=== PATIENT | female | born 1960 | race African-American/Black ===

== ENCOUNTER 2017-11-03 22:33 | Inpatient (IN) | payer MEDICAID ==
[~2017-11-03] VITALS: Ht 162.6 cm; Wt 86.8 kg
[~2017-11-03 22:33] MED LIST: 1-ME1LIQ PO; ASPI81TA82 PO; CARV12.5 PO; CHLO50TA PO; FURO1TAB93 PO; GABA300C3 PO; HYDR50TA15 PO; ISOS60TA PO; LISI-357 PO; PRAV20 PO; QUET100 PO; TICA90 PO; XANA1TAB6 PO
[2017-11-03 22:34] VITALS: BP 208/92; PULSE 99; RESP 28; TEMP 98.9; O2SAT 97
[2017-11-03] MEDS ORDERED: NITROGLYCERIN 0.4 MG SL 25 TABS/BTL SL PRN (22:45)
[2017-11-03] MEDS ORDERED: NITROGLYCERIN-D5W 50 MG/250 ML 250 ML IV PRN (22:45)
[2017-11-03] MEDS ORDERED: SODIUM CHLORIDE 0.9% FLUSH 10 ML FLUSH IVF PRN (22:45)
[2017-11-03] MEDS ORDERED: RESP: ALBUTEROL 2.5 MG/IPRATROPIUM 0.5 MG NEB (SCH) INH ONE (22:45)
--- NOTE | 2017-11-03 22:55 | PD ---
HPI Chief Complaint: Respiratory Symptoms Time Seen by Provider: 22:42 Travel History International Travel<30 days: No Contact w/Intl Traveler<30days: No Traveled to known affect area: No History of Present Illness HPI The patient is a 57 year old female who presents to the [facility] emergency department with a history of chest pain and shortness of breath that began prior to arrival. The patient reports a recent history of being discharged from the hospital after 1 week admission to the hospital at [facility] related to a congestive heart failure exacerbation. The patient reports also having history of coronary artery disease with 6-7 prior stents being placed. She reports that the last stent was placed 4-5 months ago. The patient reports that she is normally on 4 L nasal cannula O2. She also has a history of COPD. The patient reports that she smokes between 6 and 7 cigarettes per day. She reports a prior history of DVT in her upper extremities. She reports that she was on Eliquis which was discontinued during her last hospitalization. She is now on 81 mg of aspirin daily along with Brilinta. She reports that her cough has been productive of a white to yellow sputum. She reports having nausea without vomiting. She reports that she did take 4 nitroglycerin prior to arrival in the ambulance services also administered 1. The patient was noted by ambulance services to be saturating 92 % on her 4 L. She was given Lasix 100 mg IV prior to arrival to you crackles in her bases. She is placed on CPAP. The patient was noted to be hypertensive with a systolic blood pressure in the 200s prior to arrival. On arrival, she reports that her chest pain has resolved. She reports having left upper extremity pain which she reports that she normally gets when she has a congestive heart failure exacerbation. On review of systems otherwise, she denies having any known recent fevers, however she has had chills. She denies having any neck pain, abdominal pain, diarrhea, urinary symptoms, or neurologic symptoms. She reports that she has been moving her bowels regularly. She reports that her lower extremity edema seem to be improving. [facility] Past Medical History Narrative Medical The patient's past medical history is significant for congestive heart failure, COPD, cerebrovascular accident, diabetes mellitus, hypertension, coronary artery disease, anxiety disorder, tobacco abuse, diabetic neuropathy. Congestive Heart Failure: Yes COPD: Yes Cerebrovascular Accident: Yes Diabetes: Yes Patient Takes Glucophage: No Hypertension: Yes Immunizations Current: Yes Myocardial Infarction: Yes Tubal Ligation: Yes Past Surgical History Narrative Surgical The patient's past surgical history is significant for cardiac catheterization with multiple stents being placed, bilateral tubal ligation, cholecystectomy Coronary Stent: Yes (6 stents) Social History Alcohol Use: No Tobacco Use: Yes (EVERYDAY ) Substance Use: No Allergies-Medications (Allergen,Severity, Reaction): Coded Allergies: iodine (Unverified Allergy, Severe, Anaphylaxis, 04/09/17) paroxetine (Unverified Allergy, Severe, Anaphylaxis, 04/09/17) penicillin G (Unverified Allergy, Severe, Anaphylaxis, 04/09/17) potassium iodide (Unverified Allergy, Severe, Anaphylaxis, 04/09/17) povidone-iodine (Unverified Allergy, Severe, Anaphylaxis, 04/09/17) sodium iodide (Unverified Allergy, Severe, Anaphylaxis, 04/09/17) sodium iodide (Unverified Allergy, Severe, Anaphylaxis, 04/09/17) Sulfa (Sulfonamide Antibiotics) (Verified Allergy, Intermediate, 11/03/17) Reported Meds & Prescriptions Reported Meds & Active Scripts Active Reported Lantus Inj (Insulin Glargine) 1,000 Unit/10 Ml Vial 10 Units SQ HS Humalog Mix 50-50 Inj (Insulin Lispro Protamine-Lispro 50-50 Inj) 1,000 Unit/10 Ml Vial 1 Units SQ Fish Oil + D3 (Fish Oil-Cholecalciferol) 1,200-1,000 Mg-Unit Cap 1 Cap PO DAILY Lasix (Furosemide) 40 Mg Tab 40 Mg PO DAILY Coreg (Carvedilol) 3.125 Mg Tab 3.125 Mg PO BID Hydrochlorothiazide 12.5 Mg Cap 12.5 Mg PO DAILY Gabapentin 100 Mg Cap 100 Mg PO TID Seroquel (Quetiapine Fumarate) 50 Mg Tab 50 Mg PO HS Aspir-81 (Aspirin) 81 Mg Tabdr Eliquis (Apixaban) 2.5 Mg Tab 2.5 Mg PO BID Review of Systems Except as stated in HPI: all other systems reviewed are Neg General / Constitutional: No: Fever Eyes: No: Visual changes HENT: Positive: Congestion, No: Headaches, Rhinorrhea Cardiovascular: Positive: Chest Pain or Discomfort, Dyspnea on exertion Respiratory: Positive: Shortness of Breath Gastrointestinal: Positive: Nausea, No: Vomiting, Diarrhea, Abdominal Pain, Changes in Bowel Habits Genitourinary: No: Dysuria Musculoskeletal: No: Pain Skin: No Rash Neurologic: No: Weakness, Focal Abnormalities, Change in Mentation, Slurred Speech, Sensory Disturbance Psychiatric: No: Depression Endocrine: No: Polydipsia Hematologic/Lymphatic: No: Easy Bruising Physical Exam Narrative General: The patient is a well-developed well-nourished female in no acute distress. Head and Neck exam: Head is normocephalic atraumatic. Eyes: EOMI, pupils are equal round and reactive to light. Nose: Midline septum with pink mucous membranes Mouth: Dentition unremarkable. Moist mucus membranes. Posterior oropharynx is not erythematous. No tonsillar hypertrophy. Uvula midline. Airway patent. Neck: No palpable lymphadenopathy. No nuchal rigidity. No thyromegaly. Cardiovascular: Regular rate and rhythm without murmurs, gallops, or rubs. Lungs: The patient had decreased breath sounds in bilateral lung bases, no rhonchi, no crackles audible. The patient has soft anterior wheezes audible. Abdomen: Soft, without tenderness to palpation in all 4 quadrants of the abdomen. No guarding, rebound, or rigidity. Normal bowel sounds are audible. No tenderness on palpation of McBurney's point. Negative Goodman sign. Extremities: No clubbing or cyanosis. The patient has 1+ edema bilateral lower extremities. No calf tenderness on palpation. 2+ pulses in all 4 extremities. Back: No costovertebral angle tenderness to palpation. Neurologic Exam: Grossly nonfocal. Skin Exam: No rash noted. Intact skin that is warm and dry. Data Data Last Documented VS Vital Signs Date Time Temp Pulse Resp B/P (MAP) Pulse Ox O2 Delivery O2 Flow Rate FiO2 11/03/17 22:41 97 28 97 Nasal Cannula 4.00 11/03/17 22:34 98.9 208/92 (130) Orders Orders Complete Blood Count With Diff (11/03/17 22:43) Comprehensive Metabolic Panel (11/03/17 22:43) B-Type Natriuretic Peptide (11/03/17 22:43) Act Partial Throm Time (Ptt) (11/03/17 22:43) Prothrombin Time / Inr (Pt) (11/03/17 22:43) Magnesium (Mg) (11/03/17 22:43) Ckmb (Isoenzyme) Profile (11/03/17 22:43) Troponin I (11/03/17 22:43) Urinalysis - C+S If Indicated (11/03/17:43) Iv Access Insert/Monitor (11/03/17:43) Electrocardiogram (11/03/17:43) Ecg Monitoring (11/03/17:43) Oximetry (11/03/17:43) Oxygen Administration (11/03/17:43) Chest, Single Ap (11/03/17:43) Urinary Catheter Insert/Apply (11/03/17:43) Sodium Chloride 0.9% Flush (Ns Flush) (11/03/17 22:45) Albuterol-Ipratropium Neb (Duoneb Neb) (11/03/17 22:45) Nitroglycerin Sl (Nitrostat Sl) (11/03/17 22:45) Nitroglycerin-D5w 50 Mg/250 Ml (Nitrogly (11/04/17 00:15) Lactic Acid Sepsis Protocol (11/04/17 00:32) Blood Culture (11/04/17 00:32) Aztreonam Inj (Azactam Inj) (11/04/17 00:32) Levofloxacin 750 Mg Premix Inj (Levaquin (11/04/17 00:32) Admit Order (Ed Use Only) (11/04/17 00:49) Labs Laboratory Tests Test 11/03/17 22:50 11/03/17 23:10 11/04/17 00:45 White Blood Count 17.6 TH/MM3 Red Blood Count 4.02 MIL/MM3 Hemoglobin 9.5 GM/DL Hematocrit 29.5 % Mean Corpuscular Volume 73.5 FL Mean Corpuscular Hemoglobin 23.6 PG Mean Corpuscular Hemoglobin Concent 32.2 % Red Cell Distribution Width 19.6 % Platelet Count 270 TH/MM3 Mean Platelet Volume 8.5 FL Neutrophils (%) (Auto) 68.8 % Lymphocytes (%) (Auto) 15.5 % Monocytes (%) (Auto) 11.2 % Eosinophils (%) (Auto) 3.5 % Basophils (%) (Auto) 1.0 % Neutrophils # (Auto) 12.1 TH/MM3 Lymphocytes # (Auto) 2.7 TH/MM3 Monocytes # (Auto) 2.0 TH/MM3 Eosinophils # (Auto) 0.6 TH/MM3 Basophils # (Auto) 0.2 TH/MM3 CBC Comment DIFF FINAL Differential Comment Prothrombin Time 12.0 SEC Prothromb Time International Ratio 1.2 RATIO Activated Partial Thromboplast Time 26.2 SEC Blood Urea Nitrogen 26 MG/DL Creatinine 1.65 MG/DL Random Glucose 251 MG/DL Total Protein 8.0 GM/DL Albumin 3.2 GM/DL Calcium Level 9.7 MG/DL Magnesium Level 1.2 MG/DL Alkaline Phosphatase 88 U/L Aspartate Amino Transf (AST/SGOT) 11 U/L Alanine Aminotransferase (ALT/SGPT) 14 U/L Total Bilirubin 0.3 MG/DL Sodium Level 140 MEQ/L Potassium Level 4.1 MEQ/L Chloride Level 100 MEQ/L Carbon Dioxide Level 32.9 MEQ/L Anion Gap 7 MEQ/L Estimat Glomerular Filtration Rate 39 ML/MIN Total Creatine Kinase 72 U/L Troponin I 0.04 NG/ML B-Type Natriuretic Peptide 160 PG/ML Urine Color LIGHT-YELLOW Urine Turbidity CLEAR Urine pH 8.0 Urine Specific [place] 1.007 Urine Protein 300 mg/dL Urine Glucose (UA) NEG mg/dL Urine Ketones NEG mg/dL Urine Occult Blood NEG Urine Nitrite NEG Urine Bilirubin NEG Urine Urobilinogen LESS THAN 2.0 MG/DL Urine Leukocyte Esterase NEG Urine RBC 2 /hpf Urine WBC 2 /hpf Urine Squamous Epithelial Cells 1 /hpf Urine Bacteria RARE /hpf Urine Mucus FEW /lpf Microscopic Urinalysis Comment CULT NOT INDICATED Lactic Acid Level 1.9 mmol/L MDM Medical Decision Making Medical Screen Exam Complete: Yes Emergency Medical Condition: Yes Medical Record Reviewed: Yes Interpretation(s) Last Impressions Chest X-Ray 11/03/17 2243 Signed Impressions: Service Date/Time: Friday, November 03, 2017 23:36 - CONCLUSION: Cardiomegaly with interstitial edema. Wilfredo Herrera Jr., MD Differential Diagnosis Congestive heart failure exacerbation, versus COPD exacerbation, versus pneumonia Narrative Course During the course of the patient's emergency department visit, the patient's history, examination, and differential diagnosis were reviewed with the patient. The patient was placed on a raw hide trimmer with oximetry and frequent blood pressure monitoring. The patient had IV access obtained and blood work sent for analysis. The patient had an EKG done on arrival that shows a sinus rhythm heart rate of 97, left bundle branch block with marked left axis deviation. No other acute ST segment changes. The patient was initially provided nitroglycerin as a drip to control her blood pressure better as well as for chest pain. After the patient was noted to have a leukocytosis and reported having a productive cough, blood cultures 2 were ordered and the patient was started on Azactam and Levaquin given her allergy history. The patient's studies were reviewed and remarkable for A white count of 17.6, hemoglobin 9.5, platelets 270 with 11.2 monocytes. CMP is remarkable for CO2 of 32.9, BUN 26, creatinine 1.65, glucose 251, magnesium 1.2, AST 11, cardiac enzymes within normal limits, BNP 160. PT 12, INR 1.2, PTT 26.2. Urinalysis shows 300 protein otherwise unremarkable. Chest x-ray shows cardiomegaly with interstitial edema. The patient's results were discussed with the patient, including the plan of care. I explained that further testing and/ or monitoring is indicated based on the patient's history, examination, and/ or laboratory findings. Therefore, I recommended admission for additional evaluation. The patient expressed understanding and was agreeable with this plan. The patient was admitted to the hospital in stable condition and sent to a bed under the care of the [facility] service. Sepsis Criteria SIRS Criteria (2 or more): Heart rate over 90, RR > 20 or PaCO2 < 32, WBC > 00536, < 4000 or > 10% bands Physician Communication Physician Communication The patient's case including history, pertinent physical examination findings, and laboratory studies were discussed with Dr. Jameson. It was agreed that the patient would be admitted to the [facility] service. Diagnosis Primary Impression: CHF (congestive heart failure) Qualified Codes: I50.9 - Heart failure, unspecified Additional Impressions: Leukocytosis Qualified Codes: D72.829 - Elevated white blood cell count, unspecified SIRS (systemic inflammatory response syndrome) Admitting Information Admitting Physician Requests: Admit Yvonne Valiente MD Nov 03, 2017 22:54
[2017-11-03 23:09] LABS: AUTOMATED NEUTROPHIL # 12.1 TH/MM3 (1.8-7.7); BASOPHIL # 0.2 TH/MM3 (0-0.2); EOSINOPHIL # 0.6 TH/MM3 (0-0.4); EOSINOPHIL % 3.5 % (0.0-4.0); HEMATOCRIT 29.5 % (35.0-46.0); HEMOGLOBIN 9.5 GM/DL (11.6-15.3); LYMPH % 15.5 % (9.0-44.0); LYMPHOCYTE # 2.7 TH/MM3 (1.0-4.8); MEAN CELL VOLUME 73.5 FL (80.0-100.0); MEAN CORPUSCULAR HEMOGLOBIN 23.6 PG (27.0-34.0); MEAN CORPUSCULAR HGB CONC 32.2 % (32.0-36.0); MEAN PLATELET VOLUME 8.5 FL (7.0-11.0); MONO % 11.2 % (0.0-8.0); NEUT % 68.8 % (16.0-70.0); PLATELET COUNT 270 TH/MM3 (150-450); RED BLOOD COUNT 4.02 MIL/MM3 (4.00-5.30); RED CELL DISTRIBUTION WIDTH 19.6 % (11.6-17.2); WHITE BLOOD COUNT 17.6 TH/MM3 (4.0-11.0)
[2017-11-03 23:20] LABS: ALBUMIN 3.2 GM/DL (3.4-5.0); AST (GOT) 11 U/L (15-37); BICARBONATE 32.9 MEQ/L (21.0-32.0); BLOOD UREA NITROGEN 26 MG/DL (7-18); CALCIUM 9.7 MG/DL (8.5-10.1); CHLORIDE 100 MEQ/L (98-107); CREATININE 1.65 MG/DL (0.50-1.00); GLOMERULAR FILTRATION RATE 39 ML/MIN (>89); GLUCOSE,RANDOM 251 MG/DL (74-106); MAGNESIUM 1.2 MG/DL (1.5-2.5); SODIUM (NA) 140 MEQ/L (136-145)
[2017-11-03 23:21] LABS: ALT (GPT) 14 U/L (10-53); INTERNATIONAL NORMALIZED RATIO 1.2 RATIO
[2017-11-03 23:22] LABS: BACTERIA, URINE RARE /hpf; BILIRUBIN, URINE NEG (NEG); BLOOD, URINE NEG (NEG); GLUCOSE,URINE NEG (NEG); KETONE, URINE NEG (NEG); MUCUS URINE FEW /lpf (OCC); NITRITE,URINE NEG (NEG); SQUAMOUS EPITHELIAL CELL URINE 1 /hpf (0-5); URINE COLOR LIGHT-YELLOW (YELLW/STRAW); URINE LEUKOCYTE ESTERASE NEG (NEG)
[2017-11-03 23:25] LABS: ALKALINE PHOSPHATASE 88 U/L (45-117); TOTAL BILIRUBIN ADULT 0.3 MG/DL (0.2-1.0); TROPONIN I 0.04 NG/ML (0.02-0.05)
--- NOTE | 2017-11-03 23:53 | RADRPT ---
EXAM DATE/TIME: 11/03/2017 23:36 [place] COMPARISON: CHEST SINGLE AP, April 20, 2016, 1:55. INDICATIONS : Short of breath. MEDICAL HISTORY : Hypertension. Chronic obstructive pulmonary disease. Congestive heart failure, diabetes. SURGICAL HISTORY : Coronary artery stent. ENCOUNTER: Initial ACUITY: 1 day PAIN SCORE: 0/10 LOCATION: Bilateral chest FINDINGS: History no portable frontal view the chest shows moderate cardiomegaly. Bilateral interstitial opacit ies. No effusions. Ulnar vasculature is poorly evaluated. Bony structures are unremarkable. CONCLUSION: Cardiomegaly with interstitial edema. Wilfredo Herrera Jr., MD on November 03, 2017 at 23:50 Board Certified Radiologist. This report was verified electronically.
[2017-11-04] VITALS (11 sets, daily range): BP systolic 113–205; BP diastolic 59–92; PULSE 73–99; RESP 16–22; TEMP 97.8–98.1; O2SAT 95–100
[2017-11-04] MEDS ORDERED: FURO1TAB60 PO (00:09)
[2017-11-04] MEDS ORDERED: LANTUS2P SQ (00:09)
[2017-11-04] MEDS ORDERED: GABA100C4 PO ×2 (00:09→10:11)
[2017-11-04] MEDS ORDERED: HUMA50IN SQ (00:09)
[2017-11-04] MEDS ORDERED: SERO50TA PO (00:09)
[2017-11-04] MEDS ORDERED: FISHCAP4 PO (00:09)
[2017-11-04] MEDS ORDERED: HYDR12.57 PO (00:09)
[2017-11-04] MEDS ORDERED: CARV3.125 PO (00:09)
[2017-11-04] MEDS ORDERED: ASPI81TA81 (00:09)
[2017-11-04] MEDS ORDERED: APIX2.5T PO (00:09)
[2017-11-04] MEDS ORDERED: NITROGLYCERIN-DEXTROSE 5% 250 ML for hypertension IV PRN (00:15)
[2017-11-04] MEDS ORDERED: AZTREONAM INJ 2,000 MG in SODIUM CHLORIDE 0.9% INJ 100 ML IV STA (00:32)
[2017-11-04] MEDS ORDERED: LEVOFLOXACIN 750 MG PREMIX INJ 150 ML IV STA (00:32)
[2017-11-04] MEDS ORDERED: MORPHINE SULFATE 2 MG/ML INJ IV PUSH PRN (01:00)
[2017-11-04] MEDS ORDERED: SODIUM CHLORIDE 0.9% FLUSH 10 ML FLUSH IV FLUSH PRN (01:00)
[2017-11-04] MEDS ORDERED: GLUCAGON 1 MG/ML VIAL OTHER PRN (01:00)
[2017-11-04] MEDS ORDERED: DEXTROSE 50% IN WATER 50 ML VIAL(D50) IV PUSH PRN (01:00)
[2017-11-04] MEDS ORDERED: SENNOSIDES 8.6 MG TAB PO PRN (01:00)
[2017-11-04] MEDS ORDERED: ONDANSETRON HCL 4 MG/2 ML VIAL IVP PRN (01:00)
[2017-11-04] MEDS ORDERED: ACETAMINOPHEN 325 MG TAB PO PRN (01:00)
[2017-11-04] MEDS ORDERED: BISACODYL 10 MG SUPP RECTAL PRN (01:00)
[2017-11-04] MEDS ORDERED: RESP: ALBUTEROL 2.5 MG/IPRATROPIUM 0.5 MG NEB (PRN) NEB (01:00)
[2017-11-04] MEDS ORDERED: MAGNESIUM HYDROXIDE SUSP 30 ML CUP PO PRN (01:00)
[2017-11-04] MEDS ORDERED: LACTULOSE SYRUP 20 GM/30 ML CUP PO PRN (01:00)
[2017-11-04] MEDS ORDERED: PROPRANOLOL HCL 10 MG TAB PO ONE (01:45)
--- NOTE | 2017-11-04 02:45 | HHI.HP ---
[facility] Admission Diagnosis CHF exacerbation, leukocytosis, SIRS criteria Diagnoses: (1) SIRS (systemic inflammatory response syndrome) Diagnosis: Principal (2) CHF (congestive heart failure) Diagnosis: Principal (3) Renal insufficiency Diagnosis: Principal (4) Leukocytosis Diagnosis: Principal (5) HTN (hypertension) Diagnosis: Principal (6) Tobacco abuse Diagnosis: Principal Travel History International Travel<30 Days: No Contact w/Intl Traveler <30 Da: No Traveled to Known Affected Are: No History of Present Illness This is a 57-year-old female with a PMH of HTN, COPD, CHF (Unknown EF), CVA and DM who was brought to the ER by EMS secondary to SOB and chest pain starting earlier tonight. States she was recently admitted to [facility] and asked EMS to take her back there, but she was brought here instead. Pt poor historian, difficult to obtain history, mostly complaining of nausea and generalized pain. Per records, previous admit 04/20/16 for encephalopathy, however pt LEFT AMA shortly afterwards. Pending records from , unable to tell me details as to why she was admitted. S/p 100mg Lasix IV by EMS and placed on CPAP. Denies recent fever or chills, but does have productive cough. On arrival, BP 208/92, HR 99, O2 sat 97% on 4L NC, Afebrile. WBC 17.6. Creatinine 1.65, previously 2.49 on 04/20/16. An 0.04. BNP 160. INR 1.2. UA negative. CXR with cardiomegaly and interstitial edema. Review of Systems Except as stated in HPI: all other systems reviewed are Neg ROS: 14 point review of systems otherwise negative. Past Family Social History Past Medical History PMH: HTN, COPD, CHF (Unknown EF), CVA and DM Past Surgical History PAST SURGICAL HISTORY: Cardiac Stent, Bilateral Tubal Ligation Allergies: Coded Allergies: iodine (Unverified Allergy, Severe, Anaphylaxis, 04/09/17) paroxetine (Unverified Allergy, Severe, Anaphylaxis, 04/09/17) penicillin G (Unverified Allergy, Severe, Anaphylaxis, 04/09/17) potassium iodide (Unverified Allergy, Severe, Anaphylaxis, 04/09/17) povidone-iodine (Unverified Allergy, Severe, Anaphylaxis, 04/09/17) sodium iodide (Unverified Allergy, Severe, Anaphylaxis, 04/09/17) sodium iodide (Unverified Allergy, Severe, Anaphylaxis, 04/09/17) Sulfa (Sulfonamide Antibiotics) (Verified Allergy, Intermediate, 11/03/17) Family History PAST FAMILY HISTORY: Reviewed. No h/o DM or CAD Social History PAST SOCIAL HISTORY: Positive for tobacco. Negative for alcohol or drugs. Physical Exam Vital Signs Vital Signs Date Time Temp Pulse Resp B/P (MAP) Pulse Ox O2 Delivery O2 Flow Rate FiO2 11/04/17 02:29 96 Nasal Cannula 3.00 11/04/17 01:13 99 16 178/90 (119) 96 Nasal Cannula 3.00 11/03/17 22:41 97 28 97 Nasal Cannula 4.00 11/03/17 22:34 98.9 99 28 208/92 (130) 97 Physical Exam PE: GENERAL: Middle-aged black female in no acute distress, very difficult to understand. at bedside. HEENT: PERRLA, EOMI. No scleral icterus or conjunctival pallor. No lid lag or facial droop. CARDIOVASCULAR: Regular rate and rhythm. No obvious murmurs to auscultation. No chest tenderness to palpation. RESPIRATORY: No obvious rhonchi or wheezing. Clear to auscultation. Breath sounds equal bilaterally. GASTROINTESTINAL: Abdomen soft, non-tender, nondistended. BS normal. MUSCULOSKELETAL: Extremities without clubbing, cyanosis, or edema. No obvious deformities. NEUROLOGICAL: Awake, alert and oriented x4. No focal neurologic deficits. Moving both upper and lower extremities spontaneously. Laboratory Laboratory Tests Test 11/03/17 22:50 11/03/17 23:10 11/04/17 00:45 White Blood Count 17.6 Red Blood Count 4.02 Hemoglobin 9.5 Hematocrit 29.5 Mean Corpuscular Volume 73.5 Mean Corpuscular Hemoglobin 23.6 Mean Corpuscular Hemoglobin Concent 32.2 Red Cell Distribution Width 19.6 Platelet Count 270 Mean Platelet Volume 8.5 Neutrophils (%) (Auto) 68.8 Lymphocytes (%) (Auto) 15.5 Monocytes (%) (Auto) 11.2 Eosinophils (%) (Auto) 3.5 Basophils (%) (Auto) 1.0 Neutrophils # (Auto) 12.1 Lymphocytes # (Auto) 2.7 Monocytes # (Auto) 2.0 Eosinophils # (Auto) 0.6 Basophils # (Auto) 0.2 CBC Comment DIFF FINAL Differential Comment Prothrombin Time 12.0 Prothromb Time International Ratio 1.2 Activated Partial Thromboplast Time 26.2 Blood Urea Nitrogen 26 Creatinine 1.65 Random Glucose 251 Total Protein 8.0 Albumin 3.2 Calcium Level 9.7 Magnesium Level 1.2 Alkaline Phosphatase 88 Aspartate Amino Transf (AST/SGOT) 11 Alanine Aminotransferase (ALT/SGPT) 14 Total Bilirubin 0.3 Sodium Level 140 Potassium Level 4.1 Chloride Level 100 Carbon Dioxide Level 32.9 Anion Gap 7 Estimat Glomerular Filtration Rate 39 Total Creatine Kinase 72 Troponin I 0.04 B-Type Natriuretic Peptide 160 Urine Color LIGHT-YELLOW Urine Turbidity CLEAR Urine pH 8.0 Urine Specific [place] 1.007 Urine Protein 300 Urine Glucose (UA) NEG Urine Ketones NEG Urine Occult Blood NEG Urine Nitrite NEG Urine Bilirubin NEG Urine Urobilinogen LESS THAN 2.0 Urine Leukocyte Esterase NEG Urine RBC 2 Urine WBC 2 Urine Squamous Epithelial Cells 1 Urine Bacteria RARE Urine Mucus FEW Microscopic Urinalysis Comment CULT NOT INDICATED Lactic Acid Level 1.9 Date/Time Source Procedure Growth Status 11/04/17 00:43 Blood Peripheral Aerobic Blood Culture Pending Received 11/04/17 00:43 Blood Peripheral Anaerobic Blood Culture Pending Received Result Diagram: 11/03/17224911/03/172249 Caprini VTE Risk Assessment Caprini VTE Risk Assessment: No/Low Risk (score <= 1) Caprini Risk Assessment Model Point Value = 1 Point Value = 2 Point Value = 3 Point Value = 5 Age 41-60 Minor surgery BMI > 25 kg/m2 Swollen legs Varicose veins or History of unexplained or recurrent spontaneous Oral contraceptives or hormone replacement Sepsis (< 1 month) Serious lung disease, including pneumonia (< 1 month) Abnormal pulmonary function Acute myocardial infarction Congestive heart failure (< 1 month) History of inflammatory bowel disease Medical patient at bed rest Age 61-74 Arthroscopic surgery Major open surgery (> 45 min) Laparoscopic surgery (> 45 min) Malignancy Confined to bed (> 72 hours) Immobilizing plaster cast Central venous access Age >= 75 History of VTE Family history of VTE Factor V Leiden Prothrombin [id number] Lupus anticoagulant Anticardiolipin antibodies Elevated serum homocysteine Heparin-induced thrombocytopenia Other congenital or acquired thrombophilia Stroke (< 1 month) Elective arthroplasty Hip, pelvis, or leg fracture Acute spinal cord injury (< 1 month) Prophylaxis Regimen Total Risk Factor Score Risk Level Prophylaxis Regimen 0-1 Low Early ambulation 2 Moderate Order ONE of the following: *Sequential Compression Device (SCD) *Heparin 5000 units SQ BID 3-4 Higher Order ONE of the following medications: *Heparin 5000 units SQ TID *Enoxaparin/Lovenox 40 mg SQ daily (WT < 150 kg, CrCl > 30 mL/min) *Enoxaparin/Lovenox 30 mg SQ daily (WT < 150 kg, CrCl > 10-29 mL/min) *Enoxaparin/Lovenox 30 mg SQ BID (WT < 150 kg, CrCl > 30 mL/min) AND/OR *Sequential Compression Device (SCD) 5 or more Highest Order ONE of the following medications: *Heparin 5000 units SQ TID (Preferred with Epidurals) *Enoxaparin/Lovenox 40 mg SQ daily (WT < 150 kg, CrCl > 30 mL/min) *Enoxaparin/Lovenox 30 mg SQ daily (WT < 150 kg, CrCl > 10-29 mL/min) *Enoxaparin/Lovenox 30 mg SQ BID (WT < 150 kg, CrCl > 30 mL/min) AND *Sequential Compression Device (SCD) Assessment and Plan Problem List: (1) SIRS (systemic inflammatory response syndrome) ICD Code: R65.10 - Systemic inflammatory response syndrome (SIRS) of non- infectious origin without acute organ dysfunction (2) CHF (congestive heart failure) ICD Code: I50.9 - Heart failure, unspecified (3) Leukocytosis ICD Code: D72.829 - Elevated white blood cell count, unspecified (4) Renal insufficiency ICD Code: N28.9 - Disorder of kidney and ureter, unspecified (5) HTN (hypertension) ICD Code: I10 - Essential (primary) hypertension (6) Tobacco abuse ICD Code: Z72.0 - Tobacco use Assessment and Plan A/P: 1. SIRS: HR 99, RR 28, WBC 17, Source-unclear, reports productive cough, CXR w / no acute infiltrate noted, images reviewed by me. Caution w/ IVF in light of CHF, Start empiric antibiotics for underlying PNA. Follow up cultures. 2. CHF: Acute on Chronic. EF Unknown, obtain records from . S/p Lasix 100mg IV by EMS, Monitor I/O. CXR w/ interstitial edema, images reviewed by me. Resume home medications. 3. Leukocytosis: WBC 17, source unclear, UA with no UTI, CXR negative for PNA , however in light of symptoms will start empiric treatment for PNA. 4. Renal Insufficiency: Granny 1.65, previously 2.49 on 04/20/16. Monitor I/ O. Caution with IVF. Repeat labs in a.m. 5. HTN: Uncontrolled. BP 208/92, HR 99 on arrival, resume home medications, monitor BP. 6. Tobacco Abuse: Patient counseled. Ativan prn. No NicoDerm to avoid vasoconstriction. 7. DVT Prophylaxis: Heparin sq 8. Social work for DC planning as needed. 9. Case discussed at length with ER physician, lab/records/imaging reviewed by me. Physician Certification 2 Midnight Certification Type: Admission for Inpatient Services Order for Inpatient Services The services are ordered in accordance with Medicare regulations or non- Medicare payer requirements, as applicable. In the case of services not specified as inpatient-only, they are appropriately provided as inpatient services in accordance with the 2-midnight benchmark. Estimated LOS (days): 2 days is the estimated time the patient will need to remain in the hospital, assuming treatment plan goals are met and no additional complications. Post-Hospital Plan: Not yet determined Trudy Jameson MD Nov 04, 2017 02:45
[2017-11-04 05:52] LABS: AUTOMATED NEUTROPHIL # 10.3 TH/MM3 (1.8-7.7); BASOPHIL # 0.1 TH/MM3 (0-0.2); BASOPHIL % 0.7 % (0.0-2.0); EOSINOPHIL # 0.5 TH/MM3 (0-0.4); EOSINOPHIL % 3.3 % (0.0-4.0); HEMATOCRIT 30.4 % (35.0-46.0); HEMOGLOBIN 9.6 GM/DL (11.6-15.3); LYMPH % 15.8 % (9.0-44.0); LYMPHOCYTE # 2.4 TH/MM3 (1.0-4.8); MEAN CELL VOLUME 74.3 FL (80.0-100.0); MEAN CORPUSCULAR HEMOGLOBIN 23.5 PG (27.0-34.0); MEAN CORPUSCULAR HGB CONC 31.7 % (32.0-36.0); MEAN PLATELET VOLUME 8.2 FL (7.0-11.0); MONO % 11.3 % (0.0-8.0); MONOCYTE # 1.7 TH/MM3 (0-0.9); NEUT % 68.9 % (16.0-70.0); PLATELET COUNT 274 TH/MM3 (150-450); RED CELL DISTRIBUTION WIDTH 19.1 % (11.6-17.2); WHITE BLOOD COUNT 14.9 TH/MM3 (4.0-11.0)
[2017-11-04 05:57] LABS: AST (GOT) 14 U/L (15-37); BLOOD UREA NITROGEN 24 MG/DL (7-18); CALCIUM 9.1 MG/DL (8.5-10.1); CHLORIDE 100 MEQ/L (98-107); CREATININE 1.59 MG/DL (0.50-1.00); GLOMERULAR FILTRATION RATE 40 ML/MIN (>89); GLUCOSE,RANDOM 201 MG/DL (74-106); SODIUM (NA) 139 MEQ/L (136-145)
[2017-11-04 06:06] LABS: ALKALINE PHOSPHATASE 83 U/L (45-117); ALT (GPT) 10 U/L (10-53); TOTAL BILIRUBIN ADULT 0.3 MG/DL (0.2-1.0); TOTAL PROTEIN 7.6 GM/DL (6.4-8.2); TROPONIN I 0.11 NG/ML (0.02-0.05)
[2017-11-04] MEDS: INSULIN ASPART SUPPLEMENTAL SCALE SQ SCH ×3 (08:45→21:42)
[2017-11-04] MEDS ORDERED: APIXABAN 2.5 MG TABLET PO SCH (09:00)
[2017-11-04] MEDS ORDERED: GABAPENTIN 100 MG CAP PO SCH (09:00)
[2017-11-04] MEDS ORDERED: CARVEDILOL 3.125 MG TAB PO SCH (09:00)
[2017-11-04] MEDS: DOCUSATE SODIUM 50 MG/SENNA 8.6 MG TAB PO SCH ×2 (09:20→21:43)
[2017-11-04] MEDS: FUROSEMIDE 40 MG/4 ML VIAL IV PUSH SCH ×2 (09:21→18:58)
[2017-11-04] MEDS: SODIUM CHLORIDE 0.9% FLUSH 10 ML FLUSH IV FLUSH SCH ×2 (09:23→21:42)
[2017-11-04] MEDS ORDERED: HYDR-3799 PO (10:11)
[2017-11-04] MEDS ORDERED: SERO25TA PO (10:11)
[2017-11-04] MEDS ORDERED: ISOS60TA PO (10:11)
[2017-11-04] MEDS ORDERED: BRIL90TA PO (10:11)
[2017-11-04] MEDS ORDERED: CARV25TA PO (10:11)
[2017-11-04] MEDS ORDERED: PRAV20TA2 PO (10:11)
[2017-11-04] MEDS ORDERED: XANA1TAB2 PO (10:11)
[2017-11-04] MEDS: ACETAMINOPHEN/HYDROcodone 325 MG/5 MG TAB PO PRN ×3 (10:25→23:00)
--- NOTE | 2017-11-04 10:28 | HHI.PR ---
Subjective Remarks Follow-up CHF, Sirs. The patient continues to report shortness of breath, cough. States that she feels weak. No chest pain currently. Objective Vitals Vital Signs Date Time Temp Pulse Resp B/P (MAP) Pulse Ox O2 Delivery O2 Flow Rate FiO2 11/04/17 08:30 89 22 198/92 (127) 96 Nasal Cannula 3.00 11/04/17 06:57 85 22 179/87 (117) 97 Nasal Cannula 2.00 11/04/17 02:29 96 Nasal Cannula 3.00 11/04/17 01:13 99 16 178/90 (119) 96 Nasal Cannula 3.00 11/03/17 22:41 97 28 97 Nasal Cannula 4.00 11/03/17 22:34 98.9 99 28 208/92 (130) 97 Result Diagram: 11/04/17 0511 11/04/17 0511 Imaging Last Impressions Chest X-Ray 11/03/17 2243 Signed Impressions: Service Date/Time: Friday, November 03, 2017 23:36 - CONCLUSION: Cardiomegaly with interstitial edema. Wilfredo Herrera Jr., MD Objective Remarks General: No acute distress. Heart: Regular rate and rhythm. No murmur. Lungs: Clear to auscultation bilaterally. No wheezes, rales, or rhonchi. Breathing is nonlabored. Abdomen: Soft, nontender, nondistended. Extremities: No lower extremity edema. Psych: Alert and oriented. Procedures None Urinary Catheter: No Vascular Central Line Catheter: No A/P Problem List: (1) SIRS (systemic inflammatory response syndrome) ICD Code: R65.10 - Systemic inflammatory response syndrome (SIRS) of non- infectious origin without acute organ dysfunction (2) CHF (congestive heart failure) ICD Code: I50.9 - Heart failure, unspecified (3) Leukocytosis ICD Code: D72.829 - Elevated white blood cell count, unspecified (4) Renal insufficiency ICD Code: N28.9 - Disorder of kidney and ureter, unspecified (5) HTN (hypertension) ICD Code: I10 - Essential (primary) hypertension (6) Tobacco abuse ICD Code: Z72.0 - Tobacco use Assessment and Plan 1. SIRS: Patient presented with tachycardia, tachypnea, leukocytosis. Source is uncertain. Patient reports productive cough. Continue empiric antibiotics for possible underlying pneumonia. 2. Acute on chronic congestive heart failure: Ejection fraction unknown. Attempting to obtain records from [facility]. Continue Lasix. Monitor strict intake/output. 3. Leukocytosis: Possibly secondary to infection. Monitor labs. 4. Hypertension: Poorly controlled. Continue hydralazine, carvedilol, HCTZ. 5. Tobacco abuse: Counseled. 6. Coronary artery disease: Continue Brilinta, statin, Coreg, aspirin, Imdur. 7. Diabetes mellitus: Continue Levemir. Monitor Accu-Cheks and cover with sliding scale insulin. 8. DVT prophylaxis: Heparin. Camilo Moeller MD Nov 04, 2017 10:28
[2017-11-04] MEDS: HYDROCHLOROTHIAZIDE 12.5 MG CAP PO SCH (11:27)
[2017-11-04] MEDS: ISOSORBIDE MONONITRATE 60 MG CR TAB (IMDUR) PO SCH (11:27)
[2017-11-04] MEDS: TICAGRELOR 90 MG TAB PO SCH ×2 (11:27→21:43)
[2017-11-04] MEDS: MAGNESIUM SULFATE 1 GM PREMIX 100 ML IV SCH ×2 (11:28→12:42)
[2017-11-04] MEDS: PRAVASTATIN SOD 20 MG TAB PO SCH (11:28)
--- NOTE | 2017-11-04 11:35 | PD.CONS ---
HPI Service cardiology Consult Requested By Reason for Consult chest pain, sob Primary Care Physician Unknown History of Present Illness This is a 57 yo F with reported history of CAD, prior cardiac stenting x 7 ( most recent PCI 4 months ago; who is followed by cardio in [place]), recent L arm DVT, diabetes, CHF,CKD and tobacco use who presents with chest pain and SOB. She states she was discharged from [facility] last week and "they don't know what's wrong with me", she is a poor historian and appear very anxious; unsure why she was hospitalized but will obtain records. She resides in [place] but visiting with family in [facility]. She describes sob and pain to her legs, chest, back and neck. She is taking Brilinta and asa; recently stopped Eliquis on last week's hospital stay. Troponins show intermediate increase, 0.04 to 0.11. CXR reveals cardiomegaly and interstitial edema. EKG and BNP are unremarkable. Review of Systems Consitutional: DENIES: Fatigue, Fever, Chills, Weight gain, Weight loss Respiratory: DENIES: Cough, Snoring, Wheezing, Sputum production Cardiovascular: DENIES: Palpitations, Syncope, Tachycardia Gastrointestinal: DENIES: Nausea, Vomiting, Change in bowel habits, Reflux, Bloody stools, Melena Past Family Social History Allergies: Coded Allergies: iodine (Unverified Allergy, Severe, Anaphylaxis, 04/09/17) paroxetine (Unverified Allergy, Severe, Anaphylaxis, 04/09/17) penicillin G (Unverified Allergy, Severe, Anaphylaxis, 04/09/17) potassium iodide (Unverified Allergy, Severe, Anaphylaxis, 04/09/17) povidone-iodine (Unverified Allergy, Severe, Anaphylaxis, 04/09/17) sodium iodide (Unverified Allergy, Severe, Anaphylaxis, 04/09/17) sodium iodide (Unverified Allergy, Severe, Anaphylaxis, 04/09/17) Sulfa (Sulfonamide Antibiotics) (Verified Allergy, Intermediate, 11/03/17) Past Medical History PMH: HTN, COPD, CHF (Unknown EF), CVA and DM Past Surgical History Cardiac Stent, Bilateral Tubal Ligation Reported Medications Reported Meds & Active Scripts Active Reported Xanax (Alprazolam) 1 Mg Tab 1 Mg PO Q8H PRN Isosorbide Mononitrate ER (Isosorbide Mononitrate) 60 Mg Tab 60 Mg PO DAILY Pravastatin 20 Mg Tab 20 Mg PO DAILY Seroquel (Quetiapine Fumarate) 25 Mg Tab 25 Mg PO BID Gabapentin 100 Mg Cap 200 Mg PO TID Hydralazine HCl 25 Mg Tablet 50 Mg PO TID Brilinta (Ticagrelor) 90 Mg Tab 90 Mg PO BID Carvedilol 25 Mg Tab 25 Mg PO BID Lantus Inj (Insulin Glargine) 1,000 Unit/10 Ml Vial 10 Units SQ HS Humalog Mix 50-50 Inj (Insulin Lispro Protamine-Lispro 50-50 Inj) 1,000 Unit/10 Ml Vial 1 Units SQ Fish Oil + D3 (Fish Oil-Cholecalciferol) 1,200-1,000 Mg-Unit Cap 1 Cap PO DAILY Lasix (Furosemide) 40 Mg Tab 40 Mg PO DAILY Hydrochlorothiazide 12.5 Mg Cap 12.5 Mg PO DAILY Aspir-81 (Aspirin) 81 Mg Tabdr Active Ordered Medications Current Medications Medications (Trade) Dose Ordered Sig/Isrrael Route Start Time Stop Time Status Last Admin (NS Flush) 2 ml UNSCH PRN IVF 11/03/17 22:45 (Nitrostat Sl) 0.4 mg Q5M PRN SL 11/03/17 22:45 Levofloxacin/ Dextrose 150 ml @ 100 mls/hr Q24H IV 11/04/17 23:00 (Lasix Inj) 40 mg BID@,18 IV PUSH 11/04/17 09:00 11/04/17 09:21 (Duoneb Neb) 1 ampule Q2HR NEB PRN NEB 11/04/17 01:00 (D50w (Vial) Inj) 50 ml UNSCH PRN IV PUSH 11/04/17 01:00 (Glucagon Inj) 1 mg UNSCH PRN OTHER 11/04/17 01:00 (NovoLOG SUPPLEMENTAL SCALE) 1 ACHS SLIDING SCALE SQ 11/04/17 08:00 11/04/17 08:45 (NS Flush) 2 ml UNSCH PRN IV FLUSH 11/04/17 01:00 (NS Flush) 2 ml BID IV FLUSH 11/04/17 09:00 11/04/17 09:23 (Zofran Inj) 4 mg Q6H PRN IVP 11/04/17 01:00 (Tylenol) 650 mg Q6H PRN PO 11/04/17 01:00 ([place] 5-325 Mg) 1 tab Q4H PRN PO 11/04/17 01:00 11/04/17 10:25 (Morphine Inj) 2 mg Q3H PRN IV PUSH 11/04/17 01:00 (Shirin-Colace) 1 tab BID PO 11/04/17 09:00 11/04/17 09:20 (Milk Of Magnesia Liq) 30 ml Q12H PRN PO 11/04/17 01:00 (Senokot) 17.2 mg Q12H PRN PO 11/04/17 01:00 (Dulcolax Supp) 10 mg DAILY PRN RECTAL 11/04/17 01:00 (Lactulose Liq) 30 ml DAILY PRN PO 11/04/17 01:00 (Levemir Inj) 10 units HS SQ 11/04/17 21:00 Magnesium Sulfate/ Dextrose 100 ml @ 100 mls/hr Q1H IV 11/04/17 10:00 11/04/17 11:59 (Coreg) 25 mg BID PO 11/04/17 21:00 (Neurontin) 200 mg TID PO 11/04/17 13:00 (Apresoline) 50 mg TID PO 11/04/17 13:00 (Microzide) 12.5 mg DAILY PO 11/04/17 11:00 (Imdur) 60 mg DAILY PO 11/04/17 11:00 (Pravachol) 20 mg DAILY PO 11/04/17 11:30 (SEROquel) 25 mg BID PO 11/04/17 21:00 (Brilinta) 90 mg BID PO 11/04/17 11:30 Family History No h/o DM or CAD Social History Positive for tobacco. Negative for alcohol or drugs. Physical Exam Vital Signs Vital Signs Date Time Temp Pulse Resp B/P (MAP) Pulse Ox O2 Delivery O2 Flow Rate FiO2 11/04/17 10:26 81 22 187/91 (123) 100 Nasal Cannula 3.00 11/04/17 08:30 89 22 198/92 (127) 96 Nasal Cannula 3.00 11/04/17 06:57 85 22 179/87 (117) 97 Nasal Cannula 2.00 11/04/17 02:29 96 Nasal Cannula 3.00 11/04/17 01:13 99 16 178/90 (119) 96 Nasal Cannula 3.00 11/03/17 22:41 97 28 97 Nasal Cannula 4.00 11/03/17 22:34 98.9 99 28 208/92 (130) 97 Physical Exam GENERAL: SKIN: Warm and dry. HEAD: Atraumatic. Normocephalic. EYES: Pupils equal and round. No scleral icterus ENT: No nasal bleeding or discharge. NECK: Trachea midline. No JVD. CARDIOVASCULAR: Regular rate and rhythm. no murmurs RESPIRATORY: No accessory muscle use. Clear to auscultation. Breath sounds equal bilaterally. GASTROINTESTINAL: Abdomen soft, non-tender, nondistended. Hepatic and splenic margins not palpable. MUSCULOSKELETAL: Extremities without clubbing, cyanosis, or edema. No obvious deformities. NEUROLOGICAL: Awake and alert. No obvious cranial nerve deficits. Normal speech. PSYCHIATRIC: Appropriate mood and affect; insight and judgment normal. anxious Laboratory Laboratory Tests Test 11/03/17 22:50 11/03/17 23:10 11/04/17 00:45 11/04/17 05:11 White Blood Count 17.6 14.9 Red Blood Count 4.02 4.10 Hemoglobin 9.5 9.6 Hematocrit 29.5 30.4 Mean Corpuscular Volume 73.5 74.3 Mean Corpuscular Hemoglobin 23.6 23.5 Mean Corpuscular Hemoglobin Concent 32.2 31.7 Red Cell Distribution Width 19.6 19.1 Platelet Count 270 274 Mean Platelet Volume 8.5 8.2 Neutrophils (%) (Auto) 68.8 68.9 Lymphocytes (%) (Auto) 15.5 15.8 Monocytes (%) (Auto) 11.2 11.3 Eosinophils (%) (Auto) 3.5 3.3 Basophils (%) (Auto) 1.0 0.7 Neutrophils # (Auto) 12.1 10.3 Lymphocytes # (Auto) 2.7 2.4 Monocytes # (Auto) 2.0 1.7 Eosinophils # (Auto) 0.6 0.5 Basophils # (Auto) 0.2 0.1 CBC Comment DIFF FINAL DIFF FINAL Differential Comment Prothrombin Time 12.0 Prothromb Time International Ratio 1.2 Activated Partial Thromboplast Time 26.2 Blood Urea Nitrogen 26 24 Creatinine 1.65 1.59 Random Glucose 251 201 Total Protein 8.0 7.6 Albumin 3.2 3.0 Calcium Level 9.7 9.1 Magnesium Level 1.2 Alkaline Phosphatase 88 83 Aspartate Amino Transf (AST/SGOT) 11 14 Alanine Aminotransferase (ALT/SGPT) 14 10 Total Bilirubin 0.3 0.3 Sodium Level 140 139 Potassium Level 4.1 4.3 Chloride Level 100 100 Carbon Dioxide Level 32.9 34.0 Anion Gap 7 5 Estimat Glomerular Filtration Rate 39 40 Total Creatine Kinase 72 Troponin I 0.04 0.11 B-Type Natriuretic Peptide 160 Urine Color LIGHT-YELLOW Urine Turbidity CLEAR Urine pH 8.0 Urine Specific [place] 1.007 Urine Protein 300 Urine Glucose (UA) NEG Urine Ketones NEG Urine Occult Blood NEG Urine Nitrite NEG Urine Bilirubin NEG Urine Urobilinogen LESS THAN 2.0 Urine Leukocyte Esterase NEG Urine RBC 2 Urine WBC 2 Urine Squamous Epithelial Cells 1 Urine Bacteria RARE Urine Mucus FEW Microscopic Urinalysis Comment CULT NOT INDICATED Lactic Acid Level 1.9 Date/Time Source Procedure Growth Status 11/04/17 00:43 Blood Peripheral Aerobic Blood Culture Pending Received 11/04/17 00:43 Blood Peripheral Anaerobic Blood Culture Pending Received Result Diagram: 11/04/17 0511 11/04/17 0511 Imaging Last 24 hours Impressions Chest X-Ray 11/03/17 2243 Signed Impressions: Service Date/Time: Friday, November 03, 2017 23:36 - CONCLUSION: Cardiomegaly with interstitial edema. Wilfredo Herrera Jr., MD Assessment and Plan Problem List: (1) SOB (shortness of breath) ICD Codes: R06.02 - Shortness of breath (2) Chest pain ICD Codes: R07.9 - Chest pain, unspecified (3) CHF (congestive heart failure) ICD Codes: I50.9 - Heart failure, unspecified (4) HTN (hypertension) ICD Codes: I10 - Essential (primary) hypertension Assessment and Plan 57 yo F with reported history of CAD, prior cardiac stenting x 7 (most recent PCI 4 months ago; who is followed by cardio in [place]), recent L arm DVT, diabetes, CHF,CKD and tobacco use who presents with chest pain and SOB. She states she was discharged from [facility] last week and "they don't know what's wrong with me", she is a poor historian and appear very anxious; unsure why she was hospitalized but will obtain records. She resides in [place] but visiting with family in [facility]. She describes sob and pain to her legs, chest, back and neck. She is taking Brilinta and asa; recently stopped Eliquis on last week's hospital stay. Troponin show intermediate increase, 0.04 to 0.11. CXR reveals cardiomegaly and interstitial edema. EKG and BNP are unremarkable atypical chest pain- will obtain lexiscan to evaluate for ischemia. keep npo HTN- cont hydralazine and carvedilol, may need additional agent CAD- prior multiple stenting, cont Nga Guevara Nov 04, 2017 11:35
[2017-11-04] MEDS: GABAPENTIN 100 MG CAP PO SCH ×2 (12:47→18:57)
[2017-11-04] MEDS: hydrALAZINE HCL 25 MG TAB PO SCH ×2 (12:47→18:57)
[2017-11-04] MEDS: ALPRAZolam 1 MG TAB PO PRN ×2 (14:57→21:43)
--- NOTE | 2017-11-04 18:36 | EKG ---
Date Performed: 11/03/2017 Time Performed: 22:44:17 PTAGE: 57 years EKG: Sinus rhythm MARKED LEFT AXIS DEVIATION LEFT BUNDLE BRANCH BLOCK ABNORMAL ECG PREVIOUS TRACING : 04/20/2016 00.46 Since the prior tracing, there has been no significant montes DOCTOR: Rosalva Patel Interpretating Date/Time 11/04/2017 18:34:30
[2017-11-04] MEDS ORDERED: QUEtiapine FUMARATE 25 MG TAB PO SCH (21:00)
[2017-11-04] MEDS: INSULIN DETEMIR 100 UNITS/ML VIAL SQ SCH (21:41)
[2017-11-04] MEDS: CARVEDILOL 12.5 MG TAB PO SCH (21:43)
[2017-11-04] MEDS: QUEtiapine FUMARATE 25 MG TAB PO SCH (21:43)
[2017-11-04] MEDS: LEVOFLOXACIN 750 MG PREMIX INJ 150 ML IV SCH (23:01)
[2017-11-05] VITALS (8 sets, daily range): BP systolic 113–149; BP diastolic 59–67; PULSE 72–88; RESP 18–20; TEMP 97.9–98.9; O2SAT 95–100
[2017-11-05] MEDS: FUROSEMIDE 40 MG/4 ML VIAL IV PUSH SCH (07:37)
[2017-11-05] MEDS: HYDROCHLOROTHIAZIDE 12.5 MG CAP PO SCH (07:38)
[2017-11-05] MEDS: CARVEDILOL 12.5 MG TAB PO SCH ×2 (07:38→21:21)
[2017-11-05] MEDS: TICAGRELOR 90 MG TAB PO SCH ×2 (07:38→21:20)
[2017-11-05] MEDS: hydrALAZINE HCL 25 MG TAB PO SCH ×3 (07:38→18:23)
[2017-11-05] MEDS: DOCUSATE SODIUM 50 MG/SENNA 8.6 MG TAB PO SCH ×2 (07:38→21:22)
[2017-11-05] MEDS: ISOSORBIDE MONONITRATE 60 MG CR TAB (IMDUR) PO SCH (07:39)
[2017-11-05] MEDS: GABAPENTIN 100 MG CAP PO SCH ×3 (07:39→18:23)
[2017-11-05] MEDS: PRAVASTATIN SOD 20 MG TAB PO SCH (07:39)
[2017-11-05] MEDS: QUEtiapine FUMARATE 25 MG TAB PO SCH ×2 (07:39→21:21)
[2017-11-05] MEDS: SODIUM CHLORIDE 0.9% FLUSH 10 ML FLUSH IV FLUSH SCH ×2 (07:39→21:23)
[2017-11-05] MEDS: ACETAMINOPHEN/HYDROcodone 325 MG/5 MG TAB PO PRN ×2 (07:40→18:24)
[2017-11-05] MEDS: INSULIN ASPART SUPPLEMENTAL SCALE SQ SCH ×4 (08:00→21:22)
--- NOTE | 2017-11-05 08:40 | PD.CARD.PN ---
Subjective Subjective Remarks The patient is feeling much better today. She denies any chest pain, shortness of breath, or palpitations. She reports good urine output overnight, -2700 mL' s. She did not have the stress test yesterday because she ate. She is currently eating outside food because she is apprehensive about having another stress test because her heart disease makes her nervous. She is agreeable at this time for Lexiscan this afternoon. Discussed with RN, still attempting to obtain previous records. Objective Medications Current Medications Medications (Trade) Dose Ordered Sig/Isrrael Route Start Time Stop Time Status Last Admin (NS Flush) 2 ml UNSCH PRN IVF 11/03/17 22:45 (Nitrostat Sl) 0.4 mg Q5M PRN SL 11/03/17 22:45 Levofloxacin/ Dextrose 150 ml @ 100 mls/hr Q24H IV 11/04/17 23:00 11/04/17 23:01 (Lasix Inj) 40 mg BID@,18 IV PUSH 11/04/17 09:00 11/05/17 07:37 (Duoneb Neb) 1 ampule Q2HR NEB PRN NEB 11/04/17 01:00 (D50w (Vial) Inj) 50 ml UNSCH PRN IV PUSH 11/04/17 01:00 (Glucagon Inj) 1 mg UNSCH PRN OTHER 11/04/17 01:00 (NovoLOG SUPPLEMENTAL SCALE) 1 ACHS SLIDING SCALE SQ 11/04/17 08:00 11/04/17 21:42 (NS Flush) 2 ml UNSCH PRN IV FLUSH 11/04/17 01:00 (NS Flush) 2 ml BID IV FLUSH 11/04/17 09:00 11/05/17 07:39 (Zofran Inj) 4 mg Q6H PRN IVP 11/04/17 01:00 (Tylenol) 650 mg Q6H PRN PO 11/04/17 01:00 ([place] 5-325 Mg) 1 tab Q4H PRN PO 11/04/17 01:00 11/05/17 07:40 (Morphine Inj) 2 mg Q3H PRN IV PUSH 11/04/17 01:00 (Shirin-Colace) 1 tab BID PO 11/04/17 09:00 11/05/17 07:38 (Milk Of Magnesia Liq) 30 ml Q12H PRN PO 11/04/17 01:00 (Senokot) 17.2 mg Q12H PRN PO 11/04/17 01:00 (Dulcolax Supp) 10 mg DAILY PRN RECTAL 11/04/17 01:00 (Lactulose Liq) 30 ml DAILY PRN PO 11/04/17 01:00 (Levemir Inj) 10 units HS SQ 11/04/17 21:00 11/04/17 21:41 (Coreg) 25 mg BID PO 11/04/17 21:00 11/05/17 07:38 (Neurontin) 200 mg TID PO 11/04/17 13:00 11/05/17 07:39 (Apresoline) 50 mg TID PO 11/04/17 13:00 11/05/17 07:38 (Microzide) 12.5 mg DAILY PO 11/04/17 11:00 11/05/17 07:38 (Imdur) 60 mg DAILY PO 11/04/17 11:00 11/05/17 07:39 (Pravachol) 20 mg DAILY PO 11/04/17 11:30 11/05/17 07:39 (SEROquel) 25 mg BID PO 11/04/17 21:00 11/05/17 07:39 (Brilinta) 90 mg BID PO 11/04/17 11:30 11/05/17 07:38 (Xanax) 1 mg Q8H PRN PO 11/04/17 14:15 11/04/17 21:43 Vital Signs / I&O Vital Signs Date Time Temp Pulse Resp B/P (MAP) Pulse Ox O2 Delivery O2 Flow Rate FiO2 11/05/17 04:36 78 11/05/17 04:00 98.1 72 18 144/66 (92) 95 11/05/17 00:09 80 11/05/17 00:00 97.9 82 18 113/59 (77) 100 11/04/17 20:00 97.8 73 18 113/59 (77) 100 11/04/17 19:31 84 197/88 (124) 11/04/17 19:30 95 Nasal Cannula 3.00 11/04/17 18:33 3.00 11/04/17 18:00 98.1 79 20 205/92 (129) 98 3/12/18 16:02 18 11/04/17 14:30 89 22 162/81 (108) 96 Nasal Cannula 3.00 11/04/17 11:30 77 22 162/76 (104) 99 Nasal Cannula 3.00 11/04/17 10:26 81 22 187/91 (123) 100 Nasal Cannula 3.00 I/O 11/04/17 11/04/17 11/04/17 11/05/17 11/05/17 11/05/17 07:00 15:00 23:00 07:00 15:00 23:00 Intake Total 450 ml 240 ml Output Total 1000 ml 1950 ml 450 ml Balance -1000 ml -1500 ml -210 ml Intake Oral 240 ml IV Total 450 ml Output Urine Total 1000 ml 1950 ml 450 ml # Bowel Movements 0 Physical Exam GENERAL: Well-developed well-nourished. In no acute distress. NECK: No carotid bruits. No JVD. CARDIOVASCULAR: Regular rate and rhythm. No murmur appreciated. RESPIRATORY: No accessory muscle use. Clear to auscultation. Breath sounds equal bilaterally. MUSCULOSKELETAL: No clubbing or cyanosis. No edema. NEUROLOGICAL: Awake and alert. Normal speech. Laboratory Laboratory Tests Test 11/04/17 14:58 Troponin I 0.09 NG/ML Imaging Last Impressions Chest X-Ray 11/03/17 [id number] Signed Impressions: Service Date/Time: Friday, November 03, 2017 23:36 - CONCLUSION: Cardiomegaly with interstitial edema. Wilfredo Herrera Jr., MD Assessment and Plan Problem List: (1) SOB (shortness of breath) ICD Codes: R06.02 - Shortness of breath (2) Chest pain ICD Codes: R07.9 - Chest pain, unspecified (3) CHF (congestive heart failure) ICD Codes: I50.9 - Heart failure, unspecified (4) HTN (hypertension) ICD Codes: I10 - Essential (primary) hypertension Assessment and Plan 57 yo F with reported history of CAD, prior cardiac stenting x 7 (most recent PCI 4 months ago; who is followed by cardio in [place]), recent L arm DVT, diabetes, CHF, CKD and tobacco use who presented with chest pain and SOB. Atypical chest pain and minimal troponin elevation: Rule out non-STEMI. Lexiscan ordered, patient currently agreeable. CHF exacerbation: Present with shortness of breath, chest x-ray with cardiomegaly and interstitial edema. Received IV diuretics with good diuresis overnight and improvement in dyspnea. Continue carvedilol. History of CAD with multiple prior stents: Continue Brilinta, statin, Pedro Inman Nov 05, 2017 08:40
[2017-11-05 08:48] LABS: AUTOMATED NEUTROPHIL # 6.8 TH/MM3 (1.8-7.7); BASOPHIL # 0.1 TH/MM3 (0-0.2); BASOPHIL % 0.8 % (0.0-2.0); EOSINOPHIL # 0.6 TH/MM3 (0-0.4); EOSINOPHIL % 4.7 % (0.0-4.0); HEMOGLOBIN 9.7 GM/DL (11.6-15.3); LYMPH % 24.8 % (9.0-44.0); MEAN CELL VOLUME 74.9 FL (80.0-100.0); MEAN CORPUSCULAR HEMOGLOBIN 24.3 PG (27.0-34.0); MEAN CORPUSCULAR HGB CONC 32.5 % (32.0-36.0); MONO % 13.4 % (0.0-8.0); MONOCYTE # 1.6 TH/MM3 (0-0.9); NEUT % 56.3 % (16.0-70.0); PLATELET COUNT 266 TH/MM3 (150-450); RED CELL DISTRIBUTION WIDTH 19.7 % (11.6-17.2); WHITE BLOOD COUNT 12.1 TH/MM3 (4.0-11.0)
[2017-11-05 09:20] LABS: BICARBONATE 32.4 MEQ/L (21.0-32.0); CALCIUM 9.4 MG/DL (8.5-10.1); CREATININE 2.22 MG/DL (0.50-1.00); MAGNESIUM 1.5 MG/DL (1.5-2.5)
[2017-11-05 09:27] LABS: KERATOCYTES OCC (NORMAL)
[2017-11-05 09:28] LABS: OVALOCYTES 1+ (NORMAL)
--- NOTE | 2017-11-05 11:33 | HHI.PR ---
Subjective Remarks Follow up anxiety, chest pain. Patient states that her chest pain has resolved. Denies dyspnea. She states that she is very anxious and the Xanax isn't working well enough. Objective Vitals Vital Signs Date Time Temp Pulse Resp B/P (MAP) Pulse Ox O2 Delivery O2 Flow Rate FiO2 11/05/17 08:00 Nasal Cannula 2.00 11/05/17 08:00 97.9 75 20 145/64 (91) 96 11/05/17 04:36 78 11/05/17 04:00 98.1 72 18 144/66 (92) 95 11/05/17 00:09 80 11/05/17 00:00 97.9 82 18 113/59 (77) 100 11/04/17 20:00 97.8 73 18 113/59 (77) 100 11/04/17 19:31 84 197/88 (124) 11/04/17 19:30 95 Nasal Cannula 3.00 11/04/17 18:33 3.00 11/04/17 18:00 98.1 79 20 205/92 (129) 98 11/04/17 16:02 18 11/04/17 14:30 89 22 162/81 (108) 96 Nasal Cannula 3.00 I/O 11/04/17 11/04/17 11/04/17 11/05/17 11/05/17 11/05/17 07:00 15:00 23:00 07:00 15:00 23:00 Intake Total 450 ml 240 ml Output Total 1000 ml 1950 ml 450 ml Balance -1000 ml -1500 ml -210 ml Intake Oral 240 ml IV Total 450 ml Output Urine Total 1000 ml 1950 ml 450 ml # Bowel Movements 0 Result Diagram: 11/05/17 0649 11/05/17 0649 Imaging Last Impressions Chest X-Ray 11/03/17 [id number] Signed Impressions: Service Date/Time: Friday, November 03, 2017 23:36 - CONCLUSION: Cardiomegaly with interstitial edema. Wilfredo Herrera Jr., MD Objective Remarks General: No acute distress. Heart: Regular rate and rhythm. No murmur. Lungs: Clear to auscultation bilaterally. No wheezes, rales, or rhonchi. Breathing is nonlabored. Abdomen: Soft, nontender, nondistended. Extremities: No lower extremity edema. Psych: Alert and oriented. Procedures None Urinary Catheter: No Vascular Central Line Catheter: No A/P Problem List: (1) SIRS (systemic inflammatory response syndrome) ICD Code: R65.10 - Systemic inflammatory response syndrome (SIRS) of non- infectious origin without acute organ dysfunction (2) CHF (congestive heart failure) ICD Code: I50.9 - Heart failure, unspecified (3) Leukocytosis ICD Code: D72.829 - Elevated white blood cell count, unspecified (4) Renal insufficiency ICD Code: N28.9 - Disorder of kidney and ureter, unspecified (5) HTN (hypertension) ICD Code: I10 - Essential (primary) hypertension (6) Tobacco abuse ICD Code: Z72.0 - Tobacco use Assessment and Plan 1. SIRS: Patient presented with tachycardia, tachypnea, leukocytosis. Source is uncertain. Patient reports productive cough. Continue empiric antibiotics for possible underlying pneumonia. 2. Acute on chronic congestive heart failure: Ejection fraction unknown. Attempting to obtain records from [facility] Continue Lasix. Monitor strict intake/output. She states that she is on 4L of oxygen at home. 3. Leukocytosis: Possibly secondary to infection. Monitor labs. 4. Hypertension: Poorly controlled. Continue hydralazine, carvedilol, HCTZ. 5. Tobacco abuse: Counseled. 6. Coronary artery disease: Continue Brilinta, statin, Coreg, aspirin, Imdur. 7. Diabetes mellitus: Continue Levemir. Monitor Accu-Cheks and cover with sliding scale insulin. 8. DVT prophylaxis: Heparin. 9. Atypical chest pain: Appreciate cardiology recommendations. Lexiscan ordered. Discharge Planning Plan for discharge when cleared by cardiology. Camilo Moeller MD Nov 05, 2017 11:33
[2017-11-05] MEDS: ALPRAZolam 1 MG TAB PO PRN (12:25)
[2017-11-05] MEDS ORDERED: REGADENOSON INJ 0.4 MG/5 ML SYR ONE (13:30)
[2017-11-05] MEDS ORDERED: ALBUMIN 5% INJ 500 ML IV ONE (15:00)
--- NOTE | 2017-11-05 15:09 | PD.CONS ---
HPI Service Nephrology Consult Requested By Dr. Moeller Reason for Consult Acute and chronic kidney disease Primary Care Physician Unknown History of Present Illness Patient is a 57-year-old little black female with history of diabetes for more than 20 years, hypertension, chronic kidney disease, congestive heart failure, peripheral edema, admitted with shortness of breath, chest pain and peripheral edema patient was on diuretic and responded well I were her creatinine went up from 1.5 to 2.2 range, patient states that she follows in [facility] with a sewer separation designer Dr. Boothe. Review of Systems Constitutional: COMPLAINS OF: Fatigue Eyes: COMPLAINS OF: Blurred vision (right eye) Respiratory: COMPLAINS OF: Shortness of breath Cardiovascular: COMPLAINS OF: Lower Extremity Edema Psychiatric: COMPLAINS OF: Anxiety Past Family Social History Allergies: Coded Allergies: iodine (Unverified Allergy, Severe, Anaphylaxis, 04/09/17) paroxetine (Unverified Allergy, Severe, Anaphylaxis, 04/09/17) penicillin G (Unverified Allergy, Severe, Anaphylaxis, 04/09/17) potassium iodide (Unverified Allergy, Severe, Anaphylaxis, 04/09/17) povidone-iodine (Unverified Allergy, Severe, Anaphylaxis, 04/09/17) sodium iodide (Unverified Allergy, Severe, Anaphylaxis, 04/09/17) sodium iodide (Unverified Allergy, Severe, Anaphylaxis, 04/09/17) Sulfa (Sulfonamide Antibiotics) (Verified Allergy, Intermediate, 11/03/17) Past Medical History Diabetes Hypertension Chronic kidney disease Proteinuria Peripheral edema Coronary artery disease status post stent Hyperlipidemia CVA Right eye blindness Past Surgical History Tubal ligation Multiple stents and coronary artery Reported Medications Reported Meds & Active Scripts Active Reported Xanax (Alprazolam) 1 Mg Tab 1 Mg PO Q8H PRN Isosorbide Mononitrate ER (Isosorbide Mononitrate) 60 Mg Tab 60 Mg PO DAILY Pravastatin 20 Mg Tab 20 Mg PO DAILY Seroquel (Quetiapine Fumarate) 25 Mg Tab 25 Mg PO BID Gabapentin 100 Mg Cap 200 Mg PO TID Hydralazine HCl 25 Mg Tablet 50 Mg PO TID Brilinta (Ticagrelor) 90 Mg Tab 90 Mg PO BID Carvedilol 25 Mg Tab 25 Mg PO BID Lantus Inj (Insulin Glargine) 1,000 Unit/10 Ml Vial 10 Units SQ HS Humalog Mix 50-50 Inj (Insulin Lispro Protamine-Lispro 50-50 Inj) 1,000 Unit/10 Ml Vial 1 Units SQ Fish Oil + D3 (Fish Oil-Cholecalciferol) 1,200-1,000 Mg-Unit Cap 1 Cap PO DAILY Lasix (Furosemide) 40 Mg Tab 40 Mg PO DAILY Hydrochlorothiazide 12.5 Mg Cap 12.5 Mg PO DAILY Aspir-81 (Aspirin) 81 Mg Tabdr Active Ordered Medications Current Medications Medications (Trade) Dose Ordered Sig/Isrrael Route Start Time Stop Time Status Last Admin (NS Flush) 2 ml UNSCH PRN IVF 11/03/17 22:45 (Nitrostat Sl) 0.4 mg Q5M PRN SL 11/03/17 22:45 Levofloxacin/ Dextrose 150 ml @ 100 mls/hr Q24H IV 11/04/17 23:00 11/04/17 23:01 (Lasix Inj) 40 mg BID@,18 IV PUSH 11/04/17 09:00 Future Hold 11/05/17 07:37 (Duoneb Neb) 1 ampule Q2HR NEB PRN NEB 11/04/17 01:00 (D50w (Vial) Inj) 50 ml UNSCH PRN IV PUSH 11/04/17 01:00 (Glucagon Inj) 1 mg UNSCH PRN OTHER 11/04/17 01:00 (NovoLOG SUPPLEMENTAL SCALE) 1 ACHS SLIDING SCALE SQ 11/04/17 08:00 11/04/17 21:42 (NS Flush) 2 ml UNSCH PRN IV FLUSH 11/04/17 01:00 (NS Flush) 2 ml BID IV FLUSH 11/04/17 09:00 11/05/17 07:39 (Zofran Inj) 4 mg Q6H PRN IVP 11/04/17 01:00 (Tylenol) 650 mg Q6H PRN PO 11/04/17 01:00 ([place] 5-325 Mg) 1 tab Q4H PRN PO 11/04/17 01:00 11/05/17 07:40 (Morphine Inj) 2 mg Q3H PRN IV PUSH 11/04/17 01:00 (Shirin-Colace) 1 tab BID PO 11/04/17 09:00 11/05/17 07:38 (Milk Of Magnesia Liq) 30 ml Q12H PRN PO 11/04/17 01:00 (Senokot) 17.2 mg Q12H PRN PO 11/04/17 01:00 (Dulcolax Supp) 10 mg DAILY PRN RECTAL 11/04/17 01:00 (Lactulose Liq) 30 ml DAILY PRN PO 11/04/17 01:00 (Levemir Inj) 10 units HS SQ 11/04/17 21:00 11/04/17 21:41 (Coreg) 25 mg BID PO 11/04/17 21:00 11/05/17 07:38 (Neurontin) 200 mg TID PO 11/04/17 13:00 11/05/17 12:25 (Apresoline) 50 mg TID PO 11/04/17 13:00 11/05/17 12:25 (Microzide) 12.5 mg DAILY PO 11/04/17 11:00 11/05/17 07:38 (Imdur) 60 mg DAILY PO 11/04/17 11:00 11/05/17 07:39 (Pravachol) 20 mg DAILY PO 11/04/17 11:30 11/05/17 07:39 (SEROquel) 25 mg BID PO 11/04/17 21:00 11/05/17 07:39 (Brilinta) 90 mg BID PO 11/04/17 11:30 11/05/17 07:38 (Xanax) 1 mg Q8H PRN PO 11/04/17 14:15 11/05/17 12:25 Albumin Human 500 ml @ 250 mls/hr ONCE ONCE IV 11/05/17 15:00 11/05/17 16:59 UNV Family History One daughter is on dialysis Social History Denies smoking or alcohol use Physical Exam Vital Signs Vital Signs Date Time Temp Pulse Resp B/P (MAP) Pulse Ox O2 Delivery O2 Flow Rate FiO2 11/05/17 12:00 98.2 80 20 134/65 (88) 96 11/05/17 08:00 Nasal Cannula 2.00 11/05/17 08:00 97.9 75 20 145/64 (91) 96 11/05/17 04:36 78 11/05/17 04:00 98.1 72 18 144/66 (92) 95 11/05/17 00:09 80 3/13/18 00:00 97.9 82 18 113/59 (77) 100 11/04/17 20:00 97.8 73 18 113/59 (77) 100 11/04/17 19:31 84 197/88 (124) 11/04/17 19:30 95 Nasal Cannula 3.00 11/04/17 18:33 3.00 11/04/17 18:00 98.1 79 20 205/92 (129) 98 11/04/17 16:02 18 Physical Exam GENERAL: Well-nourished, well-developed patient. SKIN: Warm and dry. HEAD: Normocephalic. EYES: No scleral icterus. No injection or drainage. Diminished vision in right eye NECK: Supple, trachea midline. No JVD or lymphadenopathy. CARDIOVASCULAR: Regular rate and rhythm without murmurs, gallops, or rubs. RESPIRATORY: Breath sounds equal bilaterally. No accessory muscle use. GASTROINTESTINAL: Abdomen soft, non-tender, nondistended. EXTREMITIES: No cyanosis, 1+ edema. NEUROLOGICAL: Awake, alert, and oriented x 3. Non-focal. Laboratory Laboratory Tests Test 11/05/17 06:49 White Blood Count 12.1 Red Blood Count 4.00 Hemoglobin 9.7 Hematocrit 30.0 Mean Corpuscular Volume 74.9 Mean Corpuscular Hemoglobin 24.3 Mean Corpuscular Hemoglobin Concent 32.5 Red Cell Distribution Width 19.7 Platelet Count 266 Mean Platelet Volume 8.0 Neutrophils (%) (Auto) 56.3 Lymphocytes (%) (Auto) 24.8 Monocytes (%) (Auto) 13.4 Eosinophils (%) (Auto) 4.7 Basophils (%) (Auto) 0.8 Neutrophils # (Auto) 6.8 Lymphocytes # (Auto) 3.0 Monocytes # (Auto) 1.6 Eosinophils # (Auto) 0.6 Basophils # (Auto) 0.1 CBC Comment AUTO DIFF Differential Comment AUTO DIFF CONFIRMED Platelet Estimate NORMAL Platelet Morphology Comment NORMAL Ovalocytes 1+ Keratocytes OCC Blood Urea Nitrogen 29 Creatinine 2.22 Random Glucose 116 Calcium Level 9.4 Magnesium Level 1.5 Sodium Level 139 Potassium Level 4.4 Chloride Level 97 Carbon Dioxide Level 32.4 Anion Gap 10 Estimat Glomerular Filtration Rate 28 Date/Time Source Procedure Growth Status 11/04/17 00:43 Blood Peripheral Aerobic Blood Culture - Preliminary NO GROWTH IN 1 DAY Resulted 11/04/17 00:43 Blood Peripheral Anaerobic Blood Culture - Preliminary NO GROWTH IN 1 DAY Resulted Result Diagram: 11/05/17 0649 11/05/17 0649 Imaging Last Impressions Chest X-Ray 11/03/17 2243 Signed Impressions: Service Date/Time: Friday, November 03, 2017 23:36 - CONCLUSION: Cardiomegaly with interstitial edema. Wilfredo Herrera Jr., MD Assessment and Plan Problem List: (1) Acute renal failure ICD Codes: N17.9 - Acute kidney failure, unspecified Plan: Patient received diuretics and creatinine went up I will give 5% albumin to 250 cc Check urine protein electrophoresis, JOSE LUIS, C3's, C4 (2) CKD (chronic kidney disease) stage 3, GFR 30-59 ml/min ICD Codes: N18.3 - Chronic kidney disease, stage 3 (moderate) Plan: Baseline kidney ultrasound ordered (3) Protein in urine ICD Codes: R80.9 - Proteinuria, unspecified Plan: Follow urine to protein/creatinine ratio (4) CHF (congestive heart failure) ICD Codes: I50.9 - Heart failure, unspecified Plan: Monitor weight gain (5) HTN (hypertension) ICD Codes: I10 - Essential (primary) hypertension Plan: Continue monitor may need ARB Ajit Parnell MD Nov 05, 2017 15:09
--- NOTE | 2017-11-05 15:26 | RADRPT ---
EXAM DATE/TIME: 11/05/2017 13:14 [facility] COMPARISON: No previous studies available for comparison. INDICATIONS : Chest pain radiating to neck and back with dyspnea. Coronary artery disease. DOSE: 26.0 mCi Tc99m Myoview at stress. 8.7 mCi Tc99m Myoview at rest. 0.4 mg Lexiscan STRESS SYMPTOMS: Dyspnea. EJECTION FRACTION: 31% MEDICAL HISTORY : Myocardial infarction. Chronic obstructive pulmonary disease. Congestive heart failure. Renal disease . Smoker. Stroke. Diabetes. SURGICAL HISTORY : Tubal ligation. Coronary artery stent. ENCOUNTER: Initial ACUITY: 1 week PAIN SCALE: 5/10 LOCATION: chest TECHNIQUE: The patient underwent pharmacologic stress with infusion of prescribed dose. Continuous ECG tracing was monitored during stress. Gated SPECT imaging was performed after stress and conventional SPECT i maging was performed at rest. The examination was performed on a SPECT/CT scanner, both attenuation and non-corrected datasets were reviewed. FINDINGS: DISTRIBUTION: The maximum perfused segment at stress is in the anterolateral wall. PERFUSION STUDY: The examination demonstrates a moderate in severity, fixed perfusion defect involving the inferior wa ll. GATED STUDY: There is a global hypokinesis. CONCLUSION: 1. Fixed perfusion defect involving the inferior wall suggesting an old infarct. No definite reversib le abnormality is identified. 2. Diminished ejection fraction at 31%. RISK CATEGORY: High (>3% Annual Mortality Rate) Manohar Almanzar MD on November 05, 2017 at 15:20 Board Certified Radiologist. This report was verified electronically.
[2017-11-05 17:35] LABS: COMPLEMENT C3 159 MG/DL (90-180); COMPLEMENT C4 39 MG/DL (10-40)
[2017-11-05] MEDS: INSULIN DETEMIR 100 UNITS/ML VIAL SQ SCH (21:22)
--- NOTE | 2017-11-05 23:01 | RADRPT ---
EXAM DATE/TIME: 11/05/2017 17:17 [facility] COMPARISON: No previous studies available for comparison. INDICATIONS : Increased BUN/Creatinine. MEDICAL HISTORY : Myocardial infarction. Chronic obstructive pulmonary disease. Hypertension. Right eye blindness. Cere brovascular accident. Congestive heart failure. Coronary artery disease. Renal insufficiency. Arthrit is. Diabetes. Anxiety. SURGICAL HISTORY : Tubal ligation. Cholecystectomy. Coronary artery stent. ENCOUNTER: Initial ACUITY: 1 day PAIN SCORE: 0/10 LOCATION: Bilateral flank MEASUREMENTS: RIGHT KIDNEY: 12.7 x 5.4 x 5.6 cm LEFT KIDNEY: 12.2 x 5.9 x 6.7 cm FINDINGS: RIGHT KIDNEY: Renal cortex is normal in thickness and echotexture. No hydronephrosis, stone, or mass. LEFT KIDNEY: Renal cortex is normal in thickness and echotexture. No hydronephrosis, stone, or mass. BLADDER: Decompressed with a Paez and grossly unremarkable. CONCLUSION: Within normal limits. No obstruction or other acute abnormality. Kit Weiner MD on November 05, 2017 at 22:57 Board Certified Radiologist. This report was verified electronically.
[2017-11-06] VITALS (7 sets, daily range): BP systolic 106–177; BP diastolic 54–79; PULSE 71–85; RESP 18–19; TEMP 97.8–98.5; O2SAT 97–100
[2017-11-06] MEDS: LEVOFLOXACIN 750 MG PREMIX INJ 150 ML IV SCH (00:24)
[2017-11-06] MEDS: ACETAMINOPHEN/HYDROcodone 325 MG/5 MG TAB PO PRN ×2 (06:41→14:35)
[2017-11-06 06:50] LABS: AUTOMATED NEUTROPHIL # 6.7 TH/MM3 (1.8-7.7); BASOPHIL # 0.1 TH/MM3 (0-0.2); BASOPHIL % 0.7 % (0.0-2.0); EOSINOPHIL # 0.5 TH/MM3 (0-0.4); EOSINOPHIL % 4.3 % (0.0-4.0); HEMATOCRIT 30.9 % (35.0-46.0); HEMOGLOBIN 9.8 GM/DL (11.6-15.3); LYMPH % 26.2 % (9.0-44.0); LYMPHOCYTE # 3.1 TH/MM3 (1.0-4.8); MEAN CELL VOLUME 74.2 FL (80.0-100.0); MEAN CORPUSCULAR HEMOGLOBIN 23.6 PG (27.0-34.0); MEAN CORPUSCULAR HGB CONC 31.8 % (32.0-36.0); MEAN PLATELET VOLUME 8.3 FL (7.0-11.0); MONO % 13.3 % (0.0-8.0); MONOCYTE # 1.6 TH/MM3 (0-0.9); NEUT % 55.5 % (16.0-70.0); PLATELET COUNT 286 TH/MM3 (150-450); RED BLOOD COUNT 4.17 MIL/MM3 (4.00-5.30); RED CELL DISTRIBUTION WIDTH 19.6 % (11.6-17.2)
[2017-11-06 07:14] LABS: BICARBONATE 29.1 MEQ/L (21.0-32.0); CALCIUM 8.8 MG/DL (8.5-10.1); CREATININE 2.68 MG/DL (0.50-1.00); MAGNESIUM 1.5 MG/DL (1.5-2.5)
[2017-11-06] MEDS: INSULIN ASPART SUPPLEMENTAL SCALE SQ SCH ×2 (08:00→11:54)
[2017-11-06] MEDS ORDERED: LOSARTAN 25 MG TAB PO SCH (09:00)
[2017-11-06] MEDS: QUEtiapine FUMARATE 25 MG TAB PO SCH (09:37)
[2017-11-06] MEDS: TICAGRELOR 90 MG TAB PO SCH (09:38)
[2017-11-06] MEDS: CARVEDILOL 12.5 MG TAB PO SCH (09:38)
[2017-11-06] MEDS: ISOSORBIDE MONONITRATE 60 MG CR TAB (IMDUR) PO SCH (09:38)
[2017-11-06] MEDS: HYDROCHLOROTHIAZIDE 12.5 MG CAP PO SCH (09:38)
[2017-11-06] MEDS: DOCUSATE SODIUM 50 MG/SENNA 8.6 MG TAB PO SCH (09:38)
[2017-11-06] MEDS: PRAVASTATIN SOD 20 MG TAB PO SCH (09:38)
[2017-11-06] MEDS: SODIUM CHLORIDE 0.9% FLUSH 10 ML FLUSH IV FLUSH SCH (09:39)
[2017-11-06] MEDS: GABAPENTIN 100 MG CAP PO SCH ×2 (09:39→11:53)
[2017-11-06] MEDS: hydrALAZINE HCL 25 MG TAB PO SCH ×2 (09:39→11:53)
--- NOTE | 2017-11-06 09:54 | HHI.PR ---
Subjective Remarks Follow-up for CHF exacerbation lower extremity edema along with acute kidney injury Patient states that she feels a lot better. She said that swelling has improved. She denies any shortness of breathing or cough. She is very anxious to go home. She is asking if she can follow with her center administrator in [place]. She denies any chest pain, palpitations, lightheadedness or dizziness. Her and her nurse at the bedside during the interview. Objective Vitals Vital Signs Date Time Temp Pulse Resp B/P (MAP) Pulse Ox O2 Delivery O2 Flow Rate FiO2 11/06/17 08:01 98.5 78 18 161/72 (101) 100 11/06/17 04:00 97.8 82 19 152/79 (103) 100 11/06/17 00:53 97 Nasal Cannula 2.00 11/06/17 00:00 71 11/06/17 00:00 98.3 73 18 106/54 (71) 99 11/05/17 20:00 Nasal Cannula 2.00 11/05/17 20:00 85 11/05/17 20:00 98.9 80 18 149/66 (93) 100 11/05/17 16:00 97.9 88 20 149/67 (94) 98 11/05/17 16:00 Nasal Cannula 2.00 11/05/17 12:00 80 11/05/17 12:00 Nasal Cannula 2.00 11/05/17 12:00 98.2 80 20 134/65 (88) 96 I/O 11/05/17 11/05/17 11/05/17 11/06/17 11/06/17 11/06/17 07:00 15:00 23:00 07:00 15:00 23:00 Intake Total 240 ml 0 ml 280 ml Output Total 450 ml 875 ml 400 ml Balance -210 ml -875 ml -120 ml Intake Oral 240 ml 0 ml 280 ml Output Urine Total 450 ml 875 ml 400 ml Bladder Scan Volume Amount 137 ml # Bowel Movements 0 0 0 Result Diagram: 11/06/17 0500 11/06/17 0500 Objective Remarks GENERAL: in NAD CARDIOVASCULAR: Regular rate and rhythm without murmurs, gallops, or rubs. RESPIRATORY: Breath sounds equal bilaterally. No accessory muscle use. GASTROINTESTINAL: Abdomen soft, non-tender, nondistended. MUSCULOSKELETAL: No cyanosis, or edema. BACK: Nontender without obvious deformity. No CVA tenderness. Procedures None Medications and IVs Current Medications Sodium Chloride (NS Flush) 2 ml UNSCH PRN IVF FLUSH AFTER USING IV ACCESS; Start 11/03/17 at 22:45 Albuterol/ Ipratropium (Duoneb Neb) 1 ampule ONCE ONCE INH Last administered on 11/03/17at 23:01; Start 11/03/17 at 22:45; Stop 11/03/17 at 22:48; Status DC Nitroglycerin (Nitrostat Sl) 0.4 mg Q5M PRN SL CHEST PAIN; Start 11/03/17 at 22 :45 Nitroglycerin/ Dextrose 250 ml TITRATE PRN IV Hypertension; Start 11/03/17 at 22:45; Status UNV Nitroglycerin/ Dextrose 250 ml @ 1.5 mls/hr TITRATE PRN IV Blood Pressure Management; Start 11/04/17 at 00:15; Stop 11/04/17 at 02:36; Status DC Aztreonam 2000 mg/ Sodium Chloride 100 ml @ 200 mls/hr ONCE STAT IV Last administered on 11/04/17at 02:08; Start 11/04/17 at 00:32; Stop 11/04/17 at 01:01 ; Status DC Levofloxacin/ Dextrose 150 ml @ 100 mls/hr ONCE STAT IV Last administered on 11/04/17at 01:10; Start 11/04/17 at 00:32; Stop 11/04/17 at 02:01; Status DC Levofloxacin/ Dextrose 150 ml @ 100 mls/hr Q24H IV Last administered on at 00:24; Start 11/04/17 at 23:00; Stop 11/06/17 at 07:51; Status DC Furosemide (Lasix Inj) 40 mg BID@,18 IV PUSH Last administered on 11/05/17at 07:37; Start 11/04/17 at 09:00; Status Future Hold Albuterol/ Ipratropium (Duoneb Neb) 1 ampule Q2HR NEB PRN NEB SOB/WHEEZING; Start 11/04/17 at 01:00 Dextrose (D50w (Vial) Inj) 50 ml UNSCH PRN IV PUSH HYPOGLYCEMIA-SEE COMMENTS; Start 11/04/17 at 01:00 Glucagon (Glucagon Inj) 1 mg UNSCH PRN OTHER HYPOGLYCEMIA-SEE COMMENTS; Start 11/04/17 at 01:00 Insulin Aspart (NovoLOG SUPPLEMENTAL SCALE) 1 ACHS SLIDING SCALE SQ Last administered on 11/06/17at 08:00; Start 11/04/17 at 08:00 Sodium Chloride (NS Flush) 2 ml UNSCH PRN IV FLUSH FLUSH AFTER USING IV ACCESS ; Start 11/04/17 at 01:00 Sodium Chloride (NS Flush) 2 ml BID IV FLUSH Last administered on 11/06/17at 09: 39; Start 11/04/17 at 09:00 Ondansetron HCl (Zofran Inj) 4 mg Q6H PRN IVP NAUSEA OR VOMITING; Start at 01:00 Acetaminophen (Tylenol) 650 mg Q6H PRN PO FEVER/PAIN SCALE 1 TO 2; Start at 01:00 Acetaminophen/ Hydrocodone Bitart ([place] 5-325 Mg) 1 tab Q4H PRN PO PAIN SCALE 3 TO 5 Last administered on 11/06/17at 06:41; Start 11/04/17 at 01:00 Morphine Sulfate (Morphine Inj) 2 mg Q3H PRN IV PUSH Pain 6-10 Last administered on 11/05/17at 14:00; Start 11/04/17 at 01:00 Senna/Docusate Sodium (Shirin-Colace) 1 tab BID PO Last administered on at 09:38; Start 11/04/17 at 09:00 Magnesium Hydroxide (Milk Of Magnesia Liq) 30 ml Q12H PRN PO Mild constipation ; Start 11/04/17 at 01:00 Sennosides (Senokot) 17.2 mg Q12H PRN PO Moderate constipation; Start 11/04/17 at 01:00 Bisacodyl (Dulcolax Supp) 10 mg DAILY PRN RECTAL SEVERE CONSITIPATION; Start at 01:00 Lactulose (Lactulose Liq) 30 ml DAILY PRN PO SEVERE CONSITIPATION; Start at 01:00 Apixaban (Eliquis) 2.5 mg BID PO ; Start 11/04/17 at 09:00; Stop 11/04/17 at 10: 24; Status DC Carvedilol (Coreg) 3.125 mg BID PO Last administered on 11/04/17 09:20; Start 11/04/17 at 09:00; Stop 11/04/17 at 10:24; Status DC Gabapentin (Neurontin) 100 mg TID PO Last administered on 11/04/17 09:22; Start 11/04/17 at 09:00; Stop 11/04/17 at 10:24; Status DC Insulin Detemir (Levemir Inj) 10 units HS SQ Last administered on 11/05/17at 21: 22; Start 11/04/17 at 21:00 Quetiapine Fumarate (SEROquel) 50 mg HS PO ; Start 11/04/17 at 21:00; Stop 11/04 at 21:00; Status DC Propranolol HCl (Inderal) 10 mg ONCE ONCE PO ; Start 11/04/17 at 01:45; Stop at 01:46; Status DC Magnesium Sulfate/ Dextrose 100 ml @ 100 mls/hr Q1H IV Last administered on 08/12at 12:42; Start 11/04/17 at 10:00; Stop 11/04/17 at 11:59; Status DC Carvedilol (Coreg) 25 mg BID PO Last administered on 11/06/17 09:38; Start 08/12 at 21:00 Gabapentin (Neurontin) 200 mg TID PO Last administered on 11/06/17 09:39; Start 11/04/17 at 13:00 Hydralazine HCl (Apresoline) 50 mg TID PO Last administered on 11/06/17 09:39 ; Start 11/04/17 at 13:00 Hydrochlorothiazide (Microzide) 12.5 mg DAILY PO Last administered on 09:38; Start 11/04/17 at 11:00 Isosorbide Mononitrate (Imdur) 60 mg DAILY PO Last administered on 11/06/17 09 :38; Start 11/04/17 at 11:00 Pravastatin Sodium (Pravachol) 20 mg DAILY PO Last administered on 11/06/17 09 :38; Start 11/04/17 at 11:30 Quetiapine Fumarate (SEROquel) 25 mg BID PO Last administered on 11/06/17 09: 37; Start 11/04/17 at 21:00 Ticagrelor (Brilinta) 90 mg BID PO Last administered on 11/06/17at 09:38; Start 11/04/17 at 11:30 Alprazolam (Xanax) 1 mg Q8H PRN PO ANXIETY Last administered on 11/05/17at 12:25 ; Start 11/04/17 at 14:15 Regadenoson (Lexiscan Inj) 0.4 mg STK-MED ONCE .ROUTE Last administered on 11/05at 13:30; Start 11/05/17 at 13:30; Stop 11/05/17 at 13:31; Status DC Albumin Human 500 ml @ 250 mls/hr ONCE ONCE IV ; Start 11/05/17 at 15:00; Stop 11/05/17 at 16:59; Status DC Losartan Potassium (Cozaar) 25 mg DAILY PO Last administered on 11/06/17at 09:38 ; Start 11/06/17 at 09:00 Levofloxacin/ Dextrose 150 ml @ 100 mls/hr Q48H IV ; Start 11/07/17 at 23:00 A/P Problem List: (1) SIRS (systemic inflammatory response syndrome) ICD Code: R65.10 - Systemic inflammatory response syndrome (SIRS) of non- infectious origin without acute organ dysfunction (2) CHF (congestive heart failure) ICD Code: I50.9 - Heart failure, unspecified (3) Leukocytosis ICD Code: D72.829 - Elevated white blood cell count, unspecified (4) Renal insufficiency ICD Code: N28.9 - Disorder of kidney and ureter, unspecified (5) HTN (hypertension) ICD Code: I10 - Essential (primary) hypertension (6) Tobacco abuse ICD Code: Z72.0 - Tobacco use Assessment and Plan This is a 57-year-old female presented with cough and lower extremity edema Acute on chronic congestive heart failure: - Ejection fraction unknown. Attempting to obtain records from [facility]. Continue Lasix. Monitor strict intake/output. She states that she is on 4L of oxygen at home. -Seemed to resolve. 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 Creatinine worsened. From 1.5-2.2 now 2.68. Management per center administrator. Continue to monitor and trend. Avoid nephrotoxins. Strict ins and outs. SIRS: Patient presented with tachycardia, tachypnea, leukocytosis. - At the moment patient does not present any signs of pneumonia. Will transition to oral medication. leukocytosis: -Possibly secondary to infection. Monitor labs. Improved. Hypertension -Poorly controlled. Continue hydralazine, carvedilol, HCTZ. Tobacco abuse: Counseled. Coronary artery disease -Continue Brilinta, statin, Coreg, aspirin, Imdur. Diabetes mellitus -Continue Levemir. Monitor Accu-Cheks and cover with sliding scale insulin. Atypical chest pain -Lexiscan shows fixed perfusion defect in the inferior wall suggesting an old infarct. No reversible abnormality noted. Management per tax technician but this is a fixed defect. DVT prophylaxis -On heparin. Discharge Planning Creatinine has worsened so we will like to monitor patient in the hospital for improvement. 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 She is very anxious to go home. Will review her center administrator recommendation. Pending clearance from tax technician. Lindsey Weiss MD Nov 06, 2017 09:54
[2017-11-06] MEDS: ALPRAZolam 1 MG TAB PO PRN (11:53)
--- NOTE | 2017-11-06 18:50 | ECHRPT ---
Indication: HEART FAILURE CONCLUSIONS Normal left ventricular size. Mild concentric left ventricular hypertrophy. The left ventricular systolic function is moderately reduced with an estimated ejection fraction in the range of 35-40%. The left atrial size is mildly dilated. The right atrial size is yaam-zx-vxpjtyjdcm dilated. Eviax-ju-jovx mitral valve regurgitation. Aortic valve sclerosis is present. There is mild to moderate tricuspid valve regurgitation. The estimated pulmonary arterial pressure is 48 mmHg. BP: 134 / 65 HR: 80 Rhythm: Sinus MEASUREMENTS (Male / Female) Normal Values Technical Quality:Fair 2D ECHO LV Diastolic Diameter PLAX 5.3 cm 4.2 - 5.9 / 3.9 - 5.3 cm LV Systolic Diameter PLAX 3.7 cm IVS Diastolic Thickness 1.3 cm 0.6 - 1.0 / 0.6 - 0.9 cm LVPW Diastolic Thickness 1.3 cm 0.6 - 1.0 / 0.6 - 0.9 cm LV Relative Wall Thickness 0.5 RV Internal Dim ED PLAX 3.3 cm LVOT Diameter 2.2 cm LA Systolic Diameter LX 4.1 cm 3.0 - 4.0 / 2.7 - 3.8 cm M-MODE Aortic Root Diameter MM 3.1 cm LA Systolic Diameter MM 4.6 cm LA Ao Ratio MM 1.5 AV Cusp Separation MM 1.9 cm DOPPLER AV Peak Velocity 150.0 cm/s AV Peak Gradient 9.0 mmHg LVOT Peak Velocity 117.0 cm/s LVOT Peak Gradient 5.5 mmHg AV Area Cont Eq pk 3.0 cm MV Area PHT 3.9 cm Mitral E Point Velocity 67.5 cm/s Mitral A Point Velocity 118.0 cm/s Mitral E to A Ratio 0.6 LV E' Lateral Velocity 3.4 cm/s Mitral E to LV E' Lateral Ratio 19.7 LV E' Septal Velocity 4.0 cm/s Mitral E to LV E' Septal Ratio 17.0 TR Peak Velocity 307.0 cm/s TR Peak Gradient 37.7 mmHg Right Atrial Pressure 10.0 mmHg Pulmonary Artery Systolic Pressu 47.7 mmHg Right Ventricular Systolic Press 47.7 mmHg FINDINGS LEFT VENTRICLE Normal left ventricular size. Mild concentric left ventricular hypertrophy. The left ventricular systolic function is moderately reduced with an estimated ejection fraction in the range of 35-40%. RIGHT VENTRICLE Normal right ventricular size and systolic function. LEFT ATRIUM The left atrial size is mildly dilated. RIGHT ATRIUM The right atrial size is eijv-lj-pprgmlnslz dilated. ATRIAL SEPTUM No atrial level shunt is demonstrated by color flow Doppler interrogation. AORTA The aortic root and proximal ascending aorta are normal in size on limited imaging. MITRAL VALVE Oqtxu-ah-mymy mitral valve regurgitation. AORTIC VALVE Aortic valve sclerosis is present. TRICUSPID VALVE There is mild to moderate tricuspid valve regurgitation. The estimated pulmonary arterial pressure is 47.7 mmHg. PULMONARY VALVE No pulmonary valve regurgitation or stenosis. VESSELS The inferior vena cava is normal in size. PERICARDIUM No pericardial effusion. Yoselin Grajeda MD, FACC (Electronically Signed) Final Date:06 November 2017 18:49
[2017-11-07 21:23] LABS: ALB/GLOB RATIO (SPE) 1.06 (1.39-2.23)
[2017-11-07] MEDS ORDERED: LEVOFLOXACIN 750 MG TAB PO SCH (23:00)
[2017-11-07] MEDS ORDERED: LEVOFLOXACIN 750 MG PREMIX INJ 150 ML IV SCH (23:00)
== END 2017-11-06 15:55 | disposition left against medical advice (07) | DRG 291 ==
LOC: NEPE 22:33 → NEDA 11-04 00:50 → NEDH 11-04 06:10 → NEDA 11-04 16:47 → N04A 11-04 20:23
PROVIDERS: ADMIT Family Medicine; ATTEND Family Medicine
DX: I13.0 Hypertensive heart and chronic kidney disease with heart failure and stage 1 through stage 4 chronic kidney disease, or unspecified chronic kidney disease (principal); J18.9 Pneumonia, unspecified organism; N17.9 Acute kidney failure, unspecified; E11.22 Type 2 diabetes mellitus with diabetic chronic kidney disease; N18.3 Chronic kidney disease, stage 3 (moderate); E11.40 Type 2 diabetes mellitus with diabetic neuropathy, unspecified; J44.0 Chronic obstructive pulmonary disease with (acute) lower respiratory infection; Z99.81 Dependence on supplemental oxygen; I50.9 Heart failure, unspecified; I25.10 Atherosclerotic heart disease of native coronary artery without angina pectoris; F17.210 Nicotine dependence, cigarettes, uncomplicated; E78.5 Hyperlipidemia, unspecified; H54.61 Unqualified visual loss, right eye, normal vision left eye; F41.9 Anxiety disorder, unspecified; I44.7 Left bundle-branch block, unspecified; R00.0 Tachycardia, unspecified; R06.82 Tachypnea, not elsewhere classified; Z95.5 Presence of coronary angioplasty implant and graft; Z86.718 Personal history of other venous thrombosis and embolism; Z79.4 Long term (current) use of insulin; Z86.73 Personal history of transient ischemic attack (TIA), and cerebral infarction without residual deficits; I25.2 Old myocardial infarction; Z79.82 Long term (current) use of aspirin
CPT/HCPCS: 51702; 71045; 76775; 78452; 80048; 80053; 81001; 82550; 82948; 83605; 83735; 83880; 84165; 84484; 85025; 85610; 85730; 86038; 86160; 87040; 93005; 93017; 93306; 94664; A9502; J1815; J1940; J1956; J2270; J2785; J3475

== ENCOUNTER 2018-05-29 11:12 | Observation (INO) ==
[2018-05-29] MEDS ORDERED: Morphine Inj 4 MG/ML Vial IV.PUSH ONE (11:34)
--- NOTE | 2018-05-29 11:46 | ED ---
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 It is mild to moderate, constant duration. She states this started this morning. It is associated with shortness of breath. Patient stated felt this way the last time she had a heart attack. She denies any episodes of diaphoresis or lightheadedness. She has been mildly nauseous without vomiting. Patient has no other symptoms to report. States she recently moved here from [place] and has been up all night cleaning her with minimal sleep. She did take a sublingual nitroglycerin and aspirin prior to arrival Related Data Home Medications Medication Instructions Recorded Confirmed amlodipine 10 mg PO DAILY 05/29/18 05/29/18 aspirin [Aspir-Low] 81 mg PO DAILY 05/29/18 05/29/18 carvedilol 25 mg PO BID 05/29/18 05/29/18 cholecalciferol (vitamin D3) 1,000 unit PO DAILY 05/29/18 05/29/18 [Vitamin D3] clonidine HCl 0.1 mg PO BID 05/29/18 05/29/18 ergocalciferol (vitamin D2) 50,000 unit PO QWEEK 05/29/18 05/29/18 [Vitamin D2] ferrous gluconate [Fergon] 270 mg PO DAILY 05/29/18 05/29/18 furosemide 80 mg PO TID 05/29/18 05/29/18 gabapentin 300 mg PO TID 05/29/18 05/29/18 hydralazine 50 mg PO TID 05/29/18 05/29/18 isosorbide mononitrate 60 mg PO DAILY 05/29/18 05/29/18 lisinopril 10 mg PO DAILY 05/29/18 05/29/18 mometasone-formoterol [Dulera] 2 puff INHALATION Q12H 05/29/18 05/29/18 nitroglycerin [Nitro-Dur] 1 patch TRANSDERMAL DAILY 05/29/18 05/29/18 omega-3 fatty acids-fish oil [Fish 2 cap PO DAILY 05/29/18 05/29/18 Oil] omeprazole 20 mg PO BID 05/29/18 05/29/18 potassium chloride 20 meq PO BID 05/29/18 05/29/18 quetiapine 25 mg PO BID 05/29/18 05/29/18 sacubitril-valsartan [Entresto] 1 tab PO BID 05/29/18 05/29/18 sennosides-docusate sodium [Senna 1 tab PO BID PRN 05/29/18 05/29/18 Plus] tamsulosin 0.4 mg PO DAILY 05/29/18 05/29/18 ticagrelor [Brilinta] 90 mg PO BID 05/29/18 05/29/18 Allergies Allergy/AdvReac Type Severity Reaction Status Date / Time iodine Allergy Severe Anaphylaxis Verified 05/29/18 11:19 paroxetine Allergy Severe Anaphylaxis Verified 05/29/18 11:19 penicillin G Allergy Severe Anaphylaxis Verified 05/29/18 11:19 potassium iodide Allergy Severe Anaphylaxis Verified 05/29/18 11:19 povidone-iodine Allergy Severe Anaphylaxis Verified 05/29/18 11:19 sodium iodide Allergy Severe Anaphylaxis Verified 05/29/18 11:19 sodium iodide Allergy Severe Anaphylaxis Verified 05/29/18 11:19 Sulfa (Sulfonamide Allergy Intermediate unknown Verified 05/29/18 11:19 Antibiotics) Review of Systems ROS: all other systems reviewed are negative PMFSH Social History Social History Substance History: No History of Abuse Smoking Status: Current every day smoker Tobacco Type: Cigarettes How Often Do You Have a Drink Containing Alcohol: Never Recent Travel in [facility] within the Last 8 Weeks: No Recent Out of Country Travel within the Last 8 Weeks: No Immunization History Tetanus Immunization: Unsure Hx Influenza Vaccine This Season: No Exam Narrative Exam Narrative: GENERAL: Well-nourished female patient, brought in by EVAC, appears lethargic, but in no acute distress SKIN: Focused skin assessment warm/dry. HEAD: Atraumatic. Normocephalic. EYES: Pupils equal and round. No scleral icterus. No injection or drainage. ENT: No nasal bleeding or discharge. Mucous membranes pink and moist. NECK: Trachea midline. No JVD. CARDIOVASCULAR: Regular rate and rhythm. RESPIRATORY: No accessory muscle use. Diminished to auscultation. Breath sounds equal bilaterally. GASTROINTESTINAL: Abdomen soft, non-tender, nondistended. Hepatic and splenic margins not palpable. MUSCULOSKELETAL: No obvious deformities. No clubbing. No cyanosis. No edema. NEUROLOGICAL: Awake and alert. No obvious cranial nerve deficits. Motor grossly within normal limits. Normal speech. PSYCHIATRIC: Appropriate mood and affect; insight and judgment normal. Course Initial Documented Vital Signs Temperature 99.0 F 05/29/18 11:21 Pulse Rate 93 H 05/29/18 11:21 Respiratory Rate 22 05/29/18 11:21 Blood Pressure 168/91 H 05/29/18 11:21 Pulse Oximetry 92 L 05/29/18 11:21 Last Documented Vital Signs Temperature 99.0 F 05/29/18 11:21 Pulse Rate 65 05/29/18 13:49 Respiratory Rate 17 05/29/18 13:49 Blood Pressure 126/60 05/29/18 12:22 Pulse Oximetry 98 05/29/18 13:50 Medical Decision Making PAULO Attestation PAULO supervised visit: Yes Attestation: I, Dr. Vargas, have reviewed the advance practice practitioner' s documentation and am in agreement, pt discussed with midlevel, made the diagnosis, and the medical decision making was done by me. *My assessment and Findings:EKG unremarkable. Initial cardiac work up not suggestive of acute ischemia MDM Narrative Medical decision making narrative: 58-year-old female presents emergency department for evaluation. Patient appears without distress. Vital signs are stable. Lung sounds are clear but diminished in the bases. CBC is without acute concern. Troponin is 0.02. Patient is given a DuoNeb treatment and a dose of steroids with history of COPD. Chest x-ray is reviewed and consistent with chronic disease versus pulmonary edema however BMP is within normal limits. EKG is reviewed by my attending physician without any acute abnormality. Patient will be admitted observation of the chest pain center for further evaluation. Medical Screen Exam Complete: Yes Emergency Medical Condition: Yes Differential Diagnosis Differential Diagnosis: ACS versus anxiety versus COPD exacerbation bronchospasm versus GERD Medical Records Medical records reviewed: Yes I reviewed the patient's medical records. Lab Data Lab results reviewed: Yes I reviewed the patient's lab results. Result diagrams: 05/29/18 11:35 05/29/18 11:35 Lab Results 05/29/18 05/29/18 05/29/18 Range/Units 11:35 11:35 11:35 WBC 16.6 H (4.0-11.0) th/mm3 RBC 4.34 (4.00-5.30) mil/mm3 Hgb 9.9 L (11.6-15.3) gm/dL Hct 31.1 L (35.0-46.0) % MCV 71.7 L (80.0-100.0) fL MCH 22.9 L (27.0-34.0) pg MCHC 31.9 L (32.0-36.0) % RDW 15.3 (11.6-17.2) % Plt Count 308 (150-450) th/mm3 MPV 8.2 (7.0-11.0) fL Neut % (Auto) 63.8 (16.0-70.0) % Lymph % (Auto) 23.1 (9.0-44.0) % [place] % (Auto) 7.6 (0.0-8.0) % Eos % (Auto) 4.7 H (0.0-4.0) % Baso % (Auto) 0.8 (0.0-2.0) % Neut # (Auto) 10.6 H (1.8-7.7) th/mm3 Lymph # (Auto) 3.8 (1.0-4.8) th/mm3 [place] # (Auto) 1.3 H (0.0-0.9) th/mm3 Eos # (Auto) 0.8 H (0.0-0.4) th/mm3 Baso # (Auto) 0.1 (0.0-0.2) th/mm3 WBC Differential . Differential Comment Auto diff final PT 11.3 (9.8-11.6) sec INR 1.1 Ratio APTT 25.8 (24.3-30.1) sec Sodium 137 (136-145) meq/L Potassium 3.5 (3.5-5.1) meq/L Chloride 98 (98-107) meq/L Carbon Dioxide 28.3 (21.0-32.0) meq/L Anion Gap 11 (5-15) meq/L BUN 31 H (7-18) mg/dL Creatinine 2.24 H (0.50-1.00) mg/dL Estimated GFR 27 L (>89) mL/min Random Glucose 117 H (74-106) mg/dL Calcium 8.6 (8.5-10.1) mg/dL Total Bilirubin 0.3 (0.2-1.0) mg/dL AST 21 (15-37) U/L ALT 16 (10-53) U/L Alkaline Phosphatase 104 (45-117) U/L Total Creatine Kinase 128 (26-192) U/L CK-MB (CK-2) 1.7 (0.5-3.6) ng/mL Troponin I 0.02 (0.02-0.05) ng/mL B-Natriuretic Peptide (0-100) pg/mL Total Protein 8.1 (6.4-8.2) g/dL Albumin 3.0 L (3.4-5.0) g/dL Lipase 90 (73-393) U/L 05/29/18 Range/Units 11:35 WBC (4.0-11.0) th/mm3 RBC (4.00-5.30) mil/mm3 Hgb (11.6-15.3) gm/dL Hct (35.0-46.0) % MCV (80.0-100.0) fL MCH (27.0-34.0) pg MCHC (32.0-36.0) % RDW (11.6-17.2) % Plt Count (150-450) th/mm3 MPV (7.0-11.0) fL Neut % (Auto) (16.0-70.0) % Lymph % (Auto) (9.0-44.0) % [place] % (Auto) (0.0-8.0) % Eos % (Auto) (0.0-4.0) % Baso % (Auto) (0.0-2.0) % Neut # (Auto) (1.8-7.7) th/mm3 Lymph # (Auto) (1.0-4.8) th/mm3 [place] # (Auto) (0.0-0.9) th/mm3 Eos # (Auto) (0.0-0.4) th/mm3 Baso # (Auto) (0.0-0.2) th/mm3 WBC Differential Differential Comment PT (9.8-11.6) sec INR Ratio APTT (24.3-30.1) sec Sodium (136-145) meq/L Potassium (3.5-5.1) meq/L Chloride (98-107) meq/L Carbon Dioxide (21.0-32.0) meq/L Anion Gap (5-15) meq/L BUN (7-18) mg/dL Creatinine (0.50-1.00) mg/dL Estimated GFR (>89) mL/min Random Glucose (74-106) mg/dL Calcium (8.5-10.1) mg/dL Total Bilirubin (0.2-1.0) mg/dL AST (15-37) U/L ALT (10-53) U/L Alkaline Phosphatase (45-117) U/L Total Creatine Kinase (26-192) U/L CK-MB (CK-2) (0.5-3.6) ng/mL Troponin I (0.02-0.05) ng/mL B-Natriuretic Peptide 84 (0-100) pg/mL Total Protein (6.4-8.2) g/dL Albumin (3.4-5.0) g/dL Lipase (73-393) U/L Imaging Data Radiologist's impression: Chest X-Ray 05/29/18 11:34 CONCLUSION: Stable appearance the chest with cardiomegaly and streaky interstitial opacities. This could represent underlying lung disease. Recurrent pulmonary edema could also have this appearance. ECG Data Attestation: I personally reviewed and interpreted this ECG as follows: Interpretation: EKG with left bundle branch block no signs of acute ischemia. Discharge Plan Discharge Disposition Patient Disposition: 30 Still Patient Discharge Condition Condition: Stable Discharge Details Diagnosis: Chest pain Physicians Team ED Provider: Ambrosio Vargas ED Midlevel Provider: Magdalena Davis Primary Care Provider: UNKNOWN, Attending Provider: Amairani Jenkins ED Status: Admitted Observation Patient
[2018-05-29 12:05] LABS: Baso # (Auto) 0.1 th/mm3 (0.0-0.2); Baso % (Auto) 0.8 % (0.0-2.0); Eos # (Auto) 0.8 th/mm3 (0.0-0.4); Eos % (Auto) 4.7 % (0.0-4.0); Hematocrit 31.1 % (35.0-46.0); Hemoglobin 9.9 gm/dL (11.6-15.3); Lymph # (Auto) 3.8 th/mm3 (1.0-4.8); Lymph % (Auto) 23.1 % (9.0-44.0); Mean Corpuscular HGB Conc 31.9 % (32.0-36.0); Mean Corpuscular Hemoglobin 22.9 pg (27.0-34.0); Mean Corpuscular Volume 71.7 fL (80.0-100.0); Mean Platelet Volume 8.2 fL (7.0-11.0); Mono # (Auto) 1.3 th/mm3 (0.0-0.9); Mono % (Auto) 7.6 % (0.0-8.0); Neut # (Auto) 10.6 th/mm3 (1.8-7.7); Neut % (Auto) 63.8 % (16.0-70.0); Platelet Count 308 th/mm3 (150-450); Red Blood Count 4.34 mil/mm3 (4.00-5.30); Red Cell Distribution Width 15.3 % (11.6-17.2); White Blood Count 16.6 th/mm3 (4.0-11.0)
[2018-05-29 12:18] LABS: Activated Partial Thrombo Time 25.8 sec (24.3-30.1); INR 1.1 Ratio; Prothrombin Time 11.3 sec (9.8-11.6)
--- NOTE | 2018-05-29 12:28 | XR ---
EXAM DATE: 05/29/2018 11:34 AM EDT AGE/SEX: 58 years / Female INDICATIONS: Chest pain. CLINICAL DATA: This is the patient's initial encounter. Patient reports that signs and symptoms have been present for 3 days and indicates a pain score of 8/10. MEDICAL/SURGICAL HISTORY: . Myocardial infarction. Chronic obstructive pulmonary disease. Hype rtension. Right eye blindness. Cerebrovascular accident. Congestive heart failure. Coronary artery di sease. Renal insufficiency. Arthritis. Diabetes. Anxiety. Tubal ligation. Cholecystectomy. [place] [facility] [place]. . FINDINGS: Single AP view of the chest was obtained and demonstrates moderate cardiomegaly. The interstitial opa city remains throughout both lungs with consolidation or effusion. The bony structures are intact. Th ere are overlying electrocardiogram leads. CONCLUSION: Stable appearance the chest with cardiomegaly and streaky interstitial opacities. This could represen t underlying lung disease. Recurrent pulmonary edema could also have this appearance. Electronically signed by: Jere Wallace MD 05/29/2018 12:26 PM EDT
[2018-05-29 12:30] LABS: Alkaline Phosphatase 104 U/L (45-117); Creatine Kinase 128 U/L (26-192); Total Protein 8.1 g/dL (6.4-8.2); Troponin I 0.02 ng/mL (0.02-0.05)
[2018-05-29 12:32] LABS: Alanine Aminotransferase 16 U/L (10-53); Anion Gap 11 meq/L (5-15); Aspartate Aminotransferase 21 U/L (15-37); Blood Urea Nitrogen 31 mg/dL (7-18); Calcium 8.6 mg/dL (8.5-10.1); Carbon Dioxide 28.3 meq/L (21.0-32.0); Chloride 98 meq/L (98-107); Glomerular Filtration Rate 27 mL/min (>89); Glucose,Random 117 mg/dL (74-106); Lipase 90 U/L (73-393); Potassium 3.5 meq/L (3.5-5.1); Sodium 137 meq/L (136-145)
[2018-05-29] MEDS ORDERED: MethylPREDNISolone Sod Succinate Inj 125 MG/2 ML Vial IV.PUSH ONE (12:37)
[2018-05-29 12:42] LABS: Creatine Kinase MB 1.7 ng/mL (0.5-3.6)
--- NOTE | 2018-05-29 16:39 | P.HPCA ---
History of Present Illness Primary Care Physician: UNKNOWN Chief Complaint: Chest pain History of Present Illness: This is a 58-year-old female that presents to ED via EMS with history of CAD with reported 7 stents, COPD, hypertension, prior CVA, chronic kidney disease, CHF that presents to ED for evaluation of chest discomfort. States her last evaluation was January 2018 at [facility] at which time she had a heart catheterization and did not need stenting. States her last stent was approximate July 2017. Believes her last stress test was at this facility and upon reviewing records she had a nonischemic Lexiscan November 05, 2017 with EF 31%. She also had an echo at that visit revealing an EF of 35-40%, aortic valve sclerosis, trace to mild mitral regurgitation, mild to moderate tricuspid valve regurgitation. She states that she has chest pain couple times a month. Sometimes at rest sometimes with exertion. She states today's episode felt similar to when needing 7 prior stents. Was a pressure in left side of her chest that made her short of breath and nauseous. Did not notice any diaphoresis. Discomfort did not radiate. EMS was called, was given aspirin nitroglycerin in route and she really did not feel it much of a difference. Discomfort is gone at this time but cannot state how long it lasted. States she no longer has a sumatra opener. Recently moved from [place] to this area. Voices compliance with all of her medications. Looking at list of medications, statin therapy is not on that list and she is really not sure she is taking cholesterol medicine or not. Patient continues to smoke cigarettes about 1/4 pack a day for the last 5-6 months but prior that she smoked between one half to three-quarter pack a series daily for 40 years. Denies alcohol or illicit drug use. There is family history of CAD. - Diagnosis (1) Chest pain (2) CAD (coronary artery disease) (3) History of heart artery stent (4) Hypertension (5) Chronic kidney disease (6) History of CVA (cerebrovascular accident) (7) Congestive heart failure (8) Left bundle branch block (9) Tobacco abuse (10) COPD (chronic obstructive pulmonary disease) Review of Systems General: Patient denies fevers, chills, and recent travel. HEENT: Patient denies headache, sore throat, difficulty swallowing. Cardiovascular: Has the chest discomfort as mentioned above. Denies sensation of heart beating rapidly or irregularly. No syncope. Denies diaphoresis. Respiratory: She was short of breath however she states she normally short of breath and uses oxygen at nighttime. Denies inspirational chest discomfort. Denies coughing wheezing or hemoptysis. GI: She was nauseous. Patient denies vomiting, diarrhea, abdominal pain, bloody stools. Musculoskeletal: Complains of chronic lower extremity edema, states that her legs are actually less swollen today than usual. Patient denies joint pain or edema. Denies calf pain. Neurovascular: Patient denies numbness, tingling, weakness in extremities. Denies headache. Endocrine: Denies polyuria and polydipsia. Hematologic: Denies easy bruising. Skin: Denies rash or itching. PMFSH - History History Provided By: Patient - Tobacco History Tobacco Use In Past 30 Days: Yes Smoking Status: Current every day smoker Tobacco Type: Cigarettes - Alcohol History How Often Do You Have a Drink Containing Alcohol: Never - Substance Use History Substance History: No History of Abuse - Travel History Recent Travel in the [place] Within the Last 8 Weeks: No Recent Travel Out of the Country Within the Last 8 Weeks: No - Immunization History Tetanus Immunization: Unsure Hx Influenza Vaccine This Season: No Medications and Allergies Active Medications: Active Medications Sodium Chloride (Ns Flush) 2 ml IV.FLUSH UNSCH PRN PRN Reason: FLUSH AFTER USING IV ACCESS Allergies Allergy/AdvReac Type Severity Reaction Status Date / Time iodine Allergy Severe Anaphylaxis Verified 05/29/18 11:19 paroxetine Allergy Severe Anaphylaxis Verified 05/29/18 11:19 penicillin G Allergy Severe Anaphylaxis Verified 05/29/18 11:19 potassium iodide Allergy Severe Anaphylaxis Verified 05/29/18 11:19 povidone-iodine Allergy Severe Anaphylaxis Verified 05/29/18 11:19 sodium iodide Allergy Severe Anaphylaxis Verified 05/29/18 11:19 sodium iodide Allergy Severe Anaphylaxis Verified 05/29/18 11:19 Sulfa (Sulfonamide Allergy Intermediate unknown Verified 05/29/18 11:19 Antibiotics) Home Medications Medication Instructions Recorded Confirmed Type amlodipine 10 mg PO DAILY 05/29/18 05/29/18 History aspirin [Aspir-Low] 81 mg PO DAILY 05/29/18 05/29/18 History carvedilol 25 mg PO BID 05/29/18 05/29/18 History cholecalciferol (vitamin D3) 1,000 unit PO DAILY 05/29/18 05/29/18 History [Vitamin D3] clonidine HCl 0.1 mg PO BID 05/29/18 05/29/18 History ergocalciferol (vitamin D2) 50,000 unit PO QWEEK 05/29/18 05/29/18 History [Vitamin D2] ferrous gluconate [Fergon] 270 mg PO DAILY 05/29/18 05/29/18 History furosemide 80 mg PO TID 05/29/18 05/29/18 History gabapentin 300 mg PO TID 05/29/18 05/29/18 History hydralazine 50 mg PO TID 05/29/18 05/29/18 History isosorbide mononitrate 60 mg PO DAILY 05/29/18 05/29/18 History lisinopril 10 mg PO DAILY 05/29/18 05/29/18 History mometasone-formoterol [Dulera] 2 puff INHALATION Q12H 05/29/18 05/29/18 History nitroglycerin [Nitro-Dur] 1 patch TRANSDERMAL DAILY 05/29/18 05/29/18 History omega-3 fatty acids-fish oil [Fish 2 cap PO DAILY 05/29/18 05/29/18 History Oil] omeprazole 20 mg PO BID 05/29/18 05/29/18 History potassium chloride 20 meq PO BID 05/29/18 05/29/18 History quetiapine 25 mg PO BID 05/29/18 05/29/18 History sacubitril-valsartan [Entresto] 1 tab PO BID 05/29/18 05/29/18 History sennosides-docusate sodium [Senna 1 tab PO BID PRN 05/29/18 05/29/18 History Plus] tamsulosin 0.4 mg PO DAILY 05/29/18 05/29/18 History ticagrelor [Brilinta] 90 mg PO BID 05/29/18 05/29/18 History Exam Vital signs: Vital Signs 05/29/18 11:21 05/29/18 11:34 05/29/18 12:22 Temperature 99.0 F Pulse Rate 93 H 76 Respiratory Rate 22 17 Blood Pressure 168/91 H 126/60 Pulse Oximetry 92 L 95 97 05/29/18 13:49 05/29/18 13:50 Temperature Pulse Rate 65 Respiratory Rate 17 Blood Pressure Pulse Oximetry 98 Intake & Output 05/28/18 05/29/18 05/29/18 18:59 06:59 18:59 Weight 86.183 kg Narrative: GENERAL: This is a well-nourished, well-developed patient, in no apparent distress. Patient speaks in clear complete sentences. Patient is pleasant. HEENT: Head is atraumatic and normocephalic. Neck is supple without lymphadenopathy and trachea is midline. No JVD or carotid bruits. CARDIOVASCULAR: Regular rate and rhythm without murmurs, gallops, or rubs. RESPIRATORY: Rales bilateral bases. Breath sounds equal bilaterally. No wheezes or rhonchi. Chest wall is nontender. No use of accessory muscles. GASTROINTESTINAL: Abdomen is nontender, nondistended. Abdomen soft. No obvious pulsatile mass or bruit. No CVA tenderness. Strong femoral pulses bilaterally. Normal bowel sounds in all quadrants. MUSCULOSKELETAL: 1+ edema bilateral lower extremities which she states actually is much better than usual. Patient is moving upper and lower extremities freely. No calf tenderness. No Homans sign. Strong pulses in upper and lower extremities. NEUROLOGICAL: Patient is alert and oriented. Cranial nerves 2-12 are grossly intact. No focal deficits and speech is clear. SKIN: No rash and turgor is normal. Results 05/29/18 11:35 05/29/18 11:35 Cardiac Enzymes 05/29/18 05/29/18 Range/Units 11:35 11:35 AST 21 (15-37) U/L CK-MB (CK-2) 1.7 (0.5-3.6) ng/mL Troponin I 0.02 (0.02-0.05) ng/mL B-Natriuretic Peptide 84 (0-100) pg/mL Coagulation 05/29/18 05/29/18 Range/Units 11:35 11:35 PT 11.3 (9.8-11.6) sec APTT 25.8 (24.3-30.1) sec B-Natriuretic Peptide 84 (0-100) pg/mL CBC 05/29/18 Range/Units 11:35 WBC 16.6 H (4.0-11.0) th/mm3 RBC 4.34 (4.00-5.30) mil/mm3 Hgb 9.9 L (11.6-15.3) gm/dL Hct 31.1 L (35.0-46.0) % Plt Count 308 (150-450) th/mm3 Neut # (Auto) 10.6 H (1.8-7.7) th/mm3 Lymph # (Auto) 3.8 (1.0-4.8) th/mm3 Hayes # (Auto) 1.3 H (0.0-0.9) th/mm3 Eos # (Auto) 0.8 H (0.0-0.4) th/mm3 Baso # (Auto) 0.1 (0.0-0.2) th/mm3 Comprehensive Metabolic Panel 05/29/18 Range/Units 11:35 Sodium 137 (136-145) meq/L Potassium 3.5 (3.5-5.1) meq/L Chloride 98 (98-107) meq/L Carbon Dioxide 28.3 (21.0-32.0) meq/L BUN 31 H (7-18) mg/dL Creatinine 2.24 H (0.50-1.00) mg/dL Calcium 8.6 (8.5-10.1) mg/dL AST 21 (15-37) U/L ALT 16 (10-53) U/L Alkaline Phosphatase 104 (45-117) U/L Total Protein 8.1 (6.4-8.2) g/dL Albumin 3.0 L (3.4-5.0) g/dL Intake and Output 05/29/18 05/29/18 05/29/18 06:59 14:59 22:59 Other: Weight 86.183 kg Patient Weight 05/30/18 06:59 Weight 86.183 kg - Imaging and Cardiology Imaging: Impressions Chest X-Ray 05/29/18 11:34 CONCLUSION: Stable appearance the chest with cardiomegaly and streaky interstitial opacities. This could represent underlying lung disease. Recurrent pulmonary edema could also have this appearance. EKG interpretations - Blocks, axis, hypertrophy, ST abn AV and intraventricular conduction: left bundle branch block (fixed/intermittent , complete/incomplete) (Left bundle branch block which was also present on prior visit.) Caprini VTE Risk Assessment Caprini VTE Risk Assessment: No/Low Risk (score <= 1) Caprini Risk Assessment Model: Point Value = 1 Point Value = 2 Point Value = 3 Point Value = 5 Age 41-60 Minor surgery BMI > 25 kg/m2 Swollen legs Varicose veins or History of unexplained or recurrent spontaneous Oral contraceptives or hormone replacement Sepsis (< 1 month) Serious lung disease, including pneumonia (< 1 month) Abnormal pulmonary function Acute myocardial infarction Congestive heart failure (< 1 month) History of inflammatory bowel disease Medical patient at bed rest Age 61-74 Arthroscopic surgery Major open surgery (> 45 min) Laparoscopic surgery (> 45 min) Malignancy Confined to bed (> 72 hours) Immobilizing plaster cast Central venous access Age >= 75 History of VTE Family history of VTE Factor V Leiden Prothrombin [id number] Lupus anticoagulant Anticardiolipin antibodies Elevated serum homocysteine Heparin-induced thrombocytopenia Other congenital or acquired thrombophilia Stroke (< 1 month) Elective arthroplasty Hip, pelvis, or leg fracture Acute spinal cord injury (< 1 month) Prophylaxis Regimen: Total Risk Factor Score Risk Level Prophylaxis Regimen 0-1 Low Early ambulation 2 Moderate Order ONE of the following: *Sequential Compression Device (SCD) *Heparin 5000 units SQ BID 3-4 Higher Order ONE of the following medications: *Heparin 5000 units SQ TID *Enoxaparin/Lovenox 40 mg SQ daily (WT < 150 kg, CrCl > 30 mL/min) *Enoxaparin/Lovenox 30 mg SQ daily (WT < 150 kg, CrCl > 10-29 mL/min) *Enoxaparin/Lovenox 30 mg SQ BID (WT < 150 kg, CrCl > 30 mL/min) AND/OR *Sequential Compression Device (SCD) 5 or more Highest Order ONE of the following medications: *Heparin 5000 units SQ TID (Preferred with Epidurals) *Enoxaparin/Lovenox 40 mg SQ daily (WT < 150 kg, CrCl > 30 mL/min) *Enoxaparin/Lovenox 30 mg SQ daily (WT < 150 kg, CrCl > 10-29 mL/min) *Enoxaparin/Lovenox 30 mg SQ BID (WT < 150 kg, CrCl > 30 mL/min) AND *Sequential Compression Device (SCD) Assessment and Plan - Assessment (1) Chest pain Code(s): R07.9 - Chest pain, unspecified Status: Acute (2) CAD (coronary artery disease) Code(s): I25.10 - Atherosclerotic heart disease of [place] coronary artery without angina pectoris Status: Acute (3) History of heart artery stent Code(s): Z95.5 - Presence of coronary angioplasty implant and graft Status: Acute (4) Hypertension Code(s): I10 - Essential (primary) hypertension Status: Acute (5) Chronic kidney disease Code(s): N18.9 - Chronic kidney disease, unspecified Status: Acute (6) History of CVA (cerebrovascular accident) Code(s): Z86.73 - Personal history of transient ischemic attack (TIA), and cerebral infarction without residual deficits Status: Acute (7) Congestive heart failure Code(s): I50.9 - Heart failure, unspecified Status: Acute (8) Left bundle branch block Code(s): I44.7 - Left bundle-branch block, unspecified Status: Acute (9) Tobacco abuse Code(s): Z72.0 - Tobacco use Status: Acute (10) COPD (chronic obstructive pulmonary disease) Code(s): J44.9 - Chronic obstructive pulmonary disease, unspecified Status: Acute - Plan * Chest pain: Patient will continue to have serial cardiac enzymes and EKGs for ruling out purposes. She has been evaluated by Dr. Jenkins cardiology and chest pain center. We have requested records from heart catheterization from January of this year from [facility]. If he can confirm this that she had no intervention at that time and likely medical management. We will start Ranexa 500 mg twice daily. She will need follow-up with outpatient sumatra opener , PCP, and java developer. * History of CHF: We will give Lasix 40 mg IV x1 at this time. Reassess in the morning. Resume her Lasix. * History of CAD: Patient states that 7 stents. We are awaiting records from heart catheterization from January of this year. Medical management at this time. She will need outpatient follow-up with cardiology. She is unaware of statins. Does not know how her cholesterol level is. Explained to her that with history of CAD she should be on statin unless contraindicated. Needs to discuss further with PCP or sumatra opener on outpatient basis. * Chronic kidney disease: At this time will discontinue lisinopril. She needs to follow-up with java developer. This has been stressed repeatedly to her. * Hypertension: Continue medications. * COPD: Patient is to quit smoking. Have DuoNeb's as needed. * Tobacco abuse: Patient counseled importance of smoking cessation. Patient is stable at this time. She is agreeable to this plan. Return to ED for interval issues. (1) Chest pain Qualifiers: Chest pain type: unspecified Qualified Code(s): R07.9 - Chest pain, unspecified
[2018-05-29] MEDS ORDERED: Acetaminophen 500 MG Tablet PO PRN (17:00)
[2018-05-29] MEDS ORDERED: Senna/Docusate Sodium 8.6/50 MG Tablet PO PRN (17:07)
[2018-05-29 17:43] LABS: Bacteria,Urine Occasional /hpf; Bilirubin,Urine Negative (Negative); Clarity,Urine Hazy (Clear); Color,Urine Yellow (Yellw/Straw); Glucose,Urine (UA) Negative (Negative); Hyaline Casts,Urine 3 /lpf (0-3); Leukocyte Esterase,Urine Negative (Negative); Nitrite,Urine Negative (Negative); Specific Gravity,Urine 1.006 (1.002-1.035); Squamous Epithelial Cell,Urine 4 /hpf (0-5)
[2018-05-29] MEDS: Ranolazine 500 MG 12HR ER Tablet PO SCH ×2 (17:48→21:26)
[2018-05-29 18:23] LABS: Creatine Kinase 79 U/L (26-192)
[2018-05-29] MEDS: hydrALAZINE 50 MG Tablet PO SCH (18:30)
[2018-05-29] MEDS: Furosemide 80 MG Tablet PO SCH (18:30)
[2018-05-29] MEDS: Gabapentin 300 MG Capsule PO SCH (18:30)
[2018-05-29] MEDS: Carvedilol 12.5 MG Tablet PO SCH (20:14)
[2018-05-29] MEDS: QUEtiapine 25 MG Tablet PO SCH (20:15)
[2018-05-29 21:14] LABS: Creatine Kinase 101 U/L (26-192)
--- NOTE | 2018-05-30 07:53 | P.PNCA ---
Subjective Interval history: No complaints overnight. Medications and Allergies Active Medications: Active Medications Acetaminophen (Tylenol) 500 mg PO Q6H PRN PRN Reason: pain scale 1-5 Hydrocodone Bitart/Acetaminophen ([place] 7.5/325) 1 tab PO Q6H PRN PRN Reason: pain scale 6-10 Last Admin: 05/29/18 18:30 Dose: 1 tab Albuterol (Duoneb Neb (Prn)) 1 ampul NEB Q4HR NEB PRN PRN Reason: SHORTNESS OF BREATH/WHEEZING Amlodipine Besylate (Norvasc) 10 mg PO DAILY [facility] Aspirin (Aspirin) 325 mg PO DAILY [facility] Carvedilol (Coreg) 25 mg PO BID [facility] Last Admin: 05/29/18 20:14 Dose: 25 mg Clonidine HCl (Catapres) 0.1 mg PO Q6H PRN PRN Reason: SBP >165 OR DBP > 110 Clonidine HCl (Catapres) 0.1 mg PO BID [facility] Last Admin: 05/29/18 20:15 Dose: 0.1 mg Furosemide (Lasix) 80 mg PO TID [facility] Last Admin: 05/29/18 18:30 Dose: 80 mg Gabapentin (Neurontin) 300 mg PO TID [facility] Last Admin: 05/29/18 18:30 Dose: 300 mg Hydralazine HCl (Apresoline) 50 mg PO TID [facility] Last Admin: 05/29/18 18:30 Dose: 50 mg Isosorbide Mononitrate (Imdur) 60 mg PO DAILY [facility] Ondansetron HCl (Zofran Inj) 4 mg IV.PUSH Q6H PRN PRN Reason: NAUSEA Pantoprazole Sodium (Protonix) 40 mg PO DAILY [facility] Last Admin: 05/29/18 18:30 Dose: 40 mg Potassium Chloride (K-Dur) 20 meq PO BID [facility] Last Admin: 05/29/18 20:15 Dose: 20 meq Quetiapine Fumarate (Seroquel) 25 mg PO BID [facility] Last Admin: 05/29/18 20:15 Dose: 25 mg Ranolazine (Ranexa) 500 mg PO BID [facility] Last Admin: 05/29/18 21:26 Dose: 500 mg Sacubitril/Valsartan (Entresto 24 Mg/26 Mg Tablet) 1 tab PO BID [facility] Last Admin: 05/29/18 21:26 Dose: 1 tab Senna/Docusate Sodium (Shirin-Colace) 1 tab PO BID PRN PRN Reason: Constipation Sodium Chloride (Ns Flush) 2 ml IV.FLUSH UNSCH PRN PRN Reason: FLUSH AFTER USING IV ACCESS Sodium Chloride (Ns Flush) 2 ml IV.FLUSH BID [facility] Last Admin: 05/29/18 20:16 Dose: 2 ml Sodium Chloride (Ns Flush) 2 ml IV.FLUSH PRN PRN PRN Reason: FLUSH AFTER USING IV ACCESS Tamsulosin HCl (Flomax) 0.4 mg PO DAILY [facility] Ticagrelor (Brilinta) 90 mg PO BID [facility] Last Admin: 05/29/18 21:26 Dose: 90 mg Allergies Allergy/AdvReac Type Severity Reaction Status Date / Time iodine Allergy Severe Anaphylaxis Verified 05/29/18 11:19 paroxetine Allergy Severe Anaphylaxis Verified 05/29/18 11:19 penicillin G Allergy Severe Anaphylaxis Verified 05/29/18 11:19 potassium iodide Allergy Severe Anaphylaxis Verified 05/29/18 11:19 povidone-iodine Allergy Severe Anaphylaxis Verified 05/29/18 11:19 sodium iodide Allergy Severe Anaphylaxis Verified 05/29/18 11:19 sodium iodide Allergy Severe Anaphylaxis Verified 05/29/18 11:19 Sulfa (Sulfonamide Allergy Intermediate unknown Verified 05/29/18 11:19 Antibiotics) Home Medications Medication Instructions Recorded Confirmed Type amlodipine 10 mg PO DAILY 05/29/18 05/29/18 History aspirin [Aspir-Low] 81 mg PO DAILY 05/29/18 05/29/18 History carvedilol 25 mg PO BID 05/29/18 05/29/18 History cholecalciferol (vitamin D3) 1,000 unit PO DAILY 05/29/18 05/29/18 History [Vitamin D3] clonidine HCl 0.1 mg PO BID 05/29/18 05/29/18 History ergocalciferol (vitamin D2) 50,000 unit PO QWEEK 05/29/18 05/29/18 History [Vitamin D2] ferrous gluconate [Fergon] 270 mg PO DAILY 05/29/18 05/29/18 History furosemide 80 mg PO TID 05/29/18 05/29/18 History gabapentin 300 mg PO TID 05/29/18 05/29/18 History hydralazine 50 mg PO TID 05/29/18 05/29/18 History isosorbide mononitrate 60 mg PO DAILY 05/29/18 05/29/18 History mometasone-formoterol [Dulera] 2 puff INHALATION Q12H 05/29/18 05/29/18 History nitroglycerin [Nitro-Dur] 1 patch TRANSDERMAL DAILY 05/29/18 05/29/18 History omega-3 fatty acids-fish oil [Fish 2 cap PO DAILY 05/29/18 05/29/18 History Oil] omeprazole 20 mg PO BID 05/29/18 05/29/18 History potassium chloride 20 meq PO BID 05/29/18 05/29/18 History quetiapine 25 mg PO BID 05/29/18 05/29/18 History sacubitril-valsartan [Entresto] 1 tab PO BID 05/29/18 05/29/18 History sennosides-docusate sodium [Senna 1 tab PO BID PRN 05/29/18 05/29/18 History Plus] tamsulosin 0.4 mg PO DAILY 05/29/18 05/29/18 History ticagrelor [Brilinta] 90 mg PO BID 05/29/18 05/29/18 History Physical Exam Vital signs: Vital Signs 05/29/18 11:21 05/29/18 11:34 05/29/18 12:22 Temperature 99.0 F Pulse Rate 93 H 76 Respiratory Rate 22 17 Blood Pressure 168/91 H 126/60 Pulse Oximetry 92 L 95 97 05/29/18 13:49 05/29/18 13:50 05/29/18 16:09 Temperature Pulse Rate 65 71 Respiratory Rate 17 15 Blood Pressure 166/78 H Pulse Oximetry 98 99 05/29/18 17:14 05/29/18 17:18 05/29/18 19:46 Temperature 98.6 F 98.1 F Pulse Rate 72 75 Respiratory Rate 20 16 Blood Pressure 130/60 120/59 L Pulse Oximetry 97 100 100 05/30/18 00:00 05/30/18 04:00 Temperature 98.2 F 98.5 F Pulse Rate 73 70 Respiratory Rate 16 14 Blood Pressure 108/55 L 121/59 L Pulse Oximetry 100 97 Intake & Output 05/29/18 05/30/18 05/30/18 18:59 06:59 18:59 Weight 86.183 kg Other: Date of Last Bowel Movement 05/29/18 - Constitutional no acute distress - Routine HEENT Exam Head: Present: normocephalic, atraumatic - Routine Respiratory Exam Present: CTA bilaterally - Routine Cardiovascular Exam Present: RRR. Absent: murmur, gallop, rubs Results 05/29/18 11:35 05/29/18 11:35 Cardiac Enzymes 05/29/18 05/29/18 05/29/18 Range/Units 11:35 11:35 17:40 AST 21 (15-37) U/L CK-MB (CK-2) 1.7 (0.5-3.6) ng/mL Troponin I 0.02 Less than 0.02 L (0.02-0.05) ng/mL B-Natriuretic Peptide 84 (0-100) pg/mL 05/29/18 Range/Units 20:19 AST (15-37) U/L CK-MB (CK-2) (0.5-3.6) ng/mL Troponin I Less than 0.02 L (0.02-0.05) ng/mL B-Natriuretic Peptide (0-100) pg/mL Coagulation 05/29/18 05/29/18 Range/Units 11:35 11:35 PT 11.3 (9.8-11.6) sec APTT 25.8 (24.3-30.1) sec B-Natriuretic Peptide 84 (0-100) pg/mL CBC 05/29/18 Range/Units 11:35 WBC 16.6 H (4.0-11.0) th/mm3 RBC 4.34 (4.00-5.30) mil/mm3 Hgb 9.9 L (11.6-15.3) gm/dL Hct 31.1 L (35.0-46.0) % Plt Count 308 (150-450) th/mm3 Neut # (Auto) 10.6 H (1.8-7.7) th/mm3 Lymph # (Auto) 3.8 (1.0-4.8) th/mm3 [place] # (Auto) 1.3 H (0.0-0.9) th/mm3 Eos # (Auto) 0.8 H (0.0-0.4) th/mm3 Baso # (Auto) 0.1 (0.0-0.2) th/mm3 Comprehensive Metabolic Panel 05/29/18 Range/Units 11:35 Sodium 137 (136-145) meq/L Potassium 3.5 (3.5-5.1) meq/L Chloride 98 (98-107) meq/L Carbon Dioxide 28.3 (21.0-32.0) meq/L BUN 31 H (7-18) mg/dL Creatinine 2.24 H (0.50-1.00) mg/dL Calcium 8.6 (8.5-10.1) mg/dL AST 21 (15-37) U/L ALT 16 (10-53) U/L Alkaline Phosphatase 104 (45-117) U/L Total Protein 8.1 (6.4-8.2) g/dL Albumin 3.0 L (3.4-5.0) g/dL Intake and Output 05/29/18 05/30/18 05/30/18 22:59 06:59 14:59 Other: Date of Last Bowel Movement 05/29/18 - Imaging and Cardiology Imaging: Impressions Chest X-Ray 05/29/18 11:34 CONCLUSION: Stable appearance the chest with cardiomegaly and streaky interstitial opacities. This could represent underlying lung disease. Recurrent pulmonary edema could also have this appearance. Assessment and Plan - Assessment (1) Chest pain Code(s): R07.9 - Chest pain, unspecified Status: Acute Plan: ACS ruled out overnight with 3 sets of enzymes and EKGs. Dr. Jenkins reevaluated patient. Records reviewed from [facility]. Cardiac catheterization in January and February of this year. Medical management recommended at that time and current time. No further cardiac testing. Discharge this a.m. Instructed to stop lisinopril and add Ranexa to medication regimen. Strongly encouraged to establish with a clerk locally, until establish with a local clerk continue follow-up with clerk in [place]. Verbalized understanding and agreeable to plan of care. Records from [facility] 05/13/2018 admitted for chest pain with radiation to back x1 day after and argument. Patient was admitted to observation unit to monitor electrolytes and trend troponin, however patient left AMA. EKG-Left BBB 03/23/2018 Cardiac catheterization (Dr. Casimiro Anderson) Conclusions: 1. Patent left circumflex and RCA stents. 2. 60%-70% of the mid LAD stent. No sick significant change from previous films, 02/10/18. Recommendations: 1. Continue medical management of CAD and ischemic cardiomyopathy. 2. Probable demand [facility]. (2) CAD (coronary artery disease) Code(s): I25.10 - Atherosclerotic heart disease of semin[place] coronary artery without angina pectoris Status: Acute (3) History of heart artery stent Code(s): Z95.5 - Presence of coronary angioplasty implant and graft Status: Acute (4) Hypertension Code(s): I10 - Essential (primary) hypertension Status: Acute (5) Chronic kidney disease Code(s): N18.9 - Chronic kidney disease, unspecified Status: Acute (6) History of CVA (cerebrovascular accident) Code(s): Z86.73 - Personal history of transient ischemic attack (TIA), and cerebral infarction without residual deficits Status: Acute (7) Congestive heart failure Code(s): I50.9 - Heart failure, unspecified Status: Acute (8) Left bundle branch block Code(s): I44.7 - Left bundle-branch block, unspecified Status: Acute (9) Tobacco abuse Code(s): Z72.0 - Tobacco use Status: Acute (10) COPD (chronic obstructive pulmonary disease) Code(s): J44.9 - Chronic obstructive pulmonary disease, unspecified Status: Acute - Plan * Chest pain: Patient will continue to have serial cardiac enzymes and EKGs for ruling out purposes. She has been evaluated by Dr. Jenkins cardiology and chest pain center. We have requested records from heart catheterization from January of this year from [facility] ([place], [place]). If he can confirm this that she had no intervention at that time and likely medical management. We will start Ranexa 500 mg twice daily. She will need follow-up with outpatient clerk , PCP, and form drafter. * History of CHF: We will give Lasix 40 mg IV x1 at this time. Reassess in the morning. Resume her Lasix. * History of CAD: Patient states that 7 stents. We are awaiting records from heart catheterization from January of this year. Medical management at this time. She will need outpatient follow-up with cardiology. She is unaware of statins. Does not know how her cholesterol level is. Explained to her that with history of CAD she should be on statin unless contraindicated. Needs to discuss further with PCP or clerk on outpatient basis. * Chronic kidney disease: At this time will discontinue lisinopril. She needs to follow-up with form drafter. This has been stressed repeatedly to her. * Hypertension: Continue medications. * COPD: Patient is to quit smoking. Have DuoNeb's as needed. * Tobacco abuse: Patient counseled importance of smoking cessation. Patient is stable at this time. She is agreeable to this plan. Return to ED for interval issues. (1) Chest pain Qualifiers: Chest pain type: unspecified Qualified Code(s): R07.9 - Chest pain, unspecified
[2018-05-30 08:12] VITALS: BP 153/69; RESP 20; TEMP 98.7; O2SAT 100
--- NOTE | 2018-05-30 08:16 | ECG ---
Date Performed: 05/29/2018 Time Performed: 11:23:39 PTAGE: 58 years EKG: Sinus rhythm WITH FIRST DEGREE AV BLOCK MARKED LEFT AXIS DEVIATION LEFT BUNDLE BRANCH BLOCK ABNORMAL ECG Since PREVIOUS TRACING , no significant change noted PREVIOUS TRACIN11/03/2017 22.44 DOCTOR: Amairani Jenkins Interpretating Date/Time 05/30/2018 08:14:56
--- NOTE | 2018-05-30 08:18 | ECG ---
Date Performed: 05/29/2018 Time Performed: 17:25:44 PTAGE: 58 years EKG: Sinus rhythm MARKED LEFT AXIS DEVIATION LEFT BUNDLE BRANCH BLOCK ABNORMAL ECG Since PREVIOUS TRACING , no significant change noted PREVIOUS TRACIN05/29/2018 11.23 DOCTOR: Amairani Jenknis Interpretating Date/Time 05/30/2018 08:16:48
--- NOTE | 2018-05-30 08:18 | ECG ---
Date Performed: 05/29/2018 Time Performed: 20:42:02 PTAGE: 58 years EKG: Sinus rhythm MARKED LEFT AXIS DEVIATION LEFT BUNDLE BRANCH BLOCK ABNORMAL ECG Since PREVIOUS TRACING , no significant change noted PREVIOUS TRACIN05/29/2018 17.25 DOCTOR: Amairani Jenkins Interpretating Date/Time 05/30/2018 08:17:14
[2018-05-30] MEDS: QUEtiapine 25 MG Tablet PO SCH (08:51)
[2018-05-30] MEDS: Furosemide 80 MG Tablet PO SCH (08:51)
[2018-05-30] MEDS: Carvedilol 12.5 MG Tablet PO SCH (08:52)
[2018-05-30] MEDS: Gabapentin 300 MG Capsule PO SCH (08:52)
[2018-05-30] MEDS: hydrALAZINE 50 MG Tablet PO SCH (08:52)
[2018-05-30] MEDS: Ranolazine 500 MG 12HR ER Tablet PO SCH (08:54)
[2018-05-30] MEDS ORDERED: amLODIPine 10 MG Tablet PO SCH (09:00)
[2018-05-30] MEDS ORDERED: Isosorbide Mononitrate 60 MG ER 24HR Tablet (Imdur) PO SCH (09:00)
[2018-05-30] MEDS ORDERED: Aspirin 325 MG Tablet PO SCH (09:00)
[2018-05-30] MEDS ORDERED: FERROUS GLUCONATE 270 MG PO SCH (09:00)
[2018-05-30 09:23] VITALS: PULSE 70
== END 2018-05-30 10:12 | disposition home or self-care (01) ==
LOC: NEDA 11:12 → NEPC 11:12 → NEDA 16:38 → NEPHCDU 16:49
PROVIDERS: ADMIT Internal Medicine Interventional Cardiology; ATTEND Internal Medicine Interventional Cardiology

== ENCOUNTER 2018-06-08 12:34 | Observation (INO) ==
--- NOTE | 2018-06-08 13:14 | XR ---
EXAM DATE: 06/08/2018 12:42 PM EDT AGE/SEX: 58 years / Female INDICATIONS: . Short of breath CLINICAL DATA: This is the patient's initial encounter. Patient reports that signs and symptoms have been present for 1 day and indicates a pain score of 0/10. MEDICAL/SURGICAL HISTORY: . Myocardial infarction. Chronic obstructive pulmonary disease. Hyper tension. Right eye blindness. Cerebrovascular accident. Congestive heart failure. Coronary artery dis ease. Renal insufficiency. Arthritis. Diabetes. Anxiety. . Tubal ligation. Cholecystectomy. COMPARISON: [facility], CHEST 1V SINGLE AP, 05/29/2018. . FINDINGS: Diffuse interstitial prominence with streaky bilateral perihilar opacities. Excellent is enlarged and pulmonary vascularity is indistinct centrally. Remainder of the exam is unchanged. CONCLUSION: 1. Findings likely reflecting some degree of chronic interstitial prominence with superimposed inter stitial edema pattern. Electronically signed by: Kale Archibald MD 06/08/2018 1:13 PM EDT
[2018-06-08 13:22] LABS: Baso # (Auto) 0.1 th/mm3 (0.0-0.2); Eos # (Auto) 0.5 th/mm3 (0.0-0.4); Eos % (Auto) 4.2 % (0.0-4.0); Hemoglobin 8.1 gm/dL (11.6-15.3); Lymph # (Auto) 3.4 th/mm3 (1.0-4.8); Lymph % (Auto) 28.1 % (9.0-44.0); Mean Corpuscular HGB Conc 33.7 % (32.0-36.0); Mean Platelet Volume 8.4 fL (7.0-11.0); Mono # (Auto) 1.4 th/mm3 (0.0-0.9); Mono % (Auto) 11.3 % (0.0-8.0); Neut # (Auto) 6.7 th/mm3 (1.8-7.7); Neut % (Auto) 55.4 % (16.0-70.0); Platelet Count 215 th/mm3 (150-450); Red Blood Count 3.38 mil/mm3 (4.00-5.30); Red Cell Distribution Width 15.4 % (11.6-17.2); White Blood Count 12.2 th/mm3 (4.0-11.0)
[2018-06-08 13:41] LABS: Albumin 2.3 g/dL (3.4-5.0); Anion Gap 8 meq/L (5-15); Aspartate Aminotransferase 10 U/L (15-37); Blood Urea Nitrogen 42 mg/dL (7-18); Carbon Dioxide 27.9 meq/L (21.0-32.0); Chloride 99 meq/L (98-107); Glomerular Filtration Rate 23 mL/min (>89); Glucose,Random 125 mg/dL (74-106); Potassium 3.8 meq/L (3.5-5.1); Sodium 135 meq/L (136-145)
[2018-06-08 13:42] LABS: Alanine Aminotransferase 13 U/L (10-53)
[2018-06-08 13:45] LABS: Alkaline Phosphatase 88 U/L (45-117); Total Protein 6.5 g/dL (6.4-8.2)
--- NOTE | 2018-06-08 14:28 | ED ---
[facility] General Chief Complaint: Shortness of Breath/Dyspnea Stated Complaint: edema Time Seen by Provider: 06/08/18 12:40 Source: patient and family Mode of arrival: wheelchair Limitations: no limitations History of Present Illness 58-year-old female that presents to the ED for evaluation of shortness of breath. Per patient she had a shortness of breath and swelling for the past 2 days and has been worsening. Per patient she does have a history of this in the past. She was recently admitted to the hospital to the chest pain center. She apparently had a negative workup at the time. She states that she uses 4 L of oxygen at home. She does have a history of COPD as well. She states that her concern is that even laying down she gets very short of breath. Even walking she gets short of breath. She has a history of CVA. History of kidney disease as well. History of coronary disease. She denies any chest pain. Currently she denies any recent travel. She denies any history of blood clots. She does not use blood thinners. Denies any urinary or bowel movement issues. Has not seen anybody for this. She does take Lasix and per patient is supposed to take it 3 times a day but she only takes it twice a day because he felt like it was too much. Unclear as to how far along that she switch this medication. She does have multiple allergies to iodine and sulfa. Denies any nausea or vomiting. No abdominal pain. Related Data Home Medications Medication Instructions Recorded Confirmed amlodipine 10 mg PO HS 05/29/18 06/08/18 aspirin [Aspir-Low] 81 mg PO DAILY 05/29/18 06/08/18 carvedilol 25 mg PO BID 05/29/18 06/08/18 cholecalciferol (vitamin D3) 50 mcg PO DAILY 05/29/18 06/08/18 [Vitamin D3] clonidine HCl 0.1 mg PO BID 05/29/18 06/08/18 ergocalciferol (vitamin D2) 50,000 unit PO QWEEK 05/29/18 05/29/18 [Vitamin D2] ferrous gluconate [Fergon] 270 mg PO DAILY 05/29/18 06/08/18 furosemide [Lasix] 80 mg PO BID 05/29/18 06/08/18 gabapentin 300 mg PO TID 05/29/18 06/08/18 hydralazine 50 mg PO TID 05/29/18 06/08/18 isosorbide mononitrate 60 mg PO DAILY 05/29/18 06/08/18 mometasone-formoterol [Dulera] 2 puff INHALATION Q12H 05/29/18 06/08/18 nitroglycerin [Nitro-Dur] 1 patch TRANSDERMAL DAILY 05/29/18 06/08/18 omega-3 fatty acids-fish oil [Fish 2 cap PO DAILY 05/29/18 06/08/18 Oil] omeprazole 20 mg PO BID 05/29/18 05/29/18 potassium chloride 40 meq PO BID 05/29/18 06/08/18 quetiapine 25 mg PO BID 05/29/18 06/08/18 sacubitril-valsartan [Entresto] 1 tab PO BID 05/29/18 05/29/18 sennosides-docusate sodium [Senna 2 tab PO BID PRN 05/29/18 06/08/18 Plus] tamsulosin 0.4 mg PO DAILY 05/29/18 06/08/18 ticagrelor [Brilinta] 90 mg PO BID 05/29/18 06/08/18 Previous Rx's Medication Instructions Recorded ranolazine [Ranexa] 500 mg PO BID #30 tab 05/30/18 Allergies Allergy/AdvReac Type Severity Reaction Status Date / Time iodine Allergy Severe Anaphylaxis Verified 06/08/18 13:10 paroxetine Allergy Severe Anaphylaxis Verified 06/08/18 13:10 penicillin G Allergy Severe Anaphylaxis Verified 06/08/18 13:10 potassium iodide Allergy Severe Anaphylaxis Verified 06/08/18 13:10 povidone-iodine Allergy Severe Anaphylaxis Verified 06/08/18 13:10 sodium iodide Allergy Severe Anaphylaxis Verified 06/08/18 13:10 sodium iodide Allergy Severe Anaphylaxis Verified 06/08/18 13:10 Sulfa (Sulfonamide Allergy Intermediate unknown Verified 06/08/18 13:10 Antibiotics) Review of Systems ROS: all other systems reviewed are negative [facility] Medical History Medical History Bipolar disorder (Acute) Chronic renal failure (Acute) Diabetes (Acute) Heart failure (Acute) Nicotine dependence (Acute) Family History Family History Other CAD (coronary artery disease) CVA (cerebral vascular accident) Hypertension Social History Social History Substance History: No History of Abuse Second Hand Smoke Exposure: No Smoking Status: Current every day smoker Tobacco Type: Cigarettes How Often Do You Have a Drink Containing Alcohol: Never Recent Travel in [facility] within the Last 8 Weeks: No Recent Out of Country Travel within the Last 8 Weeks: No Immunization History Tetanus Immunization: Unsure Exam Narrative Exam Narrative: GENERAL: Well appearing but in some distress. SKIN: Focused skin assessment warm/dry. HEAD: Atraumatic. Normocephalic. EYES: Pupils equal and round. No scleral icterus. No injection or drainage. ENT: No nasal bleeding or discharge. Mucous membranes pink and moist. Tongue is midline. No blood deviation. NECK: Trachea midline. No JVD. CARDIOVASCULAR: Regular rate and rhythm. No murmur appreciated. RESPIRATORY: No accessory muscle use. Rales heard in the lower lung saucedo. Breath sounds equal bilaterally. GASTROINTESTINAL: Abdomen soft, non-tender, nondistended. Hepatic and splenic margins not palpable. MUSCULOSKELETAL: No obvious deformities. No clubbing. No cyanosis. Patient does have bilateral lower leg edema 2+. Full range of motion of the upper and lower extremities bilaterally. 2+ pulses bilaterally.. NEUROLOGICAL: Awake and alert. No obvious cranial nerve deficits. Motor grossly within normal limits. Normal speech. PSYCHIATRIC: Appropriate mood and affect; insight and judgment normal. Course Initial Documented Vital Signs Temperature 98.2 F 06/08/18 12:37 Pulse Rate 71 06/08/18 12:37 Respiratory Rate 22 06/08/18 12:37 Blood Pressure 96/55 L 06/08/18 12:37 Pulse Oximetry 94 L 06/08/18 12:37 Last Documented Vital Signs Temperature 98.2 F 06/09/18 00:00 Pulse Rate 74 06/09/18 00:00 Respiratory Rate 16 06/09/18 02:37 Blood Pressure 116/56 L 06/09/18 00:00 Pulse Oximetry 98 06/09/18 02:37 Medical Decision Making [facility] Narrative Medical decision making narrative: 58-year-old female that presents to the ED for evaluation of shortness of breath. Patient was properly examined and was found to have signs and symptoms consistent with appears to be likely CHF exacerbation. Labs and imaging ordered. Labs and imaging did show what appears to be CHF exacerbation although her BNP seems to be negative. Unclear as to why she is fluid overload. She is slightly hypotensive. Recommendation at this time is for admission for further evaluation. My attending Dr. Deshpande evaluated the patient and agrees with this. Case discussed with Dr. Pizarro agrees admission to his service. Patient and family agree with admission. Medical Screen Exam Complete: Yes Emergency Medical Condition: Yes Medical Records Medical records reviewed: Yes I reviewed the patient's medical records. Lab Data Lab results reviewed: Yes I reviewed the patient's lab results. Lab results narrative: Troponin and CK-MB negative. BNP within normal limits. Result diagrams: 06/08/18 13:04 06/08/18 13:04 Lab Results 06/08/18 06/08/18 06/08/18 Range/Units 13:04 13:04 13:04 WBC 12.2 H (4.0-11.0) th/mm3 RBC 3.38 L (4.00-5.30) mil/mm3 Hgb 8.1 L (11.6-15.3) gm/dL Hct 24.0 L (35.0-46.0) % MCV 71.0 L (80.0-100.0) fL MCH 24.0 L (27.0-34.0) pg MCHC 33.7 (32.0-36.0) % RDW 15.4 (11.6-17.2) % Plt Count 215 D (150-450) th/mm3 MPV 8.4 (7.0-11.0) fL Neut % (Auto) 55.4 (16.0-70.0) % Lymph % (Auto) 28.1 (9.0-44.0) % [place] % (Auto) 11.3 H (0.0-8.0) % Eos % (Auto) 4.2 H (0.0-4.0) % Baso % (Auto) 1.0 (0.0-2.0) % Neut # (Auto) 6.7 (1.8-7.7) th/mm3 Lymph # (Auto) 3.4 (1.0-4.8) th/mm3 [place] # (Auto) 1.4 H (0.0-0.9) th/mm3 Eos # (Auto) 0.5 H (0.0-0.4) th/mm3 Baso # (Auto) 0.1 (0.0-0.2) th/mm3 WBC Differential . Differential Comment Auto diff final Sodium 135 L (136-145) meq/L Potassium 3.8 (3.5-5.1) meq/L Chloride 99 (98-107) meq/L Carbon Dioxide 27.9 (21.0-32.0) meq/L Anion Gap 8 (5-15) meq/L BUN 42 H (7-18) mg/dL Creatinine 2.61 H (0.50-1.00) mg/dL Estimated GFR 23 L (>89) mL/min Random Glucose 125 H (74-106) mg/dL Calcium 8.0 L (8.5-10.1) mg/dL Iron (50-170) mcg/dL TIBC (250-450) mcg/dL % Saturation (20-50) % Ferritin (8-252) ng/mL Total Bilirubin 0.3 (0.2-1.0) mg/dL AST 10 L (15-37) U/L ALT 13 (10-53) U/L Alkaline Phosphatase 88 (45-117) U/L Total Creatine Kinase 100 (26-192) U/L Troponin I Less than 0.02 L (0.02-0.05) ng/mL B-Natriuretic Peptide (0-100) pg/mL Total Protein 6.5 (6.4-8.2) g/dL Albumin 2.3 L (3.4-5.0) g/dL Vitamin B12 (193-986) pg/mL Folate (3.1-17.5) ng/mL 06/08/18 06/08/18 06/08/18 Range/Units 13:04 13:04 13:04 WBC (4.0-11.0) th/mm3 RBC (4.00-5.30) mil/mm3 Hgb (11.6-15.3) gm/dL Hct (35.0-46.0) % MCV (80.0-100.0) fL MCH (27.0-34.0) pg MCHC (32.0-36.0) % RDW (11.6-17.2) % Plt Count (150-450) th/mm3 MPV (7.0-11.0) fL Neut % (Auto) (16.0-70.0) % Lymph % (Auto) (9.0-44.0) % [place] % (Auto) (0.0-8.0) % Eos % (Auto) (0.0-4.0) % Baso % (Auto) (0.0-2.0) % Neut # (Auto) (1.8-7.7) th/mm3 Lymph # (Auto) (1.0-4.8) th/mm3 [place] # (Auto) (0.0-0.9) th/mm3 Eos # (Auto) (0.0-0.4) th/mm3 Baso # (Auto) (0.0-0.2) th/mm3 WBC Differential Differential Comment Sodium (136-145) meq/L Potassium (3.5-5.1) meq/L Chloride (98-107) meq/L Carbon Dioxide (21.0-32.0) meq/L Anion Gap (5-15) meq/L BUN (7-18) mg/dL Creatinine (0.50-1.00) mg/dL Estimated GFR (>89) mL/min Random Glucose (74-106) mg/dL Calcium (8.5-10.1) mg/dL Iron 39 L (50-170) mcg/dL TIBC 162 L (250-450) mcg/dL % Saturation 24.0 (20-50) % Ferritin 836 H (8-252) ng/mL Total Bilirubin (0.2-1.0) mg/dL AST (15-37) U/L ALT (10-53) U/L Alkaline Phosphatase (45-117) U/L Total Creatine Kinase (26-192) U/L Troponin I Less than 0.02 L (0.02-0.05) ng/mL B-Natriuretic Peptide 40 (0-100) pg/mL Total Protein (6.4-8.2) g/dL Albumin (3.4-5.0) g/dL Vitamin B12 1386 H (193-986) pg/mL Folate Greater than 20.0 H (3.1-17.5) ng/mL Imaging Data Attestation: I personally reviewed and interpreted this imaging study as follows : Radiologist's impression: Venous Doppler Study 06/08/18 00:00 CONCLUSION: 1. No sonographic evidence for right lower extremity DVT. Chest X-Ray 06/08/18 12:42 CONCLUSION: 1. Findings likely reflecting some degree of chronic interstitial prominence with superimposed interstitial edema pattern. ECG Data Attestation: I personally reviewed and interpreted this ECG as follows: Interpretation: EKG shows sinus rhythm with no sign of acute ischemia and arrhythmia read by me and attending. Discharge Plan Discharge Disposition Patient Disposition: 30 Still Patient Discharge Details Diagnosis: Congestive heart failure, Fluid overload Physicians Team ED Provider: Sarah Deshpande ED Midlevel Provider: Edenilson Mello Primary Care Provider: UNKNOWN, Attending Provider: Yvonne Singh Other Providers: [facility],Insurance Status ED Status: Left Department Discharge Information Discharge Date/Time: 06/08/18 16:41
[2018-06-08] MEDS ORDERED: Acetaminophen 325 MG Tablet PO PRN (14:32)
--- NOTE | 2018-06-08 15:41 | P.HPIM ---
History of Present Illness Primary Care Physician: UNKNOWN Chief Complaint: Leg swelling History of Present Illness: The patient is a 58-year-old female with a past medical history of bipolar disorder, chronic kidney disease and CHF who is presenting to the hospital with lower extremity edema. The patient is rather lethargic and unable to give a detailed history. She states that she has swollen legs. She denies any pain in her legs. She denies any chest pain. Her cousin was at the bedside and stated that the patient took some Xanax and Seroquel which might be making her drowsy. She stated that the patient has been having increased lower extremity swelling and increased shortness of breath. She says that she has not been urinating that much. She states that the patient lives with her boyfriend and her grandson. I was able to discuss over the phone with the patient's daughter who lives in [place]. She says the patient has been intubated earlier this year at a different hospital for bad lungs. She said that the medication list on our computer is most likely correct. The patient's cousin states that the patient has not been urinating that much lately. She says she is on a lot of blood pressure medications. Review of Systems All other systems reviewed negative except as stated in HPI PMFSH - History History Provided By: Patient, Family Member - Medical History Medical History: Medical History (Last Updated 06/08/18 @ 15:41 by Jere Alejo DO) Bipolar disorder Chronic renal failure Diabetes Heart failure Nicotine dependence - Family History Family History: Family History (Last Updated 06/08/18 @ 15:41 by Jere Alejo DO) Other CAD (coronary artery disease) CVA (cerebral vascular accident) Hypertension - Tobacco History Second Hand Smoke Exposure: No Tobacco Use In Past 30 Days: Yes Smoking Status: Current every day smoker Tobacco Type: Cigarettes - Alcohol History How Often Do You Have a Drink Containing Alcohol: Never - Substance Use History Substance History: No History of Abuse - Travel History Recent Travel in the [place] Within the Last 8 Weeks: No Recent Travel Out of the Country Within the Last 8 Weeks: No - Immunization History Tetanus Immunization: Unsure Medications and Allergies Active Medications: Active Medications Acetaminophen (Tylenol) 650 mg PO Q4H PRN PRN Reason: Temp > 100.4; pain 1-2 Aspirin (Ecotrin) 81 mg PO DAILY [facility] Heparin Sodium (Porcine) (Heparin Inj) 5,000 units SQ Q8H [facility] Non-Formulary Medication (Cholecalciferol (Vitamin D3) [Vitamin D3]) 1,000 unit PO DAILY [facility] Non-Formulary Medication (Mometasone-Formoterol [Dulera]) 2 puff INHALATION Q12H [facility] Non-Formulary Medication (Omeprazole [Omeprazole]) 20 mg PO BID [facility] Ranolazine (Ranexa) 500 mg PO BID [facility] Tamsulosin HCl (Flomax) 0.4 mg PO DAILY [facility] Ticagrelor (Brilinta) 90 mg PO BID [facility] Allergies Allergy/AdvReac Type Severity Reaction Status Date / Time iodine Allergy Severe Anaphylaxis Verified 06/08/18 13:10 paroxetine Allergy Severe Anaphylaxis Verified 06/08/18 13:10 penicillin G Allergy Severe Anaphylaxis Verified 06/08/18 13:10 potassium iodide Allergy Severe Anaphylaxis Verified 06/08/18 13:10 povidone-iodine Allergy Severe Anaphylaxis Verified 06/08/18 13:10 sodium iodide Allergy Severe Anaphylaxis Verified 06/08/18 13:10 sodium iodide Allergy Severe Anaphylaxis Verified 06/08/18 13:10 Sulfa (Sulfonamide Allergy Intermediate unknown Verified 06/08/18 13:10 Antibiotics) Home Medications Medication Instructions Recorded Confirmed Type amlodipine 10 mg PO DAILY 05/29/18 05/29/18 History aspirin [Aspir-Low] 81 mg PO DAILY 05/29/18 05/29/18 History carvedilol 25 mg PO BID 05/29/18 05/29/18 History cholecalciferol (vitamin D3) 1,000 unit PO DAILY 05/29/18 05/29/18 History [Vitamin D3] clonidine HCl 0.1 mg PO BID 05/29/18 05/29/18 History ergocalciferol (vitamin D2) 50,000 unit PO QWEEK 05/29/18 05/29/18 History [Vitamin D2] ferrous gluconate [Fergon] 270 mg PO DAILY 05/29/18 05/29/18 History furosemide 80 mg PO TID 05/29/18 05/29/18 History gabapentin 300 mg PO TID 05/29/18 05/29/18 History hydralazine 50 mg PO TID 05/29/18 05/29/18 History isosorbide mononitrate 60 mg PO DAILY 05/29/18 05/29/18 History mometasone-formoterol [Dulera] 2 puff INHALATION Q12H 05/29/18 05/29/18 History nitroglycerin [Nitro-Dur] 1 patch TRANSDERMAL DAILY 05/29/18 05/29/18 History omega-3 fatty acids-fish oil [Fish 2 cap PO DAILY 05/29/18 05/29/18 History Oil] omeprazole 20 mg PO BID 05/29/18 05/29/18 History potassium chloride 20 meq PO BID 05/29/18 05/29/18 History quetiapine 25 mg PO BID 05/29/18 05/29/18 History sacubitril-valsartan [Entresto] 1 tab PO BID 05/29/18 05/29/18 History sennosides-docusate sodium [Senna 1 tab PO BID PRN 05/29/18 05/29/18 History Plus] tamsulosin 0.4 mg PO DAILY 05/29/18 05/29/18 History ticagrelor [Brilinta] 90 mg PO BID 05/29/18 05/29/18 History Exam Vital signs: Vital Signs 06/08/18 12:37 06/08/18 13:05 06/08/18 13:07 Temperature 98.2 F Pulse Rate 71 70 Respiratory Rate 22 Blood Pressure 96/55 L Pulse Oximetry 94 L 90 L 100 06/08/18 13:08 06/08/18 13:09 Temperature Pulse Rate 65 Respiratory Rate 20 Blood Pressure 83/48 L Pulse Oximetry 100 Intake & Output 06/07/18 06/08/18 06/08/18 18:59 06:59 18:59 Weight 86.183 kg Narrative: GENERAL: Lethargic, no distress. SKIN: Focused skin assessment warm/dry. HEAD: Atraumatic. Normocephalic. EYES: Pupils equal and round. No scleral icterus. No injection or drainage. ENT: No nasal bleeding or discharge. Mucous membranes pink and moist. Tongue is midline. No blood deviation. NECK: Trachea midline. No JVD. CARDIOVASCULAR: Regular rate and rhythm. No murmur appreciated. RESPIRATORY: Diffuse wheezing. GASTROINTESTINAL: Abdomen soft, non-tender, nondistended. Hepatic and splenic margins not palpable. MUSCULOSKELETAL: No obvious deformities. No clubbing. No cyanosis. Patient does have bilateral lower leg edema, R > L. NEUROLOGICAL: Drowsy. No obvious cranial nerve deficits. Motor grossly within normal limits. Normal speech. Results - Labs CBC & Chem 7: 06/08/18 13:04 06/08/18 13:04 Labs: Short CBC 06/08/18 Range/Units 13:04 WBC 12.2 H (4.0-11.0) th/mm3 Hgb 8.1 L (11.6-15.3) gm/dL Hct 24.0 L (35.0-46.0) % Plt Count 215 D (150-450) th/mm3 BMP 06/08/18 13:04 Sodium 135 L Potassium 3.8 Chloride 99 Carbon Dioxide 27.9 BUN 42 H Creatinine 2.61 H Calcium 8.0 L Cardiac Enzymes 06/08/18 06/08/18 Range/Units 13:04 13:04 Total Creatine Kinase 100 (26-192) U/L Troponin I Less than 0.02 L (0.02-0.05) ng/mL Liver Function 06/08/18 Range/Units 13:04 Total Bilirubin 0.3 (0.2-1.0) mg/dL AST 10 L (15-37) U/L ALT 13 (10-53) U/L Alkaline Phosphatase 88 (45-117) U/L Albumin 2.3 L (3.4-5.0) g/dL - Imaging Impressions Chest X-Ray 06/08/18 12:42 CONCLUSION: 1. Findings likely reflecting some degree of chronic interstitial prominence with superimposed interstitial edema pattern. Caprini VTE Risk Assessment Caprini VTE Risk Assessment: Moderate/High Risk (score >= 2) Caprini Risk Assessment Model: Point Value = 1 Point Value = 2 Point Value = 3 Point Value = 5 Age 41-60 Minor surgery BMI > 25 kg/m2 Swollen legs Varicose veins or History of unexplained or recurrent spontaneous Oral contraceptives or hormone replacement Sepsis (< 1 month) Serious lung disease, including pneumonia (< 1 month) Abnormal pulmonary function Acute myocardial infarction Congestive heart failure (< 1 month) History of inflammatory bowel disease Medical patient at bed rest Age 61-74 Arthroscopic surgery Major open surgery (> 45 min) Laparoscopic surgery (> 45 min) Malignancy Confined to bed (> 72 hours) Immobilizing plaster cast Central venous access Age >= 75 History of VTE Family history of VTE Factor V Leiden Prothrombin [id number] Lupus anticoagulant Anticardiolipin antibodies Elevated serum homocysteine Heparin-induced thrombocytopenia Other congenital or acquired thrombophilia Stroke (< 1 month) Elective arthroplasty Hip, pelvis, or leg fracture Acute spinal cord injury (< 1 month) Prophylaxis Regimen: Total Risk Factor Score Risk Level Prophylaxis Regimen 0-1 Low Early ambulation 2 Moderate Order ONE of the following: *Sequential Compression Device (SCD) *Heparin 5000 units SQ BID 3-4 Higher Order ONE of the following medications: *Heparin 5000 units SQ TID *Enoxaparin/Lovenox 40 mg SQ daily (WT < 150 kg, CrCl > 30 mL/min) *Enoxaparin/Lovenox 30 mg SQ daily (WT < 150 kg, CrCl > 10-29 mL/min) *Enoxaparin/Lovenox 30 mg SQ BID (WT < 150 kg, CrCl > 30 mL/min) AND/OR *Sequential Compression Device (SCD) 5 or more Highest Order ONE of the following medications: *Heparin 5000 units SQ TID (Preferred with Epidurals) *Enoxaparin/Lovenox 40 mg SQ daily (WT < 150 kg, CrCl > 30 mL/min) *Enoxaparin/Lovenox 30 mg SQ daily (WT < 150 kg, CrCl > 10-29 mL/min) *Enoxaparin/Lovenox 30 mg SQ BID (WT < 150 kg, CrCl > 30 mL/min) AND *Sequential Compression Device (SCD) Assessment and Plan - Plan Acute on chronic systolic CHF The pt recently had an echo with an EF of 35-40%. She does not have a bone tender. She is on Lasix as an outpt. BNP not elevated. CXR with pulmonary congestion. LEs with edema, R > L. EKG with LBBB. -Lasix 40 mg IV BID. -telemetry. -strict Is and Os, daily weights. -trend trops. -continue cardiac regimen, although holding some meds for hypotension. -US of RLE pending. -cardiology consult as needed. Hypotension Improving. On many antihypertensives. -hold antihypertensives and monitor while diuresing. Drowsiness On Seroquel and gabapentin. -hold above meds. -neuro checks. Chronic renal failure Follows with nephrology in [place]. -would consult nephrology if creatinine increases with diuresis. Anemia Microcytic. Likely s/t renal disease. -check anemia labs, Hemoccult. -follow CBC and transfuse as needed. Leukocytosis Appears chronic. -monitor. PPx: Heparin
[2018-06-08] MEDS: Heparin - SQ 10,000 UNITS/ML Vial SQ SCH ×2 (15:51→22:07)
--- NOTE | 2018-06-08 16:47 | US ---
EXAM DATE: 06/08/2018 12:00 AM EDT AGE/SEX: 58 years / Female INDICATIONS: Right leg swelling. CLINICAL DATA: This is the patient's initial encounter. Patient reports that signs and symptoms have been present for 2 days and indicates a pain score of 0/10. MEDICAL/SURGICAL HISTORY: Diabetes. Bipolar disorder. Chronic renal failure. Heart failure. No ne. COMPARISON: . TECHNIQUE: Venous ultrasound of both lower extremities was performed from the inguinal ligament to t he proximal calf. Real-time, color Doppler and spectral tracing, compression and augmentation techni ques were used. FINDINGS: Normal compression of the deep venous system from the inguinal region to the proximal calf . No echogenic clot is seen. Normal response of the venous system to augmentation and respiration. CONCLUSION: 1. No sonographic evidence for right lower extremity DVT. Electronically signed by: Kale Archibald MD 06/08/2018 4:46 PM EDT
[2018-06-08] MEDS ORDERED: Pantoprazole Sodium 20 MG DR Tablet PO SCH (21:00)
[2018-06-08] MEDS ORDERED: Ranolazine 500 MG 12HR ER Tablet PO SCH (21:00)
[2018-06-09 00:20] LABS: Vitamin B12 1386 pg/mL (193-986)
[2018-06-09 00:21] VITALS: BP 116/56; PULSE 74; RESP 16; TEMP 98.2
[2018-06-09 02:43] VITALS: O2SAT 98
--- NOTE | 2018-06-09 13:41 | ECG ---
Date Performed: 06/08/2018 Time Performed: 15:36:50 PTAGE: 58 years EKG: Sinus rhythm MARKED LEFT AXIS DEVIATION LEFT BUNDLE BRANCH BLOCK ABNORMAL ECG PREVIOUS TRACING .42 Since the previous tracing, no significant change noted DOCTOR: Diego Whipple Interpretating Date/Time 06/09/2018 13:40:04
== END 2018-06-09 05:35 | disposition left against medical advice (07) ==
LOC: NEPC 12:34 → NEDA 12:34 → NEPFCDU 16:24
PROVIDERS: ADMIT Family Medicine; ATTEND Family Medicine

== ENCOUNTER 2018-07-01 05:14 | Inpatient (IN) ==
--- NOTE | 2018-07-01 06:22 | ED ---
HPI General Chief Complaint: Abdominal Pain Stated Complaint: Medical/SOB Time Seen by Provider: 07/01/18 05:40 Source: patient Mode of arrival: ambulatory Limitations: no limitations History of Present Illness HPI narrative: The patient is a 58 year old female who presents to the [facility] emergency department with a history of abdominal pain that she reports began yesterday after having intercourse. She denies having any vaginal discharge or vaginal bleeding associated with this. She reports that the pain is in the midepigastric area. The patient is a poor historian and has difficulty qualifying the character the pain or whether it is been constant are coming and going. She reports having nausea without vomiting. She denies having any diarrhea. She cannot recall when she last had a bowel movement. The patient additionally reports having shortness of breath. The patient has a prior history of COPD and congestive heart failure. The patient continues to smoke approximately 5 cigarettes/day. The patient has had cough and congestion over the last 2 weeks. She is currently on Levaquin which was started on June 24, 2018. She recently moved to the area from [place]. She presents with her significant other at her bedside. The patient reports that she is on 4 L of nasal cannula O2 at home. The patient additionally reports having a history of chronic renal insufficiency and 7 prior cardiac stents being placed. On review of systems otherwise, the patient denies having any known fevers, neck pain, chest pain, urinary symptoms, or neurologic symptoms. Related Data Home Medications Medication Instructions Recorded Confirmed amlodipine 10 mg PO HS 05/29/18 06/08/18 aspirin [Aspir-Low] 81 mg PO DAILY 05/29/18 06/08/18 carvedilol 25 mg PO BID 05/29/18 06/08/18 cholecalciferol (vitamin D3) 50 mcg PO DAILY 05/29/18 06/08/18 [Vitamin D3] clonidine HCl 0.1 mg PO BID 05/29/18 06/08/18 ergocalciferol (vitamin D2) 50,000 unit PO QWEEK 05/29/18 05/29/18 [Vitamin D2] ferrous gluconate [Fergon] 270 mg PO DAILY 05/29/18 06/08/18 furosemide [Lasix] 80 mg PO BID 05/29/18 06/08/18 gabapentin 300 mg PO TID 05/29/18 06/08/18 hydralazine 50 mg PO TID 05/29/18 06/08/18 isosorbide mononitrate 60 mg PO DAILY 05/29/18 06/08/18 mometasone-formoterol [Dulera] 2 puff INHALATION Q12H 05/29/18 06/08/18 nitroglycerin [Nitro-Dur] 1 patch TRANSDERMAL DAILY 05/29/18 06/08/18 omega-3 fatty acids-fish oil [Fish 2 cap PO DAILY 05/29/18 06/08/18 Oil] omeprazole 20 mg PO BID 05/29/18 05/29/18 potassium chloride 40 meq PO BID 05/29/18 06/08/18 quetiapine 25 mg PO BID 05/29/18 06/08/18 sacubitril-valsartan [Entresto] 1 tab PO BID 05/29/18 05/29/18 sennosides-docusate sodium [Senna 2 tab PO BID PRN 05/29/18 06/08/18 Plus] tamsulosin 0.4 mg PO DAILY 05/29/18 06/08/18 ticagrelor [Brilinta] 90 mg PO BID 05/29/18 06/08/18 Previous Rx's Medication Instructions Recorded ranolazine [Ranexa] 500 mg PO BID #30 tab 05/30/18 Allergies Allergy/AdvReac Type Severity Reaction Status Date / Time iodine Allergy Severe Anaphylaxis Verified 07/01/18 05:22 paroxetine Allergy Severe Anaphylaxis Verified 07/01/18 05:22 penicillin G Allergy Severe Anaphylaxis Verified 07/01/18 05:22 potassium iodide Allergy Severe Anaphylaxis Verified 07/01/18 05:22 povidone-iodine Allergy Severe Anaphylaxis Verified 07/01/18 05:22 sodium iodide Allergy Severe Anaphylaxis Verified 07/01/18 05:22 sodium iodide Allergy Severe Anaphylaxis Verified 07/01/18 05:22 Sulfa (Sulfonamide Allergy Intermediate unknown Verified 07/01/18 05:22 Antibiotics) Review of Systems ROS: all other systems reviewed are negative [facility] Social History Social History Substance History: No History of Abuse Second Hand Smoke Exposure: Yes Smoking Status: Current every day smoker Tobacco Type: Cigarettes Cigarettes Per Day: 5 How Often Do You Have a Drink Containing Alcohol: Never Recent Travel in [facility] within the Last 8 Weeks: No Recent Out of Country Travel within the Last 8 Weeks: No Immunization History Tetanus Immunization: <5 Years Exam Const General: cooperative, well developed and acute distress (Tearful on examination reportedly related to abdominal pain.) mild Nutritional Appearance: well nourished Orientation: alert, awake and oriented x3 HENMT Head: normocephalic and atraumatic Nose: no nasal discharge and no epistaxis Mouth: moist mucous membranes Eyes Sclera: normal sclerae Pupils: PERRL Neck Neck: no meningeal signs, trachea midline and no JVD Resp Effort & Inspection: no use of accessory muscles Auscultation: no rales, no rhonchi and wheezes (Soft expiratory wheezes posteriorly audible in bilateral lung saucedo. Patient has a congested sounding cough intermittently on exam.) Cardio Rate: regular rate Rhythm: regular rhythm Heart Sounds: no murmurs GI Inspection: non-distended Palpation: soft, no hepatosplenomegaly, no guarding, not rigid and tender in the epigastrum; not in the LLQ, not in the RLQ, not in the LUQ, not in the RUQ, not at McBurney's point, not suprapubicly, Goodman's sign negative and with no rebound tenderness Auscultation: normal bowel sounds Back/Spine/Pelvis Back: no CVA tenderness Skin General: dry skin (warm) Neuro General: alert, awake and oriented x3 Cranial Nerves: CN's II-XI intact bilaterally Speech: other (No aphasia, no slurred speech, hoarse quality to her voice with congestion.) Motor: no movement abnormalities noted and strength abnormal (Patient has generalized weakness with 4/5 strength noted in all 4 extremities.) Sensory Exam: no sensory deficits noted Extrem General: normal to inspection (2+ pulses in all 4 extremities.), no calf tenderness, no clubbing, no cyanosis and edema (1+ edema bilateral lower extremities.) Laterality: bilaterally Psych Mood: congruent mood Affect: normal affect Judgment: judgment good Course Initial Documented Vital Signs Temperature 98.4 F 07/01/18 05:20 Pulse Rate 83 07/01/18 05:20 Respiratory Rate 20 07/01/18 05:20 Blood Pressure 128/60 07/01/18 05:20 Pulse Oximetry 100 07/01/18 05:20 Last Documented Vital Signs Temperature 98.4 F 07/01/18 05:20 Pulse Rate 82 07/01/18 07:29 Respiratory Rate 14 18 07:29 Blood Pressure 134/63 07/01/18 07:29 Pulse Oximetry 97 07/01/18 07:29 Medical Decision Making MDM Narrative Medical decision making narrative: During the course of the patient's emergency department visit, the patient's history, examination, and differential diagnosis were reviewed with the patient. The patient was placed on a groundwater monitoring technician with oximetry and frequent blood pressure monitoring. The patient had IV access obtained and blood work sent for analysis. A diagnostic evaluation was started regarding the patient's abdominal pain, congestion, nausea, generalized weakness. Patient's blood sugar was checked to rule out hypoglycemia. Patient's blood sugar was in the 200s. The patient was initially provided Zofran 4 mg IV for nausea. The patient's diagnostic evaluation is remarkable for a white count of 16.5, hemoglobin 10.4, platelets 300, monocytes 10.7. PT is 11.2, PTT 27, chemistries remarkable for sodium of 134, potassium is 5.9. The patient will be given Kayexalate p.o. BUN is 37, creatinine 3.24 consistent with an acute kidney injury as the patient's last creatinine was 2.61. Glucose is 205, lactic acid is within normal limits at 0.7, magnesium is 1.3 which will be supplemented IV with 1 g, AST 13, troponin I is less than 0.02, albumin 2.9. Patient's lipase is within normal limits. A CT scan of the brain shows no acute abnormality, chest x-ray shows vascular congestion consistent with what appears to be pulmonary edema. A BNP was added to the patient's laboratory studies. The patient was given Lasix 60 mg IV, CT scan of the abdomen and pelvis shows no acute abnormality. The patient's case including history, pertinent physical examination findings, and laboratory studies were discussed with Dr. Howell. It was agreed that the patient would be admitted to the hospitalist service. The patient's results were discussed with the patient, including the plan of care. I explained that further testing and/ or monitoring is indicated based on the patient's history, examination, and/ or laboratory findings. Therefore, I recommended admission for additional evaluation. The patient expressed understanding and was agreeable with this plan. The patient was admitted to the hospital in guarded condition and sent to a bed under the care of the [facility] service. Medical Screen Exam Complete: Yes Emergency Medical Condition: Yes Differential Diagnosis Differential Diagnosis: Pancreatitis, versus peptic ulcer disease, versus perforated bowel, versus bowel obstruction, versus acute coronary syndrome, versus pneumonia, versus congestive heart failure exacerbation Medical Records Medical records reviewed: Yes I reviewed the patient's medical records. Lab Data Result diagrams: 07/01/18 06:20 07/01/18 06:20 Lab Results 07/01/18 07/01/18 07/01/18 Range/Units 06:07 06:20 06:20 WBC 16.5 H (4.0-11.0) th/mm3 RBC 4.53 (4.00-5.30) mil/mm3 Hgb 10.4 L (11.6-15.3) gm/dL Hct 32.4 L (35.0-46.0) % MCV 71.5 L (80.0-100.0) fL MCH 22.9 L (27.0-34.0) pg MCHC 32.1 (32.0-36.0) % RDW 15.4 (11.6-17.2) % Plt Count 300 D (150-450) th/mm3 MPV 8.4 (7.0-11.0) fL Neut % (Auto) 60.7 (16.0-70.0) % Lymph % (Auto) 23.9 (9.0-44.0) % [place] % (Auto) 10.7 H (0.0-8.0) % Eos % (Auto) 4.0 (0.0-4.0) % Baso % (Auto) 0.7 (0.0-2.0) % Neut # (Auto) 10.0 H (1.8-7.7) th/mm3 Lymph # (Auto) 4.0 (1.0-4.8) th/mm3 [place] # (Auto) 1.8 H (0.0-0.9) th/mm3 Eos # (Auto) 0.7 H (0.0-0.4) th/mm3 Baso # (Auto) 0.1 (0.0-0.2) th/mm3 WBC Differential . Differential Comment Auto diff final PT 11.2 (9.8-11.6) sec INR 1.1 Ratio APTT 27.0 (23.4-31.7) sec Sodium (136-145) meq/L Potassium (3.5-5.1) meq/L Chloride (98-107) meq/L Carbon Dioxide (21.0-32.0) meq/L Anion Gap (5-15) meq/L BUN (7-18) mg/dL Creatinine (0.50-1.00) mg/dL Estimated GFR (>89) mL/min POC Glucose 233 H (68-110) mg/dl Random Glucose (74-106) mg/dL Lactic Acid (0.4-2.0) mmol/L Calcium (8.5-10.1) mg/dL Magnesium (1.5-2.5) mg/dL Total Bilirubin (0.2-1.0) mg/dL AST (15-37) U/L ALT (10-53) U/L Alkaline Phosphatase (45-117) U/L Total Creatine Kinase (26-192) U/L Troponin I (0.02-0.05) ng/mL B-Natriuretic Peptide (0-100) pg/mL Total Protein (6.4-8.2) g/dL Albumin (3.4-5.0) g/dL Lipase (73-393) U/L Urine Color (Yellw/Straw) Urine Clarity (Clear) Urine pH (5.0-8.5) Ur Specific Bandera (1.002-1.035) Urine Protein (Neg-Trace) mg/dL Urine Glucose (UA) (Negative) mg/dL Urine Ketones (Negative) mg/dL Urine Occult Blood (Negative) Urine Nitrate (Negative) Urine Bilirubin (Negative) Urine Urobilinogen (Less than 2) mg/dL Ur Leukocyte Esterase (Negative) Urine RBC (0-3) /hpf Urine WBC (0-5) /hpf Ur Squamous Epith Cells (0-5) /hpf Micro UA Comment Ur Microscopic Review Urine Culture Comments Urine Opiates Screen (Neg) Ur Barbiturates Screen (Neg) Ur Amphetamines Screen (Neg) U Benzodiazepines Scrn (Neg) Urine Cocaine Screen (Neg) U Cannabinoids Screen (Neg) 07/01/18 07/01/18 07/01/18 Range/Units 06:20 06:20 06:20 WBC (4.0-11.0) th/mm3 RBC (4.00-5.30) mil/mm3 Hgb (11.6-15.3) gm/dL Hct (35.0-46.0) % MCV (80.0-100.0) fL MCH (27.0-34.0) pg MCHC (32.0-36.0) % RDW (11.6-17.2) % Plt Count (150-450) th/mm3 MPV (7.0-11.0) fL Neut % (Auto) (16.0-70.0) % Lymph % (Auto) (9.0-44.0) % [place] % (Auto) (0.0-8.0) % Eos % (Auto) (0.0-4.0) % Baso % (Auto) (0.0-2.0) % Neut # (Auto) (1.8-7.7) th/mm3 Lymph # (Auto) (1.0-4.8) th/mm3 [place] # (Auto) (0.0-0.9) th/mm3 Eos # (Auto) (0.0-0.4) th/mm3 Baso # (Auto) (0.0-0.2) th/mm3 WBC Differential Differential Comment PT (9.8-11.6) sec INR Ratio APTT (23.4-31.7) sec Sodium 134 L (136-145) meq/L Potassium 5.9 H (3.5-5.1) meq/L Chloride 98 (98-107) meq/L Carbon Dioxide 27.0 (21.0-32.0) meq/L Anion Gap 9 (5-15) meq/L BUN 37 H (7-18) mg/dL Creatinine 3.24 H (0.50-1.00) mg/dL Estimated GFR 18 L (>89) mL/min POC Glucose (68-110) mg/dl Random Glucose 205 H (74-106) mg/dL Lactic Acid 0.7 (0.4-2.0) mmol/L Calcium 8.9 (8.5-10.1) mg/dL Magnesium 1.3 L (1.5-2.5) mg/dL Total Bilirubin 0.2 (0.2-1.0) mg/dL AST 13 L (15-37) U/L ALT 15 (10-53) U/L Alkaline Phosphatase 91 (45-117) U/L Total Creatine Kinase 61 (26-192) U/L Troponin I Less than 0.02 L (0.02-0.05) ng/mL B-Natriuretic Peptide 79 (0-100) pg/mL Total Protein 7.8 (6.4-8.2) g/dL Albumin 2.9 L (3.4-5.0) g/dL Lipase 92 (73-393) U/L Urine Color (Yellw/Straw) Urine Clarity (Clear) Urine pH (5.0-8.5) Ur Specific Bandera (1.002-1.035) Urine Protein (Neg-Trace) mg/dL Urine Glucose (UA) (Negative) mg/dL Urine Ketones (Negative) mg/dL Urine Occult Blood (Negative) Urine Nitrate (Negative) Urine Bilirubin (Negative) Urine Urobilinogen (Less than 2) mg/dL Ur Leukocyte Esterase (Negative) Urine RBC (0-3) /hpf Urine WBC (0-5) /hpf Ur Squamous Epith Cells (0-5) /hpf Micro UA Comment Ur Microscopic Review Urine Culture Comments Urine Opiates Screen (Neg) Ur Barbiturates Screen (Neg) Ur Amphetamines Screen (Neg) U Benzodiazepines Scrn (Neg) Urine Cocaine Screen (Neg) U Cannabinoids Screen (Neg) 07/01/18 07/01/18 Range/Units 08:15 08:15 WBC (4.0-11.0) th/mm3 RBC (4.00-5.30) mil/mm3 Hgb (11.6-15.3) gm/dL Hct (35.0-46.0) % MCV (80.0-100.0) fL MCH (27.0-34.0) pg MCHC (32.0-36.0) % RDW (11.6-17.2) % Plt Count (150-450) th/mm3 MPV (7.0-11.0) fL Neut % (Auto) (16.0-70.0) % Lymph % (Auto) (9.0-44.0) % [place] % (Auto) (0.0-8.0) % Eos % (Auto) (0.0-4.0) % Baso % (Auto) (0.0-2.0) % Neut # (Auto) (1.8-7.7) th/mm3 Lymph # (Auto) (1.0-4.8) th/mm3 [place] # (Auto) (0.0-0.9) th/mm3 Eos # (Auto) (0.0-0.4) th/mm3 Baso # (Auto) (0.0-0.2) th/mm3 WBC Differential Differential Comment PT (9.8-11.6) sec INR Ratio APTT (23.4-31.7) sec Sodium (136-145) meq/L Potassium (3.5-5.1) meq/L Chloride (98-107) meq/L Carbon Dioxide (21.0-32.0) meq/L Anion Gap (5-15) meq/L BUN (7-18) mg/dL Creatinine (0.50-1.00) mg/dL Estimated GFR (>89) mL/min POC Glucose (68-110) mg/dl Random Glucose (74-106) mg/dL Lactic Acid (0.4-2.0) mmol/L Calcium (8.5-10.1) mg/dL Magnesium (1.5-2.5) mg/dL Total Bilirubin (0.2-1.0) mg/dL AST (15-37) U/L ALT (10-53) U/L Alkaline Phosphatase (45-117) U/L Total Creatine Kinase (26-192) U/L Troponin I (0.02-0.05) ng/mL B-Natriuretic Peptide (0-100) pg/mL Total Protein (6.4-8.2) g/dL Albumin (3.4-5.0) g/dL Lipase (73-393) U/L Urine Color Light-yellow (Yellw/Straw) Urine Clarity Clear (Clear) Urine pH 8.0 (5.0-8.5) Ur Specific [place] 1.006 (1.002-1.035) Urine Protein 100 H (Neg-Trace) mg/dL Urine Glucose (UA) Negative (Negative) mg/dL Urine Ketones Negative (Negative) mg/dL Urine Occult Blood Negative (Negative) Urine Nitrate Negative (Negative) Urine Bilirubin Negative (Negative) Urine Urobilinogen Less than 2 (Less than 2) mg/dL Ur Leukocyte Esterase Negative (Negative) Urine RBC 1 (0-3) /hpf Urine WBC 1 (0-5) /hpf Ur Squamous Epith Cells <1 (0-5) /hpf Micro UA Comment Culture not ind Ur Microscopic Review Not Reportable Urine Culture Comments Culture not ind Urine Opiates Screen Neg (Neg) Ur Barbiturates Screen Neg (Neg) Ur Amphetamines Screen Neg (Neg) U Benzodiazepines Scrn Pos H (Neg) Urine Cocaine Screen Neg (Neg) U Cannabinoids Screen Neg (Neg) Imaging Data Radiologist's impression: Abdomen/Pelvis CT 07/01/18 06:05 CONCLUSION: No acute noncontrast CT findings in the abdomen or pelvis. Chest X-Ray 07/01/18 06:05 CONCLUSION: Probable CHF Head CT 07/01/18 06:08 CONCLUSION: Negative CT Head non contrast. . ECG Data EKG Prior to Arrival: Yes Attestation: I personally reviewed and interpreted this ECG as follows: Interpretation: The patient had a EKG done on arrival. The patient's EKG was compared to a prior EKG done at this facility. The patient is noted to have a left bundle branch block which the patient has had previously. The patient's heart rate today is 83 on her EKG, QRS duration 155 ms, QTC 449 ms. No other acute changes. Discharge Plan Discharge Disposition Patient Disposition: 30 Still Patient Discharge Details Diagnosis: Altered mental status, Acute kidney injury, Pulmonary edema, Acute hyperkalemia Physicians Team ED Provider: Yvonne Valiente Primary Care Provider: UNKNOWN, Attending Provider: Vashti Howell Other Providers: [facility],Insurance Status ED Status: Left Department Discharge Information Discharge Date/Time: 07/01/18 11:35
[2018-07-01 06:26] LABS: Baso # (Auto) 0.1 th/mm3 (0.0-0.2); Baso % (Auto) 0.7 % (0.0-2.0); Eos # (Auto) 0.7 th/mm3 (0.0-0.4); Hematocrit 32.4 % (35.0-46.0); Hemoglobin 10.4 gm/dL (11.6-15.3); Lymph % (Auto) 23.9 % (9.0-44.0); Mean Corpuscular HGB Conc 32.1 % (32.0-36.0); Mean Corpuscular Hemoglobin 22.9 pg (27.0-34.0); Mean Corpuscular Volume 71.5 fL (80.0-100.0); Mean Platelet Volume 8.4 fL (7.0-11.0); Mono # (Auto) 1.8 th/mm3 (0.0-0.9); Mono % (Auto) 10.7 % (0.0-8.0); Neut % (Auto) 60.7 % (16.0-70.0); Platelet Count 300 th/mm3 (150-450); Red Blood Count 4.53 mil/mm3 (4.00-5.30); Red Cell Distribution Width 15.4 % (11.6-17.2); White Blood Count 16.5 th/mm3 (4.0-11.0)
--- NOTE | 2018-07-01 06:29 | XR ---
EXAM DATE: 07/01/2018 6:26 AM EST AGE/SEX: 58 years / Female INDICATIONS: Short of breath. CLINICAL DATA: This is the patient's initial encounter. Patient reports that signs and symptoms have been present for 1 day and indicates a pain score of 0/10. MEDICAL/SURGICAL HISTORY: . Myocardial infarction. Chronic obstructive pulmonary disease. Hyper tension. Right eye blindness. Cerebrovascular accident. Congestive heart failure. Coronary artery dis ease. Renal insufficiency. Arthritis. Diabetes. Anxiety . Tubal ligation. Cholecystectomy. [place] [facility] [place]. . FINDINGS: Cardiac silhouette is enlarged. There is vascular congestion and symmetric bilateral interstitial and alveolar parenchymal opacities most suggestive of edema CONCLUSION: Probable CHF Electronically signed by: Kit Albarran MD 07/01/2018 6:28 AM EST
[2018-07-01 06:37] LABS: INR 1.1 Ratio; Prothrombin Time 11.2 sec (9.8-11.6)
[2018-07-01 06:47] LABS: Albumin 2.9 g/dL (3.4-5.0); Anion Gap 9 meq/L (5-15); Aspartate Aminotransferase 13 U/L (15-37); Blood Urea Nitrogen 37 mg/dL (7-18); Calcium 8.9 mg/dL (8.5-10.1); Chloride 98 meq/L (98-107); Glomerular Filtration Rate 18 mL/min (>89); Glucose,Random 205 mg/dL (74-106); Lipase 92 U/L (73-393); Magnesium 1.3 mg/dL (1.5-2.5); Potassium 5.9 meq/L (3.5-5.1); Sodium 134 meq/L (136-145)
--- NOTE | 2018-07-01 06:47 | CT ---
EXAM DATE: 07/01/2018 6:34 AM EST AGE/SEX: 58 years / Female INDICATIONS: Altered mental status. CLINICAL DATA: This is the patient's initial encounter. Patient reports that signs and symptoms have been present for 1 day and indicates a pain score of 0/10. MEDICAL/SURGICAL HISTORY: Diabetes. Renal failure, chronic. Cardiovascular disease. None. RADIATION DOSE: 43.47 CTDI (mGy) COMPARISON: [facility] [place], 04/20/2016. . TECHNIQUE: CT of the head without contrast. Using automated exposure control and adjustment of the mA and/or kV according to patient size, radiation dose was kept as low as reasonably achievable to ob tain optimal diagnostic quality images. DICOM format image data is available electronically for revi ew and comparison. FINDINGS: Cerebrum: The ventricles are normal for age. No evidence of midline shift, mass lesion, hemorrhage or acute infarction. No extraaxial fluid collections are seen. Posterior Fossa: The cerebellum and brainstem are intact. The 4th ventricle is midline. The cerebe llopontine angle is unremarkable. Extracranial: The visualized portion of the orbits is intact. Skull: The calvaria is intact. No evidence of skull fracture. CONCLUSION: Negative CT Head non contrast. . Electronically signed by: Kit Albarran MD 07/01/2018 6:46 AM EST
[2018-07-01 06:48] LABS: Alanine Aminotransferase 15 U/L (10-53)
--- NOTE | 2018-07-01 06:51 | CT ---
EXAM DATE: 07/01/2018 6:41 AM EST AGE/SEX: 58 years / Female INDICATIONS: Diffuse abdominal pain. CLINICAL DATA: This is the patient's initial encounter. Patient reports that signs and symptoms have been present for 1 day and indicates a pain score of 5/10. MEDICAL/SURGICAL HISTORY: Diabetes. Renal failure, chronic. Cardiovascular disease. None. RADIATION DOSE: 14.24 CTDI (mGy) COMPARISON: No prior exams available for comparison. TECHNIQUE: Multiple contiguous axial images were obtained through the abdomen. Images were obtained using multiple row detector helical technique. Using automated exposure control and adjustment of the mA and/or kV according to patient size, radiation dose was kept as low as reasonably achievable to o btain optimal diagnostic quality images. DICOM format image data is available electronically for rev iew and comparison. FINDINGS: Lower Lungs: Fibrotic changes in the lung bases. Liver: The liver has a homogeneous density without space-occupying lesion. There is no dilation of th e biliary tree. Spleen: Homogeneous density without enlargement. Pancreas: Unremarkable without mass or calcification. Kidneys: Normal in size and shape. No evidence of mass or hydronephrosis. Adrenal Glands: Partially fat density mass involving the left adrenal gland most consistent with my elolipoma. Aorta: The aorta and proximal iliac vessels are grossly unremarkable without aneurysmal dilation. Bowel/Mesentery: Distal colonic diverticula. No abnormal dilatation of bowel. No focal wall thickeni ng or inflammatory changes. Appendix is seen and appears normal. Abdominal Wall: Previous mesh umbilical or periumbilical hernia repair. Retroperitoneum: No evidence of adenopathy in the retrocrural, para-aortic, or deep pelvic regions. Bladder: Contours are smooth. Reproductive Organs: No abnormal masses or calcifications seen. Inguinal: The inguinal region is unremarkable without evidence of adenopathy. Bony Structures: Unremarkable. CONCLUSION: No acute noncontrast CT findings in the abdomen or pelvis. Electronically signed by: Kit Albarran MD 07/01/2018 6:50 AM EST
[2018-07-01 06:52] LABS: Alkaline Phosphatase 91 U/L (45-117); Creatine Kinase 61 U/L (26-192); Total Protein 7.8 g/dL (6.4-8.2)
[2018-07-01] MEDS ORDERED: Mag Sulf 1 gm/100 ml Premix 100 ML IV.SIG ONE (07:05)
[2018-07-01] MEDS ORDERED: Sodium Polystyrene Sulfonate/Sorbitol Liq 15 GM/60 ML UDC PO ONE (07:05)
--- NOTE | 2018-07-01 07:54 | ECG ---
Date Performed: 07/01/2018 Time Performed: 05:42:40 PTAGE: 58 years EKG: Sinus rhythm POSSIBLE LEFT ATRIAL ENLARGEMENT MARKED LEFT AXIS DEVIATION LEFT BUNDLE BRANCH BLOCK ABNORMAL ECG No significant change from prior electrocardiogram. PREVIOUS TRACING : 06/08/2018 15.36 DOCTOR: Madan Valentin Interpretating Date/Time 07/01/2018 07:53:41
[2018-07-01] MEDS ORDERED: Acetaminophen 325 MG Tablet PO PRN (08:09)
[2018-07-01] MEDS ORDERED: Senna/Docusate Sodium 8.6/50 MG Tablet PO SCH (09:00)
[2018-07-01 09:46] LABS: Bilirubin,Urine Negative (Negative); Clarity,Urine Clear (Clear); Glucose,Urine (UA) Negative (Negative); Leukocyte Esterase,Urine Negative (Negative); Nitrite,Urine Negative (Negative); Specific Gravity,Urine 1.006 (1.002-1.035); Squamous Epithelial Cell,Urine <1 /hpf (0-5)
--- NOTE | 2018-07-01 09:47 | P.HPIM ---
History of Present Illness Primary Care Physician: UNKNOWN Chief Complaint: abdominal pain History of Present Illness: This is a 58-year-old female with history of chronic renal failure, coronary artery disease status post stenting, COPD, CHF admitted for abdominal pain. Per patient who is a poor historian because of altered mental status, she started having suprapubic and epigastric abdominal pain, moderate to severe about 2 days ago after sexual intercourse. This is associated with nausea and vomiting. She describes mild shortness of breath with mild cough. No fever or chills. Denies any dysuria, frequency or urgency. No diarrhea. Again patient is a poor historian. Per ED documentation, there is no note of vaginal bleeding or discharge. Cannot recall bowel movement. She recently moved from [place], continues to smoke, on oxygen 4 L every day. Inpatient Certification: I certify that the inpatient services were ordered in accordance with Medicare regulations governing the order. This includes certification that hospital inpatient services are reasonable and necessary and in the case of services not specified as inpatient-only under 42 CFR 419.22(n), that they are appropriately provided as inpatient services in accordance to with the 2-midnight benchmark under 43 CFR 412.3(e) Estimated Total Length of Stay (Days): 2 Plans for Post Hospital Care: Home [facility] - History History Provided By: Patient, Significant Other - Medical History Medical History: Medical History (Last Reviewed 07/01/18 @ 09:49 by Vashti Howell MD) Bipolar disorder Chronic renal failure Diabetes Heart failure Nicotine dependence - Surgical History Surgical History: Surgical History (Last Reviewed 07/01/18 @ 09:49 by Vashti Howell MD) H/O heart artery stent S/P cholecystectomy - Family History Family History: Family History (Last Reviewed 07/01/18 @ 09:49 by Vashti Howell MD) Other CAD (coronary artery disease) CVA (cerebral vascular accident) Hypertension - Tobacco History Second Hand Smoke Exposure: Yes Tobacco Use In Past 30 Days: Yes Smoking Status: Current every day smoker Tobacco Type: Cigarettes Cigarettes Per Day: 5 - Alcohol History How Often Do You Have a Drink Containing Alcohol: Never - Substance Use History Substance History: No History of Abuse - Travel History Recent Travel in the [place] Within the Last 8 Weeks: No Recent Travel Out of the Country Within the Last 8 Weeks: No - Immunization History Tetanus Immunization: <5 Years Medications and Allergies Active Medications: Active Medications Acetaminophen (Tylenol) 650 mg PO Q4H PRN PRN Reason: Temp > 100.4 Al Hydroxide/Mg Hydroxide (Milk Of Magnesia Liq) 30 ml PO Q12H PRN PRN Reason: Mild Constipation Heparin Sodium (Porcine) (Heparin Inj) 5,000 units SQ Q12H [place] Lactulose (Lactulose Liq) 30 ml PO DAILY PRN PRN Reason: SEVERE CONSITIPATION Senna/Docusate Sodium (Shirin-Colace) 1 tab PO BID [place] Sodium Chloride (Ns Flush) 2 ml IV.FLUSH PRN PRN PRN Reason: FLUSH AFTER USING IV ACCESS Allergies Allergy/AdvReac Type Severity Reaction Status Date / Time iodine Allergy Severe Anaphylaxis Verified 07/01/18 05:22 paroxetine Allergy Severe Anaphylaxis Verified 07/01/18 05:22 penicillin G Allergy Severe Anaphylaxis Verified 07/01/18 05:22 potassium iodide Allergy Severe Anaphylaxis Verified 07/01/18 05:22 povidone-iodine Allergy Severe Anaphylaxis Verified 07/01/18 05:22 sodium iodide Allergy Severe Anaphylaxis Verified 07/01/18 05:22 sodium iodide Allergy Severe Anaphylaxis Verified 07/01/18 05:22 Sulfa (Sulfonamide Allergy Intermediate unknown Verified 07/01/18 05:22 Antibiotics) Home Medications Medication Instructions Recorded Confirmed Type amlodipine 10 mg PO HS 05/29/18 06/08/18 History aspirin [Aspir-Low] 81 mg PO DAILY 05/29/18 06/08/18 History carvedilol 25 mg PO BID 05/29/18 06/08/18 History cholecalciferol (vitamin D3) 50 mcg PO DAILY 05/29/18 06/08/18 History [Vitamin D3] clonidine HCl 0.1 mg PO BID 05/29/18 06/08/18 History ergocalciferol (vitamin D2) 50,000 unit PO QWEEK 05/29/18 05/29/18 History [Vitamin D2] ferrous gluconate [Fergon] 270 mg PO DAILY 05/29/18 06/08/18 History furosemide [Lasix] 80 mg PO BID 05/29/18 06/08/18 History gabapentin 300 mg PO TID 05/29/18 06/08/18 History hydralazine 50 mg PO TID 05/29/18 06/08/18 History isosorbide mononitrate 60 mg PO DAILY 05/29/18 06/08/18 History mometasone-formoterol [Dulera] 2 puff INHALATION Q12H 05/29/18 06/08/18 History nitroglycerin [Nitro-Dur] 1 patch TRANSDERMAL DAILY 05/29/18 06/08/18 History omega-3 fatty acids-fish oil [Fish 2 cap PO DAILY 05/29/18 06/08/18 History Oil] omeprazole 20 mg PO BID 05/29/18 05/29/18 History potassium chloride 40 meq PO BID 05/29/18 06/08/18 History quetiapine 25 mg PO BID 05/29/18 06/08/18 History sacubitril-valsartan [Entresto] 1 tab PO BID 05/29/18 05/29/18 History sennosides-docusate sodium [Senna 2 tab PO BID PRN 05/29/18 06/08/18 History Plus] tamsulosin 0.4 mg PO DAILY 05/29/18 06/08/18 History ticagrelor [Brilinta] 90 mg PO BID 05/29/18 06/08/18 History Exam Vital signs: Vital Signs 07/01/18 05:20 07/01/18 07:29 Temperature 98.4 F Pulse Rate 83 82 Respiratory Rate 20 14 Blood Pressure 128/60 134/63 Pulse Oximetry 100 97 Intake & Output 06/30/18 07/01/18 07/01/18 18:59 06:59 18:59 Intake Total 100 / 100 Balance 100 / 100 Weight 86.183 kg Intake: IV 100 / 100 Magnesium Sulfate 1 gm/D5W 100 100 / 100 ml Premix 100 ML @ 100 mls/hr IV.SIG ONCE ONE Rx#:[id number] Narrative: Not in distress, well-nourished, looks stated age PERRL, pink conjunctiva without injection, anicteric Nose without bleeding Supple neck, Normal rate and regular rhythm, no murmurs gallops or rubs appreciated. Clear to auscultation and symmetric bilaterally, poor effort, no wheezing or crackles, normal respiratory effort. Normal bowel sounds, soft, mildly distended, no guarding, mild epigastric and suprapubic tenderness. Extremities without clubbing, cyanosis, or edema. No rash of generalized distribution. Skin is warm and dry. Sleeping, easily arousable, oriented to self and place. No cranial nerve deficits, moves extremities. Results - Labs CBC & Chem 7: 07/01/18 06:20 07/01/18 06:20 Labs: Short CBC 07/01/18 Range/Units 06:20 WBC 16.5 H (4.0-11.0) th/mm3 Hgb 10.4 L (11.6-15.3) gm/dL Hct 32.4 L (35.0-46.0) % Plt Count 300 D (150-450) th/mm3 BMP 07/01/18 06:20 Sodium 134 L Potassium 5.9 H Chloride 98 Carbon Dioxide 27.0 BUN 37 H Creatinine 3.24 H Calcium 8.9 Cardiac Enzymes 07/01/18 Range/Units 06:20 Total Creatine Kinase 61 (26-192) U/L Troponin I Less than 0.02 L (0.02-0.05) ng/mL Liver Function 07/01/18 Range/Units 06:20 Total Bilirubin 0.2 (0.2-1.0) mg/dL AST 13 L (15-37) U/L ALT 15 (10-53) U/L Alkaline Phosphatase 91 (45-117) U/L Albumin 2.9 L (3.4-5.0) g/dL - Imaging Impressions Abdomen/Pelvis CT 07/01/18 06:05 CONCLUSION: No acute noncontrast CT findings in the abdomen or pelvis. Chest X-Ray 07/01/18 06:05 CONCLUSION: Probable CHF Head CT 07/01/18 06:08 CONCLUSION: Negative CT Head non contrast. . Caprini VTE Risk Assessment Caprini VTE Risk Assessment: Moderate/High Risk (score >= 2) Caprini Risk Assessment Model: Point Value = 1 Point Value = 2 Point Value = 3 Point Value = 5 Age 41-60 Minor surgery BMI > 25 kg/m2 Swollen legs Varicose veins or History of unexplained or recurrent spontaneous Oral contraceptives or hormone replacement Sepsis (< 1 month) Serious lung disease, including pneumonia (< 1 month) Abnormal pulmonary function Acute myocardial infarction Congestive heart failure (< 1 month) History of inflammatory bowel disease Medical patient at bed rest Age 61-74 Arthroscopic surgery Major open surgery (> 45 min) Laparoscopic surgery (> 45 min) Malignancy Confined to bed (> 72 hours) Immobilizing plaster cast Central venous access Age >= 75 History of VTE Family history of VTE Factor V Leiden Prothrombin [id number] Lupus anticoagulant Anticardiolipin antibodies Elevated serum homocysteine Heparin-induced thrombocytopenia Other congenital or acquired thrombophilia Stroke (< 1 month) Elective arthroplasty Hip, pelvis, or leg fracture Acute spinal cord injury (< 1 month) Prophylaxis Regimen: Total Risk Factor Score Risk Level Prophylaxis Regimen 0-1 Low Early ambulation 2 Moderate Order ONE of the following: *Sequential Compression Device (SCD) *Heparin 5000 units SQ BID 3-4 Higher Order ONE of the following medications: *Heparin 5000 units SQ TID *Enoxaparin/Lovenox 40 mg SQ daily (WT < 150 kg, CrCl > 30 mL/min) *Enoxaparin/Lovenox 30 mg SQ daily (WT < 150 kg, CrCl > 10-29 mL/min) *Enoxaparin/Lovenox 30 mg SQ BID (WT < 150 kg, CrCl > 30 mL/min) AND/OR *Sequential Compression Device (SCD) 5 or more Highest Order ONE of the following medications: *Heparin 5000 units SQ TID (Preferred with Epidurals) *Enoxaparin/Lovenox 40 mg SQ daily (WT < 150 kg, CrCl > 30 mL/min) *Enoxaparin/Lovenox 30 mg SQ daily (WT < 150 kg, CrCl > 10-29 mL/min) *Enoxaparin/Lovenox 30 mg SQ BID (WT < 150 kg, CrCl > 30 mL/min) AND *Sequential Compression Device (SCD) Assessment and Plan - Plan This is a 58-year-old female with history of CHF, COPD, coronary artery disease and chronic kidney disease presenting with abdominal pain for 2 days Abdominal pain-unknown etiology at this point, CT scan of the abdomen unremarkable. There is moderate leukocytosis, urinalysis is unremarkable. On Levaquin. Check for C. difficile assay in case there is diarrhea. Will start Flagyl prophylactically, if C. difficile is positive, start vancomycin, currently still on Levaquin, continue intravenously for now. This was started June 24, 2018. Start Protonix. No cough or pain, hold intravenous narcotics because of mental status. Shortness of breath tachycardia secondary to acute systolic congestive heart failure exacerbation-chest x-ray showed vascular congestion and interstitial parenchymal opacities, no wheezing on exam. Responded to Lasix, output was 500 cc after 1 dose. Continue Lasix intravenously 60 mg twice a day for now, check BMP. Echocardiogram done in October 2017 showed ejection fraction of 35-40%. Hold Entresto because of acute renal failure. Continue Coreg Toxic metabolic encephalopathy- altered mental status unknown etiology for now. Urinalysis is unremarkable. Could be from acute disease. Monitor, neuro checks. Check tox screen. Home meds does not include narcotics but it was found that she has [place] and her belongings. Acute on top of chronic renal failure-baseline creatinine around 2.2, continue Lasix as above, could be cardiorenal, recheck BMP tomorrow. Coronary artery disease-status post previous stenting, continue Brilinta, aspirin, Imdur, ranolazine, nitroglycerin patch. Not on statin? Check lipid profile. Troponin is negative, EKG showed left atrial enlargement, left bundle branch block. COPD-not in exacerbation, continue Dulera, oxygen support, duo nebs as needed. Hypertension-currently controlled,, continue clonidine, Coreg, hydralazine, Imdur, nitroglycerin patch, Imdur. Hold Norvasc for now. Bipolar disorder-continue Seroquel. Hyperkalemia-status post Kayexalate recheck BMP and magnesium today. Hypomagnesemia-replace, recheck today and tomorrow. DVT prophylaxis: Heparin
[2018-07-01 09:48] LABS: Color,Urine Light-Yellow (Yellw/Straw)
[2018-07-01] MEDS ORDERED: Senna/Docusate Sodium 8.6/50 MG Tablet PO PRN (10:00)
[2018-07-01] MEDS ORDERED: Heparin - SQ 10,000 UNITS/ML Vial SQ SCH (10:00)
[2018-07-01] MEDS ORDERED: Naloxone Inj 0.4 MG/ML Vial IV.PUSH PRN (10:13)
[2018-07-01 11:01] LABS: Amphetamine Screen,Urine Neg (Neg); Barbiturate Screen,Urine Neg (Neg); Cannabinoid Screen,Urine Neg (Neg); Cocaine Screen,Urine Neg (Neg)
[2018-07-01 11:06] LABS: Opiate Screen,Urine Neg (Neg)
[2018-07-01] MEDS ORDERED: hydrALAZINE 50 MG Tablet PO SCH (13:00)
[2018-07-01] MEDS ORDERED: Pantoprazole Inj 40 MG Vial IV.PUSH SCH (18:00)
[2018-07-01] MEDS ORDERED: Gabapentin 300 MG Capsule PO SCH (18:00)
[2018-07-01] MEDS ORDERED: Carvedilol 12.5 MG Tablet PO SCH (21:00)
[2018-07-01] MEDS ORDERED: QUEtiapine 25 MG Tablet PO SCH (21:00)
[2018-07-01] MEDS ORDERED: Ranolazine 500 MG 12HR ER Tablet PO SCH (21:00)
[2018-07-01] MEDS ORDERED: POTASSIUM CHLORIDE 40 MEQ PO SCH (21:00)
[2018-07-02] MEDS ORDERED: [UNRECOGNIZED DRUG - OTHER] PO SCH (09:00)
[2018-07-02] MEDS ORDERED: Isosorbide Mononitrate 60 MG ER 24HR Tablet (Imdur) PO SCH (09:00)
[2018-07-02] MEDS ORDERED: OMEGA PO SCH (09:00)
[2018-07-02] MEDS ORDERED: Ferrous Sulfate 325 MG Tablet PO SCH (09:00)
== END 2018-07-01 11:35 | disposition left against medical advice (07) ==
LOC: NEPC 05:14 → NEDA 07:49
PROVIDERS: ADMIT Hospitalist; ATTEND Hospitalist

== ENCOUNTER 2018-07-06 18:14 | Inpatient (IN) ==
[2018-07-06 19:15] LABS: Baso # (Auto) 0.1 th/mm3 (0.0-0.2); Baso % (Auto) 0.5 % (0.0-2.0); Eos # (Auto) 0.5 th/mm3 (0.0-0.4); Eos % (Auto) 4.3 % (0.0-4.0); Hematocrit 29.5 % (35.0-46.0); Hemoglobin 9.4 gm/dL (11.6-15.3); Lymph # (Auto) 1.3 th/mm3 (1.0-4.8); Lymph % (Auto) 11.2 % (9.0-44.0); Mean Corpuscular HGB Conc 31.9 % (32.0-36.0); Mean Corpuscular Hemoglobin 22.6 pg (27.0-34.0); Mean Corpuscular Volume 70.8 fL (80.0-100.0); Mean Platelet Volume 8.3 fL (7.0-11.0); Neut # (Auto) 7.7 th/mm3 (1.8-7.7); Platelet Count 258 th/mm3 (150-450); Red Blood Count 4.17 mil/mm3 (4.00-5.30); Red Cell Distribution Width 15.1 % (11.6-17.2); White Blood Count 11.5 th/mm3 (4.0-11.0)
[2018-07-06 19:49] LABS: Alanine Aminotransferase 12 U/L (10-53); Albumin 2.8 g/dL (3.4-5.0); Alkaline Phosphatase 97 U/L (45-117); Anion Gap 9 meq/L (5-15); Aspartate Aminotransferase 15 U/L (15-37); Blood Urea Nitrogen 47 mg/dL (7-18); Calcium 8.9 mg/dL (8.5-10.1); Carbon Dioxide 29.1 meq/L (21.0-32.0); Chloride 88 meq/L (98-107); Glomerular Filtration Rate 13 mL/min (>89); Glucose,Random 250 mg/dL (74-106); Sodium 126 meq/L (136-145); Total Protein 7.8 g/dL (6.4-8.2)
[2018-07-06 19:52] LABS: Potassium 7.3 meq/L (3.5-5.1)
[2018-07-06] MEDS ORDERED: Calcium Chloride Inj 1 GM in Dextrose 5% in Water Inj 100 ML IV.SIG ONE ×2 (20:00)
[2018-07-06] MEDS ORDERED: Dextrose 50% in Water 50 ML Vial IV.PUSH ONE (20:00)
[2018-07-06] MEDS ORDERED: Sodium Polystyrene Sulfonate/Sorbitol Liq 15 GM/60 ML UDC PO ONE (20:02)
[2018-07-06] MEDS ORDERED: Sodium Bicarbonate 8.4% Inj 50 MEQ/50 ML Syringe IV.PUSH ONE (20:02)
--- NOTE | 2018-07-06 20:17 | ED ---
HPI General Chief complaint: Fever Stated complaint: SOB/fever Time Seen by Provider: 07/06/18 19:07 Source: patient Limitations: altered mental status History of Present Illness HPI narrative: Patient is a 58 year old female complaining of "pain all over". Of note patient is a poor historian, making history challenging to obtain.She notes that she fell onto her knees on 4 days ago. She reports pain predominantly in her knees with radiation to her back. Pain is reported as 10/10 on the pain scale that has increased in intensity since injury. She says she has taken oxycodone at home with some relief of pain. Additionally she describes subjective fevers, SOB, and abdominal pain. Onset (ago): day(s) Location: back and lower extremity Radiation: back Severity: severe Severity scale (1-10): 10 Quality: constant Pain Consistency: constant Relieving factors: medication Exacerbating factors: movement Treatments prior to arrival: Reports other Related Data Home Medications Medication Instructions Recorded Confirmed aspirin [Aspir-Low] 81 mg PO DAILY 05/29/18 07/06/18 gabapentin 300 mg PO TID 05/29/18 07/06/18 hydralazine 50 mg PO TID 05/29/18 07/06/18 isosorbide mononitrate 60 mg PO DAILY 05/29/18 07/06/18 mometasone-formoterol [Dulera] 2 puff INHALATION Q12H 05/29/18 07/06/18 omega-3 fatty acids-fish oil [Fish 2 cap PO DAILY 05/29/18 07/06/18 Oil] omeprazole 20 mg PO BID 05/29/18 07/06/18 potassium chloride 40 meq PO BID 05/29/18 07/06/18 sacubitril-valsartan [Entresto] 1 tab PO BID 05/29/18 07/06/18 sennosides-docusate sodium [Senna 2 tab PO BID PRN 05/29/18 07/06/18 Plus] tamsulosin 0.4 mg PO DAILY 05/29/18 07/06/18 ticagrelor [Brilinta] 90 mg PO BID 05/29/18 07/06/18 alprazolam [Xanax] 1 mg PO TID NEB 07/06/18 07/06/18 atorvastatin 40 mg PO DAILY 07/06/18 07/06/18 bumetanide 2 mg PO DAILY 07/06/18 07/06/18 carvedilol [Coreg] 25 mg PO BID 07/06/18 07/06/18 gabapentin 100 mg PO TID 07/06/18 07/06/18 lactulose 30 g PO DAILY 07/06/18 07/06/18 omeprazole 40 mg PO DAILY 07/06/18 07/06/18 oxycodone 10 mg PO Q4-6H PRN 07/06/18 07/06/18 quetiapine 25 mg PO BID 07/06/18 07/06/18 spironolactone [Aldactone] 25 mg PO DAILY 07/06/18 07/06/18 Previous Rx's Medication Instructions Recorded ranolazine [Ranexa] 500 mg PO BID #30 tab 05/30/18 Allergies Allergy/AdvReac Type Severity Reaction Status Date / Time iodine Allergy Severe Anaphylaxis Verified 07/06/18 18:28 paroxetine Allergy Severe Anaphylaxis Verified 07/06/18 18:28 penicillin G Allergy Severe Anaphylaxis Verified 07/06/18 18:28 potassium iodide Allergy Severe Anaphylaxis Verified 07/06/18 18:28 povidone-iodine Allergy Severe Anaphylaxis Verified 07/06/18 18:28 sodium iodide Allergy Severe Anaphylaxis Verified 07/06/18 18:28 sodium iodide Allergy Severe Anaphylaxis Verified 07/06/18 18:28 Sulfa (Sulfonamide Allergy Intermediate unknown Verified 07/06/18 18:28 Antibiotics) Review of Systems Constitutional Reports fever(s) Eyes Denies change in vision ENT Denies headache(s) and Denies nasal congestion Cardiovascular Denies chest pain Respiratory Reports as per HPI Gastrointestinal Denies abdominal pain Genitourinary Denies difficulty voiding Musculoskeletal Denies myalgias Integumentary/Breasts Denies rash Neurologic Denies headache(s) Psychiatric Denies depression Endocrine Denies polyuria Hematologic/Lymphatic Denies easy bruising PMFSH Medical History Medical History Anxiety (Acute) Bipolar disorder (Acute) Chronic renal failure (Acute) Diabetes (Acute) Heart failure (Acute) Nicotine dependence (Acute) Surgical History Surgical History H/O heart artery stent (Acute) S/P cholecystectomy (Acute) Social History Social History Substance History: No History of Abuse Second Hand Smoke Exposure: Yes Smoking Status: Current every day smoker Tobacco Type: Cigarettes Cigarettes Per Day: 5 How Often Do You Have a Drink Containing Alcohol: Never Recent Travel in [facility] within the Last 8 Weeks: No Recent Out of Country Travel within the Last 8 Weeks: No Immunization History Tetanus Immunization: >5 Years Exam Const General: well developed and other (drowsy) Nutritional Appearance: well nourished Orientation: confused HENMT Head: normocephalic and atraumatic Nose: no nasal discharge and no epistaxis Mouth: moist mucous membranes Eyes Sclera: normal sclerae Pupils: PERRL Neck Neck: no meningeal signs, trachea midline and no JVD Resp Effort & Inspection: no use of accessory muscles Auscultation: clear to auscultation bilaterally Cardio Rate: regular rate Rhythm: regular rhythm Heart Sounds: no murmurs GI Inspection: non-distended Palpation: soft, no hepatosplenomegaly and tender Auscultation: normal bowel sounds Back/Spine/Pelvis Back: back tenderness (Noted to have back tenderness on palpation along the paraspinal musculature along the right side of the lower lumbar spine. No spinous process tenderness to palpation. No step-off or crepitus. No erythema or ecchymosis.) Cervical Spine: No cervical spinal tenderness Thoracic/Lumbar Spine: No thoracic spinal tenderness and No lumbar spinal tenderness Skin General: dry skin (warm) Trauma: abrasion (left knee) Neuro General: awake and confused Cranial Nerves: other Speech: speech normal Motor: no movement abnormalities noted Extrem General: no clubbing, no cyanosis and edema (lower extremities ) Laterality: bilaterally Right lower extremity: edema Left lower extremity: edema Psych Mood: congruent mood Affect: normal affect Judgment: judgment good Course Initial Documented Vital Signs Temperature 99.8 F H 07/06/18 18:20 Pulse Rate 82 07/06/18 18:20 Respiratory Rate 18 07/06/18 18:20 Blood Pressure 103/55 L 07/06/18 18:20 Pulse Oximetry 98 07/06/18 18:20 Last Documented Vital Signs Temperature 99.8 F H 07/06/18 18:20 Pulse Rate 82 07/06/18 18:20 Respiratory Rate 18 07/06/18 18:20 Blood Pressure 103/55 L 07/06/18 18:20 Pulse Oximetry 98 07/06/18 18:43 Medical Decision Making MDM Narrative Medical decision making narrative: and edema, no significant effusion.I, Dr. Valiente, have reviewed the medical student's documentation, and I am in agreement , met with the patient face to face, made the diagnosis, and the medical decision making was done by me. The patient was initially evaluated by Michelle , the MS[facility]. Please see their complete history and physical. *My assessment and Findings: The patient presents with a reported history of falling on Saturday. She reports that she has not felt well since then. She reports having low back pain and bilateral knee pain. The patient additionally reports having subjective fevers, shortness of breath, and abdominal pain. The patient's recent history is significant for being evaluated by me in the emergency department earlier in the week on Saturday. She was admitted to the hospital, however from reviewing the electronic medical record, the patient left AGAINST MEDICAL ADVICE. From reviewing the record, the patient did undergo a CT scan of the abdomen and pelvis at that time that showed no acute abnormality. The patient was however noted to be hyperkalemic, potassium at that time 5.9, BUN 37, creatinine 3.24. with a history of renal insufficiency. The patient underwent a CT scan of the brain that showed no acute abnormality. The patient's initial examination is remarkable patient again being a poor historian which was the case when she was evaluated on last occasion in the emergency department. Is difficult to examine adequately due to with slightest touch. Patient is however noted to have an abrasion, healing area of abrasion over the anterior aspect of the left knee. During the course of the patient's emergency department visit, the patient's history, examination, and differential diagnosis were reviewed with the patient. The patient was placed on a monitor and storage bin tender with oximetry and frequent blood pressure monitoring. The patient had IV access obtained and blood work sent for analysis. The patient's diagnostic studies were reviewed and remarkable for a chemistry that showed a sodium of 126, potassium 7.3 chloride 88, BUN 47, creatinine 4.13 glucose 250 urgently an EKG was done on this patient which did reveal left bundle branch block, peaked T waves were noted. The patient was immediately administered calcium chloride 1 g IV to stabilize the patient's cardiac membranes. The patient was additionally given dextrose, regular insulin IV, 1 amp of bicarb, kayexalate, and an albuterol nebulizer treatment. A call was also urgently placed out to the product expert extrusion engineer. The patient's case was discussed with the product expert on-call, Dr. Manohar Shell , who recommended administration of Lasix as the patient does produce urine. The patient's white count was noted to be 11.5, hemoglobin 9.4, platelets 258, monocytes 17. Urinalysis is unremarkable. Chest x-ray showed nonspecific findings of interstitial prominence with poorly defined perihilar and basilar airspace disease, differential diagnosis includes infection. X-rays of bilateral knees show no acute abnormality. The patient's case including history, pertinent physical examination findings, and laboratory studies were discussed with Voda. It was agreed that the patient would be admitted to the pharmaceutical salesperson's service. The patient's results were discussed with the patient, including the plan of care. I explained that further testing and/ or monitoring is indicated based on the patient's history, examination, and/ or laboratory findings. Therefore, I recommended admission for additional evaluation. The patient expressed understanding and was agreeable with this plan. The patient was admitted to the hospital in guarded condition and sent to a bed under the care of the pharmaceutical salesperson's service. Differential Diagnosis Differential Diagnosis: hyperkalemia, medication associated altered mental status/sedation, knee joint contusion, dislocation, fracture Medical Records Medical records reviewed: Yes I reviewed the patient's medical records. Lab Data Lab results reviewed: Yes I reviewed the patient's lab results. Result diagrams: 07/06/18 18:48 07/06/18 18:48 Lab Results 07/06/18 07/06/18 07/06/18 Range/Units 18:48 18:48 18:48 WBC 11.5 H (4.0-11.0) th/mm3 RBC 4.17 (4.00-5.30) mil/mm3 Hgb 9.4 L (11.6-15.3) gm/dL Hct 29.5 L (35.0-46.0) % MCV 70.8 L (80.0-100.0) fL MCH 22.6 L (27.0-34.0) pg MCHC 31.9 L (32.0-36.0) % RDW 15.1 (11.6-17.2) % Plt Count 258 (150-450) th/mm3 MPV 8.3 (7.0-11.0) fL Neut % (Auto) 67.0 (16.0-70.0) % Lymph % (Auto) 11.2 (9.0-44.0) % [place] % (Auto) 17.0 H (0.0-8.0) % Eos % (Auto) 4.3 H (0.0-4.0) % Baso % (Auto) 0.5 (0.0-2.0) % Neut # (Auto) 7.7 (1.8-7.7) th/mm3 Lymph # (Auto) 1.3 (1.0-4.8) th/mm3 [place] # (Auto) 2.0 H (0.0-0.9) th/mm3 Eos # (Auto) 0.5 H (0.0-0.4) th/mm3 Baso # (Auto) 0.1 (0.0-0.2) th/mm3 WBC Differential . Differential Comment Auto diff final Sodium 126 L (136-145) meq/L Potassium 7.3 H* (3.5-5.1) meq/L Chloride 88 L (98-107) meq/L Carbon Dioxide 29.1 (21.0-32.0) meq/L Anion Gap 9 (5-15) meq/L BUN 47 H (7-18) mg/dL Creatinine 4.13 H (0.50-1.00) mg/dL Estimated GFR 13 L (>89) mL/min POC Glucose (68-110) mg/dl Random Glucose 250 H (74-106) mg/dL Lactic Acid 1.1 (0.4-2.0) mmol/L Calcium 8.9 (8.5-10.1) mg/dL Total Bilirubin 0.4 (0.2-1.0) mg/dL AST 15 (15-37) U/L ALT 12 (10-53) U/L Alkaline Phosphatase 97 (45-117) U/L B-Natriuretic Peptide (0-100) pg/mL Total Protein 7.8 (6.4-8.2) g/dL Albumin 2.8 L (3.4-5.0) g/dL Lipase (73-393) U/L Urine Color (Yellw/Straw) Urine Clarity (Clear) Urine pH (5.0-8.5) Ur Specific Caro (1.002-1.035) Urine Protein (Neg-Trace) mg/dL Urine Glucose (UA) (Negative) mg/dL Urine Ketones (Negative) mg/dL Urine Occult Blood (Negative) Urine Nitrate (Negative) Urine Bilirubin (Negative) Urine Urobilinogen (Less than 2) mg/dL Ur Leukocyte Esterase (Negative) Urine RBC (0-3) /hpf Urine WBC (0-5) /hpf Ur Squamous Epith Cells (0-5) /hpf Urine Mucus (Occasional) /lpf Micro UA Comment Ur Microscopic Review Urine Culture Comments 07/06/18 07/06/18 07/06/18 Range/Units 18:48 18:50 20:50 WBC (4.0-11.0) th/mm3 RBC (4.00-5.30) mil/mm3 Hgb (11.6-15.3) gm/dL Hct (35.0-46.0) % MCV (80.0-100.0) fL MCH (27.0-34.0) pg MCHC (32.0-36.0) % RDW (11.6-17.2) % Plt Count (150-450) th/mm3 MPV (7.0-11.0) fL Neut % (Auto) (16.0-70.0) % Lymph % (Auto) (9.0-44.0) % [place] % (Auto) (0.0-8.0) % Eos % (Auto) (0.0-4.0) % Baso % (Auto) (0.0-2.0) % Neut # (Auto) (1.8-7.7) th/mm3 Lymph # (Auto) (1.0-4.8) th/mm3 [place] # (Auto) (0.0-0.9) th/mm3 Eos # (Auto) (0.0-0.4) th/mm3 Baso # (Auto) (0.0-0.2) th/mm3 WBC Differential Differential Comment Sodium (136-145) meq/L Potassium (3.5-5.1) meq/L Chloride (98-107) meq/L Carbon Dioxide (21.0-32.0) meq/L Anion Gap (5-15) meq/L BUN (7-18) mg/dL Creatinine (0.50-1.00) mg/dL Estimated GFR (>89) mL/min POC Glucose 297 H (68-110) mg/dl Random Glucose (74-106) mg/dL Lactic Acid (0.4-2.0) mmol/L Calcium (8.5-10.1) mg/dL Total Bilirubin (0.2-1.0) mg/dL AST (15-37) U/L ALT (10-53) U/L Alkaline Phosphatase (45-117) U/L B-Natriuretic Peptide 46 (0-100) pg/mL Total Protein (6.4-8.2) g/dL Albumin (3.4-5.0) g/dL Lipase 107 (73-393) U/L Urine Color (Yellw/Straw) Urine Clarity (Clear) Urine pH (5.0-8.5) Ur Specific Caro (1.002-1.035) Urine Protein (Neg-Trace) mg/dL Urine Glucose (UA) (Negative) mg/dL Urine Ketones (Negative) mg/dL Urine Occult Blood (Negative) Urine Nitrate (Negative) Urine Bilirubin (Negative) Urine Urobilinogen (Less than 2) mg/dL Ur Leukocyte Esterase (Negative) Urine RBC (0-3) /hpf Urine WBC (0-5) /hpf Ur Squamous Epith Cells (0-5) /hpf Urine Mucus (Occasional) /lpf Micro UA Comment Ur Microscopic Review Urine Culture Comments 07/06/18 Range/Units 20:50 WBC (4.0-11.0) th/mm3 RBC (4.00-5.30) mil/mm3 Hgb (11.6-15.3) gm/dL Hct (35.0-46.0) % MCV (80.0-100.0) fL MCH (27.0-34.0) pg MCHC (32.0-36.0) % RDW (11.6-17.2) % Plt Count (150-450) th/mm3 MPV (7.0-11.0) fL Neut % (Auto) (16.0-70.0) % Lymph % (Auto) (9.0-44.0) % [place] % (Auto) (0.0-8.0) % Eos % (Auto) (0.0-4.0) % Baso % (Auto) (0.0-2.0) % Neut # (Auto) (1.8-7.7) th/mm3 Lymph # (Auto) (1.0-4.8) th/mm3 [place] # (Auto) (0.0-0.9) th/mm3 Eos # (Auto) (0.0-0.4) th/mm3 Baso # (Auto) (0.0-0.2) th/mm3 WBC Differential Differential Comment Sodium (136-145) meq/L Potassium (3.5-5.1) meq/L Chloride (98-107) meq/L Carbon Dioxide (21.0-32.0) meq/L Anion Gap (5-15) meq/L BUN (7-18) mg/dL Creatinine (0.50-1.00) mg/dL Estimated GFR (>89) mL/min POC Glucose (68-110) mg/dl Random Glucose (74-106) mg/dL Lactic Acid (0.4-2.0) mmol/L Calcium (8.5-10.1) mg/dL Total Bilirubin (0.2-1.0) mg/dL AST (15-37) U/L ALT (10-53) U/L Alkaline Phosphatase (45-117) U/L B-Natriuretic Peptide (0-100) pg/mL Total Protein (6.4-8.2) g/dL Albumin (3.4-5.0) g/dL Lipase (73-393) U/L Urine Color Straw (Yellw/Straw) Urine Clarity Clear (Clear) Urine pH 7.0 (5.0-8.5) Ur Specific Caro 1.006 (1.002-1.035) Urine Protein 30 H (Neg-Trace) mg/dL Urine Glucose (UA) Negative (Negative) mg/dL Urine Ketones Negative (Negative) mg/dL Urine Occult Blood Negative (Negative) Urine Nitrate Negative (Negative) Urine Bilirubin Negative (Negative) Urine Urobilinogen Less than 2 (Less than 2) mg/dL Ur Leukocyte Esterase Negative (Negative) Urine RBC Less than 1 (0-3) /hpf Urine WBC 1 (0-5) /hpf Ur Squamous Epith Cells 2 (0-5) /hpf Urine Mucus Few H (Occasional) /lpf Micro UA Comment Cath-culture not ind Ur Microscopic Review Not Reportable Urine Culture Comments Cath-cult not ind Imaging Data Radiologist's impression: Chest X-Ray 07/06/18 00:00 CONCLUSION: Nonspecific findings of interstitial prominence with poorly defined perihilar and basilar airspace disease. Differential diagnosis includes infection and edema. No significant effusion. Knee X-Ray 07/06/18 19:29 CONCLUSION: No acute findings. Mild osteoarthritis at the left knee. Knee X-Ray 07/06/18 19:29 CONCLUSION: No acute findings. Mild osteoarthritis of the right knee. ECG Data Attestation: I personally reviewed and interpreted this ECG as follows: Prior ECG tracings: available for review Interpretation: Patient had an EKG done that shows a sinus rhythm heart rate of 82, QRS duration 165 ms, QTC 429 ms. Left bundle branch block is noted which is compared to her prior EKGs done at this facility, last on July 01 which showed a left bundle branch block, however the T waves do appear to be peaked compared to prior EKG. Discharge Plan Discharge Disposition Patient Disposition: 30 Still Patient Discharge Details Diagnosis: Hyperkalemia, Acute on chronic renal insufficiency Physicians Team ED Provider: Yvonne Valiente Primary Care Provider: UNKNOWN, Attending Provider: Jesús Keith Other Providers: Jones EverCloud,Insurance ; Live Zamarripa Status ED Status: Admitted Patient
--- NOTE | 2018-07-06 21:01 | XR ---
EXAM DATE: 07/06/2018 8:53 PM EST AGE/SEX: 58 years / Female INDICATIONS: Pain from on anterior portion of knee. CLINICAL DATA: This is the patient's initial encounter. Patient reports that signs and symptoms have been present for 1 day and indicates a pain score of 5/10. MEDICAL/SURGICAL HISTORY: . Myocardial infarction. Chronic obstructive pulmonary disease. Hyper tension. Right eye blindness. Cerebrovascular accident. Congestive heart failure. Coronary artery dis ease. Renal insufficiency. Arthritis. Diabetes. Anxiety . Tubal ligation. Cholecystectomy. . COMPARISON: No prior exams available for comparison. FINDINGS: Bony structures are intact and in normal alignment. Joints are intact without dislocation or signifi cant arthropathy. Osseous density is normal. Soft tissues are unremarkable. No radiopaque foreign bodies seen. CONCLUSION: No acute findings. Mild osteoarthritis of the right knee. Electronically signed by: Freddy Engel MD 07/06/2018 9:00 PM EST
--- NOTE | 2018-07-06 21:01 | XR ---
EXAM DATE: 07/06/2018 8:52 PM EST AGE/SEX: 58 years / Female INDICATIONS: Pain from on anterior portion of knee. CLINICAL DATA: This is the patient's initial encounter. Patient reports that signs and symptoms have been present for 1 day and indicates a pain score of 5/10. MEDICAL/SURGICAL HISTORY: . Myocardial infarction. Chronic obstructive pulmonary disease. Hyper tension. Right eye blindness. Cerebrovascular accident. Congestive heart failure. Coronary artery dis ease. Renal insufficiency. Arthritis. Diabetes. Anxiety . Tubal ligation. Cholecystectomy. . COMPARISON: No prior exams available for comparison. FINDINGS: Bony structures are intact and in normal alignment. Joints are intact without dislocation or signifi cant arthropathy. Osseous density is normal. Soft tissues are unremarkable. No radiopaque foreign bodies seen. CONCLUSION: No acute findings. Mild osteoarthritis at the left knee. Electronically signed by: Freddy Engel MD 07/06/2018 8:59 PM EST
--- NOTE | 2018-07-06 21:18 | XR ---
EXAM DATE: 07/06/2018 8:45 PM EST AGE/SEX: 58 years / Female INDICATIONS: . Fever. CLINICAL DATA: This is the patient's initial encounter. Patient reports that signs and symptoms have been present for 1 day and indicates a pain score of 0/10. MEDICAL/SURGICAL HISTORY: . Myocardial infarction. Chronic obstructive pulmonary disease. Hyper tension. Right eye blindness. Cerebrovascular accident. Congestive heart failure. Coronary artery dis ease. Renal insufficiency. Arthritis. Diabetes. Anxiety . Tubal ligation. Cholecystectomy. . COMPARISON: [facility] [place], CHEST 1V SINGLE AP, 07/01/2018. . FINDINGS: Heart size mildly enlarged. Patchy airspace disease predominantly at the bases with some interstitial prominence and peribronchial thickening. CONCLUSION: Nonspecific findings of interstitial prominence with poorly defined perihilar and basilar airspace di sease. Differential diagnosis includes infection and edema. No significant effusion. Electronically signed by: Freddy Engel MD 07/06/2018 9:17 PM EST
[2018-07-06 21:22] LABS: Bilirubin,Urine Negative (Negative); Clarity,Urine Clear (Clear); Color,Urine Straw (Yellw/Straw); Glucose,Urine (UA) Negative (Negative); Leukocyte Esterase,Urine Negative (Negative); Mucus,Urine Few /lpf (Occasional); Nitrite,Urine Negative (Negative); Specific Gravity,Urine 1.006 (1.002-1.035); Squamous Epithelial Cell,Urine 2 /hpf (0-5)
[2018-07-06] MEDS ORDERED: Acetaminophen 325 MG Tablet PO PRN (21:50)
[2018-07-06] MEDS ORDERED: Bisacodyl 10 MG Supp RECTAL PRN (21:50)
[2018-07-06] MEDS ORDERED: Temazepam 15 MG Capsule PO PRN (21:50)
[2018-07-06 21:53] LABS: Creatine Kinase 68 U/L (26-192)
[2018-07-06] MEDS ORDERED: Sod Chloride 0.9% Inj 1,000 ML IV.SIG SCH (21:57)
[2018-07-06] MEDS ORDERED: hydrALAZINE HCl Inj 20 MG/ML Vial IV.PUSH PRN (21:57)
--- NOTE | 2018-07-06 22:02 | P.HPCC ---
History of Present Illness Primary Care Physician: UNKNOWN History of Present Illness: 58 year old female presents to emergency department complaining of "pain all over". Of note patient is a poor historian, making history challenging to obtain. She stays she fell onto her knees about 4 days ago. She reports pain predominantly in her knees with radiation to her back. Pain is reported as 10/10 on the pain scale that has increased in intensity since injury. She says she has taken oxycodone at home with some relief of pain. Additionally she describes subjective fevers, SOB, and abdominal pain. The lab work obtained in the emergency department show significant hyperkalemia , that was treated with IV fluids diuretics, insulin calcium gluconate and sodium bicarbonate as well as Kayexalate. The patient has been admitted to ICU with hyperkalemic acute renal failure. Inpatient Certification: I certify that the inpatient services were ordered in accordance with Medicare regulations governing the order. This includes certification that hospital inpatient services are reasonable and necessary and in the case of services not specified as inpatient-only under 42 CFR 419.22(n), that they are appropriately provided as inpatient services in accordance to with the 2-midnight benchmark under 43 CFR 412.3(e) Estimated Total Length of Stay (Days): 5 Plans for Post Hospital Care: Not yet determined Review of Systems All other systems reviewed negative except as stated in HPI [facility] - History History Provided By: Patient - Medical History Medical History: Medical History (Last Updated 07/06/18 @ 18:45 by Mila Beal) Anxiety Bipolar disorder Chronic renal failure Diabetes Heart failure Nicotine dependence - Surgical History Surgical History: Surgical History (Last Reviewed 07/01/18 @ 09:49 by Vashti Howell MD) H/O heart artery stent S/P cholecystectomy - Family History Family History: Family History (Last Reviewed 07/01/18 @ 09:49 by Vashti Howell MD) Other CAD (coronary artery disease) CVA (cerebral vascular accident) Hypertension - Tobacco History Second Hand Smoke Exposure: Yes Tobacco Use In Past 30 Days: Yes Smoking Status: Current every day smoker Tobacco Type: Cigarettes Cigarettes Per Day: 5 - Alcohol History How Often Do You Have a Drink Containing Alcohol: Never - Substance Use History Substance History: No History of Abuse - Travel History Recent Travel in the [place] Within the Last 8 Weeks: No Recent Travel Out of the Country Within the Last 8 Weeks: No - Immunization History Tetanus Immunization: >5 Years Medications and Allergies Active Medications: Active Medications Acetaminophen (Tylenol) 650 mg PO Q6H PRN PRN Reason: PAIN 1-10 AND/OR FEVER >101F Al Hydroxide/Mg Hydroxide (Milk Of Magnesia Liq) 30 ml PO Q12H PRN PRN Reason: Mild Constipation Albuterol (Duoneb Neb (Prn)) 1 ampul NEB Q2HR NEB PRN PRN Reason: WHEEZING Alprazolam (Xanax) 1 mg PO TID NEB [facility] Aspirin (Ecotrin) 81 mg PO DAILY [facility] Atorvastatin Calcium (Lipitor) 40 mg PO DAILY [facility] Bisacodyl (Dulcolax Supp) 10 mg RECTAL DAILY PRN PRN Reason: SEVERE CONSITIPATION Bumetanide (Bumex) 2 mg PO DAILY [facility] Carvedilol (Coreg) 25 mg PO BID [facility] Chlorhexidine Gluconate (Chlorhexidine 2% Cloth) 3 pack TOPICAL DAILY@0400 [facility] Stop: 07/12/18 03:59 Chlorhexidine Gluconate (Chlorhexidine 2% Cloth) 3 pack TOPICAL DAILY@0400 PRN PRN Reason: Extra cloth needed Stop: 07/12/18 03:59 Famotidine (Pepcid Pf Inj) 20 mg IV.PUSH Q12HR [facility] Gabapentin (Neurontin) 100 mg PO TID [facility] Gabapentin (Neurontin) 300 mg PO TID [facility] Heparin Sodium (Porcine) (Heparin Inj) 5,000 units SQ Q8H [facility] Hydralazine HCl (Apresoline) 50 mg PO TID [facility] Hydralazine HCl (Apresoline Inj) 20 mg IV.PUSH Q4H PRN PRN Reason: SBP>160, DBP>90 Sodium Bicarbonate 150 meq/ (Dextrose) 1,000 mls @ 125 mls/hr IV.CONT .Q8H [facility] Sodium Chloride (Ns Inj) 1,000 mls @ 1,000 mls/hr IV.SIG BOLUS [facility] Stop: 07/06/18 22:56 Isosorbide Mononitrate (Imdur) 60 mg PO DAILY [facility] Lactulose (Lactulose Liq) 30 ml PO DAILY [facility] Lactulose (Lactulose Liq) 30 ml PO DAILY PRN PRN Reason: SEVERE CONSITIPATION Non-Formulary Medication (Mometasone-Formoterol [Dulera]) 2 puff INHALATION Q12H [facility] Ondansetron HCl (Zofran Inj) 4 mg IV.PUSH Q6H PRN PRN Reason: NAUSEA OR VOMITING Oxycodone HCl (Roxicodone) 10 mg PO Q4-6H PRN PRN Reason: Anxiety Ranolazine (Ranexa) 500 mg PO BID [facility] Senna/Docusate Sodium (Shirin-Colace) 1 tab PO BID [facility] Sennosides (Senokot) 17.2 mg PO Q12H PRN PRN Reason: Moderate Constipation Sodium Chloride (Ns Flush) 2 ml IV.FLUSH BID [facility] Sodium Chloride (Ns Flush) 2 ml IV.FLUSH PRN PRN PRN Reason: FLUSH AFTER USING IV ACCESS Tamsulosin HCl (Flomax) 0.4 mg PO DAILY [facility] Temazepam (Restoril) 15 mg PO HS PRN PRN Reason: INSOMNIA Ticagrelor (Brilinta) 90 mg PO BID [facility] Allergies Allergy/AdvReac Type Severity Reaction Status Date / Time iodine Allergy Severe Anaphylaxis Verified 07/06/18 18:28 paroxetine Allergy Severe Anaphylaxis Verified 07/06/18 18:28 penicillin G Allergy Severe Anaphylaxis Verified 07/06/18 18:28 potassium iodide Allergy Severe Anaphylaxis Verified 07/06/18 18:28 povidone-iodine Allergy Severe Anaphylaxis Verified 07/06/18 18:28 sodium iodide Allergy Severe Anaphylaxis Verified 07/06/18 18:28 sodium iodide Allergy Severe Anaphylaxis Verified 07/06/18 18:28 Sulfa (Sulfonamide Allergy Intermediate unknown Verified 07/06/18 18:28 Antibiotics) Home Medications Medication Instructions Recorded Confirmed Type aspirin [Aspir-Low] 81 mg PO DAILY 05/29/18 07/06/18 History gabapentin 300 mg PO TID 05/29/18 07/06/18 History hydralazine 50 mg PO TID 05/29/18 07/06/18 History isosorbide mononitrate 60 mg PO DAILY 05/29/18 07/06/18 History mometasone-formoterol [Dulera] 2 puff INHALATION Q12H 05/29/18 07/06/18 History omega-3 fatty acids-fish oil [Fish 2 cap PO DAILY 05/29/18 07/06/18 History Oil] omeprazole 20 mg PO BID 05/29/18 07/06/18 History potassium chloride 40 meq PO BID 05/29/18 07/06/18 History sacubitril-valsartan [Entresto] 1 tab PO BID 05/29/18 07/06/18 History sennosides-docusate sodium [Senna 2 tab PO BID PRN 05/29/18 07/06/18 History Plus] tamsulosin 0.4 mg PO DAILY 05/29/18 07/06/18 History ticagrelor [Brilinta] 90 mg PO BID 05/29/18 07/06/18 History alprazolam [Xanax] 1 mg PO TID NEB 07/06/18 07/06/18 History atorvastatin 40 mg PO DAILY 07/06/18 07/06/18 History bumetanide 2 mg PO DAILY 07/06/18 07/06/18 History carvedilol [Coreg] 25 mg PO BID 07/06/18 07/06/18 History gabapentin 100 mg PO TID 07/06/18 07/06/18 History lactulose 30 g PO DAILY 07/06/18 07/06/18 History omeprazole 40 mg PO DAILY 07/06/18 07/06/18 History oxycodone 10 mg PO Q4-6H PRN 07/06/18 07/06/18 History quetiapine 25 mg PO BID 07/06/18 07/06/18 History spironolactone [Aldactone] 25 mg PO DAILY 07/06/18 07/06/18 History Results - Labs CBC & Chem 7: 07/06/18 18:48 07/06/18 18:48 Labs: Short CBC 07/06/18 Range/Units 18:48 WBC 11.5 H (4.0-11.0) th/mm3 Hgb 9.4 L (11.6-15.3) gm/dL Hct 29.5 L (35.0-46.0) % Plt Count 258 (150-450) th/mm3 BMP 07/06/18 18:48 Sodium 126 L Potassium 7.3 H* Chloride 88 L Carbon Dioxide 29.1 BUN 47 H Creatinine 4.13 H Calcium 8.9 Cardiac Enzymes 07/06/18 Range/Units 18:48 Total Creatine Kinase 68 (26-192) U/L Troponin I Less than 0.02 L (0.02-0.05) ng/mL Liver Function 07/06/18 Range/Units 18:48 Total Bilirubin 0.4 (0.2-1.0) mg/dL AST 15 (15-37) U/L ALT 12 (10-53) U/L Alkaline Phosphatase 97 (45-117) U/L Albumin 2.8 L (3.4-5.0) g/dL Urine 07/06/18 Range/Units 20:50 Urine Color Straw (Yellw/Straw) Urine Clarity Clear (Clear) Urine pH 7.0 (5.0-8.5) Ur Specific [place] 1.006 (1.002-1.035) Urine Protein 30 H (Neg-Trace) mg/dL Urine Glucose (UA) Negative (Negative) mg/dL - Imaging Impressions Chest X-Ray 07/06/18 00:00 CONCLUSION: Nonspecific findings of interstitial prominence with poorly defined perihilar and basilar airspace disease. Differential diagnosis includes infection and edema. No significant effusion. Knee X-Ray 07/06/18 19:29 CONCLUSION: No acute findings. Mild osteoarthritis at the left knee. Knee X-Ray 07/06/18 19:29 CONCLUSION: No acute findings. Mild osteoarthritis of the right knee. Exam Vital signs: Vital Signs 07/06/18 18:20 07/06/18 18:43 Temperature 99.8 F H Pulse Rate 82 Respiratory Rate 18 Blood Pressure 103/55 L Pulse Oximetry 98 98 Intake & Output 07/06/18 07/06/18 07/07/18 06:59 18:59 06:59 Weight 90.718 kg - Constitutional mild distress - Routine HEENT Exam Head: Present: normocephalic, atraumatic Eye: Present: PERRL ENT: Present: mucous membranes moist - Routine Neck Exam Present: supple, full ROM. Absent: JVD, carotid bruit - Routine Chest/Breast/Axilla Exam Chest wall: Absent: tenderness - Routine Respiratory Exam Absent: accessory muscle use, rhonchi, stridor, wheezes - Routine Cardiovascular Exam Present: RRR, S1, S2 - Routine Abdominal Exam Present: soft, normoactive bowel sounds - Routine Extremities Exam Absent: cyanosis, clubbing, edema - Routine Skin Exam Present: intact. Absent: cyanosis, erythema - Routine Neurological Exam Present: alert, oriented X3 Septic Shock Reassessment Septic shock perfusion: reassessment completed Caprini VTE Risk Assessment Caprini VTE Risk Assessment: Moderate/High Risk (score >= 2) Caprini Risk Assessment Model: Point Value = 1 Point Value = 2 Point Value = 3 Point Value = 5 Age 41-60 Minor surgery BMI > 25 kg/m2 Swollen legs Varicose veins or History of unexplained or recurrent spontaneous Oral contraceptives or hormone replacement Sepsis (< 1 month) Serious lung disease, including pneumonia (< 1 month) Abnormal pulmonary function Acute myocardial infarction Congestive heart failure (< 1 month) History of inflammatory bowel disease Medical patient at bed rest Age 61-74 Arthroscopic surgery Major open surgery (> 45 min) Laparoscopic surgery (> 45 min) Malignancy Confined to bed (> 72 hours) Immobilizing plaster cast Central venous access Age >= 75 History of VTE Family history of VTE Factor V Leiden Prothrombin [id number] Lupus anticoagulant Anticardiolipin antibodies Elevated serum homocysteine Heparin-induced thrombocytopenia Other congenital or acquired thrombophilia Stroke (< 1 month) Elective arthroplasty Hip, pelvis, or leg fracture Acute spinal cord injury (< 1 month) Prophylaxis Regimen: Total Risk Factor Score Risk Level Prophylaxis Regimen 0-1 Low Early ambulation 2 Moderate Order ONE of the following: *Sequential Compression Device (SCD) *Heparin 5000 units SQ BID 3-4 Higher Order ONE of the following medications: *Heparin 5000 units SQ TID *Enoxaparin/Lovenox 40 mg SQ daily (WT < 150 kg, CrCl > 30 mL/min) *Enoxaparin/Lovenox 30 mg SQ daily (WT < 150 kg, CrCl > 10-29 mL/min) *Enoxaparin/Lovenox 30 mg SQ BID (WT < 150 kg, CrCl > 30 mL/min) AND/OR *Sequential Compression Device (SCD) 5 or more Highest Order ONE of the following medications: *Heparin 5000 units SQ TID (Preferred with Epidurals) *Enoxaparin/Lovenox 40 mg SQ daily (WT < 150 kg, CrCl > 30 mL/min) *Enoxaparin/Lovenox 30 mg SQ daily (WT < 150 kg, CrCl > 10-29 mL/min) *Enoxaparin/Lovenox 30 mg SQ BID (WT < 150 kg, CrCl > 30 mL/min) AND *Sequential Compression Device (SCD) Assessment and Plan - Assessment and Plan Plan: Acute on chronic renal failure -With hyperkalemia -Insulin, sodium bicarbonate, D50, calcium gluconate, Kayexalate given in the ED -IV hydration -Nephrology consultation -Monitor BMP -Telemetry for EKG changes -Further management per nephrology Anxiety -Alprazolam PRN Diabetes -Insulin sliding scale Diabetic neuropathy -Gabapentin Congestive heart failure -No exacerbation -Hydralazine -Coreg -Bumex -Hold spironolactone due to hyperkalemia -Isosorbide -Ranexa Nicotine dependence -Monitor for withdrawal -Nicotine patch if indicated Coronary artery disease -Ticagrelor -Aspirin -Atorvastatin DVT GI prophylaxis -Teds SCDs -Subcu heparin -Pepcid 35 minutes of critical care
[2018-07-06] MEDS: Heparin - SQ 10,000 UNITS/ML Vial SQ SCH (22:20)
[2018-07-06] MEDS: Sodium Bicarbonate 8.4% Inj 150 MEQ in Dextrose 5% in Water Inj 850 ML IV.CONT SCH ×2 (22:21)
[2018-07-07 01:35] LABS: Carbon Dioxide 32.6 meq/L (21.0-32.0); Potassium 6.1 meq/L (3.5-5.1)
[2018-07-07 01:36] LABS: Calcium 8.7 mg/dL (8.5-10.1)
[2018-07-07] MEDS ORDERED: Chlorhexidine Gluconate 2% 1 Pack (2 Cloths) TOPICAL PRN (04:00)
[2018-07-07] MEDS: Chlorhexidine Gluconate 2% 1 Pack (2 Cloths) TOPICAL SCH (05:43)
[2018-07-07] MEDS: Sodium Bicarbonate 8.4% Inj 150 MEQ in Dextrose 5% in Water Inj 850 ML IV.CONT SCH ×4 (05:44→09:03)
[2018-07-07] MEDS: Heparin - SQ 10,000 UNITS/ML Vial SQ SCH ×3 (06:25→22:27)
--- NOTE | 2018-07-07 07:33 | P.PNCC ---
Subjective Subjective Remarks/Hospital Course: 07/06: 58 year old female presents to emergency department complaining of "pain all over". Of note patient is a poor historian, making history challenging to obtain. She stays she fell onto her knees about 4 days ago. She reports pain predominantly in her knees with radiation to her back. Pain is reported as 10/10 on the pain scale that has increased in intensity since injury. She says she has taken oxycodone at home with some relief of pain. Additionally she describes subjective fevers, SOB, and abdominal pain. The lab work obtained in the emergency department show significant hyperkalemia , that was treated with IV fluids diuretics, insulin calcium gluconate and sodium bicarbonate as well as Kayexalate. The patient has been admitted to ICU with hyperkalemic acute renal failure. 07/07: No events over the night. Urine output of 1600 cc since ICU admission. T-max of 99.8. No potassium available this morning. She continues to receive bicarb drip at 125 mL's per hour. Patient complains of generalized myalgia, denies any chest pain, shortness of breath, palpitations, headache, photophobia. ROS: Denies headache, photophobia, weakness or dizziness, no focal weakness, no photophobia, no chest pain, shortness of breath or palpitations, no cough and no wheezes, no nausea or vomiting, no abdominal pain, no melena, no hematochezia , Objective Vital Signs / I&O: Vital Signs 07/06/18 18:20 07/06/18 18:43 07/06/18 22:04 Temperature 99.8 F H Pulse Rate 82 79 Respiratory Rate 18 16 Blood Pressure 103/55 L 111/55 L Pulse Oximetry 98 98 07/06/18 22:17 07/06/18 23:00 07/06/18 23:34 Temperature 98.6 F Pulse Rate 76 Respiratory Rate 18 Blood Pressure Pulse Oximetry 97 97 07/07/18 00:00 07/07/18 02:00 07/07/18 04:00 Temperature 98.9 F 99.1 F Pulse Rate 76 73 69 Respiratory Rate 18 16 16 Blood Pressure 115/57 L 100/63 96/54 L Pulse Oximetry 97 97 96 07/07/18 06:00 Temperature Pulse Rate 75 Respiratory Rate 20 Blood Pressure 89/59 L Pulse Oximetry 93 L Intake & Output 07/06/18 07/07/18 07/07/18 18:59 06:59 18:59 Intake Total 1350 / 1350 Output Total 1600 / 1600 Balance -250 / -250 Weight 90.718 kg 80 kg Intake: IV 1110 / 1110 Sodium Bicarbonate 8.4% Inj 150 1000 / 1000 MEQ In D5W Inj 850 ML @ 125 mls/hr IV.CONT .Q8H [facility] Rx#: [id number] Calcium Chloride Inj 1 GM In 110 / 110 D5W Inj 100 ML @ 110 mls/hr IV. SIG ONCE ONE Rx#:[id number] Oral 240 / 240 Output: Urine 600 / 600 Urine Amount (Catheter) 1000 / 1000 Straight 1000 / 1000 Other: # Voids 1 # Bowel Movements 0 Weight On Admission 80 kg Result Diagrams: 07/06/18 18:48 07/07/18 00:50 Objective Remarks: General: Middle-aged lady, awake, in no acute distress HEENT: Pupils are equal and reactive, sclerae anicteric, moist mucous membranes , no thrush, neck is supple without rigidity, neck veins are not distended, no carotid bruit Chest: Scattered coarse breath sounds bilateral, good air entry, no wheezes Cardiovascular: Regular heart sounds, no murmurs appreciated Abdomen: Soft, slightly tender to palpation, no guarding, no rebound tenderness , bowel sounds are present, not distended Extremities: No edema, warm and well-perfused, peripheral pulses are present, no clubbing Skin: No cyanosis or rash appreciated Neuro: Awake, alert, oriented, moves all extremities Assessment and Plan - Assessment and Plan Plan: 1. Hyperkalemia 2. Acute on chronic renal failure 3. Congestive heart failure 4. Coronary artery disease 5. Diabetes with neuropathy 6. Anxiety 7. Tobacco dependence 1. Patient received medical management for hyperkalemia including insulin, D50 , calcium, Kayexalate and sodium bicarb 2. Good urine output since ICU admission 3. Repeat potassium now 4. Continue bicarb drip 5. Nephrology consult 6. Continue Coreg, nitrates, hydralazine, Bumex and Ranexa 7. Hold spironolactone due to hyperkalemia 8. Continue aspirin and ticagrelor 9. On atorvastatin 10. Glycemic control with insulin 11. DVT prophylaxis with heparin and SCDs 12. GI prophylaxis with Pepcid
[2018-07-07] MEDS: Ranolazine 500 MG 12HR ER Tablet PO SCH ×2 (08:59→20:41)
[2018-07-07] MEDS ORDERED: MOMETASONE FORMOTEROL INH SCH (09:00)
[2018-07-07] MEDS ORDERED: Famotidine PF Inj 20 MG/2 ML Vial IV.PUSH SCH (09:00)
[2018-07-07] MEDS ORDERED: Gabapentin 100 MG Capsule PO SCH (09:00)
[2018-07-07] MEDS ORDERED: Gabapentin 300 MG Capsule PO SCH (09:00)
[2018-07-07] MEDS ORDERED: OMEGA PO SCH (09:00)
[2018-07-07] MEDS ORDERED: [UNRECOGNIZED DRUG - OTHER] PO SCH (09:00)
[2018-07-07] MEDS: Isosorbide Mononitrate 60 MG ER 24HR Tablet (Imdur) PO SCH (09:02)
[2018-07-07] MEDS: Senna/Docusate Sodium 8.6/50 MG Tablet PO SCH ×2 (09:02→20:42)
--- NOTE | 2018-07-07 09:02 | US ---
EXAM DATE: 07/07/2018 8:55 AM EST AGE/SEX: 58 years / Female INDICATIONS: Abnormal lab values. CLINICAL DATA: This is the patient's subsequent encounter. Patient reports that signs and symptoms h ave been present for 1 day and indicates a pain score of 0/10. MEDICAL/SURGICAL HISTORY: . Anxiety. Bipolar. Chronic renal failure. Diabetes. Heart failure. Cholecystectomy. Cardiac stent. COMPARISON: [facility] [place], CT ABDOMEN & PELVIS W/O CONTRAST, 07/01/2018. . MEASUREMENTS: Right Kidney:__12.5 x 4.6 x 5.4 cm Left Kidney:__11.0 x 6.4 x 5.2 cm FINDINGS: Right Kidney: Increased echotexture. No mass or hydronephrosis. Left Kidney: Increased echotexture. No mass or hydronephrosis. Bladder: Within normal limits given the degree of distension. Other: None. CONCLUSION: 1. Mild increase in echogenicity of the renal cortex. This would suggest underlying medical renal di sease. 2. No findings to indicate renal obstruction. Electronically signed by: Manohar Almanzar MD 07/07/2018 9:01 AM EST
[2018-07-07] MEDS: hydrALAZINE 50 MG Tablet PO SCH ×3 (09:03→17:51)
[2018-07-07] MEDS: Carvedilol 12.5 MG Tablet PO SCH ×2 (09:03→20:42)
[2018-07-07] MEDS: Sod Chloride 0.9% Inj 1,000 ML OTHER PRN (11:46)
--- NOTE | 2018-07-07 11:50 | P.CONNP ---
<Enedelia Holcomb - Last Filed: 07/07/18 16:18> History of Present Illness Consult date: 07/07/18 Reason for Consult: Hyperkalemia Primary Care Provider: UNKNOWN History of Present Illness: Patient is a 58 year old female who presented to the ED on with complaints of pain all over, mostly in her back. Patient has a history of HTN, DM, CKD, COPD, CAD. Patient reported she doesn't remember anything before last night. From reviewing documentation she had hyperkalemia, K was 7.3. Patient was treated with diuretics, insulin, calcium gluconate, sodium bicarbonate, and Kayexalate. Patient stated she takes an oral potassium supplement at home along with spirolactone. Patient stated she took oxycodone at home to relieve the pain. Patient reported episodes of shortness of breath. She was on 2 L nasal cannula. Patient reports she has had a problem with urinary retention for about a year. She states she sits on the toilet for a long period before any urine will come out. Patient gets straight catheterization every 6 hours, per the RN 1 L of urine was removed at 6am. 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 From reviewing prior visit notes she had 7 stent placements. Patient smokes tobacco and denies drinking alcohol. Patient has family history of CAD. Patient has previous visits to the ER. Visit on 07/01 for abdominal pain, 06/08 for SOB, and 05/29 for chest pain. Review of Systems All other systems reviewed negative except as stated in HPI PMFSH - History History Provided By: Patient - Medical History Medical History: Medical History (Last Updated 07/06/18 @ 18:45 by Mila Beal) Anxiety Bipolar disorder Chronic renal failure Diabetes Heart failure Nicotine dependence - Surgical History Surgical History: Surgical History (Last Reviewed 07/01/18 @ 09:49 by Vashti Howell MD) H/O heart artery stent S/P cholecystectomy - Family History Family History: Family History (Last Reviewed 07/01/18 @ 09:49 by Vashti Howell MD) Other CAD (coronary artery disease) CVA (cerebral vascular accident) Hypertension - Tobacco History Second Hand Smoke Exposure: Yes Tobacco Use In Past 30 Days: Yes Smoking Status: Current every day smoker Tobacco Type: Cigarettes Cigarettes Per Day: 5 - Alcohol History How Often Do You Have a Drink Containing Alcohol: Never - Substance Use History Substance History: No History of Abuse - Travel History Recent Travel in the [place] Within the Last 8 Weeks: No Recent Travel Out of the Country Within the Last 8 Weeks: No - Immunization History Tetanus Immunization: >5 Years Medications and Allergies Allergies Allergy/AdvReac Type Severity Reaction Status Date / Time iodine Allergy Severe Anaphylaxis Verified 07/06/18 18:28 paroxetine Allergy Severe Anaphylaxis Verified 07/06/18 18:28 penicillin G Allergy Severe Anaphylaxis Verified 07/06/18 18:28 potassium iodide Allergy Severe Anaphylaxis Verified 07/06/18 18:28 povidone-iodine Allergy Severe Anaphylaxis Verified 07/06/18 18:28 sodium iodide Allergy Severe Anaphylaxis Verified 07/06/18 18:28 sodium iodide Allergy Severe Anaphylaxis Verified 07/06/18 18:28 Sulfa (Sulfonamide Allergy Intermediate unknown Verified 07/06/18 18:28 Antibiotics) Home Medications Medication Instructions Recorded Confirmed Type aspirin [Aspir-Low] 81 mg PO DAILY 05/29/18 07/06/18 History gabapentin 300 mg PO TID 05/29/18 07/06/18 History hydralazine 50 mg PO TID 05/29/18 07/06/18 History isosorbide mononitrate 60 mg PO DAILY 05/29/18 07/06/18 History mometasone-formoterol [Dulera] 2 puff INHALATION Q12H 05/29/18 07/06/18 History omega-3 fatty acids-fish oil [Fish 2 cap PO DAILY 05/29/18 07/06/18 History Oil] omeprazole 20 mg PO BID 05/29/18 07/06/18 History potassium chloride 40 meq PO BID 05/29/18 07/06/18 History sacubitril-valsartan [Entresto] 1 tab PO BID 05/29/18 07/06/18 History sennosides-docusate sodium [Senna 2 tab PO BID PRN 05/29/18 07/06/18 History Plus] tamsulosin 0.4 mg PO DAILY 05/29/18 07/06/18 History ticagrelor [Brilinta] 90 mg PO BID 05/29/18 07/06/18 History alprazolam [Xanax] 1 mg PO TID NEB 07/06/18 07/06/18 History atorvastatin 40 mg PO DAILY 07/06/18 07/06/18 History bumetanide 2 mg PO DAILY 07/06/18 07/06/18 History carvedilol [Coreg] 25 mg PO BID 07/06/18 07/06/18 History gabapentin 100 mg PO TID 07/06/18 07/06/18 History lactulose 30 g PO DAILY 07/06/18 07/06/18 History omeprazole 40 mg PO DAILY 07/06/18 07/06/18 History oxycodone 10 mg PO Q4-6H PRN 07/06/18 07/06/18 History quetiapine 25 mg PO BID 07/06/18 07/06/18 History spironolactone [Aldactone] 25 mg PO DAILY 07/06/18 07/06/18 History Active Medications: Active Medications Acetaminophen (Tylenol) 650 mg PO Q6H PRN PRN Reason: PAIN 1-10 AND/OR FEVER >101F Al Hydroxide/Mg Hydroxide (Milk Of Pubsterkelly Moralez) 30 ml PO Q12H PRN PRN Reason: Mild Constipation Albuterol (Duoneb Neb (Prn)) 1 ampul NEB Q2HR NEB PRN PRN Reason: WHEEZING Alprazolam (Xanax) 1 mg PO TID NEB [facility] Last Admin: 07/07/18 09:01 Dose: 1 mg Aspirin (Ecotrin) 81 mg PO DAILY [facility] Last Admin: 07/07/18 09:01 Dose: 81 mg Atorvastatin Calcium (Lipitor) 40 mg PO DAILY [facility] Last Admin: 07/07/18 09:01 Dose: 40 mg Bisacodyl (Dulcolax Supp) 10 mg RECTAL DAILY PRN PRN Reason: SEVERE CONSITIPATION Bumetanide (Bumex) 2 mg PO DAILY [facility] Last Admin: 07/07/18 09:01 Dose: 2 mg Carvedilol (Coreg) 25 mg PO BID [facility] Last Admin: 07/07/18 09:03 Dose: Not Given Chlorhexidine Gluconate (Chlorhexidine 2% Cloth) 3 pack TOPICAL DAILY@0400 [facility] Stop: 07/12/18 03:59 Last Admin: 07/07/18 05:43 Dose: 3 pack Chlorhexidine Gluconate (Chlorhexidine 2% Cloth) 3 pack TOPICAL DAILY@0400 PRN PRN Reason: Extra cloth needed Stop: 07/12/18 03:59 Famotidine (Pepcid Pf Inj) 20 mg IV.PUSH Q12HR [facility] Last Admin: 07/07/18 09:02 Dose: 20 mg Gabapentin (Neurontin) 300 mg PO BID [facility] Heparin Sodium (Porcine) (Heparin Inj) 5,000 units SQ Q8H [facility] Last Admin: 07/07/18 06:25 Dose: 5,000 units Hydralazine HCl (Apresoline) 50 mg PO TID [facility] Last Admin: 07/07/18 09:03 Dose: Not Given Hydralazine HCl (Apresoline Inj) 20 mg IV.PUSH Q4H PRN PRN Reason: SBP>160, DBP>90 Sodium Chloride (Ns Inj) 1,000 mls @ 75 mls/hr OTHER .[id number] PRN PRN Reason: for prime and rinse back Isosorbide Mononitrate (Imdur) 60 mg PO DAILY [facility] Last Admin: 07/07/18 09:02 Dose: Not Given Lactulose (Lactulose Liq) 30 ml PO DAILY [facility] Last Admin: 07/07/18 08:59 Dose: 30 ml Lactulose (Lactulose Liq) 30 ml PO DAILY PRN PRN Reason: SEVERE CONSITIPATION Ondansetron HCl (Zofran Inj) 4 mg IV.PUSH Q6H PRN PRN Reason: NAUSEA OR VOMITING Oxycodone HCl (Roxicodone) 10 mg PO Q4H PRN PRN Reason: Anxiety Last Admin: 07/07/18 09:07 Dose: 10 mg Mometasone- Formoterol [Dulera] 2 Puff 2 each INH Q12HR [facility] Ranolazine (Ranexa) 500 mg PO BID [facility] Last Admin: 07/07/18 08:59 Dose: 500 mg Senna/Docusate Sodium (Shirin-Colace) 1 tab PO BID [facility] Last Admin: 07/07/18 09:02 Dose: 1 tab Sennosides (Senokot) 17.2 mg PO Q12H PRN PRN Reason: Moderate Constipation Sodium Chloride (Ns Flush) 2 ml IV.FLUSH BID [facility] Last Admin: 07/07/18 09:02 Dose: 2 ml Sodium Chloride (Ns Flush) 2 ml IV.FLUSH PRN PRN PRN Reason: FLUSH AFTER USING IV ACCESS Tamsulosin HCl (Flomax) 0.4 mg PO DAILY [facility] Last Admin: 07/07/18 08:59 Dose: 0.4 mg Temazepam (Restoril) 15 mg PO HS PRN PRN Reason: INSOMNIA Ticagrelor (Brilinta) 90 mg PO BID [facility] Last Admin: 07/07/18 08:59 Dose: 90 mg Exam Vital signs: Vital Signs 07/06/18 18:20 07/06/18 18:43 07/06/18 22:04 Temperature 99.8 F H Pulse Rate 82 79 Respiratory Rate 18 16 Blood Pressure 103/55 L 111/55 L Pulse Oximetry 98 98 07/06/18 22:17 07/06/18 23:00 07/06/18 23:34 Temperature 98.6 F Pulse Rate 76 Respiratory Rate 18 Blood Pressure Pulse Oximetry 97 97 07/07/18 00:00 07/07/18 02:00 07/07/18 04:00 Temperature 98.9 F 99.1 F Pulse Rate 76 73 69 Respiratory Rate 18 16 16 Blood Pressure 115/57 L 100/63 96/54 L Pulse Oximetry 97 97 96 07/07/18 06:00 07/07/18 08:00 Temperature 98.5 F Pulse Rate 75 74 Respiratory Rate 20 15 Blood Pressure 89/59 L 87/52 L Pulse Oximetry 93 L 96 Intake & Output 07/06/18 07/07/18 07/07/18 18:59 06:59 18:59 Intake Total 1350 / 1350 Output Total 1600 / 1600 Balance -250 / -250 Weight 90.718 kg 80 kg Intake: IV 1110 / 1110 Sodium Bicarbonate 8.4% Inj 150 1000 / 1000 MEQ In D5W Inj 850 ML @ 125 mls/hr IV.CONT .Q8H [facility] Rx#: [id number] Calcium Chloride Inj 1 GM In 110 / 110 D5W Inj 100 ML @ 110 mls/hr IV. SIG ONCE ONE Rx#:[id number] Oral 240 / 240 Output: Urine 600 / 600 Urine Amount (Catheter) 1000 / 1000 Straight 1000 / 1000 Other: # Voids 1 # Bowel Movements 0 Weight On Admission 80 kg - Constitutional no acute distress - Routine HEENT Exam Head: Present: normocephalic Eye: Present: EOMI, PERRL ENT: Present: mucous membranes moist - Routine Neck Exam Present: supple, trachea midline. Absent: tracheal deviation - Routine Respiratory Exam Present: rhonchi, wheezes. Absent: accessory muscle use Comments: Patient has scattered rhonchi and wheezes bilaterally. - Routine Abdominal Exam Present: soft. Absent: tenderness - Routine Extremities Exam Present: edema, pulses intact Comments: Mild lower extremity edema bilaterally. - Routine Skin Exam Present: intact - Routine Neurological Exam Present: alert, oriented X3 Results - Lab Results 07/07/18 10:50 07/07/18 10:50 Most recent lab results Calcium 8.7 mg/dL (8.5-10.1) 07/07/18 00:50 Assessment and Plan - Assessment (1) Acute on chronic renal insufficiency Code(s): N28.9 - Disorder of kidney and ureter, unspecified; N18.9 - Chronic kidney disease, unspecified Status: Acute Plan: Acute on Chronic Kidney Disease could be due to urinary retention or over diuresis. Patient is getting straight catheterization every 6 hours in addition to IV fluids. Patient was taken off bicarb drip and put on NS 75 ml/hr. Patient's Chronic Kidney Disease could be due to diabetic nephropathy. Patient also had proteinuria. Patient stated she had had diabetes for over 30 years. In October, patient's creatinine was 2.68 and GFR 22. In May, Creatinine was 2.24 and GFR 27. Could be her baseline. Will monitor labs for renal improvement. Patient's CO2 was 32.6, could have metabolic alkalosis. Consider blood gas. Changed fluid to NS 75 ml/hr. (2) Hyperkalemia Code(s): E87.5 - Hyperkalemia Status: Acute Plan: Hyperkalemia could be multifactorial, patient was on oral K supplement and on spirolactone at home. In addition, patient's renal function had declined. Patient's K has improved since admission. Avoid spirolactone. Will continue to monitor. (3) Diabetes mellitus Code(s): E11.9 - Type 2 diabetes mellitus without complications Status: Acute Plan: Maintain blood glucose between 140 and 180 while in hospital. D5W was stopped and patient put on NS 75 ml/hr. (4) Congestive heart failure Code(s): I50.9 - Heart failure, unspecified Status: Acute Plan: Consider Echocardiogram. <Live Zamarripa - Last Filed: 07/08/18 09:42> History of Present Illness Primary Care Provider: UNKNOWN [facility] - Medical History Medical History: Medical History (Last Updated 07/06/18 @ 18:45 by Mila Beal) Anxiety Bipolar disorder Chronic renal failure Diabetes Heart failure Nicotine dependence - Surgical History Surgical History: Surgical History (Last Reviewed 07/01/18 @ 09:49 by Vashti Howell MD) H/O heart artery stent S/P cholecystectomy - Family History Family History: Family History (Last Reviewed 07/01/18 @ 09:49 by Vashti Howell MD) Other CAD (coronary artery disease) CVA (cerebral vascular accident) Hypertension Medications and Allergies Active Medications: Active Medications Acetaminophen (Tylenol) 650 mg PO Q6H PRN PRN Reason: PAIN 1-5 AND/OR FEVER >101F Al Hydroxide/Mg Hydroxide (Milk Of Magnkelly Liq) 30 ml PO Q12H PRN PRN Reason: Mild Constipation Albuterol (Duoneb Neb (Prn)) 1 ampul NEB Q2HR NEB PRN PRN Reason: WHEEZING Aspirin (Ecotrin) 81 mg PO DAILY [facility] Last Admin: 07/08/18 08:11 Dose: 81 mg Atorvastatin Calcium (Lipitor) 40 mg PO DAILY [facility] Last Admin: 07/08/18 08:11 Dose: 40 mg Bisacodyl (Dulcolax Supp) 10 mg RECTAL DAILY PRN PRN Reason: SEVERE CONSITIPATION Bumetanide (Bumex) 2 mg PO DAILY [facility] Last Admin: 07/07/18 09:01 Dose: 2 mg Carvedilol (Coreg) 25 mg PO BID [facility] Last Admin: 07/08/18 08:11 Dose: 25 mg Chlorhexidine Gluconate (Chlorhexidine 2% Cloth) 3 pack TOPICAL DAILY@0400 [facility] Stop: 07/12/18 03:59 Last Admin: 07/08/18 05:55 Dose: 3 pack Chlorhexidine Gluconate (Chlorhexidine 2% Cloth) 3 pack TOPICAL DAILY@0400 PRN PRN Reason: Extra cloth needed Stop: 07/12/18 03:59 Dextrose (D50w Vial) 50 ml IV.PUSH UNSCH PRN PRN Reason: PER HYPOGLYCEMIA PROTOCOL Gabapentin (Neurontin) 300 mg PO BID [facility] Last Admin: 07/08/18 08:11 Dose: 300 mg Glucagon (Glucagon Inj) 1 mg OTHER PRN PRN PRN Reason: for Hypoglycemia Protocol Heparin Sodium (Porcine) (Heparin Inj) 5,000 units SQ Q8H [facility] Last Admin: 07/08/18 06:04 Dose: 5,000 units Hydralazine HCl (Apresoline) 50 mg PO TID [facility] Last Admin: 07/07/18 17:51 Dose: Not Given Hydralazine HCl (Apresoline Inj) 20 mg IV.PUSH Q4H PRN PRN Reason: SBP>160, DBP>90 Sodium Chloride (Ns Inj) 1,000 mls @ 75 mls/hr OTHER .[id number] PRN PRN Reason: for prime and rinse back Last Admin: 07/08/18 02:18 Dose: 75 mls/hr Insulin Human Regular (Novolin R Correctional Sugar Inj) 0 units SQ Q6HR [facility]; Protocol Last Admin: 07/08/18 06:13 Dose: Not Given Isosorbide Mononitrate (Imdur) 60 mg PO DAILY [facility] Last Admin: 07/08/18 08:11 Dose: 60 mg Lactulose (Lactulose Liq) 30 ml PO DAILY [facility] Last Admin: 07/07/18 08:59 Dose: 30 ml Lactulose (Lactulose Liq) 30 ml PO DAILY PRN PRN Reason: SEVERE CONSITIPATION Ondansetron HCl (Zofran Inj) 4 mg IV.PUSH Q6H PRN PRN Reason: NAUSEA OR VOMITING Oxycodone HCl (Roxicodone) 10 mg PO Q6H PRN PRN Reason: Anxiety Pantoprazole Sodium (Protonix) 20 mg PO DAILY [facility] Mometasone- Formoterol [Dulera] 2 Puff 2 each INH Q12HR [facility] Ranolazine (Ranexa) 500 mg PO BID [facility] Last Admin: 07/07/18 20:41 Dose: 500 mg Senna/Docusate Sodium (Shirin-Colace) 1 tab PO BID [facility] Last Admin: 07/07/18 20:42 Dose: Not Given Sennosides (Senokot) 17.2 mg PO Q12H PRN PRN Reason: Moderate Constipation Sodium Chloride (Ns Flush) 2 ml IV.FLUSH BID [facility] Last Admin: 07/08/18 08:12 Dose: 2 ml Sodium Chloride (Ns Flush) 2 ml IV.FLUSH PRN PRN PRN Reason: FLUSH AFTER USING IV ACCESS Tamsulosin HCl (Flomax) 0.4 mg PO DAILY [facility] Last Admin: 07/08/18 08:11 Dose: 0.4 mg Temazepam (Restoril) 15 mg PO HS PRN PRN Reason: INSOMNIA Ticagrelor (Brilinta) 90 mg PO BID [facility] Last Admin: 07/08/18 08:11 Dose: 90 mg Exam Vital signs: Vital Signs 07/07/18 12:00 07/07/18 12:46 07/07/18 16:00 Temperature 99.0 F 98.7 F Pulse Rate 81 75 Respiratory Rate 15 9 L Blood Pressure 92/59 L 96/54 L Pulse Oximetry 96 97 96 07/07/18 20:00 07/07/18 21:00 07/07/18 22:00 Temperature Pulse Rate 74 71 73 Respiratory Rate 14 20 22 Blood Pressure 109/55 L 112/56 L 112/53 L Pulse Oximetry 97 97 94 L 07/07/18 22:12 07/07/18 23:00 07/08/18 00:00 Temperature Pulse Rate 72 73 Respiratory Rate 16 21 21 Blood Pressure 113/56 L Pulse Oximetry 96 95 07/08/18 00:01 07/08/18 01:00 07/08/18 01:01 Temperature Pulse Rate 71 76 79 Respiratory Rate 21 21 12 Blood Pressure 132/59 L 138/65 Pulse Oximetry 95 94 L 97 07/08/18 02:00 07/08/18 03:00 07/08/18 04:00 Temperature Pulse Rate 79 71 74 Respiratory Rate 26 H 21 21 Blood Pressure 124/56 L 108/54 L 117/58 L Pulse Oximetry 95 98 96 07/08/18 08:00 Temperature Pulse Rate Respiratory Rate Blood Pressure Pulse Oximetry 99 Intake & Output 07/07/18 07/08/18 07/08/18 18:59 06:59 18:59 Intake Total 650 / 650 1350 / 1350 Output Total 700 / 700 750 / 750 Balance -50 / -50 600 / 600 Weight 82 kg Intake: IV 650 / 650 1000 / 1000 Sodium Bicarbonate 8.4% Inj 150 650 / 650 MEQ In D5W Inj 850 ML @ 125 mls/hr IV.CONT .Q8H [facility] Rx#: [id number] NS Inj 1,000 ML @ 75 mls/hr 1000 / 1000 OTHER .[id number] PRN Rx#:[id number] Oral 350 / 350 Output: Urine 700 / 700 750 / 750 Other: # Voids 1 Date of Last Bowel Movement 07/07/18 # Bowel Movements 1 Results - Lab Results 07/07/18 10:50 07/07/18 10:50 Most recent lab results Calcium 9.3 mg/dL (8.5-10.1) 07/07/18 10:50 Phosphorus 4.1 mg/dL (2.5-4.9) 07/07/18 10:50 Magnesium 1.6 mg/dL (1.5-2.5) 07/07/18 10:50 Assessment and Plan - Assessment (1) Acute on chronic renal insufficiency Code(s): N28.9 - Disorder of kidney and ureter, unspecified; N18.9 - Chronic kidney disease, unspecified Status: Acute (2) Hyperkalemia Code(s): E87.5 - Hyperkalemia Status: Acute (3) Diabetes mellitus Code(s): E11.9 - Type 2 diabetes mellitus without complications Status: Acute (4) Congestive heart failure Code(s): I50.9 - Heart failure, unspecified Status: Acute - Attending Attestation patient was seen and examined. Agree with above assessment and plan. <Enedelia Holcomb - Last Filed: 07/07/18 16:18> (4) Congestive heart failure Qualifiers: Heart failure type: unspecified Heart failure chronicity: acute on chronic Qualified Code(s): I50.9 - Heart failure, unspecified <Live Zamarripa - Last Filed: 07/08/18 09:42> (4) Congestive heart failure Qualifiers: Heart failure type: unspecified Heart failure chronicity: acute on chronic Qualified Code(s): I50.9 - Heart failure, unspecified
--- NOTE | 2018-07-07 12:01 | ECG ---
Date Performed: 07/06/2018 Time Performed: 19:58:35 PTAGE: 58 years EKG: Sinus rhythm MARKED LEFT AXIS DEVIATION LEFT BUNDLE BRANCH BLOCK Since the previous tracing, no significant johnson e noted ABNORMAL ECG PREVIOUS TRACING : 07/01/18 DOCTOR: Diego Whipple Interpretating Date/Time 07/07/2018 12:00:30
--- NOTE | 2018-07-07 12:08 | ECG ---
Date Performed: 07/07/2018 Time Performed: 05:52:00 PTAGE: 58 years EKG: --- Warning: Data quality may affect interpretation --- Sinus rhythm . Lead(s) unsuitable for analysis: V4 Left axis deviation Left bundle branch block Abnormal ECG PREVIOUS TRACING : 07/06/2018 19.58 DOCTOR: Diego Whipple Interpretating Date/Time 07/07/2018 12:03:44
[2018-07-07 12:13] LABS: Baso % (Auto) 0.5 % (0.0-2.0); Eos # (Auto) 0.5 th/mm3 (0.0-0.4); Eos % (Auto) 5.6 % (0.0-4.0); Hematocrit 31.3 % (35.0-46.0); Hemoglobin 9.8 gm/dL (11.6-15.3); Lymph # (Auto) 1.5 th/mm3 (1.0-4.8); Lymph % (Auto) 18.5 % (9.0-44.0); Mean Corpuscular HGB Conc 31.4 % (32.0-36.0); Mean Corpuscular Hemoglobin 22.8 pg (27.0-34.0); Mean Corpuscular Volume 72.6 fL (80.0-100.0); Mean Platelet Volume 8.4 fL (7.0-11.0); Mono # (Auto) 1.4 th/mm3 (0.0-0.9); Mono % (Auto) 16.5 % (0.0-8.0); Neut # (Auto) 4.9 th/mm3 (1.8-7.7); Neut % (Auto) 58.9 % (16.0-70.0); Platelet Count 249 th/mm3 (150-450); Red Blood Count 4.32 mil/mm3 (4.00-5.30); Red Cell Distribution Width 15.2 % (11.6-17.2); White Blood Count 8.3 th/mm3 (4.0-11.0)
[2018-07-07 12:19] LABS: Activated Partial Thrombo Time 27.9 sec (23.4-31.7); INR 1.1 Ratio; Prothrombin Time 11.3 sec (9.8-11.6)
[2018-07-07 12:42] LABS: Alanine Aminotransferase 11 U/L (10-53); Albumin 2.6 g/dL (3.4-5.0); Alkaline Phosphatase 88 U/L (45-117); Anion Gap 11 meq/L (5-15); Aspartate Aminotransferase 17 U/L (15-37); Blood Urea Nitrogen 41 mg/dL (7-18); Calcium 9.3 mg/dL (8.5-10.1); Carbon Dioxide 36.1 meq/L (21.0-32.0); Chloride 84 meq/L (98-107); Glomerular Filtration Rate 16 mL/min (>89); Glucose,Random 304 mg/dL (74-106); Magnesium 1.6 mg/dL (1.5-2.5); Phosphorus 4.1 mg/dL (2.5-4.9); Potassium 4.9 meq/L (3.5-5.1); Sodium 131 meq/L (136-145); Total Protein 7.4 g/dL (6.4-8.2)
[2018-07-07] MEDS ORDERED: Dextrose 50% in Water 50 ML Vial IV.PUSH PRN (14:43)
[2018-07-07] MEDS: Insulin NovoLIN Regular Correctional Sugar Inj SQ SCH ×2 (17:51→23:52)
[2018-07-07] MEDS: Famotidine PF Inj 20 MG/2 ML Vial IV.PUSH SCH (20:41)
[2018-07-07] MEDS: Gabapentin 300 MG Capsule PO SCH (20:41)
[2018-07-08] MEDS: Sod Chloride 0.9% Inj 1,000 ML OTHER PRN (02:18)
[2018-07-08] MEDS: Chlorhexidine Gluconate 2% 1 Pack (2 Cloths) TOPICAL SCH (05:55)
[2018-07-08] MEDS: Heparin - SQ 10,000 UNITS/ML Vial SQ SCH ×3 (06:04→23:44)
[2018-07-08] MEDS: Insulin NovoLIN Regular Correctional Sugar Inj SQ SCH ×3 (06:13→18:10)
[2018-07-08] MEDS: Gabapentin 300 MG Capsule PO SCH ×2 (08:11→20:41)
[2018-07-08] MEDS: Carvedilol 12.5 MG Tablet PO SCH ×2 (08:11→20:40)
[2018-07-08] MEDS: Isosorbide Mononitrate 60 MG ER 24HR Tablet (Imdur) PO SCH (08:11)
[2018-07-08] MEDS: Famotidine PF Inj 20 MG/2 ML Vial IV.PUSH SCH (08:12)
--- NOTE | 2018-07-08 08:45 | P.PN ---
Subjective Interval history: awake but needs a lot of prompting to answer ff all commands and moves all extremities no complains of nausea generalized aches states baseline uses a walker d/w staff nurse- voiding well- about 500 cc this am Physical Exam Vital signs: Vital Signs 07/07/18 12:00 07/07/18 12:46 07/07/18 16:00 Temperature 99.0 F 98.7 F Pulse Rate 81 75 Respiratory Rate 15 9 L Blood Pressure 92/59 L 96/54 L Pulse Oximetry 96 97 96 07/07/18 20:00 07/07/18 21:00 07/07/18 22:00 Temperature Pulse Rate 74 71 73 Respiratory Rate 14 20 22 Blood Pressure 109/55 L 112/56 L 112/53 L Pulse Oximetry 97 97 94 L 07/07/18 22:12 07/07/18 23:00 07/08/18 00:00 Temperature Pulse Rate 72 73 Respiratory Rate 16 21 21 Blood Pressure 113/56 L Pulse Oximetry 96 95 07/08/18 00:01 07/08/18 01:00 07/08/18 01:01 Temperature Pulse Rate 71 76 79 Respiratory Rate 21 21 12 Blood Pressure 132/59 L 138/65 Pulse Oximetry 95 94 L 97 07/08/18 02:00 07/08/18 03:00 07/08/18 04:00 Temperature Pulse Rate 79 71 74 Respiratory Rate 26 H 21 21 Blood Pressure 124/56 L 108/54 L 117/58 L Pulse Oximetry 95 98 96 Intake & Output 07/07/18 07/08/18 07/08/18 18:59 06:59 18:59 Intake Total 650 / 650 1350 / 1350 Output Total 700 / 700 750 / 750 Balance -50 / -50 600 / 600 Weight 82 kg Intake: IV 650 / 650 1000 / 1000 Sodium Bicarbonate 8.4% Inj 150 650 / 650 MEQ In D5W Inj 850 ML @ 125 mls/hr IV.CONT .Q8H [facility] Rx#: [id number] NS Inj 1,000 ML @ 75 mls/hr 1000 / 1000 OTHER .[id number] PRN Rx#:[id number] Oral 350 / 350 Output: Urine 700 / 700 750 / 750 Other: # Voids 1 Date of Last Bowel Movement 07/07/18 # Bowel Movements 1 Narrative: speech soft but clear, oriented to person and place anicteric no nuchal rigidty no rales regular rhythm abdomen soft extremiteis no edema moves all extremities spontaenously but generalized weakness - Urinary Catheter Management Straight Cath placed during this visit: no Results - Labs CBC & Chem 7: 07/09/18 07:22 07/09/18 07:22 Laboratory Results - last 24 hr 07/07/18 07/07/18 07/07/18 10:50 10:50 10:50 WBC 8.3 RBC 4.32 Hgb 9.8 L Hct 31.3 L MCV 72.6 L MCH 22.8 L MCHC 31.4 L RDW 15.2 Plt Count 249 MPV 8.4 Neut % (Auto) 58.9 Lymph % (Auto) 18.5 [place] % (Auto) 16.5 H Eos % (Auto) 5.6 H Baso % (Auto) 0.5 Neut # (Auto) 4.9 Lymph # (Auto) 1.5 [place] # (Auto) 1.4 H Eos # (Auto) 0.5 H Baso # (Auto) 0.0 WBC Differential . Differential Comment Auto diff final PT 11.3 INR 1.1 APTT 27.9 Sodium 131 L Potassium 4.9 D Chloride 84 L Carbon Dioxide 36.1 H Anion Gap 11 BUN 41 H Creatinine 3.55 H Estimated GFR 16 L POC Glucose Random Glucose 304 H D Calcium 9.3 Phosphorus 4.1 Magnesium 1.6 Total Bilirubin 0.3 AST 17 ALT 11 Alkaline Phosphatase 88 Total Protein 7.4 Albumin 2.6 L 07/07/18 07/07/18 07/08/18 17:41 23:35 06:08 WBC RBC Hgb Hct MCV MCH MCHC RDW Plt Count MPV Neut % (Auto) Lymph % (Auto) [place] % (Auto) Eos % (Auto) Baso % (Auto) Neut # (Auto) Lymph # (Auto) [place] # (Auto) Eos # (Auto) Baso # (Auto) WBC Differential Differential Comment PT INR APTT Sodium Potassium Chloride Carbon Dioxide Anion Gap BUN Creatinine Estimated GFR POC Glucose 300 H 122 H 120 H Random Glucose Calcium Phosphorus Magnesium Total Bilirubin AST ALT Alkaline Phosphatase Total Protein Albumin Microbiology 07/06/18 18:30 Blood - Peripheral Aerobic Blood Culture - Preliminary No growth in 1 day 07/06/18 18:30 Blood - Peripheral Anaerobic Blood Culture - Preliminary No growth in 1 day 07/06/18 18:48 Blood - Peripheral Aerobic Blood Culture - Preliminary No growth in 1 day 07/06/18 18:48 Blood - Peripheral Anaerobic Blood Culture - Preliminary No growth in 1 day - Imaging Impressions Abdomen/Bladder Ultrasound 07/07/18 00:00 CONCLUSION: 1. Mild increase in echogenicity of the renal cortex. This would suggest underlying medical renal disease. 2. No findings to indicate renal obstruction. Assessment and Plan - Plan 58 years old female Acute on chronic renal insufficiency - Nephrology ff - non oliguric - Ff BMP - NS Patient's Chronic Kidney Disease could be due to diabetic nephropathy. Patient also had proteinuria. Patient stated she had had diabetes for over 30 years. In October, patient's creatinine was 2.68 and GFR 22. In May, Creatinine was 2.24 and GFR 27. Could be her baseline. Will monitor labs for renal improvement. Hyperkalemia- Hyperkalemia could be multifactorial, patient was on oral K supplement and on spirolactone at home. In addition, patient's renal function had declined. Patient's K has improved since admission. Avoid spirolactone. Will continue to monitor. BMP pending Diabetes mellitus Diabetic neruopathy Code(s): E11.9 - Type 2 diabetes mellitus without complications Status: Acute Plan: Maintain blood glucose between 140 and 180 while in hospital. NS 75 ml/hr. Insulin SQ Congestive heart failure not in clinical failure History of CAD Code(s): I50.9 - Heart failure, unspecified Status: Acute continue Coreg, Nitrates, Ranexa and Hydralazine Consider Echocardiogram. Chronic pain - on prn pain meds - PT eval and treat - out of bed to chair for all meals Microcytic anemia- check iron stores DVT prophylaxis with heparin and SCDs GI prophylaxis with PPI PTc consult- out of bed to chair- ambulate- states baseline uses a walker
--- NOTE | 2018-07-08 11:03 | P.PNNP ---
Subjective Interval history: Patient was resting in bed. Complaints of productive cough and SOB. Patient was previously getting straight catheterization every 6 hours. Patient now reports she is having urine output on her own. Flomax was started 07/07. NS has been reduced to 40 mL/hr. CT scan of abdomen 07/07 was unremarkable. Labs were ordered and pending for today. <Enedelia Holcomb - Last Filed: 07/08/18 10:55> Physical Exam Vital signs: Vital Signs 07/07/18 12:00 07/07/18 12:46 07/07/18 16:00 Temperature 99.0 F 98.7 F Pulse Rate 81 75 Respiratory Rate 15 9 L Blood Pressure 92/59 L 96/54 L Pulse Oximetry 96 97 96 07/07/18 20:00 07/07/18 21:00 07/07/18 22:00 Temperature Pulse Rate 74 71 73 Respiratory Rate 14 20 22 Blood Pressure 109/55 L 112/56 L 112/53 L Pulse Oximetry 97 97 94 L 07/07/18 22:12 07/07/18 23:00 07/08/18 00:00 Temperature Pulse Rate 72 73 Respiratory Rate 16 21 21 Blood Pressure 113/56 L Pulse Oximetry 96 95 07/08/18 00:01 07/08/18 01:00 07/08/18 01:01 Temperature Pulse Rate 71 76 79 Respiratory Rate 21 21 12 Blood Pressure 132/59 L 138/65 Pulse Oximetry 95 94 L 97 07/08/18 02:00 07/08/18 03:00 07/08/18 04:00 Temperature Pulse Rate 79 71 74 Respiratory Rate 26 H 21 21 Blood Pressure 124/56 L 108/54 L 117/58 L Pulse Oximetry 95 98 96 07/08/18 08:00 Temperature Pulse Rate Respiratory Rate Blood Pressure Pulse Oximetry 99 Intake & Output 07/07/18 07/08/18 07/08/18 18:59 06:59 18:59 Intake Total 650 / 650 1350 / 1350 Output Total 700 / 700 750 / 750 Balance -50 / -50 600 / 600 Weight 82 kg Intake: IV 650 / 650 1000 / 1000 Sodium Bicarbonate 8.4% Inj 150 650 / 650 MEQ In D5W Inj 850 ML @ 125 mls/hr IV.CONT .Q8H [facility] Rx#: [id number] NS Inj 1,000 ML @ 75 mls/hr 1000 / 1000 OTHER .[id number] PRN Rx#:[id number] Oral 350 / 350 Output: Urine 700 / 700 750 / 750 Other: # Voids 1 Date of Last Bowel Movement 07/07/18 07/07/18 # Bowel Movements 1 - Constitutional mild distress - Routine HEENT Exam Head: Present: normocephalic Eye: Present: EOMI, PERRL ENT: Present: mucous membranes moist - Routine Neck Exam Present: supple, trachea midline. Absent: tracheal deviation - Routine Respiratory Exam Present: rhonchi, wheezes. Absent: accessory muscle use Comments: Patient was on 2 L nasal cannula. - Routine Cardiovascular Exam Present: RRR - Routine Abdominal Exam Present: soft. Absent: tenderness - Routine Extremities Exam Present: pulses intact. Absent: edema - Routine Neurological Exam Present: alert - Detailed Neurological Exam: Coma Scale Eye Opening: Spontaneous Verbal Response: Oriented - Urinary Catheter Management Straight Cath placed during this visit: no <Enedelia Holcomb - Last Filed: 07/08/18 10:55> Vital signs: Vital Signs 07/07/18 20:00 07/07/18 21:00 07/07/18 22:00 Temperature Pulse Rate 74 71 73 Respiratory Rate 14 20 22 Blood Pressure 109/55 L 112/56 L 112/53 L Pulse Oximetry 97 97 94 L 07/07/18 22:12 07/07/18 23:00 07/08/18 00:00 Temperature Pulse Rate 72 73 Respiratory Rate 16 21 21 Blood Pressure 113/56 L Pulse Oximetry 96 95 07/08/18 00:01 07/08/18 01:00 07/08/18 01:01 Temperature Pulse Rate 71 76 79 Respiratory Rate 21 21 12 Blood Pressure 132/59 L 138/65 Pulse Oximetry 95 94 L 97 07/08/18 02:00 07/08/18 03:00 07/08/18 04:00 Temperature Pulse Rate 79 71 74 Respiratory Rate 26 H 21 21 Blood Pressure 124/56 L 108/54 L 117/58 L Pulse Oximetry 95 98 96 07/08/18 07:00 07/08/18 08:00 07/08/18 09:00 Temperature 98.3 F Pulse Rate 81 75 73 Respiratory Rate 32 H 17 21 Blood Pressure 108/55 L 114/56 L 126/61 Pulse Oximetry 95 98 96 07/08/18 10:00 07/08/18 10:01 07/08/18 11:00 Temperature Pulse Rate 71 71 75 Respiratory Rate 21 21 25 H Blood Pressure 96/48 L Pulse Oximetry 97 99 96 07/08/18 11:10 07/08/18 12:00 07/08/18 12:01 Temperature 98.0 F Pulse Rate 73 71 70 Respiratory Rate 7 L 20 12 Blood Pressure 129/63 87/50 L Pulse Oximetry 94 L 92 L 92 L 07/08/18 13:00 07/08/18 16:00 Temperature 98.4 F Pulse Rate 72 93 H Respiratory Rate 24 25 H Blood Pressure 92/55 L 164/70 H Pulse Oximetry 99 97 Intake & Output 07/07/18 07/08/18 07/08/18 18:59 06:59 18:59 Intake Total 650 / 650 1350 / 1350 Output Total 700 / 700 750 / 750 Balance -50 / -50 600 / 600 Weight 82 kg Intake: IV 650 / 650 1000 / 1000 Sodium Bicarbonate 8.4% Inj 150 650 / 650 MEQ In D5W Inj 850 ML @ 125 mls/hr IV.CONT .Q8H [facility] Rx#: [id number] NS Inj 1,000 ML @ 75 mls/hr 1000 / 1000 OTHER .[id number] PRN Rx#:[id number] Oral 350 / 350 Output: Urine 700 / 700 750 / 750 Other: # Voids 1 Date of Last Bowel Movement 07/07/18 07/07/18 # Bowel Movements 1 - Urinary Catheter Management Straight Cath placed during this visit: no <Live Zamarripa - Last Filed: 07/08/18 18:27> Assessment and Plan - Assessment (1) Acute on chronic renal insufficiency Code(s): N28.9 - Disorder of kidney and ureter, unspecified; N18.9 - Chronic kidney disease, unspecified Status: Acute Plan: Acute on Chronic Kidney Disease could be due to urinary retention or over diuresis. Patient's Chronic Kidney Disease could be due to diabetic nephropathy. Patient also had proteinuria. Patient stated she had had diabetes for over 30 years. In October, patient's creatinine was 2.68 and GFR 22. In May, Creatinine was 2.24 and GFR 27. Could be her baseline. Will monitor labs for renal improvement. Labs for today are pending. Patient was previously getting straight catheterization every 6 hours in addition to IV fluids. Patient now reports she is having urine output on her own. Flomax was started 07/07. NS has been reduced to 40 mL/hr. Patient's CO2 07/07 was 32.6, could have metabolic alkalosis. Consider blood gas. Labs were ordered and pending for today. Will monitor for improvement. (2) Hyperkalemia Code(s): E87.5 - Hyperkalemia Status: Acute Plan: Hyperkalemia could be multifactorial, patient was on oral K supplement and on spirolactone at home. In addition, patient's renal function had declined. Patient's K has improved since admission. Avoid spirolactone. Labs for today were ordered and are pending. Will continue to monitor. (3) Diabetes mellitus Code(s): E11.9 - Type 2 diabetes mellitus without complications Status: Acute Plan: Maintain blood glucose between 140 and 180 while in hospital. (4) Congestive heart failure Code(s): I50.9 - Heart failure, unspecified Status: Acute Qualifiers: Heart failure type: unspecified Heart failure chronicity: acute on chronic Qualified Code(s): I50.9 - Heart failure, unspecified Plan: Consider Echocardiogram. <Enedelia Holcomb - Last Filed: 07/08/18 10:55> - Assessment (1) Acute on chronic renal insufficiency Code(s): N28.9 - Disorder of kidney and ureter, unspecified; N18.9 - Chronic kidney disease, unspecified Status: Acute (2) Hyperkalemia Code(s): E87.5 - Hyperkalemia Status: Acute (3) Diabetes mellitus Code(s): E11.9 - Type 2 diabetes mellitus without complications Status: Acute (4) Congestive heart failure Code(s): I50.9 - Heart failure, unspecified Status: Acute Qualifiers: Heart failure type: unspecified Heart failure chronicity: acute on chronic Qualified Code(s): I50.9 - Heart failure, unspecified - Attending Attestation patient was seen and examined. Renal function has improved. Taper off fluids. <Live Zamarripa - Last Filed: 07/08/18 18:27>
[2018-07-08] MEDS: hydrALAZINE 50 MG Tablet PO SCH ×3 (11:51→18:09)
[2018-07-08] MEDS: Senna/Docusate Sodium 8.6/50 MG Tablet PO SCH ×2 (11:52→20:41)
[2018-07-08] MEDS: Pantoprazole Sodium 20 MG DR Tablet PO SCH (11:52)
[2018-07-08 13:08] LABS: Baso % (Auto) 0.5 % (0.0-2.0); Eos # (Auto) 0.6 th/mm3 (0.0-0.4); Eos % (Auto) 6.1 % (0.0-4.0); Hematocrit 26.2 % (35.0-46.0); Hemoglobin 8.5 gm/dL (11.6-15.3); Lymph # (Auto) 2.4 th/mm3 (1.0-4.8); Lymph % (Auto) 24.1 % (9.0-44.0); Mean Corpuscular HGB Conc 32.6 % (32.0-36.0); Mean Corpuscular Hemoglobin 23.3 pg (27.0-34.0); Mean Corpuscular Volume 71.6 fL (80.0-100.0); Mean Platelet Volume 8.2 fL (7.0-11.0); Neut % (Auto) 49.3 % (16.0-70.0); Platelet Count 232 th/mm3 (150-450); Red Blood Count 3.66 mil/mm3 (4.00-5.30); Red Cell Distribution Width 15.2 % (11.6-17.2); White Blood Count 10.1 th/mm3 (4.0-11.0)
[2018-07-08] MEDS: Ranolazine 500 MG 12HR ER Tablet PO SCH ×2 (13:15→20:41)
[2018-07-08 13:32] LABS: Anion Gap 7 meq/L (5-15)
[2018-07-08 13:38] LABS: % Iron Saturation 28.3 % (20-50); Alanine Aminotransferase 10 U/L (10-53); Albumin 2.3 g/dL (3.4-5.0); Alkaline Phosphatase 78 U/L (45-117); Aspartate Aminotransferase 19 U/L (15-37); Blood Urea Nitrogen 41 mg/dL (7-18); Calcium 8.7 mg/dL (8.5-10.1); Carbon Dioxide 34.7 meq/L (21.0-32.0); Chloride 93 meq/L (98-107); Ferritin 1159 ng/mL (8-252); Glomerular Filtration Rate 17 mL/min (>89); Glucose,Random 148 mg/dL (74-106); Iron 48 mcg/dL (50-170); Magnesium 1.8 mg/dL (1.5-2.5); Phosphorus 3.7 mg/dL (2.5-4.9); Sodium 135 meq/L (136-145); Total Iron Binding Capacity 169 mcg/dL (250-450); Total Protein 6.5 g/dL (6.4-8.2)
[2018-07-08 13:53] LABS: Creatine Kinase 84 U/L (26-192); Potassium 5.2 meq/L (3.5-5.1)
[2018-07-09] MEDS: Sod Chloride 0.9% Inj 1,000 ML OTHER PRN (00:23)
[2018-07-09] MEDS: Insulin NovoLIN Regular Correctional Sugar Inj SQ SCH ×5 (00:24→23:16)
[2018-07-09] MEDS: Heparin - SQ 10,000 UNITS/ML Vial SQ SCH ×3 (06:24→21:51)
[2018-07-09] MEDS: Chlorhexidine Gluconate 2% 1 Pack (2 Cloths) TOPICAL SCH (06:24)
[2018-07-09 07:58] LABS: Baso # (Auto) 0.1 th/mm3 (0.0-0.2); Baso % (Auto) 0.7 % (0.0-2.0); Eos # (Auto) 0.7 th/mm3 (0.0-0.4); Eos % (Auto) 6.7 % (0.0-4.0); Hematocrit 30.8 % (35.0-46.0); Hemoglobin 9.6 gm/dL (11.6-15.3); Lymph # (Auto) 3.3 th/mm3 (1.0-4.8); Lymph % (Auto) 29.6 % (9.0-44.0); Mean Corpuscular HGB Conc 31.2 % (32.0-36.0); Mean Corpuscular Hemoglobin 22.6 pg (27.0-34.0); Mean Corpuscular Volume 72.7 fL (80.0-100.0); Mean Platelet Volume 8.2 fL (7.0-11.0); Mono % (Auto) 18.3 % (0.0-8.0); Neut % (Auto) 44.7 % (16.0-70.0); Platelet Count 261 th/mm3 (150-450); Red Blood Count 4.24 mil/mm3 (4.00-5.30); Red Cell Distribution Width 15.1 % (11.6-17.2); White Blood Count 11.1 th/mm3 (4.0-11.0)
[2018-07-09 08:24] LABS: Albumin 2.7 g/dL (3.4-5.0); Anion Gap 5 meq/L (5-15); Aspartate Aminotransferase 15 U/L (15-37); Blood Urea Nitrogen 38 mg/dL (7-18); Calcium 9.1 mg/dL (8.5-10.1); Carbon Dioxide 34.6 meq/L (21.0-32.0); Chloride 95 meq/L (98-107); Glomerular Filtration Rate 17 mL/min (>89); Potassium 4.7 meq/L (3.5-5.1); Sodium 135 meq/L (136-145)
[2018-07-09 08:30] LABS: Alanine Aminotransferase 12 U/L (10-53); Alkaline Phosphatase 90 U/L (45-117); Glucose,Random 120 mg/dL (74-106); Phosphorus 3.8 mg/dL (2.5-4.9); Total Protein 7.6 g/dL (6.4-8.2)
[2018-07-09] MEDS: Carvedilol 12.5 MG Tablet PO SCH ×2 (08:35→21:50)
[2018-07-09] MEDS: Senna/Docusate Sodium 8.6/50 MG Tablet PO SCH ×2 (08:35→21:51)
[2018-07-09] MEDS: Pantoprazole Sodium 20 MG DR Tablet PO SCH (08:36)
[2018-07-09] MEDS: Ranolazine 500 MG 12HR ER Tablet PO SCH ×2 (08:36→21:49)
[2018-07-09] MEDS: Gabapentin 300 MG Capsule PO SCH ×2 (08:36→21:50)
[2018-07-09] MEDS: Isosorbide Mononitrate 60 MG ER 24HR Tablet (Imdur) PO SCH (08:36)
[2018-07-09] MEDS: hydrALAZINE 50 MG Tablet PO SCH ×3 (08:37→17:56)
--- NOTE | 2018-07-09 09:00 | P.PN ---
Subjective Interval history: this am is more interactive and showing more interest in her care complaining about her food has been voiding very well- good urine output taking po very well Physical Exam Vital signs: Vital Signs 07/08/18 09:00 07/08/18 10:00 07/08/18 10:01 Temperature Pulse Rate 73 71 71 Respiratory Rate 21 21 21 Blood Pressure 126/61 96/48 L Pulse Oximetry 96 97 99 07/08/18 11:00 07/08/18 11:10 07/08/18 12:00 Temperature 98.0 F Pulse Rate 75 73 71 Respiratory Rate 25 H 7 L 20 Blood Pressure 129/63 Pulse Oximetry 96 94 L 92 L 07/08/18 12:01 07/08/18 13:00 07/08/18 14:00 Temperature Pulse Rate 70 72 68 Respiratory Rate 12 24 21 Blood Pressure 87/50 L 92/55 L 103/57 L Pulse Oximetry 92 L 99 97 07/08/18 15:00 07/08/18 16:00 07/08/18 16:01 Temperature 98.4 F Pulse Rate 75 93 H 83 Respiratory Rate 24 34 H 30 H Blood Pressure 116/57 L 164/70 H 164/70 H Pulse Oximetry 97 73 L 74 L 07/08/18 17:00 07/08/18 17:51 07/08/18 18:00 Temperature Pulse Rate 89 78 74 Respiratory Rate 33 H 19 22 Blood Pressure 125/61 124/61 Pulse Oximetry 07/08/18 19:00 07/08/18 19:01 07/08/18 20:00 Temperature 98.5 F Pulse Rate 71 72 78 Respiratory Rate 21 22 26 H Blood Pressure 112/56 L 129/60 Pulse Oximetry 97 97 95 07/08/18 21:00 07/08/18 22:00 07/08/18 22:01 Temperature Pulse Rate 81 72 71 Respiratory Rate 20 21 29 H Blood Pressure 133/62 140/62 Pulse Oximetry 95 94 L 96 07/08/18 23:00 07/09/18 00:00 07/09/18 00:01 Temperature 98.1 F Pulse Rate 70 77 70 Respiratory Rate 19 27 H 23 Blood Pressure 105/54 L 139/60 Pulse Oximetry 97 99 96 07/09/18 01:00 07/09/18 02:00 07/09/18 03:00 Temperature Pulse Rate 70 70 68 Respiratory Rate 18 19 19 Blood Pressure 121/60 139/65 123/60 Pulse Oximetry 96 96 97 07/09/18 04:00 07/09/18 05:00 Temperature Pulse Rate 68 67 Respiratory Rate 18 15 Blood Pressure 122/58 L 120/58 L Pulse Oximetry 99 98 Intake & Output 07/08/18 07/09/18 07/09/18 18:59 06:59 18:59 Intake Total 1600 / 1600 240 / 240 Output Total 1700 / 1700 1600 / 1600 Balance -100 / -100 -1360 / -1360 Weight 82 kg Intake: IV 1000 / 1000 NS Inj 1,000 ML @ 40 mls/hr 1000 / 1000 OTHER .Q24H PRN Rx#:[id number] Oral 600 / 600 240 / 240 Output: Urine 1700 / 1700 1600 / 1600 Other: # Voids 2 Date of Last Bowel Movement 07/07/18 07/07/18 # Bowel Movements 0 Narrative: awake and alert, speech clear, interactive, oriented x 3 anicteric no nuchal rigidity no rales regular rhythm abdomen soft extremiteis no edema moves all extremities spontaenously - strength 5/5 - Urinary Catheter Management Straight Cath placed during this visit: no Results - Labs CBC & Chem 7: 07/09/18 07:22 07/09/18 07:22 Laboratory Results - last 24 hr 07/08/18 07/08/18 07/08/18 11:47 12:34 12:34 WBC 10.1 RBC 3.66 L Hgb 8.5 L Hct 26.2 L MCV 71.6 L MCH 23.3 L MCHC 32.6 RDW 15.2 Plt Count 232 MPV 8.2 Neut % (Auto) 49.3 Lymph % (Auto) 24.1 [place] % (Auto) 20.0 H Eos % (Auto) 6.1 H Baso % (Auto) 0.5 Neut # (Auto) 5.0 Lymph # (Auto) 2.4 [place] # (Auto) 2.0 H Eos # (Auto) 0.6 H Baso # (Auto) 0.0 WBC Differential . Differential Comment Auto diff final Sodium 135 L Potassium 5.2 H Chloride 93 L D Carbon Dioxide 34.7 H Anion Gap 7 BUN 41 H Creatinine 3.38 H Estimated GFR 17 L POC Glucose 161 H Random Glucose 148 H D Calcium 8.7 Phosphorus 3.7 Magnesium 1.8 Iron 48 L TIBC 169 L % Saturation 28.3 Ferritin 1159 H Total Bilirubin 0.3 AST 19 ALT 10 Alkaline Phosphatase 78 Total Creatine Kinase 84 Total Protein 6.5 D Albumin 2.3 L 07/08/18 07/09/18 07/09/18 16:56 00:16 06:15 WBC RBC Hgb Hct MCV MCH MCHC RDW Plt Count MPV Neut % (Auto) Lymph % (Auto) [place] % (Auto) Eos % (Auto) Baso % (Auto) Neut # (Auto) Lymph # (Auto) [place] # (Auto) Eos # (Auto) Baso # (Auto) WBC Differential Differential Comment Sodium Potassium Chloride Carbon Dioxide Anion Gap BUN Creatinine Estimated GFR POC Glucose 244 H 254 H 156 H Random Glucose Calcium Phosphorus Magnesium Iron TIBC % Saturation Ferritin Total Bilirubin AST ALT Alkaline Phosphatase Total Creatine Kinase Total Protein Albumin 07/09/18 07/09/18 07:22 07:22 WBC 11.1 H RBC 4.24 Hgb 9.6 L Hct 30.8 L MCV 72.7 L MCH 22.6 L MCHC 31.2 L RDW 15.1 Plt Count 261 MPV 8.2 Neut % (Auto) 44.7 Lymph % (Auto) 29.6 [place] % (Auto) 18.3 H Eos % (Auto) 6.7 H Baso % (Auto) 0.7 Neut # (Auto) 5.0 Lymph # (Auto) 3.3 [place] # (Auto) 2.0 H Eos # (Auto) 0.7 H Baso # (Auto) 0.1 WBC Differential . Differential Comment Auto diff final Sodium 135 L Potassium 4.7 Chloride 95 L Carbon Dioxide 34.6 H Anion Gap 5 BUN 38 H Creatinine 3.39 H Estimated GFR 17 L POC Glucose Random Glucose 120 H Calcium 9.1 Phosphorus 3.8 Magnesium 2.0 Iron TIBC % Saturation Ferritin Total Bilirubin 0.2 AST 15 ALT 12 Alkaline Phosphatase 90 Total Creatine Kinase Total Protein 7.6 D Albumin 2.7 L Microbiology 07/06/18 18:30 Blood - Peripheral Aerobic Blood Culture - Preliminary No growth in 2 days 07/06/18 18:30 Blood - Peripheral Anaerobic Blood Culture - Preliminary No growth in 2 days 07/06/18 18:48 Blood - Peripheral Aerobic Blood Culture - Preliminary No growth in 2 days 07/06/18 18:48 Blood - Peripheral Anaerobic Blood Culture - Preliminary No growth in 2 days Assessment and Plan - Plan 58 years old female Acute on chronic renal insufficiency - Nephrology ff - non oliguric - Ff BMP- renal functions stabilizing -heplock Patient's Chronic Kidney Disease could be due to diabetic nephropathy. Patient also had proteinuria. Patient stated she had had diabetes for over 30 years. In October, patient's creatinine was 2.68 and GFR 22. In May, Creatinine was 2.24 and GFR 27. Could be her baseline. Will monitor labs for renal improvement. Hyperkalemia- improved Hyperkalemia could be multifactorial, patient was on oral K supplement and on spirolactone at home. In addition, patient's renal function had declined. Patient's K has improved since admission. Avoid spirolactone. Will continue to monitor. ff BMP Diabetes mellitus Diabetic neruopathy Code(s): E11.9 - Type 2 diabetes mellitus without complications Status: Acute Plan: Maintain blood glucose between 140 and 180 while in hospital. Insulin SQ Congestive heart failure not in clinical failure History of CAD Code(s): I50.9 - Heart failure, unspecified Status: Acute continue Coreg, Nitrates, Ranexa and Hydralazine, Bumex check Echocardiogram. Chronic pain - on prn pain meds - PT eval and treat - out of bed to chair for all meals Microcytic anemia- -iron studies suggestive of chronic disease DVT prophylaxis with heparin and SCDs GI prophylaxis with PPI PTc consult- out of bed to chair- ambulate- states baseline uses a walker states her PCP is from [place] recently moved here- because her CM consult- needs to ff up with a PCP locally
--- NOTE | 2018-07-09 11:01 | P.PNNP ---
Subjective Interval history: Patient was seen in bed, was crying for multiple reasons, her current health situation and her daughter's health. Patient continues to have good urine output. Hyperkalemia has improved, potassium is 4.7. Patient's creatinine is 3.39. Renal function is stable. This could be her new baseline. <Enedelia Holcomb - Last Filed: 07/09/18 11:01> Physical Exam Vital signs: Vital Signs 07/08/18 11:00 07/08/18 11:10 07/08/18 12:00 Temperature 98.0 F Pulse Rate 75 73 71 Respiratory Rate 25 H 7 L 20 Blood Pressure 129/63 Pulse Oximetry 96 94 L 92 L 07/08/18 12:01 07/08/18 13:00 07/08/18 14:00 Temperature Pulse Rate 70 72 68 Respiratory Rate 12 24 21 Blood Pressure 87/50 L 92/55 L 103/57 L Pulse Oximetry 92 L 99 97 07/08/18 15:00 07/08/18 16:00 07/08/18 16:01 Temperature 98.4 F Pulse Rate 75 93 H 83 Respiratory Rate 24 34 H 30 H Blood Pressure 116/57 L 164/70 H 164/70 H Pulse Oximetry 97 73 L 74 L 07/08/18 17:00 07/08/18 17:51 07/08/18 18:00 Temperature Pulse Rate 89 78 74 Respiratory Rate 33 H 19 22 Blood Pressure 125/61 124/61 Pulse Oximetry 07/08/18 19:00 07/08/18 19:01 07/08/18 20:00 Temperature 98.5 F Pulse Rate 71 72 78 Respiratory Rate 21 22 26 H Blood Pressure 112/56 L 129/60 Pulse Oximetry 97 97 95 07/08/18 21:00 07/08/18 22:00 07/08/18 22:01 Temperature Pulse Rate 81 72 71 Respiratory Rate 20 21 29 H Blood Pressure 133/62 140/62 Pulse Oximetry 95 94 L 96 07/08/18 23:00 07/09/18 00:00 07/09/18 00:01 Temperature 98.1 F Pulse Rate 70 77 70 Respiratory Rate 19 27 H 23 Blood Pressure 105/54 L 139/60 Pulse Oximetry 97 99 96 07/09/18 01:00 07/09/18 02:00 07/09/18 03:00 Temperature Pulse Rate 70 70 68 Respiratory Rate 18 19 19 Blood Pressure 121/60 139/65 123/60 Pulse Oximetry 96 96 97 07/09/18 04:00 07/09/18 05:00 07/09/18 06:00 Temperature Pulse Rate 68 67 67 Respiratory Rate 18 15 19 Blood Pressure 122/58 L 120/58 L Pulse Oximetry 99 98 100 07/09/18 06:01 07/09/18 07:00 07/09/18 07:35 Temperature Pulse Rate 67 76 78 Respiratory Rate 19 26 H 27 H Blood Pressure 132/61 130/60 Pulse Oximetry 100 97 94 L 07/09/18 08:00 07/09/18 09:00 07/09/18 09:01 Temperature 98.3 F Pulse Rate 75 74 69 Respiratory Rate 21 21 16 Blood Pressure 134/62 133/61 Pulse Oximetry 93 L 96 96 07/09/18 09:45 07/09/18 10:00 07/09/18 10:01 Temperature Pulse Rate 67 73 Respiratory Rate 18 16 Blood Pressure 123/60 Pulse Oximetry 95 97 98 Intake & Output 07/08/18 07/09/18 07/09/18 18:59 06:59 18:59 Intake Total 1600 / 1600 240 / 240 Output Total 1700 / 1700 1600 / 1600 Balance -100 / -100 -1360 / -1360 Weight 82 kg Intake: IV 1000 / 1000 NS Inj 1,000 ML @ 40 mls/hr 1000 / 1000 OTHER .Q24H PRN Rx#:[id number] Oral 600 / 600 240 / 240 Output: Urine 1700 / 1700 1600 / 1600 Other: # Voids 2 Date of Last Bowel Movement 07/07/18 07/07/18 07/07/18 # Bowel Movements 0 - Constitutional mild distress - Routine HEENT Exam Head: Present: normocephalic, scalp tenderness Eye: Present: EOMI ENT: Present: mucous membranes moist - Routine Neck Exam Present: trachea midline. Absent: tracheal deviation - Routine Respiratory Exam Present: wheezes. Absent: accessory muscle use, respiratory distress Comments: Patient was on 2 L nasal cannula. - Routine Cardiovascular Exam Present: RRR - Routine Abdominal Exam Absent: tenderness, guarding, firm - Routine Extremities Exam Present: pulses intact. Absent: edema - Routine Neurological Exam Present: alert, oriented X3 - Detailed Neurological Exam: Coma Scale Eye Opening: Spontaneous Verbal Response: Oriented Motor Response: Obey commands Faizan Coma Scale Total: 15 - Routine Psychiatric Exam Present: normal affect - Urinary Catheter Management Straight Cath placed during this visit: no <Enedelia Holcomb - Last Filed: 07/09/18 11:01> Vital signs: Vital Signs 07/09/18 20:00 07/09/18 23:52 07/10/18 07:04 Temperature 98.2 F 97.9 F 97.8 F Pulse Rate 71 71 63 Respiratory Rate 18 18 16 Blood Pressure 101/58 L 110/54 L 113/57 L Pulse Oximetry 98 96 98 07/10/18 11:20 Temperature 97.6 F Pulse Rate 72 Respiratory Rate 20 Blood Pressure 113/57 L Pulse Oximetry 99 Intake & Output 07/10/18 07/10/18 07/11/18 06:59 18:59 06:59 Intake Total 1700 / 1700 Balance 1700 / 1700 Weight 82 kg Intake: IV 1000 / 1000 Oral 700 / 700 Other: # Voids 3 Date of Last Bowel Movement 07/07/18 - Urinary Catheter Management Straight Cath placed during this visit: no <Live Zamarripa - Last Filed: 07/10/18 19:36> Assessment and Plan - Assessment (1) Acute on chronic renal insufficiency Code(s): N28.9 - Disorder of kidney and ureter, unspecified; N18.9 - Chronic kidney disease, unspecified Status: Acute Plan: Acute on Chronic Kidney Disease could be due to urinary retention or over diuresis. Patient's Chronic Kidney Disease could be due to diabetic nephropathy. Patient also had proteinuria. Patient stated she had had diabetes for over 30 years. Patient continues to have good urine output. IV fluid was stopped. Hyperkalemia has improved, potassium is 4.7. Patient's creatinine is 3.39. Renal function is stable. This could be her new baseline. Patient's CO2 07/09 was 34.7. Consider blood gas. (2) Hyperkalemia Code(s): E87.5 - Hyperkalemia Status: Acute Plan: Hyperkalemia could be multifactorial, patient was on oral K supplement and on spirolactone at home. In addition, patient's renal function had declined. Patient's K has improved since admission, potassium is 4.7. (3) Diabetes mellitus Code(s): E11.9 - Type 2 diabetes mellitus without complications Status: Acute Plan: Maintain blood glucose between 140 and 180 while in hospital. (4) Congestive heart failure Code(s): I50.9 - Heart failure, unspecified Status: Acute Qualifiers: Heart failure type: unspecified Heart failure chronicity: acute on chronic Qualified Code(s): I50.9 - Heart failure, unspecified Plan: Consider Echocardiogram. <Enedelia Holcomb - Last Filed: 07/09/18 11:01> - Assessment (1) Acute on chronic renal insufficiency Code(s): N28.9 - Disorder of kidney and ureter, unspecified; N18.9 - Chronic kidney disease, unspecified Status: Acute (2) Hyperkalemia Code(s): E87.5 - Hyperkalemia Status: Acute (3) Diabetes mellitus Code(s): E11.9 - Type 2 diabetes mellitus without complications Status: Acute (4) Congestive heart failure Code(s): I50.9 - Heart failure, unspecified Status: Acute Qualifiers: Heart failure type: unspecified Heart failure chronicity: acute on chronic Qualified Code(s): I50.9 - Heart failure, unspecified - Attending Attestation patient was seen and examined on 07/09/18. Agree with above assessment and plan. <Live Zamarripa - Last Filed: 07/10/18 19:36>
--- NOTE | 2018-07-09 18:08 | ECHRPT ---
Indication: Renal Work Up CONCLUSIONS The left ventricular systolic function is severely reduced with an estimated ejection fraction in th e range of 30-35%. Mild concentric left ventricular hypertrophy. Doppler parameters are consistent with impaired left ventricular relaxtion (grade 1 diastolic dysfunction).There is mild tricuspid valve regurgitation. BP: 123 / 60 HR: 81 Rhythm: MEASUREMENTS (Male / Female) Normal Values Technical Quality:Fair 2D ECHO LV Diastolic Diameter PLAX 4.7 cm 4.2 - 5.9 / 3.9 - 5.3 cm LV Systolic Diameter PLAX 3.9 cm IVS Diastolic Thickness 1.1 cm 0.6 - 1.0 / 0.6 - 0.9 cm LVPW Diastolic Thickness 1.0 cm 0.6 - 1.0 / 0.6 - 0.9 cm LV Relative Wall Thickness 0.4 RV Internal Dim ED PLAX 2.5 cm LVOT Diameter 2.0 cm Aortic Root Diameter 2.9 cm LA Systolic Diameter LX 3.3 cm 3.0 - 4.0 / 2.7 - 3.8 cm DOPPLER AV Peak Velocity 122.0 cm/s AV Peak Gradient 6.0 mmHg LVOT Peak Velocity 98.7 cm/s LVOT Peak Gradient 3.9 mmHg AV Area Cont Eq pk 2.5 cm Mitral E Point Velocity 61.2 cm/s Mitral A Point Velocity 94.3 cm/s Mitral E to A Ratio 0.6 LV E' Lateral Velocity 5.3 cm/s Mitral E to LV E' Lateral Ratio 11.6 LV E' Septal Velocity 3.0 cm/s Mitral E to LV E' Septal Ratio 20.3 TR Peak Velocity 317.0 cm/s TR Peak Gradient 40.2 mmHg Right Atrial Pressure 10.0 mmHg Pulmonary Artery Systolic Pressu 50.2 mmHg Right Ventricular Systolic Press 50.2 mmHg PV Peak Velocity 121.0 cm/s PV Peak Gradient 5.9 mmHg FINDINGS LEFT VENTRICLE Normal left ventricular size. Mild concentric left ventricular hypertrophy. The left ventricular systolic function is severely reduced with an estimated ejection fraction in th e range of 30-35%. Doppler parameters are consistent with impaired left ventricular relaxtion (grade 1 diastolic dysfun ction). RIGHT VENTRICLE Normal right ventricular size and systolic function. LEFT ATRIUM The left atrial size is normal. RIGHT ATRIUM The right atrial size is normal. ATRIAL SEPTUM Normal atrial septal thickness AORTA The aortic root and proximal ascending aorta are normal in size on limited imaging. MITRAL VALVE Grossly normal Trace mitral valve regurgitation. AORTIC VALVE Probable trileaflet aortic valve, can not rule out bileaflet, No aortic valve regurgitation. No aortic valve stenosis. Aortic valve sclerosis is present. TRICUSPID VALVE The tricuspid valve is not well visualized. There is mild tricuspid valve regurgitation. The estimated pulmonary arterial pressure is 50 mmHg. PULMONARY VALVE No pulmonary valve regurgitation or stenosis. VESSELS The inferior vena cava is normal in size. PERICARDIUM No pericardial effusion. Rufus Mayfield DO (Electronically Signed) Final Date:09 July 2018 18:08
--- NOTE | 2018-07-09 18:08 | P.DIET ---
Nutritional Evaluation Type of nutrition evaluation: initial Nutrition screening: [facility] Screening comments: 07/08/18 [facility] Improve intake Subjective Subjective Comments: Pt visited after her transfer to . Pt is confused. Says she cant remember is she has eaten today. Pt adds that she likes orange juice and grapfruit juice w/ Bibi seasoning and that is what she has been drinking at home. Objective - Diagnosis hyperkalemia, acute on chronic renal - Objective % IBW: 135 Body Weight Used for Calculations: IBW (59 kg), Actual (8) Energy Needs - Lower Range (kCal/kg): 27 Energy Needs - Upper Range (kCal/kg): 32 Lower Limit kCal/kg (kCals): 1,593 Upper Limit kCal/kg (kCals): 1,888 Lower Limit Protein Factor (Grams per Kg): 1.1 Upper Limit Protein Factor (Grams per Kg): 1.3 Lower Protein Needs (Protein): 65 Upper Protein Needs (Protein): 77 Dietitian Reviewed in Medical Record: Current diet, Curent medications, Intake & Output, Labs, Medical history Diet Order: 2gNa Oral Diet Intake Amount: Fair 50-75% Objective Comments: PMH includes: Anxiety, Bipolar, Chronic Renal Failure, DM, Heart Failure, Nicotine Dependence BUN 38, Creatinine 3.39, estGFR 17, POC glucose 300, Random glucose 120 Meds include: Bumex, Lipitor, Coreg, Neurontin, Novolin R, Seroquel LBM /, +UOP 3300ml Assessment Assessment: [facility] for improve intake. Pt's diet order is a 2gNa. Rec diet as an 1800ADA 2gNa. Send Suplena oral nutritional supplement BID(= 425 kcal and 10.6g protein per serving). Monitor po intake and supplement acceptance. Labs reviewed-monitor renal labs and glucose. Dietitian will follow. Recommendations: 1. Rec diet as an 1800ADA 2gNa 2. Send Suplena oral nutritional supplement BID 3. Dietitian will follow Dietitian to Monitor: Lab values, Electrolytes, Renal labs, Glucose level, Supplement acceptance, Intake & Output, Weight change, PO Intake, Medical course
[2018-07-09] MEDS: QUEtiapine 25 MG Tablet PO SCH (21:50)
[2018-07-10] MEDS: Chlorhexidine Gluconate 2% 1 Pack (2 Cloths) TOPICAL SCH (03:19)
[2018-07-10] MEDS: Heparin - SQ 10,000 UNITS/ML Vial SQ SCH ×4 (06:31→23:33)
[2018-07-10] MEDS: Insulin NovoLIN Regular Correctional Sugar Inj SQ SCH ×4 (06:34→23:33)
[2018-07-10] MEDS: Ranolazine 500 MG 12HR ER Tablet PO SCH ×2 (08:28→20:32)
[2018-07-10] MEDS: Senna/Docusate Sodium 8.6/50 MG Tablet PO SCH ×2 (08:28→20:35)
[2018-07-10] MEDS: Pantoprazole Sodium 20 MG DR Tablet PO SCH (08:28)
[2018-07-10] MEDS: Carvedilol 12.5 MG Tablet PO SCH ×2 (08:28→20:31)
[2018-07-10] MEDS: Isosorbide Mononitrate 60 MG ER 24HR Tablet (Imdur) PO SCH (08:28)
[2018-07-10] MEDS: Gabapentin 300 MG Capsule PO SCH ×2 (08:28→20:30)
[2018-07-10] MEDS: hydrALAZINE 50 MG Tablet PO SCH ×3 (08:28→17:47)
[2018-07-10] MEDS: QUEtiapine 25 MG Tablet PO SCH ×2 (08:29→20:30)
[2018-07-10 08:57] LABS: Baso # (Auto) 0.1 th/mm3 (0.0-0.2); Baso % (Auto) 0.5 % (0.0-2.0); Eos # (Auto) 0.8 th/mm3 (0.0-0.4); Eos % (Auto) 6.3 % (0.0-4.0); Hematocrit 32.1 % (35.0-46.0); Hemoglobin 10.3 gm/dL (11.6-15.3); Mean Corpuscular Volume 71.9 fL (80.0-100.0); Mean Platelet Volume 8.1 fL (7.0-11.0); Mono # (Auto) 1.4 th/mm3 (0.0-0.9); Mono % (Auto) 11.3 % (0.0-8.0); Neut # (Auto) 6.3 th/mm3 (1.8-7.7); Neut % (Auto) 49.9 % (16.0-70.0); Platelet Count 269 th/mm3 (150-450); Red Blood Count 4.46 mil/mm3 (4.00-5.30); Red Cell Distribution Width 15.5 % (11.6-17.2); White Blood Count 12.6 th/mm3 (4.0-11.0)
[2018-07-10 09:35] LABS: Alanine Aminotransferase 11 U/L (10-53); Albumin 2.7 g/dL (3.4-5.0); Alkaline Phosphatase 85 U/L (45-117); Anion Gap 8 meq/L (5-15); Aspartate Aminotransferase 32 U/L (15-37); Blood Urea Nitrogen 39 mg/dL (7-18); Calcium 9.4 mg/dL (8.5-10.1); Carbon Dioxide 33.3 meq/L (21.0-32.0); Chloride 93 meq/L (98-107); Glomerular Filtration Rate 16 mL/min (>89); Glucose,Random 122 mg/dL (74-106); Magnesium 2.1 mg/dL (1.5-2.5); Sodium 134 meq/L (136-145); Total Protein 7.6 g/dL (6.4-8.2)
[2018-07-10 09:41] LABS: Potassium 5.3 meq/L (3.5-5.1)
[2018-07-10] MEDS ORDERED: Sodium Polystyrene Sulfonate/Sorbitol Liq 15 GM/60 ML UDC PO ONE (10:42)
--- NOTE | 2018-07-10 10:54 | P.PN ---
Subjective Interval history: awake and alert more interactive denies any pain states has been voiding no diarrhea Physical Exam Vital signs: Vital Signs 07/09/18 13:24 07/09/18 14:03 07/09/18 16:00 Temperature 98.1 F 98.1 F Pulse Rate 73 78 Respiratory Rate 21 18 16 Blood Pressure 134/62 151/66 H Pulse Oximetry 99 99 07/09/18 16:38 07/09/18 20:00 07/09/18 23:52 Temperature 98.2 F 97.9 F Pulse Rate 75 71 71 Respiratory Rate 18 Blood Pressure 101/58 L 110/54 L Pulse Oximetry 97 98 96 07/10/18 07:04 Temperature 97.8 F Pulse Rate 63 Respiratory Rate 16 Blood Pressure 113/57 L Pulse Oximetry 98 Intake & Output 07/09/18 07/10/18 07/10/18 18:59 06:59 18:59 Intake Total 1700 / 1700 Balance 1700 / 1700 Weight 82 kg Intake: IV 1000 / 1000 Oral 700 / 700 Other: # Voids 3 Date of Last Bowel Movement 07/07/18 07/07/18 Narrative: awake and alert, speech clear, interactive, oriented x 3 anicteric no nuchal rigidity no rales regular rhythm abdomen soft extremiteis no edema moves all extremities spontaenously - strength 5/5 - Urinary Catheter Management Straight Cath placed during this visit: no Results - Labs CBC & Chem 7: 07/10/18 08:35 07/10/18 08:35 Laboratory Results - last 24 hr 07/09/18 07/09/18 07/09/18 12:06 16:24 23:14 WBC RBC Hgb Hct MCV MCH MCHC RDW Plt Count MPV Neut % (Auto) Lymph % (Auto) [place] % (Auto) Eos % (Auto) Baso % (Auto) Neut # (Auto) Lymph # (Auto) [place] # (Auto) Eos # (Auto) Baso # (Auto) WBC Differential Differential Comment Sodium Potassium Chloride Carbon Dioxide Anion Gap BUN Creatinine Estimated GFR POC Glucose 226 H 300 H 155 H Random Glucose Calcium Phosphorus Magnesium Total Bilirubin AST ALT Alkaline Phosphatase Total Protein Albumin 07/10/18 07/10/18 07/10/18 06:31 08:35 08:35 WBC 12.6 H RBC 4.46 Hgb 10.3 L Hct 32.1 L MCV 71.9 L MCH 23.0 L MCHC 32.0 RDW 15.5 Plt Count 269 MPV 8.1 Neut % (Auto) 49.9 Lymph % (Auto) 32.0 [place] % (Auto) 11.3 H Eos % (Auto) 6.3 H Baso % (Auto) 0.5 Neut # (Auto) 6.3 Lymph # (Auto) 4.0 [place] # (Auto) 1.4 H Eos # (Auto) 0.8 H Baso # (Auto) 0.1 WBC Differential . Differential Comment Auto diff final Sodium 134 L Potassium 5.3 H Chloride 93 L Carbon Dioxide 33.3 H Anion Gap 8 BUN 39 H Creatinine 3.61 H Estimated GFR 16 L POC Glucose 152 H Random Glucose 122 H Calcium 9.4 Phosphorus 4.0 Magnesium 2.1 Total Bilirubin 0.3 AST 32 ALT 11 Alkaline Phosphatase 85 Total Protein 7.6 Albumin 2.7 L Microbiology 07/06/18 18:30 Blood - Peripheral Aerobic Blood Culture - Preliminary No growth in 3 days 07/06/18 18:30 Blood - Peripheral Anaerobic Blood Culture - Preliminary No growth in 3 days 07/06/18 18:48 Blood - Peripheral Aerobic Blood Culture - Preliminary No growth in 3 days 07/06/18 18:48 Blood - Peripheral Anaerobic Blood Culture - Preliminary No growth in 3 days Assessment and Plan - Plan 58 years old female Acute on chronic renal insufficiency - Nephrology ff - non oliguric - Ff BMP- renal functions stabilizing -heplock Patient's Chronic Kidney Disease could be due to diabetic nephropathy. Patient also had proteinuria. Patient stated she had had diabetes for over 30 years. In October, patient's creatinine was 2.68 and GFR 22. In May, Creatinine was 2.24 and GFR 27. Could be her baseline. Will monitor labs for renal improvement. Hyperkalemia- K 5.3 this am Hyperkalemia could be multifactorial, patient was on oral K supplement and on spirolactone at home. In addition, patient's renal function had declined. Patient's K has improved since admission. Avoid spirolactone. Will continue to monitor. ff BMP give x 1 Kayexalate on bumex bid Diabetes mellitus Diabetic neruopathy Code(s): E11.9 - Type 2 diabetes mellitus without complications Status: Acute Plan: Maintain blood glucose between 140 and 180 while in hospital. Insulin SQ Congestive heart failure not in clinical failure History of CAD Code(s): I50.9 - Heart failure, unspecified Status: Acute continue Coreg, Nitrates, Ranexa and Hydralazine, Bumex check Echocardiogram- unreamrakbel Chronic pain - on prn pain meds - PT eval and treat - out of bed to chair for all meals - very motivated Microcytic anemia- -iron studies suggestive of chronic disease DVT prophylaxis with heparin and SCDs GI prophylaxis with PPI PTc consult- out of bed to chair- ambulate- states baseline uses a walker states her PCP is from [place] recently moved here- from [place] CM consult- needs to ff up with a PCP locally
--- NOTE | 2018-07-10 12:09 | P.PNNP ---
Subjective Interval history: Patient was seen, no distress. Patient started on Seroquel 07/09. Patient mentioned being discharged to [facility] today. <Enedelia Holcomb - Last Filed: 07/10/18 12:11> Physical Exam Vital signs: Vital Signs 07/09/18 13:24 07/09/18 14:03 07/09/18 16:00 Temperature 98.1 F 98.1 F Pulse Rate 73 78 Respiratory Rate 21 18 16 Blood Pressure 134/62 151/66 H Pulse Oximetry 99 99 07/09/18 16:38 07/09/18 20:00 07/09/18 23:52 Temperature 98.2 F 97.9 F Pulse Rate 75 71 71 Respiratory Rate 20 18 Blood Pressure 101/58 L 110/54 L Pulse Oximetry 97 98 96 07/10/18 07:04 07/10/18 11:20 Temperature 97.8 F 97.6 F Pulse Rate 63 72 Respiratory Rate 16 20 Blood Pressure 113/57 L 113/57 L Pulse Oximetry 98 99 Intake & Output 07/09/18 07/10/18 07/10/18 18:59 06:59 18:59 Intake Total 1700 / 1700 Balance 1700 / 1700 Weight 82 kg Intake: IV 1000 / 1000 Oral 700 / 700 Other: # Voids 3 Date of Last Bowel Movement 07/07/18 07/07/18 - Constitutional no acute distress - Routine HEENT Exam Head: Present: normocephalic Eye: Present: EOMI, PERRL ENT: Present: mucous membranes moist - Routine Neck Exam Present: trachea midline. Absent: tracheal deviation - Routine Respiratory Exam Present: wheezes. Absent: accessory muscle use Comments: On 2 L nasal cannula. - Routine Cardiovascular Exam Present: RRR. Absent: JVD - Routine Abdominal Exam Present: soft. Absent: tenderness - Routine Extremities Exam Absent: edema - Routine Neurological Exam Present: alert, oriented X3 - Routine Psychiatric Exam Present: normal affect - Urinary Catheter Management Straight Cath placed during this visit: no <Enedelia Holcomb - Last Filed: 07/10/18 12:11> Vital signs: Vital Signs 07/09/18 20:00 07/09/18 23:52 07/10/18 07:04 Temperature 98.2 F 97.9 F 97.8 F Pulse Rate 71 71 63 Respiratory Rate 18 18 16 Blood Pressure 101/58 L 110/54 L 113/57 L Pulse Oximetry 98 96 98 07/10/18 11:20 Temperature 97.6 F Pulse Rate 72 Respiratory Rate 20 Blood Pressure 113/57 L Pulse Oximetry 99 Intake & Output 07/10/18 07/10/18 07/11/18 06:59 18:59 06:59 Intake Total 1700 / 1700 Balance 1700 / 1700 Weight 82 kg Intake: IV 1000 / 1000 Oral 700 / 700 Other: # Voids 3 Date of Last Bowel Movement 07/07/18 - Urinary Catheter Management Straight Cath placed during this visit: no <Live Zamarripa - Last Filed: 07/10/18 19:49> Assessment and Plan - Assessment (1) Acute on chronic renal insufficiency Code(s): N28.9 - Disorder of kidney and ureter, unspecified; N18.9 - Chronic kidney disease, unspecified Status: Acute Plan: Acute on Chronic Kidney Disease could be due to urinary retention or over diuresis. Patient's Chronic Kidney Disease could be due to diabetic nephropathy. Patient also had proteinuria. Patient stated she had had diabetes for over 30 years. Patient continues to have good urine output. Patient's creatinine is 3.61. Renal function is stable. This could be her new baseline. Discussed following up with a educational sign language interpreter once she's discharged. (2) Hyperkalemia Code(s): E87.5 - Hyperkalemia Status: Acute Plan: Hyperkalemia could be multifactorial, patient was on oral K supplement and on spirolactone at home. In addition, patient's renal function had declined. Patient's K has improved since admission, potassium is 5.2. Continue to monitor. Patient on Bumex. Avoid Spirolactone. (3) Diabetes mellitus Code(s): E11.9 - Type 2 diabetes mellitus without complications Status: Acute Plan: Maintain blood glucose between 140 and 180 while in hospital. (4) Congestive heart failure Code(s): I50.9 - Heart failure, unspecified Status: Acute Qualifiers: Heart failure type: unspecified Heart failure chronicity: acute on chronic Qualified Code(s): I50.9 - Heart failure, unspecified Plan: Patient on Coreg, Nitrates, Ranexa, Hydralazine, Bumex. <Enedelia Holcomb - Last Filed: 07/10/18 12:11> - Assessment (1) Acute on chronic renal insufficiency Code(s): N28.9 - Disorder of kidney and ureter, unspecified; N18.9 - Chronic kidney disease, unspecified Status: Acute (2) Hyperkalemia Code(s): E87.5 - Hyperkalemia Status: Acute (3) Diabetes mellitus Code(s): E11.9 - Type 2 diabetes mellitus without complications Status: Acute (4) Congestive heart failure Code(s): I50.9 - Heart failure, unspecified Status: Acute Qualifiers: Heart failure type: unspecified Heart failure chronicity: acute on chronic Qualified Code(s): I50.9 - Heart failure, unspecified - Attending Attestation patient was seen and examined. Poor renal function, but no immediate need for dialysis. Needs to be on dietary potassium restriction. Avoid Spironolactone due to hyperkalemia. Continue Bumex. Needs outpatient followup. <Live Zamarripa - Last Filed: 07/10/18 19:49>
[2018-07-11] MEDS: Chlorhexidine Gluconate 2% 1 Pack (2 Cloths) TOPICAL SCH (04:31)
[2018-07-11 06:04] LABS: Baso # (Auto) 0.1 th/mm3 (0.0-0.2); Baso % (Auto) 0.5 % (0.0-2.0); Eos % (Auto) 7.3 % (0.0-4.0); Hematocrit 28.1 % (35.0-46.0); Lymph # (Auto) 3.7 th/mm3 (1.0-4.8); Lymph % (Auto) 28.3 % (9.0-44.0); Mean Corpuscular Hemoglobin 23.1 pg (27.0-34.0); Mean Corpuscular Volume 72.3 fL (80.0-100.0); Mean Platelet Volume 8.2 fL (7.0-11.0); Mono # (Auto) 1.3 th/mm3 (0.0-0.9); Mono % (Auto) 10.1 % (0.0-8.0); Neut # (Auto) 7.1 th/mm3 (1.8-7.7); Neut % (Auto) 53.8 % (16.0-70.0); Platelet Count 260 th/mm3 (150-450); Red Blood Count 3.89 mil/mm3 (4.00-5.30); Red Cell Distribution Width 14.9 % (11.6-17.2); White Blood Count 13.2 th/mm3 (4.0-11.0)
[2018-07-11 06:36] LABS: Alanine Aminotransferase 12 U/L (10-53); Albumin 2.6 g/dL (3.4-5.0); Alkaline Phosphatase 83 U/L (45-117); Anion Gap 9 meq/L (5-15); Aspartate Aminotransferase 23 U/L (15-37); Blood Urea Nitrogen 40 mg/dL (7-18); Chloride 92 meq/L (98-107); Glomerular Filtration Rate 15 mL/min (>89); Glucose,Random 129 mg/dL (74-106); Magnesium 1.9 mg/dL (1.5-2.5); Phosphorus 4.6 mg/dL (2.5-4.9); Potassium 4.4 meq/L (3.5-5.1); Sodium 132 meq/L (136-145); Total Protein 7.4 g/dL (6.4-8.2)
[2018-07-11] MEDS: Heparin - SQ 10,000 UNITS/ML Vial SQ SCH ×2 (06:49→14:25)
[2018-07-11] MEDS: Insulin NovoLIN Regular Correctional Sugar Inj SQ SCH ×2 (06:49→14:24)
[2018-07-11] MEDS: Isosorbide Mononitrate 60 MG ER 24HR Tablet (Imdur) PO SCH (08:42)
[2018-07-11] MEDS: Carvedilol 12.5 MG Tablet PO SCH (08:42)
[2018-07-11] MEDS: Pantoprazole Sodium 20 MG DR Tablet PO SCH (08:43)
[2018-07-11] MEDS: hydrALAZINE 50 MG Tablet PO SCH ×2 (08:43→14:24)
[2018-07-11] MEDS: QUEtiapine 25 MG Tablet PO SCH (08:43)
[2018-07-11] MEDS: Senna/Docusate Sodium 8.6/50 MG Tablet PO SCH (08:43)
[2018-07-11] MEDS: Ranolazine 500 MG 12HR ER Tablet PO SCH (08:43)
[2018-07-11] MEDS: Gabapentin 300 MG Capsule PO SCH (08:43)
[2018-07-11 09:44] VITALS: O2SAT 99
--- NOTE | 2018-07-11 10:46 | P.PNNP ---
Subjective Interval history: Patient was seen in room, no distress. No changes since yesterday. <Enedelia Holcomb - Last Filed: 07/11/18 10:48> Physical Exam Vital signs: Vital Signs 07/10/18 11:20 07/10/18 20:00 07/10/18 21:48 Temperature 97.6 F 98.2 F Pulse Rate 72 73 88 Respiratory Rate 20 22 22 Blood Pressure 113/57 L 129/58 L Pulse Oximetry 99 98 95 07/11/18 00:00 07/11/18 07:24 07/11/18 08:00 Temperature 98.6 F 98.3 F Pulse Rate 71 69 Respiratory Rate 20 16 Blood Pressure 123/58 L 127/61 Pulse Oximetry 99 100 99 Intake & Output 07/10/18 07/11/18 07/11/18 18:59 06:59 18:59 Intake Total 360 / 360 Balance 360 / 360 Weight 82 kg Intake: Oral 360 / 360 Other: # Voids 2 Date of Last Bowel Movement 07/07/18 - Constitutional no acute distress - Routine HEENT Exam Head: Present: normocephalic Eye: Present: EOMI, PERRL ENT: Present: mucous membranes moist - Routine Neck Exam Present: trachea midline. Absent: JVD - Routine Respiratory Exam Present: rhonchi, wheezes. Absent: accessory muscle use, respiratory distress Comments: On nasal cannula. - Routine Cardiovascular Exam Present: RRR - Routine Abdominal Exam Present: soft. Absent: firm - Routine Extremities Exam Absent: edema - Routine Neurological Exam Present: alert, oriented X3 - Routine Psychiatric Exam Present: normal affect, normal thought process - Urinary Catheter Management Straight Cath placed during this visit: no <Enedelia Holcomb - Last Filed: 07/11/18 10:48> Vital signs: Vital Signs 07/10/18 20:00 07/10/18 21:48 07/11/18 00:00 Temperature 98.2 F 98.6 F Pulse Rate 73 88 71 Respiratory Rate 22 22 20 Blood Pressure 129/58 L 123/58 L Pulse Oximetry 98 95 99 07/11/18 07:24 07/11/18 08:00 07/11/18 12:00 Temperature 98.3 F 98.2 F Pulse Rate 69 78 Respiratory Rate 16 18 Blood Pressure 127/61 115/58 L Pulse Oximetry 100 99 Intake & Output 07/10/18 07/11/18 07/11/18 18:59 06:59 18:59 Intake Total 360 / 360 Balance 360 / 360 Weight 82 kg Intake: Oral 360 / 360 Other: # Voids 2 Date of Last Bowel Movement 07/07/18 - Urinary Catheter Management Straight Cath placed during this visit: no <Live Zamarripa - Last Filed: 07/11/18 14:00> Assessment and Plan - Assessment (1) Acute on chronic renal insufficiency Code(s): N28.9 - Disorder of kidney and ureter, unspecified; N18.9 - Chronic kidney disease, unspecified Status: Acute Plan: Acute on Chronic Kidney Disease could be due to urinary retention or over diuresis. Patient's Chronic Kidney Disease could be due to diabetic nephropathy. Patient also had proteinuria. Patient stated she had had diabetes for over 30 years. Patient continues to have good urine output. Patient's renal function is stable. This could be her new baseline. Discussed following up with a product safety test engineer once she's discharged. (2) Hyperkalemia Code(s): E87.5 - Hyperkalemia Status: Acute Plan: Hyperkalemia could be multifactorial, patient was on oral K supplement and on spirolactone at home. In addition, patient's renal function had declined. Patient's K has improved since admission, potassium is 4.4. Continue to monitor. Needs to be on dietary potassium restriction. Avoid Spironolactone due to hyperkalemia. Patient on Bumex. (3) Diabetes mellitus Code(s): E11.9 - Type 2 diabetes mellitus without complications Status: Acute Plan: Maintain blood glucose between 140 and 180 while in hospital. (4) Congestive heart failure Code(s): I50.9 - Heart failure, unspecified Status: Acute Qualifiers: Heart failure type: unspecified Heart failure chronicity: acute on chronic Qualified Code(s): I50.9 - Heart failure, unspecified Plan: Patient on Coreg, Nitrates, Ranexa, Hydralazine, Bumex. <Enedelia Holcomb - Last Filed: 07/11/18 10:48> - Assessment (1) Acute on chronic renal insufficiency Code(s): N28.9 - Disorder of kidney and ureter, unspecified; N18.9 - Chronic kidney disease, unspecified Status: Acute (2) Hyperkalemia Code(s): E87.5 - Hyperkalemia Status: Acute (3) Diabetes mellitus Code(s): E11.9 - Type 2 diabetes mellitus without complications Status: Acute (4) Congestive heart failure Code(s): I50.9 - Heart failure, unspecified Status: Acute Qualifiers: Heart failure type: unspecified Heart failure chronicity: acute on chronic Qualified Code(s): I50.9 - Heart failure, unspecified - Attending Attestation patient was seen and examined. Renal function is declining. She is close to needing dialysis, however there is no emergent need. If discharged, she will need close followup with nephrology. Patient may move back to [place]. <Live Zamarripa - Last Filed: 07/11/18 14:00>
[2018-07-11 12:16] VITALS: BP 115/58; PULSE 78; RESP 18; TEMP 98.2
--- NOTE | 2018-07-11 14:15 | P.PN ---
Subjective Interval history: doing well, voiding well no complains interactive states she is on lantus 30 units at hs and humalog sliding scale Physical Exam Vital signs: Vital Signs 07/10/18 20:00 07/10/18 21:48 07/11/18 00:00 Temperature 98.2 F 98.6 F Pulse Rate 73 88 71 Respiratory Rate 22 22 20 Blood Pressure 129/58 L 123/58 L Pulse Oximetry 98 95 99 07/11/18 07:24 07/11/18 08:00 07/11/18 12:00 Temperature 98.3 F 98.2 F Pulse Rate 69 78 Respiratory Rate 16 18 Blood Pressure 127/61 115/58 L Pulse Oximetry 100 99 Intake & Output 07/10/18 07/11/18 07/11/18 18:59 06:59 18:59 Intake Total 360 / 360 Balance 360 / 360 Weight 82 kg Intake: Oral 360 / 360 Other: # Voids 2 Date of Last Bowel Movement 07/07/18 Narrative: awake and alert, speech clear, interactive, oriented x 3 anicteric no nuchal rigidity no rales regular rhythm abdomen soft extremiteis no edema moves all extremities spontaenously - strength 5/5 - Urinary Catheter Management Straight Cath placed during this visit: no Results - Labs CBC & Chem 7: 07/11/18 04:40 07/11/18 04:40 Laboratory Results - last 24 hr 07/10/18 07/10/18 07/11/18 17:16 23:29 04:40 WBC 13.2 H RBC 3.89 L Hgb 9.0 L Hct 28.1 L MCV 72.3 L MCH 23.1 L MCHC 32.0 RDW 14.9 Plt Count 260 MPV 8.2 Neut % (Auto) 53.8 Lymph % (Auto) 28.3 [place] % (Auto) 10.1 H Eos % (Auto) 7.3 H Baso % (Auto) 0.5 Neut # (Auto) 7.1 Lymph # (Auto) 3.7 [place] # (Auto) 1.3 H Eos # (Auto) 1.0 H Baso # (Auto) 0.1 WBC Differential . Differential Comment Auto diff final Sodium Potassium Chloride Carbon Dioxide Anion Gap BUN Creatinine Estimated GFR POC Glucose 242 H 350 H Random Glucose Calcium Phosphorus Magnesium Total Bilirubin AST ALT Alkaline Phosphatase Total Protein Albumin 07/11/18 07/11/18 04:40 12:20 WBC RBC Hgb Hct MCV MCH MCHC RDW Plt Count MPV Neut % (Auto) Lymph % (Auto) [place] % (Auto) Eos % (Auto) Baso % (Auto) Neut # (Auto) Lymph # (Auto) [place] # (Auto) Eos # (Auto) Baso # (Auto) WBC Differential Differential Comment Sodium 132 L Potassium 4.4 D Chloride 92 L Carbon Dioxide 31.0 Anion Gap 9 BUN 40 H Creatinine 3.79 H Estimated GFR 15 L POC Glucose 312 H Random Glucose 129 H Calcium 9.0 Phosphorus 4.6 Magnesium 1.9 Total Bilirubin 0.2 AST 23 ALT 12 Alkaline Phosphatase 83 Total Protein 7.4 Albumin 2.6 L Microbiology 07/06/18 18:30 Blood - Peripheral Aerobic Blood Culture - Final No growth in 5 days 07/06/18 18:30 Blood - Peripheral Anaerobic Blood Culture - Final No growth in 5 days 07/06/18 18:48 Blood - Peripheral Aerobic Blood Culture - Final No growth in 5 days 07/06/18 18:48 Blood - Peripheral Anaerobic Blood Culture - Final No growth in 5 days Assessment and Plan - Plan 58 years old female Acute on chronic renal insufficiency - Nephrology ff - non oliguric - Ff BMP- renal functions stabilizing -heplock Patient's Chronic Kidney Disease could be due to diabetic nephropathy. Patient also had proteinuria. Patient stated she had had diabetes for over 30 years. In October, patient's creatinine was 2.68 and GFR 22. In May, Creatinine was 2.24 and GFR 27. Could be her baseline. Will monitor labs for renal improvement. 58 years old Hyperkalemia-resolved Hyperkalemia could be multifactorial, patient was on oral K supplement and on spirolactone at home. In addition, patient's renal function had declined. Patient's K has improved since admission. Avoid spirolactone. on bumex bid Diabetes mellitus Diabetic neruopathy Code(s): E11.9 - Type 2 diabetes mellitus without complications Status: Acute Plan: Maintain blood glucose between 140 and 180 while in hospital. Insulin SQ dioscussed with ehr to continue home regimen- lantus and Humalog sliding sscale Congestive heart failure not in clinical failure History of CAD Code(s): I50.9 - Heart failure, unspecified Status: Acute continue Coreg, Nitrates, Ranexa and Hydralazine, Bumex check Echocardiogram- unremarkable has home 02 Chronic pain - on prn pain meds - PT eval and treat - out of bed to chair for all meals - very motivated Microcytic anemia- -iron studies suggestive of chronic disease DVT prophylaxis with heparin and SCDs GI prophylaxis with PPI PTc consult- out of bed to chair- ambulate- states baseline uses a walker states [place] PCP is from [place] recently moved here- from [place] CM consult- needs to ff up with a PCP locally
--- NOTE | 2018-07-11 15:02 | P.DS ---
Date of admission: 07/06/18 21:16 Primary care physician: UNKNOWN Anticipated date of discharge: 07/11/18 Brief History from admission: 58 year old female presents to emergency department complaining of "pain all over". Of note patient is a poor historian, making history challenging to obtain. She stays she fell onto her knees about 4 days ago. She reports pain predominantly in her knees with radiation to her back. Pain is reported as 10/10 on the pain scale that has increased in intensity since injury. She says she has taken oxycodone at home with some relief of pain. Additionally she describes subjective fevers, SOB, and abdominal pain. The lab work obtained in the emergency department show significant hyperkalemia , that was treated with IV fluids diuretics, insulin calcium gluconate and sodium bicarbonate as well as Kayexalate. The patient has been admitted to ICU with hyperkalemic acute renal failure. Patient update on day of discharge: afebrile good BP readings no complains oriented to person and place ff all commands up and ambulating around with a walker- even came up to the statoion to talk to me states has home 02 DS: Medications - Discharge Medications Prescriptions: quetiapine 25 mg PO BID 30 Days #60 tab DS: Summary Hospital Course: 58 years old female Acute on chronic renal insufficiency - Nephrology ff - non oliguric - Ff BMP- renal functions stabilizing -heplock Patient's Chronic Kidney Disease could be due to diabetic nephropathy. Patient also had proteinuria. Patient stated she had had diabetes for over 30 years. In October, patient's creatinine was 2.68 and GFR 22. In May, Creatinine was 2.24 and GFR 27. Could be her baseline. Will monitor labs for renal improvement. 58 years old Hyperkalemia-resolved Hyperkalemia could be multifactorial, patient was on oral K supplement and on spirolactone at home. In addition, patient's renal function had declined. Patient's K has improved since admission. Avoid spirolactone. on bumex bid Diabetes mellitus Diabetic neruopathy Code(s): E11.9 - Type 2 diabetes mellitus without complications Status: Acute Plan: Maintain blood glucose between 140 and 180 while in hospital. Insulin SQ discussed with her- she states she is on lantus 30 units HS and sliding scale Nol[place] - advise to continue lantus and Humalog sliding scale states good hypoglycemic awreness Congestive heart failure not in clinical failure History of CAD Code(s): I50.9 - Heart failure, unspecified Status: Acute continue Coreg, Nitrates, Ranexa and Hydralazine, Bumex check Echocardiogram- unremarkable has home 02 Chronic pain - on prn pain meds - PT eval and treat - out of bed to chair for all meals - very motivated Microcytic anemia- -iron studies suggestive of chronic disease DVT prophylaxis with heparin and SCDs GI prophylaxis with PPI PTc consult- out of bed to chair- ambulate- states baseline uses a walker states her PCP is from [place] recently moved here- from [place] CM consult- needs to ff up with a PCP locally - Time Spent with Patient Total time spent providing and/or coordinating discharge services: Greater than 30 minutes - Quality: VTE Deep Vein Thrombosis/Pulmonary Embolism Present on Admission: No Exam Vital signs: Vital Signs 07/10/18 20:00 07/10/18 21:48 07/11/18 00:00 Temperature 98.2 F 98.6 F Pulse Rate 73 88 71 Respiratory Rate 22 22 20 Blood Pressure 129/58 L 123/58 L Pulse Oximetry 98 95 99 07/11/18 07:24 07/11/18 08:00 07/11/18 12:00 Temperature 98.3 F 98.2 F Pulse Rate 69 78 Respiratory Rate 16 18 Blood Pressure 127/61 115/58 L Pulse Oximetry 100 99 Intake & Output 07/10/18 07/11/18 07/11/18 18:59 06:59 18:59 Intake Total 360 / 360 Balance 360 / 360 Weight 82 kg Intake: Oral 360 / 360 Other: # Voids 2 Date of Last Bowel Movement 07/07/18 Results Procedures completed during hospitalization: none Labs on day of discharge: Labs from last 24 hours 07/11/18 07/11/18 07/11/18 12:20 04:40 04:40 WBC 13.2 H RBC 3.89 L Hgb 9.0 L Hct 28.1 L MCV 72.3 L MCH 23.1 L MCHC 32.0 RDW 14.9 Plt Count 260 MPV 8.2 Neut % (Auto) 53.8 Lymph % (Auto) 28.3 [place] % (Auto) 10.1 H Eos % (Auto) 7.3 H Baso % (Auto) 0.5 Neut # (Auto) 7.1 Lymph # (Auto) 3.7 [place] # (Auto) 1.3 H Eos # (Auto) 1.0 H Baso # (Auto) 0.1 WBC Differential . Differential Comment Auto diff final Sodium 132 L Potassium 4.4 D Chloride 92 L Carbon Dioxide 31.0 Anion Gap 9 BUN 40 H Creatinine 3.79 H Estimated GFR 15 L POC Glucose 312 H Random Glucose 129 H Calcium 9.0 Phosphorus 4.6 Magnesium 1.9 Total Bilirubin 0.2 AST 23 ALT 12 Alkaline Phosphatase 83 Total Protein 7.4 Albumin 2.6 L 07/10/18 07/10/18 23:29 17:16 WBC RBC Hgb Hct MCV MCH MCHC RDW Plt Count MPV Neut % (Auto) Lymph % (Auto) [place] % (Auto) Eos % (Auto) Baso % (Auto) Neut # (Auto) Lymph # (Auto) [place] # (Auto) Eos # (Auto) Baso # (Auto) WBC Differential Differential Comment Sodium Potassium Chloride Carbon Dioxide Anion Gap BUN Creatinine Estimated GFR POC Glucose 350 H 242 H Random Glucose Calcium Phosphorus Magnesium Total Bilirubin AST ALT Alkaline Phosphatase Total Protein Albumin - Impressions ITS Impressions Chest X-Ray 07/06/18 00:00 CONCLUSION: Nonspecific findings of interstitial prominence with poorly defined perihilar and basilar airspace disease. Differential diagnosis includes infection and edema. No significant effusion. Knee X-Ray 07/06/18 19:29 CONCLUSION: No acute findings. Mild osteoarthritis of the right knee. Abdomen/Bladder Ultrasound 07/07/18 00:00 CONCLUSION: 1. Mild increase in echogenicity of the renal cortex. This would suggest underlying medical renal disease. 2. No findings to indicate renal obstruction. Discharge Plan - Discharge Disposition Patient Disposition: /Home Health Service - Discharge Condition Condition: Stable - Discharge Order Discharge Orders: Discharge Order (Routine); Ordered 07/11/18 Ordered By: Nu Juarez - Discharge Details Anticipated Discharge Date: 07/11/18 - Physicians Team Primary Care Provider: UNKNOWN, Attending Provider: Nu Juarez Other Providers: Youneeq,Insurance ; Live Zamarripa MD
--- NOTE | 2018-07-11 15:06 | P.DCO ---
- Diagnosis (1) Acute kidney injury Status: Acute (2) Acute on chronic renal insufficiency Status: Acute - Home Health Nursing Order: Medical education, Signs/symptoms of disease process, Diabetic education , Nursing assessment with vital signs - Case Management Consult Case Management Consult-Home Health: Yes - Certification I have seen patient Smiley Rowley on 07/11/18. My clinical findings support the need for the requested home health care services because: Medication compliance is questionable I certify that my clinical findings support that this patient is homebound because: Need for psychosocial assistance
== END 2018-07-11 16:41 | disposition home health service (06) | DRG 641 ==
LOC: NEPE 18:14 → NEDA 21:16 → HIMC 22:30 → N07 07-09 12:05
PROVIDERS: ADMIT Internal Medicine; ATTEND Internal Medicine
CPT/HCPCS: 71020; 71046; 73564; 76775; 80048; 80053; 80069; 81001; 82550; 82728; 82948; 82962; 83520; 83540; 83550; 83605; 83690; 83735; 83880; 84100; 84484; 85025; 85610; 85730; 87040; 87641; 90765; 90775; 93005; 93306; 94640; 94665; 96365; 96375; 97110; 97116; 97162; 97167; 99285; J1644; J1815; J1940; J7030; J7070

== ENCOUNTER 2018-08-16 19:20 | Inpatient (IN) ==
[2018-08-16] MEDS ORDERED: Sodium Polystyrene Sulfonate/Sorbitol Liq 15 GM/60 ML UDC PO ONE (19:32)
[2018-08-16] MEDS ORDERED: Calcium Gluconate Inj 1 GM in Sodium Chlor 0.9% Inj 100 ML IV.SIG ONE (19:32)
[2018-08-16] MEDS ORDERED: Dextrose 50% in Water 50 ML Vial IV.PUSH ONE (19:32)
--- NOTE | 2018-08-16 20:01 | XR ---
EXAM DATE: 08/16/2018 7:56 PM EST AGE/SEX: 58 years / Female INDICATIONS: Chest pain. CLINICAL DATA: This is the patient's initial encounter. Patient reports that signs and symptoms have been present for 1 day and indicates a pain score of 7/10. MEDICAL/SURGICAL HISTORY: . Myocardial infarction. Chronic obstructive pulmonary disease. Hyper tension. Right eye blindness. Cerebrovascular accident. Congestive heart failure. Coronary artery dis ease. Renal insufficiency. Arthritis. Diabetes. Anxiety. . Tubal ligation. Cholecystectomy. COMPARISON: [facility] – [place] 2V AP&LAT, 07/06/2018. . FINDINGS: The heart is enlarged. Diffuse interstitial infiltrates are noted consistent with moderate pulmonary edema versus pneumonia. Clinical correlation is recommended. Degenerative changes are noted throughou t the thoracic spine. CONCLUSION: 1. Diffuse interstitial infiltrates consistent with moderate pulmonary edema versus pneumonia. Clini gila correlation is recommended. 2. Cardiomegaly. 3. Degenerative changes throughout the thoracic spine. Electronically signed by: Gage Collins MD Board Certified Radiologist 08/16/2018 7:59 PM EST
--- NOTE | 2018-08-16 20:16 | ED ---
HPI General Chief Complaint: Chest Pain Stated Complaint: Cardiac Time Seen by Provider: 08/16/18 19:31 Source: patient Mode of arrival: ambulatory Limitations: no limitations History of Present Illness HPI narrative: 58 yo F c/o shortness of breath at rest, orthopnea, RYAN and chest pain for a few hours. Onset occurred at rest. No fever/chills. Decreased appetite past few days. No change in urine volume or frequency. No dysuria. PMH include CAD, HTN, CKD, CHF, LBBB, COPD and CVA. Pt follows with a PMD in [place]. Three round nitro at home prior to arrival and multiple doses aspirin were not helpful. Related Data Home Medications Medication Instructions Recorded Confirmed aspirin [Aspir-Low] 81 mg PO DAILY 05/29/18 07/06/18 hydralazine 50 mg PO TID 05/29/18 07/06/18 isosorbide mononitrate 60 mg PO DAILY 05/29/18 07/06/18 mometasone-formoterol [Dulera] 2 puff INHALATION Q12H 05/29/18 07/06/18 omega-3 fatty acids-fish oil [Fish 2 cap PO DAILY 05/29/18 07/06/18 Oil] sennosides-docusate sodium [Senna 2 tab PO BID PRN 05/29/18 07/06/18 Plus] tamsulosin 0.4 mg PO DAILY 05/29/18 07/06/18 ticagrelor [Brilinta] 90 mg PO BID 05/29/18 07/06/18 atorvastatin 40 mg PO DAILY 07/06/18 07/06/18 bumetanide 2 mg PO DAILY 07/06/18 07/06/18 carvedilol [Coreg] 25 mg PO BID 07/06/18 07/06/18 lactulose 30 g PO DAILY 07/06/18 07/06/18 omeprazole 40 mg PO DAILY 07/06/18 07/06/18 Previous Rx's Medication Instructions Recorded ranolazine [Ranexa] 500 mg PO BID #30 tab 05/30/18 gabapentin [Neurontin] 300 mg PO BID cap 07/11/18 oxycodone 10 mg PO Q8HR PRN #0 tab 07/11/18 quetiapine 25 mg PO BID tab 07/11/18 Allergies Allergy/AdvReac Type Severity Reaction Status Date / Time iodine Allergy Severe Anaphylaxis Verified 07/06/18 18:28 paroxetine Allergy Severe Anaphylaxis Verified 07/06/18 18:28 penicillin G Allergy Severe Anaphylaxis Verified 07/06/18 18:28 potassium iodide Allergy Severe Anaphylaxis Verified 07/06/18 18:28 povidone-iodine Allergy Severe Anaphylaxis Verified 07/06/18 18:28 sodium iodide Allergy Severe Anaphylaxis Verified 07/06/18 18:28 sodium iodide Allergy Severe Anaphylaxis Verified 07/06/18 18:28 Sulfa (Sulfonamide Allergy Intermediate unknown Verified 07/06/18 18:28 Antibiotics) Review of Systems ROS: all other systems reviewed are negative [facility] Social History Social History Substance History: No History of Abuse Second Hand Smoke Exposure: Yes Smoking Status: Current every day smoker Tobacco Type: Cigarettes Cigarettes Per Day: 5 How Often Do You Have a Drink Containing Alcohol: Never Recent Travel in [facility] within the Last 8 Weeks: No Recent Out of Country Travel within the Last 8 Weeks: No Immunization History Tetanus Immunization: <5 Years Exam Narrative Exam Narrative: GENERAL: 58 yo F, WNWD, mild distress 2/2 pain and or dyspnea. SKIN: Focused skin assessment warm/dry. HEAD: Atraumatic. Normocephalic. EYES: Pupils equal and round. No scleral icterus. No injection or drainage. ENT: No nasal bleeding or discharge. Mucous membranes pink and moist. NECK: Trachea midline. No JVD. CARDIOVASCULAR: Regular rate and rhythm. No murmur appreciated. RESPIRATORY: No accessory muscle use. Clear to auscultation. Breath sounds equal bilaterally. GASTROINTESTINAL: Abdomen soft, non-tender, nondistended. Hepatic and splenic margins not palpable. MUSCULOSKELETAL: One plus pitting edema bilateral lower extremities. No gross deformity. NEUROLOGICAL: Awake and alert. No obvious cranial nerve deficits. Motor grossly within normal limits. Normal speech. PSYCHIATRIC: Appropriate mood and affect; insight and judgment normal. Course Initial Documented Vital Signs Temperature 98.7 F 08/16/18 19:27 Pulse Rate 83 08/16/18 19:27 Respiratory Rate 20 08/16/18 19:27 Blood Pressure 171/72 H 08/16/18 19:27 Pulse Oximetry 100 08/16/18 19:27 Last Documented Vital Signs Temperature 98.7 F 08/16/18 19:27 Pulse Rate 73 08/16/18 19:35 Respiratory Rate 20 08/16/18 19:27 Blood Pressure 171/72 H 08/16/18 19:27 Pulse Oximetry 100 08/16/18 19:27 Medical Decision Making MDM Narrative Medical decision making narrative: EKG sinus LBBB rate 76 similar to prior from approximately 6 weeks prior WBC 13.4 Hb 8.8 PLT 336 Na 129 K 5.4 - pt treated with sodium bicarb, insulin/dextrose, calcium and kayexylate at time of blood draw BUN/Cr 43/2.5 Tn < 0.02 BNP 105 CXR bilateral density concerning for pulmonary edema plus minus pneumonia pt with chest and dyspnea. workup concerning for pna. PSI is 108. Rocephin and azithromyscin started. Call to [facility] at 905PM. d/w Dr De Leon at 910PM. Medical Screen Exam Complete: Yes Emergency Medical Condition: Yes Lab Data Result diagrams: 08/16/18 19:39 08/16/18 19:39 Lab Results 08/16/18 08/16/18 08/16/18 Range/Units 19:39 19:39 19:39 WBC 13.4 H (4.0-11.0) th/mm3 RBC 3.81 L (4.00-5.30) mil/mm3 Hgb 8.8 L (11.6-15.3) gm/dL Hct 27.2 L (35.0-46.0) % MCV 71.5 L (80.0-100.0) fL MCH 23.1 L (27.0-34.0) pg MCHC 32.3 (32.0-36.0) % RDW 15.1 (11.6-17.2) % Plt Count 336 (150-450) th/mm3 MPV 7.6 (7.0-11.0) fL Neut % (Auto) 60.2 (16.0-70.0) % Lymph % (Auto) 24.2 (9.0-44.0) % Rock % (Auto) 10.4 H (0.0-8.0) % Eos % (Auto) 4.7 H (0.0-4.0) % Baso % (Auto) 0.5 (0.0-2.0) % Neut # (Auto) 8.1 H (1.8-7.7) th/mm3 Lymph # (Auto) 3.2 (1.0-4.8) th/mm3 Rock # (Auto) 1.4 H (0.0-0.9) th/mm3 Eos # (Auto) 0.6 H (0.0-0.4) th/mm3 Baso # (Auto) 0.1 (0.0-0.2) th/mm3 WBC Differential . Differential Comment Auto diff final PT (9.8-11.6) sec INR Ratio APTT (23.4-31.7) sec Sodium 129 L (136-145) meq/L Potassium 5.4 H (3.5-5.1) meq/L Chloride 91 L (98-107) meq/L Carbon Dioxide 31.6 (21.0-32.0) meq/L Anion Gap 6 (5-15) meq/L BUN 43 H (7-18) mg/dL Creatinine 2.50 H (0.50-1.00) mg/dL Estimated GFR 24 L (>89) mL/min Random Glucose 130 H (74-106) mg/dL Calcium 9.2 (8.5-10.1) mg/dL Magnesium 2.0 (1.5-2.5) mg/dL Total Bilirubin 0.2 (0.2-1.0) mg/dL AST 18 (15-37) U/L ALT 12 (10-53) U/L Alkaline Phosphatase 84 (45-117) U/L Troponin I Less than 0.02 L (0.02-0.05) ng/mL B-Natriuretic Peptide (0-100) pg/mL Total Protein 7.7 (6.4-8.2) g/dL Albumin 2.9 L (3.4-5.0) g/dL Serum Alcohol Less than 3 (0-5) mg/dL 08/16/18 08/16/18 Range/Units 19:56 19:56 WBC (4.0-11.0) th/mm3 RBC (4.00-5.30) mil/mm3 Hgb (11.6-15.3) gm/dL Hct (35.0-46.0) % MCV (80.0-100.0) fL MCH (27.0-34.0) pg MCHC (32.0-36.0) % RDW (11.6-17.2) % Plt Count (150-450) th/mm3 MPV (7.0-11.0) fL Neut % (Auto) (16.0-70.0) % Lymph % (Auto) (9.0-44.0) % Rock % (Auto) (0.0-8.0) % Eos % (Auto) (0.0-4.0) % Baso % (Auto) (0.0-2.0) % Neut # (Auto) (1.8-7.7) th/mm3 Lymph # (Auto) (1.0-4.8) th/mm3 Rock # (Auto) (0.0-0.9) th/mm3 Eos # (Auto) (0.0-0.4) th/mm3 Baso # (Auto) (0.0-0.2) th/mm3 WBC Differential Differential Comment PT 10.7 (9.8-11.6) sec INR 1.1 Ratio APTT 28.7 (23.4-31.7) sec Sodium (136-145) meq/L Potassium (3.5-5.1) meq/L Chloride (98-107) meq/L Carbon Dioxide (21.0-32.0) meq/L Anion Gap (5-15) meq/L BUN (7-18) mg/dL Creatinine (0.50-1.00) mg/dL Estimated GFR (>89) mL/min Random Glucose (74-106) mg/dL Calcium (8.5-10.1) mg/dL Magnesium (1.5-2.5) mg/dL Total Bilirubin (0.2-1.0) mg/dL AST (15-37) U/L ALT (10-53) U/L Alkaline Phosphatase (45-117) U/L Troponin I (0.02-0.05) ng/mL B-Natriuretic Peptide 105 H (0-100) pg/mL Total Protein (6.4-8.2) g/dL Albumin (3.4-5.0) g/dL Serum Alcohol (0-5) mg/dL Imaging Data Radiologist's impression: Chest X-Ray 08/16/18 19:39 CONCLUSION: 1. Diffuse interstitial infiltrates consistent with moderate pulmonary edema versus pneumonia. Clinical correlation is recommended. 2. Cardiomegaly. 3. Degenerative changes throughout the thoracic spine. Discharge Plan Discharge Disposition Patient Disposition: ED Admit(ED Internal Use Only) Discharge Condition Condition: Stable Physicians Team ED Provider: Manohar Mayfield Primary Care Provider: UNKNOWN, Rxs /Orders / Referrals /Forms Prescriptions: No Action aspirin [Aspir-Low] 81 mg Tablet,Delayed Release (Dr/Ec) 81 mg PO DAILY RF: 0 ticagrelor [Brilinta] 90 mg Tablet 90 mg PO BID RF: 0 sennosides-docusate sodium [Senna Plus] 8.6-50 mg Tablet 2 tab PO BID PRN (Reason: Constipation) RF: 0 isosorbide mononitrate 60 mg Tablet Extended Release 24 Hr 60 mg PO DAILY RF: 0 tamsulosin 0.4 mg Capsule 0.4 mg PO DAILY RF: 0 hydralazine 50 mg Tablet 50 mg PO TID RF: 0 omega-3 fatty acids-fish oil [Fish Oil] 300-1,000 mg Capsule 2 cap PO DAILY RF: 0 mometasone-formoterol [Dulera] 200-5 mcg/actuation Hfa Aerosol Inhaler 2 puff INHALATION Q12H RF: 0 ranolazine [Ranexa] 500 mg Tablet Extended Release 12 Hr 500 mg PO BID Qty: 30 RF: 0 atorvastatin 40 mg Tablet 40 mg PO DAILY RF: 0 carvedilol [Coreg] 25 mg Tablet 25 mg PO BID RF: 0 bumetanide 2 mg Tablet 2 mg PO DAILY RF: 0 omeprazole 40 mg Capsule,Delayed Release(Dr/Ec) 40 mg PO DAILY RF: 0 lactulose 10 gram Packet 30 g PO DAILY RF: 0 oxycodone 10 mg Tablet 10 mg PO Q8HR PRN (Reason: Anxiety) Qty: 0 RF: 0 quetiapine 25 mg Tablet 25 mg PO BID RF: 0 gabapentin [Neurontin] 300 mg Capsule 300 mg PO BID RF: 0 Discharge Instructions Patient Printed Instructions: Chest Pain (ED) Status ED Status: With Doctor
[2018-08-16 20:18] LABS: Alanine Aminotransferase 12 U/L (10-53); Albumin 2.9 g/dL (3.4-5.0); Anion Gap 6 meq/L (5-15); Aspartate Aminotransferase 18 U/L (15-37); Blood Urea Nitrogen 43 mg/dL (7-18); Calcium 9.2 mg/dL (8.5-10.1); Carbon Dioxide 31.6 meq/L (21.0-32.0); Chloride 91 meq/L (98-107); Glomerular Filtration Rate 24 mL/min (>89); Glucose,Random 130 mg/dL (74-106); Potassium 5.4 meq/L (3.5-5.1); Sodium 129 meq/L (136-145)
[2018-08-16 20:21] LABS: Alkaline Phosphatase 84 U/L (45-117); Total Protein 7.7 g/dL (6.4-8.2)
[2018-08-16 20:34] LABS: Activated Partial Thrombo Time 28.7 sec (23.4-31.7); INR 1.1 Ratio; Prothrombin Time 10.7 sec (9.8-11.6)
[2018-08-16 20:54] LABS: Baso # (Auto) 0.1 th/mm3 (0.0-0.2); Baso % (Auto) 0.5 % (0.0-2.0); Eos # (Auto) 0.6 th/mm3 (0.0-0.4); Eos % (Auto) 4.7 % (0.0-4.0); Hematocrit 27.2 % (35.0-46.0); Hemoglobin 8.8 gm/dL (11.6-15.3); Lymph # (Auto) 3.2 th/mm3 (1.0-4.8); Lymph % (Auto) 24.2 % (9.0-44.0); Mean Corpuscular HGB Conc 32.3 % (32.0-36.0); Mean Corpuscular Hemoglobin 23.1 pg (27.0-34.0); Mean Corpuscular Volume 71.5 fL (80.0-100.0); Mean Platelet Volume 7.6 fL (7.0-11.0); Mono # (Auto) 1.4 th/mm3 (0.0-0.9); Mono % (Auto) 10.4 % (0.0-8.0); Neut # (Auto) 8.1 th/mm3 (1.8-7.7); Neut % (Auto) 60.2 % (16.0-70.0); Platelet Count 336 th/mm3 (150-450); Red Blood Count 3.81 mil/mm3 (4.00-5.30); Red Cell Distribution Width 15.1 % (11.6-17.2); White Blood Count 13.4 th/mm3 (4.0-11.0)
[2018-08-16] MEDS ORDERED: HYDROmorphone PF Inj 2 MG/ML Vial IV.PUSH ONE (20:58)
[2018-08-16] MEDS ORDERED: Azithromycin Inj 500 MG in Sodium Chlor 0.9% Inj 250 ML IV.SIG ONE (21:01)
[2018-08-16] MEDS ORDERED: Acetaminophen 325 MG Tablet PO PRN (21:23)
[2018-08-16] MEDS ORDERED: Sod Chloride 0.9% Inj 1,000 ML IV.CONT SCH (21:30)
--- NOTE | 2018-08-16 22:30 | P.HP ---
History of Present Illness Service: [facility] Primary Care Physician: UNKNOWN History of Present Illness: 58-year-old female past medical history significant for CAD status post stent placement, anxiety/bipolar disorder, chronic kidney disease, diabetes mellitus, congestive heart failure, hypertension and hyperlipidemia presents to the emergency department for the evaluation of chest pain. The patient reports acute onset left arm pain that radiates up to her chest that started at 630 this evening while she was at rest. She endorses accompanying shortness of breath. She states she has had fever/chills times 2 days and a cough productive of yellow sputum times 2 weeks. No abdominal pain. No nausea/ vomiting/diarrhea. No focal neurologic deficits. Inpatient Certification: I certify that the inpatient services were ordered in accordance with Medicare regulations governing the order. This includes certification that hospital inpatient services are reasonable and necessary and in the case of services not specified as inpatient-only under 42 CFR 419.22(n), that they are appropriately provided as inpatient services in accordance to with the 2-midnight benchmark under 43 CFR 412.3(e) Estimated Total Length of Stay (Days): 2 Plans for Post Hospital Care: Home Review of Systems All other systems reviewed negative except as stated in HPI [facility] - History History Provided By: Patient - Medical History Medical History: Medical History (Last Updated 08/16/18 @ 22:17 by Trish De Leon MD) Coronary artery disease Hyperlipidemia Hypertension Anxiety Bipolar disorder Chronic renal failure Diabetes Heart failure Nicotine dependence - Surgical History Surgical History: Surgical History (Last Reviewed 08/16/18 @ 22:17 by Trish De Leon MD) H/O heart artery stent S/P cholecystectomy - Family History Family History: Family History (Last Updated 08/16/18 @ 22:17 by Trish De Leon MD) Other CAD (coronary artery disease) CVA (cerebral vascular accident) Diabetes mellitus Hypertension - Tobacco History Second Hand Smoke Exposure: Yes Tobacco Use In Past 30 Days: Yes Smoking Status: Current every day smoker Tobacco Type: Cigarettes Cigarettes Per Day: 5 - Alcohol History How Often Do You Have a Drink Containing Alcohol: Never - Substance Use History Substance History: No History of Abuse - Travel History Recent Travel in the [place] Within the Last 8 Weeks: No Recent Travel Out of the Country Within the Last 8 Weeks: No - Immunization History Tetanus Immunization: <5 Years Medications and Allergies Active Medications: Active Medications Acetaminophen (Tylenol) 650 mg PO Q4H PRN PRN Reason: Temp > 100.4 Albuterol (Duoneb Neb (Prn)) 1 ampul NEB Q2HR NEB PRN PRN Reason: sob Albuterol (Duoneb Neb ([place])) 1 ampul NEB Q6HR NEB [place] Last Admin: 08/16/18 21:39 Dose: 1 ampul Heparin Sodium (Porcine) (Heparin Inj) 5,000 units SQ Q12H [place] Azithromycin 500 mg/ Sodium (Chloride) 250 mls @ 250 mls/hr IV.SIG Q24H [place] Ceftriaxone Sodium 1,000 mg/ (Sodium Chloride) 100 mls @ 200 mls/hr IV.SIG Q24H [place] Sodium Chloride (Ns Inj) 1,000 mls @ 100 mls/hr IV.CONT .Q10H [place] Ondansetron HCl (Zofran Inj) 4 mg IV.PUSH Q6H PRN PRN Reason: NAUSEA OR VOMITING Sodium Chloride (Ns Flush) 2 ml IV.FLUSH BID [facility] Sodium Chloride (Ns Flush) 2 ml IV.FLUSH PRN PRN PRN Reason: FLUSH AFTER USING IV ACCESS Allergies Allergy/AdvReac Type Severity Reaction Status Date / Time iodine Allergy Severe Anaphylaxis Verified 07/06/18 18:28 paroxetine Allergy Severe Anaphylaxis Verified 07/06/18 18:28 penicillin G Allergy Severe Anaphylaxis Verified 07/06/18 18:28 potassium iodide Allergy Severe Anaphylaxis Verified 07/06/18 18:28 povidone-iodine Allergy Severe Anaphylaxis Verified 07/06/18 18:28 sodium iodide Allergy Severe Anaphylaxis Verified 07/06/18 18:28 sodium iodide Allergy Severe Anaphylaxis Verified 07/06/18 18:28 Sulfa (Sulfonamide Allergy Intermediate unknown Verified 07/06/18 18:28 Antibiotics) Home Medications Medication Instructions Recorded Confirmed Type aspirin [Aspir-Low] 81 mg PO DAILY 05/29/18 07/06/18 History hydralazine 50 mg PO TID 05/29/18 07/06/18 History isosorbide mononitrate 60 mg PO DAILY 05/29/18 07/06/18 History mometasone-formoterol [Dulera] 2 puff INHALATION Q12H 05/29/18 07/06/18 History omega-3 fatty acids-fish oil [Fish 2 cap PO DAILY 05/29/18 07/06/18 History Oil] sennosides-docusate sodium [Senna 2 tab PO BID PRN 05/29/18 07/06/18 History Plus] tamsulosin 0.4 mg PO DAILY 05/29/18 07/06/18 History ticagrelor [Brilinta] 90 mg PO BID 05/29/18 07/06/18 History atorvastatin 40 mg PO DAILY 07/06/18 07/06/18 History bumetanide 2 mg PO DAILY 07/06/18 07/06/18 History carvedilol [Coreg] 25 mg PO BID 07/06/18 07/06/18 History lactulose 30 g PO DAILY 07/06/18 07/06/18 History omeprazole 40 mg PO DAILY 07/06/18 07/06/18 History Exam Vital signs: Vital Signs 08/16/18 19:27 08/16/18 19:35 08/16/18 21:39 Temperature 98.7 F Pulse Rate 83 73 74 Respiratory Rate 20 16 Blood Pressure 171/72 H Pulse Oximetry 100 100 Intake & Output 08/16/18 08/16/18 08/17/18 06:59 18:59 06:59 Intake Total 110 / 110 Balance 110 / 110 Weight 49.442 kg Intake: IV 110 / 110 Calcium Gluconate Inj 1 GM In 110 / 110 NS Inj 100 ML @ 110 mls/hr IV. SIG ONCE ONE Rx#:[id number] Narrative: Gen.: No acute distress Head: Normocephalic. Atraumatic. EENT: Pupils equal round and reactive to light. Nose without drainage. Airway intact. Throat without injection. Cardiovascular: Regular rate and rhythm. No murmurs, rubs or gallops. Respiratory: Lungs clear to auscultation bilaterally. No wheezes or rhonchi. Abdomen: Soft, nontender, nondistended. No peritoneal signs. Musculoskeletal: No gross deformities. No edema. Skin: No obvious rashes or erythema. Neuro: Sensory and motor grossly intact. Cranial nerves II through XII grossly intact. Results - Labs CBC & Chem 7: 08/16/18 19:39 08/16/18 19:39 Labs: Laboratory Results - last 24 hr 08/16/18 08/16/18 08/16/18 19:39 19:39 19:39 WBC 13.4 H RBC 3.81 L Hgb 8.8 L Hct 27.2 L MCV 71.5 L MCH 23.1 L MCHC 32.3 RDW 15.1 Plt Count 336 MPV 7.6 Neut % (Auto) 60.2 Lymph % (Auto) 24.2 Rock % (Auto) 10.4 H Eos % (Auto) 4.7 H Baso % (Auto) 0.5 Neut # (Auto) 8.1 H Lymph # (Auto) 3.2 Rock # (Auto) 1.4 H Eos # (Auto) 0.6 H Baso # (Auto) 0.1 WBC Differential . Differential Comment Auto diff final PT INR APTT Sodium 129 L Potassium 5.4 H Chloride 91 L Carbon Dioxide 31.6 Anion Gap 6 BUN 43 H Creatinine 2.50 H Estimated GFR 24 L Random Glucose 130 H Calcium 9.2 Magnesium 2.0 Total Bilirubin 0.2 AST 18 ALT 12 Alkaline Phosphatase 84 Troponin I Less than 0.02 L B-Natriuretic Peptide Total Protein 7.7 Albumin 2.9 L Serum Alcohol Less than 3 08/16/18 08/16/18 19:56 19:56 WBC RBC Hgb Hct MCV MCH MCHC RDW Plt Count MPV Neut % (Auto) Lymph % (Auto) Rock % (Auto) Eos % (Auto) Baso % (Auto) Neut # (Auto) Lymph # (Auto) Rock # (Auto) Eos # (Auto) Baso # (Auto) WBC Differential Differential Comment PT 10.7 INR 1.1 APTT 28.7 Sodium Potassium Chloride Carbon Dioxide Anion Gap BUN Creatinine Estimated GFR Random Glucose Calcium Magnesium Total Bilirubin AST ALT Alkaline Phosphatase Troponin I B-Natriuretic Peptide 105 H Total Protein Albumin Serum Alcohol - Imaging Impressions Chest X-Ray 08/16/18 19:39 CONCLUSION: 1. Diffuse interstitial infiltrates consistent with moderate pulmonary edema versus pneumonia. Clinical correlation is recommended. 2. Cardiomegaly. 3. Degenerative changes throughout the thoracic spine. Caprini VTE Risk Assessment Caprini VTE Risk Assessment: No/Low Risk (score <= 1) Caprini Risk Assessment Model: Point Value = 1 Point Value = 2 Point Value = 3 Point Value = 5 Age 41-60 Minor surgery BMI > 25 kg/m2 Swollen legs Varicose veins or History of unexplained or recurrent spontaneous Oral contraceptives or hormone replacement Sepsis (< 1 month) Serious lung disease, including pneumonia (< 1 month) Abnormal pulmonary function Acute myocardial infarction Congestive heart failure (< 1 month) History of inflammatory bowel disease Medical patient at bed rest Age 61-74 Arthroscopic surgery Major open surgery (> 45 min) Laparoscopic surgery (> 45 min) Malignancy Confined to bed (> 72 hours) Immobilizing plaster cast Central venous access Age >= 75 History of VTE Family history of VTE Factor V Leiden Prothrombin [id number] Lupus anticoagulant Anticardiolipin antibodies Elevated serum homocysteine Heparin-induced thrombocytopenia Other congenital or acquired thrombophilia Stroke (< 1 month) Elective arthroplasty Hip, pelvis, or leg fracture Acute spinal cord injury (< 1 month) Prophylaxis Regimen: Total Risk Factor Score Risk Level Prophylaxis Regimen 0-1 Low Early ambulation 2 Moderate Order ONE of the following: *Sequential Compression Device (SCD) *Heparin 5000 units SQ BID 3-4 Higher Order ONE of the following medications: *Heparin 5000 units SQ TID *Enoxaparin/Lovenox 40 mg SQ daily (WT < 150 kg, CrCl > 30 mL/min) *Enoxaparin/Lovenox 30 mg SQ daily (WT < 150 kg, CrCl > 10-29 mL/min) *Enoxaparin/Lovenox 30 mg SQ BID (WT < 150 kg, CrCl > 30 mL/min) AND/OR *Sequential Compression Device (SCD) 5 or more Highest Order ONE of the following medications: *Heparin 5000 units SQ TID (Preferred with Epidurals) *Enoxaparin/Lovenox 40 mg SQ daily (WT < 150 kg, CrCl > 30 mL/min) *Enoxaparin/Lovenox 30 mg SQ daily (WT < 150 kg, CrCl > 10-29 mL/min) *Enoxaparin/Lovenox 30 mg SQ BID (WT < 150 kg, CrCl > 30 mL/min) AND *Sequential Compression Device (SCD) Assessment and Plan - Plan Assessment/plan: 1. Chest pain/CAD Patient reports sudden onset of chest pain Continue Brilinta EKG without signs of ischemia, left bundle branch block present on previous EKG , personally reviewed Initial troponin negative ACS rule out pending; serial troponins/EKGs 2. Hyperkalemia EKG with peaked T waves Status post insulin, sodium bicarbonate, serum gluconate and Kayexalate in the ED Repeat BMP at midnight Monitor on telemetry 3. Pneumonia/COPD Chest x-ray significant for diffuse interstitial infiltrates bilaterally Azithromycin/Rocephin Duo nebs Wean oxygen to maintain saturations 88-92% 4. Diabetes mellitus Scale insulin Monitor blood glucose 5. Hypertension/hyperlipidemia Continue home medication 6. CHF Continue home Bumex Caution with IV fluids FEN N.p.o. Electrolytes: As above Heparin
[2018-08-16] MEDS: Heparin - SQ 10,000 UNITS/ML Vial SQ SCH (23:19)
[2018-08-17 02:00] LABS: Baso # (Auto) 0.1 th/mm3 (0.0-0.2); Baso % (Auto) 0.4 % (0.0-2.0); Eos # (Auto) 0.7 th/mm3 (0.0-0.4); Eos % (Auto) 4.3 % (0.0-4.0); Hematocrit 28.8 % (35.0-46.0); Hemoglobin 9.3 gm/dL (11.6-15.3); Lymph # (Auto) 2.9 th/mm3 (1.0-4.8); Lymph % (Auto) 19.1 % (9.0-44.0); Mean Corpuscular HGB Conc 32.1 % (32.0-36.0); Mean Corpuscular Hemoglobin 23.2 pg (27.0-34.0); Mean Corpuscular Volume 72.2 fL (80.0-100.0); Mean Platelet Volume 7.4 fL (7.0-11.0); Mono # (Auto) 1.6 th/mm3 (0.0-0.9); Mono % (Auto) 10.2 % (0.0-8.0); Neut # (Auto) 10.1 th/mm3 (1.8-7.7); Platelet Count 343 th/mm3 (150-450); Red Blood Count 3.99 mil/mm3 (4.00-5.30); Red Cell Distribution Width 15.1 % (11.6-17.2); White Blood Count 15.3 th/mm3 (4.0-11.0)
[2018-08-17 02:19] LABS: Calcium 9.3 mg/dL (8.5-10.1); Carbon Dioxide 33.9 meq/L (21.0-32.0); Potassium 4.8 meq/L (3.5-5.1)
[2018-08-17 02:22] LABS: Troponin I 0.03 ng/mL (0.02-0.05)
[2018-08-17] MEDS: Morphine Inj 4 MG/ML Vial IV.PUSH PRN ×2 (03:27→09:32)
[2018-08-17] MEDS ORDERED: Dextrose 50% in Water 50 ML Vial IV.PUSH PRN (03:42)
[2018-08-17 08:51] LABS: Troponin I 0.03 ng/mL (0.02-0.05)
[2018-08-17] MEDS ORDERED: Carvedilol 12.5 MG Tablet PO SCH (09:00)
[2018-08-17] MEDS ORDERED: Gabapentin 300 MG Capsule PO SCH (09:00)
[2018-08-17] MEDS ORDERED: Aspirin 325 MG Tablet PO SCH (09:00)
[2018-08-17] MEDS ORDERED: Ranolazine 500 MG 12HR ER Tablet PO SCH (09:00)
[2018-08-17] MEDS ORDERED: QUEtiapine 25 MG Tablet PO SCH (09:00)
[2018-08-17] MEDS ORDERED: Isosorbide Mononitrate 60 MG ER 24HR Tablet (Imdur) PO SCH (09:00)
[2018-08-17] MEDS: hydrALAZINE 50 MG Tablet PO SCH ×2 (09:27→13:20)
[2018-08-17] MEDS: Heparin - SQ 10,000 UNITS/ML Vial SQ SCH (10:33)
--- NOTE | 2018-08-17 13:24 | P.PNIM ---
Subjective Interval history: Patient reports she is feeling much better. She is requesting to be discharged. She states she has oxygen at home and normally is on 4 L. She feels back to baseline. Physical Exam Vital signs: Last Vital Signs Temp 98.2 F 08/17/18 08:00 Pulse 75 08/17/18 09:51 Resp 18 08/17/18 09:51 BP 120/58 L 08/17/18 08:00 Pulse Ox 100 08/17/18 08:00 Intake & Output 08/15/18 08/16/18 08/17/18 08/18/18 06:59 06:59 06:59 06:59 Intake Total 110 / 110 Output Total 1050 / 1050 Balance -940 / -940 Weight 81.6 kg Narrative: Gen.: No acute distress Head: Normocephalic. Atraumatic. Cardiovascular: Regular rate and rhythm. No murmurs, rubs or gallops. Respiratory: Diminished breath sounds at the bases bilaterally otherwise clear to auscultation. Abdomen: Soft, nontender, nondistended. No peritoneal signs. Musculoskeletal: No gross deformities. No edema. Skin: No obvious rashes or erythema. Neuro: Sensory and motor grossly intact. Cranial nerves II through XII grossly intact. Results Labs CBC & Chem 7: 08/17/18 01:32 08/17/18 01:32 Labs: Microbiology 08/16/18 20:55 Blood - Peripheral Aerobic Blood Culture - Preliminary No growth in 1 day 08/16/18 20:55 Blood - Peripheral Anaerobic Blood Culture - Preliminary No growth in 1 day 08/16/18 21:15 Blood - Peripheral Aerobic Blood Culture - Preliminary No growth in 1 day 08/16/18 21:15 Blood - Peripheral Anaerobic Blood Culture - Preliminary No growth in 1 day Imaging Imaging: Impressions Chest X-Ray 08/16/18 19:39 CONCLUSION: 1. Diffuse interstitial infiltrates consistent with moderate pulmonary edema versus pneumonia. Clinical correlation is recommended. 2. Cardiomegaly. 3. Degenerative changes throughout the thoracic spine. Assessment and Plan Plan 58-year-old female who presented to the emergency room with complaint of chest pain. 1. Chest pain/CAD: Chest pain completely resolved. Patient reports sudden onset of chest pain Continue Brilinta EKG without signs of ischemia. Serial troponins negative. 2. Hyperkalemia EKG with peaked T waves Status post insulin, sodium bicarbonate, serum gluconate and Kayexalate in the ED Potassium levels normalized. 3. Pneumonia/COPD Chest x-ray significant for diffuse interstitial infiltrates bilaterally Patient treated with azithromycin/Rocephin Duo nebs Wean oxygen to maintain saturations 88-92% She is discharged on cefuroxime and azithromycin to complete the course of treatment. 4. Diabetes mellitus Sliding scale insulin 5. Hypertension/hyperlipidemia Continue home medication 6. CHF Continue home Bumex Discharge Planning: The patient quickly improved. She is discharged in stable condition to follow-up outpatient. Discharge patient to home Condition on discharge: Improved Regular Diet as tolerated Ad Grace activity Rx written: Per med rec Follow-up with primary care physician Progress Note: Quality VTE Deep Vein Thrombosis/Pulmonary Embolism Present on Admission: No
[2018-08-17 15:35] VITALS: BP 115/51; PULSE 72; RESP 16; TEMP 98.1; O2SAT 97
[2018-08-17] MEDS ORDERED: Azithromycin Inj 500 MG in Sodium Chlor 0.9% Inj 250 ML IV.SIG SCH (21:00)
--- NOTE | 2018-08-18 01:35 | ECG ---
Date Performed: 08/16/2018 Time Performed: 19:30:20 PTAGE: 58 years EKG: Sinus rhythm MARKED LEFT AXIS DEVIATION LEFT BUNDLE BRANCH BLOCK ABNORMAL ECG PREVIOUS TRACING : 07/07/2018 05.52 Since the previous tracing, no significant change noted DOCTOR: Rufus Mayfield Interpretating Date/Time 08/18/2018 01:34:45
--- NOTE | 2018-08-18 01:46 | ECG ---
Date Performed: 08/17/2018 Time Performed: 01:26:46 PTAGE: 58 years EKG: Sinus rhythm Left axis deviation Left bundle branch block Abnormal ECG Since the PREVIOUS TRACING , no significant change noted DOCTOR: Rufus Mayfield Interpretating Date/Time 08/18/2018 01:44:42
--- NOTE | 2018-08-18 01:55 | ECG ---
Date Performed: 08/17/2018 Time Performed: 06:10:02 PTAGE: 58 years EKG: Sinus rhythm Left axis deviation Left bundle branch block Abnormal ECG PREVIOUS TRACING : 08/16/2018 19.30 Since the previous tracing, no significant change noted DOCTOR: Rufus Mayfield Interpretating Date/Time 08/18/2018 01:54:50
== END 2018-08-17 15:07 | disposition home or self-care (01) ==
LOC: NEPE 19:20 → NEDA 21:18 → N04 08-17 00:51
PROVIDERS: ADMIT Family Medicine; ATTEND Family Medicine